=== PATIENT | female | born 1955 | race Caucasian/White ===

== ENCOUNTER 2020-05-11 12:18 | Outpatient (REF) | payer MEDICARE, OTHER, SELFPAY ==
[2020-05-11 13:15] LABS: MANUAL DIFF FLAG NO
[2020-05-11 13:18] LABS: Basophils Percent Auto 0.4 % (0-2); Eosinophils Absolute Auto 0.1 X10*3/uL (0.0-0.4); Eosinophils Percent Auto 1.1 % (0-4); Hematocrit 39.2 % (37-47); Hemoglobin 12.7 g/dl (12.0-16.0); Imm Gran Abs Auto 0.01 X10*3/uL (0.00-0.03); Imm Gran Pct Auto 0.2 % (0.0-0.4); Lymphocytes Absolute Auto 0.8 X10*3/uL (1.2-4.9); Lymphocytes Percent Auto 16.6 % (20-40); Mean Corpuscular HGB Conc 32.4 g/dl (31.0-35.0); Mean Corpuscular Volume 98.7 fL (80-98); Monocytes Absolute Auto 0.6 X10*3/uL (0.1-1.2); Monocytes Percent Auto 11.6 % (2-11); Neutrophils Absolute Auto 3.3 X10*3/uL (2.0-8.3); Neutrophils Percent Auto 70.1 % (45-73); Platelet Count 368 X10*3/uL (160-400); Red Blood Count 3.97 X10*6/uL (4.20-5.50); Red Cell Distribution Width 14.5 % (11.0-16.0); White Blood Count 4.8 X10*3/uL (4.8-10.8)
[2020-05-11 13:42] LABS: Alanine Aminotransferase 17 U/L (0-31); Albumin Level 3.8 g/dL (3.5-5.0); Alkaline Phosphatase 83 U/L (39-117); Aspartate Amino Transferase 22 U/L (5-31); Bilirubin Direct < 0.2 mg/dL (0.0-0.5); Bilirubin Total 0.3 mg/dL (0.0-1.0); Total Protein 6.2 g/dL (6.5-8.0)
== END 2020-05-11 12:19 | disposition home or self-care (01) ==
LOC: HO.LAB 12:18
PROVIDERS: PCP Internal Medicine; Visit Provider Internal Medicine
DX: K50.012 Crohn's disease of small intestine with intestinal obstruction (principal)
CPT/HCPCS: 36415; 80076; 85025

== ENCOUNTER 2020-06-08 15:39 | Outpatient (REF) | payer MEDICARE, OTHER, SELFPAY ==
[2020-06-08 16:04] LABS: MANUAL DIFF FLAG NO
[2020-06-08 16:10] LABS: Basophils Percent Auto 0.6 % (0-2); Eosinophils Absolute Auto 0.1 X10*3/uL (0.0-0.4); Eosinophils Percent Auto 2.4 % (0-4); Hematocrit 41.1 % (37-47); Hemoglobin 13.4 g/dl (12.0-16.0); Imm Gran Abs Auto 0.02 X10*3/uL (0.00-0.03); Imm Gran Pct Auto 0.4 % (0.0-0.4); Lymphocytes Percent Auto 18.9 % (20-40); Mean Corpuscular HGB Conc 32.6 g/dl (31.0-35.0); Mean Corpuscular Volume 98.1 fL (80-98); Mean Platelet Volume 8.6 fL (9.4-12.3); Monocytes Absolute Auto 0.6 X10*3/uL (0.1-1.2); Monocytes Percent Auto 11.4 % (2-11); Neutrophils Absolute Auto 3.3 X10*3/uL (2.0-8.3); Neutrophils Percent Auto 66.3 % (45-73); Platelet Count 310 X10*3/uL (160-400); Red Blood Count 4.19 X10*6/uL (4.20-5.50); Red Cell Distribution Width 13.3 % (11.0-16.0)
[2020-06-08 16:32] LABS: Alanine Aminotransferase 21 U/L (0-31); Albumin Level 3.8 g/dL (3.5-5.0); Alkaline Phosphatase 80 U/L (39-117); Aspartate Amino Transferase 25 U/L (5-31); Bilirubin Direct < 0.2 mg/dL (0.0-0.5); Bilirubin Total 0.4 mg/dL (0.0-1.0); Total Protein 6.4 g/dL (6.5-8.0)
== END 2020-06-08 15:40 | disposition home or self-care (01) ==
LOC: HO.LABR 15:39
PROVIDERS: PCP Internal Medicine; Visit Provider Internal Medicine
DX: K50.012 Crohn's disease of small intestine with intestinal obstruction (principal)
CPT/HCPCS: 36415; 80076; 85025

== ENCOUNTER 2020-07-06 15:27 | Outpatient (REF) | payer MEDICARE, OTHER, SELFPAY ==
[2020-07-06 17:08] LABS: MANUAL DIFF FLAG NO
[2020-07-06 17:16] LABS: Basophils Percent Auto 0.4 % (0-2); Eosinophils Absolute Auto 0.1 X10*3/uL (0.0-0.4); Hematocrit 41.3 % (37-47); Hemoglobin 13.9 g/dl (12.0-16.0); Imm Gran Abs Auto 0.01 X10*3/uL (0.00-0.03); Imm Gran Pct Auto 0.2 % (0.0-0.4); Lymphocytes Absolute Auto 0.9 X10*3/uL (1.2-4.9); Lymphocytes Percent Auto 19.2 % (20-40); Mean Corpuscular HGB Conc 33.7 g/dl (31.0-35.0); Mean Corpuscular Hemoglobin 32.8 pg (27.0-33.0); Mean Corpuscular Volume 97.4 fL (80-98); Mean Platelet Volume 9.4 fL (9.4-12.3); Monocytes Absolute Auto 0.6 X10*3/uL (0.1-1.2); Neutrophils Percent Auto 66.2 % (45-73); Platelet Count 310 X10*3/uL (160-400); Red Blood Count 4.24 X10*6/uL (4.20-5.50); Red Cell Distribution Width 12.8 % (11.0-16.0); White Blood Count 4.6 X10*3/uL (4.8-10.8)
[2020-07-06 17:56] LABS: Alanine Aminotransferase 22 U/L (0-31); Albumin Level 3.9 g/dL (3.5-5.0); Alkaline Phosphatase 89 U/L (39-117); Aspartate Amino Transferase 24 U/L (5-31); Bilirubin Direct < 0.2 mg/dL (0.0-0.5); Bilirubin Total 0.3 mg/dL (0.0-1.0); Total Protein 6.4 g/dL (6.5-8.0)
== END 2020-07-06 15:28 | disposition home or self-care (01) ==
LOC: HO.LABR 15:27
PROVIDERS: PCP Internal Medicine; Visit Provider Internal Medicine
DX: K50.012 Crohn's disease of small intestine with intestinal obstruction (principal)
CPT/HCPCS: 36415; 80076; 85025

== ENCOUNTER 2020-08-03 12:42 | Outpatient (REF) | payer MEDICARE, OTHER, SELFPAY ==
[2020-08-03 13:06] LABS: MANUAL DIFF FLAG NO
[2020-08-03 13:16] LABS: Basophils Percent Auto 0.6 % (0-2); Eosinophils Absolute Auto 0.1 X10*3/uL (0.0-0.4); Eosinophils Percent Auto 1.4 % (0-4); Hematocrit 43.2 % (37-47); Hemoglobin 14.1 g/dl (12.0-16.0); Imm Gran Abs Auto 0.02 X10*3/uL (0.00-0.03); Imm Gran Pct Auto 0.4 % (0.0-0.4); Lymphocytes Absolute Auto 0.8 X10*3/uL (1.2-4.9); Lymphocytes Percent Auto 16.5 % (20-40); Mean Corpuscular HGB Conc 32.6 g/dl (31.0-35.0); Mean Corpuscular Hemoglobin 31.7 pg (27.0-33.0); Mean Corpuscular Volume 97.1 fL (80-98); Mean Platelet Volume 9.1 fL (9.4-12.3); Monocytes Absolute Auto 0.6 X10*3/uL (0.1-1.2); Monocytes Percent Auto 11.2 % (2-11); Neutrophils Absolute Auto 3.4 X10*3/uL (2.0-8.3); Neutrophils Percent Auto 69.9 % (45-73); Platelet Count 312 X10*3/uL (160-400); Red Blood Count 4.45 X10*6/uL (4.20-5.50); Red Cell Distribution Width 12.8 % (11.0-16.0); White Blood Count 4.9 X10*3/uL (4.8-10.8)
[2020-08-03 13:41] LABS: Alanine Aminotransferase 21 U/L (0-31); Albumin Level 3.8 g/dL (3.5-5.0); Alkaline Phosphatase 85 U/L (39-117); Aspartate Amino Transferase 20 U/L (5-31); Bilirubin Direct < 0.2 mg/dL (0.0-0.5); Bilirubin Total 0.2 mg/dL (0.0-1.0); Total Protein 6.2 g/dL (6.5-8.0)
== END 2020-08-03 12:43 | disposition home or self-care (01) ==
LOC: HO.LABR 12:42
PROVIDERS: PCP Internal Medicine; Visit Provider Internal Medicine
DX: K50.012 Crohn's disease of small intestine with intestinal obstruction (principal)
CPT/HCPCS: 36415; 80076; 85025

== ENCOUNTER 2020-09-04 10:32 | Outpatient (REF) | payer MEDICARE, OTHER, SELFPAY ==
[2020-09-04 11:40] LABS: MANUAL DIFF FLAG NO
[2020-09-04 11:43] LABS: Basophils Percent Auto 0.4 % (0-2); Eosinophils Absolute Auto 0.1 X10*3/uL (0.0-0.4); Eosinophils Percent Auto 1.2 % (0-4); Hematocrit 42.2 % (37-47); Imm Gran Abs Auto 0.01 X10*3/uL (0.00-0.03); Imm Gran Pct Auto 0.2 % (0.0-0.4); Lymphocytes Absolute Auto 0.8 X10*3/uL (1.2-4.9); Lymphocytes Percent Auto 16.8 % (20-40); Mean Corpuscular HGB Conc 33.2 g/dl (31.0-35.0); Mean Corpuscular Hemoglobin 32.1 pg (27.0-33.0); Mean Corpuscular Volume 96.8 fL (80-98); Monocytes Absolute Auto 0.4 X10*3/uL (0.1-1.2); Monocytes Percent Auto 8.9 % (2-11); Neutrophils Absolute Auto 3.6 X10*3/uL (2.0-8.3); Neutrophils Percent Auto 72.5 % (45-73); Platelet Count 269 X10*3/uL (160-400); Red Blood Count 4.36 X10*6/uL (4.20-5.50); Red Cell Distribution Width 12.6 % (11.0-16.0); White Blood Count 4.9 X10*3/uL (4.8-10.8)
[2020-09-04 12:22] LABS: Alanine Aminotransferase 29 U/L (0-31); Albumin Level 3.8 g/dL (3.5-5.0); Alkaline Phosphatase 88 U/L (39-117); Aspartate Amino Transferase 27 U/L (5-31); Bilirubin Direct < 0.2 mg/dL (0.0-0.5); Bilirubin Total 0.5 mg/dL (0.0-1.0); Total Protein 6.4 g/dL (6.5-8.0)
== END 2020-09-04 10:33 | disposition home or self-care (01) ==
LOC: HO.LABR 10:32
PROVIDERS: PCP Internal Medicine; Visit Provider Internal Medicine
DX: K50.012 Crohn's disease of small intestine with intestinal obstruction (principal)
CPT/HCPCS: 36415; 80076; 85025

== ENCOUNTER 2020-10-01 16:14 | Outpatient (REF) | payer MEDICARE, OTHER, SELFPAY ==
[2020-10-01 16:33] LABS: MANUAL DIFF FLAG NO
[2020-10-01 16:39] LABS: Basophils Percent Auto 0.7 % (0-2); Eosinophils Absolute Auto 0.1 X10*3/uL (0.0-0.4); Eosinophils Percent Auto 1.1 % (0-4); Hematocrit 38.5 % (37-47); Hemoglobin 13.1 g/dl (12.0-16.0); Imm Gran Abs Auto 0.01 X10*3/uL (0.00-0.03); Imm Gran Pct Auto 0.2 % (0.0-0.4); Mean Corpuscular Hemoglobin 32.3 pg (27.0-33.0); Mean Corpuscular Volume 94.8 fL (80-98); Mean Platelet Volume 9.2 fL (9.4-12.3); Monocytes Absolute Auto 0.5 X10*3/uL (0.1-1.2); Monocytes Percent Auto 11.1 % (2-11); Neutrophils Absolute Auto 2.9 X10*3/uL (2.0-8.3); Neutrophils Percent Auto 64.9 % (45-73); Platelet Count 245 X10*3/uL (160-400); Red Blood Count 4.06 X10*6/uL (4.20-5.50); Red Cell Distribution Width 13.4 % (11.0-16.0); White Blood Count 4.5 X10*3/uL (4.8-10.8)
[2020-10-01 17:09] LABS: Alanine Aminotransferase 53 U/L (0-31); Albumin Level 3.9 g/dL (3.5-5.0); Alkaline Phosphatase 102 U/L (39-117); Aspartate Amino Transferase 38 U/L (5-31); Bilirubin Direct 0.2 mg/dL (0.0-0.5); Bilirubin Total 0.5 mg/dL (0.0-1.0); Total Protein 6.3 g/dL (6.5-8.0)
== END 2020-10-01 16:15 | disposition home or self-care (01) ==
LOC: HO.LAB 16:14
PROVIDERS: PCP Internal Medicine; Visit Provider Internal Medicine
DX: K50.012 Crohn's disease of small intestine with intestinal obstruction (principal)
CPT/HCPCS: 36415; 80076; 85025

== ENCOUNTER 2020-10-09 15:30 | Outpatient (RCR) | payer MEDICARE, OTHER, SELFPAY | END 2020-11-17 15:07 | disposition other institution (70) | LOC: HO.OT 15:30 | PROVIDERS: PCP Internal Medicine; Visit Provider Orthopaedic Surgery | DX: M65.341 Trigger finger, right ring finger (principal) | CPT/HCPCS: 97035; 97110; 97165; 97760 ==

== ENCOUNTER 2020-11-02 15:20 | Outpatient (REF) | payer MEDICARE, OTHER, SELFPAY ==
[2020-11-02 15:57] LABS: MANUAL DIFF FLAG NO
[2020-11-02 16:01] LABS: Basophils Percent Auto 0.5 % (0-2); Eosinophils Absolute Auto 0.1 X10*3/uL (0.0-0.4); Eosinophils Percent Auto 1.4 % (0-4); Hematocrit 40.9 % (37-47); Hemoglobin 13.2 g/dl (12.0-16.0); Imm Gran Abs Auto 0.01 X10*3/uL (0.00-0.03); Imm Gran Pct Auto 0.2 % (0.0-0.4); Lymphocytes Absolute Auto 0.9 X10*3/uL (1.2-4.9); Lymphocytes Percent Auto 22.2 % (20-40); Mean Corpuscular HGB Conc 32.3 g/dl (31.0-35.0); Mean Corpuscular Hemoglobin 32.2 pg (27.0-33.0); Mean Corpuscular Volume 99.8 fL (80-98); Mean Platelet Volume 11.6 fL (9.4-12.3); Monocytes Absolute Auto 0.4 X10*3/uL (0.1-1.2); Monocytes Percent Auto 8.5 % (2-11); Neutrophils Absolute Auto 2.9 X10*3/uL (2.0-8.3); Neutrophils Percent Auto 67.2 % (45-73); Platelet Count 143 X10*3/uL (160-400); White Blood Count 4.2 X10*3/uL (4.8-10.8)
[2020-11-02 16:42] LABS: Alanine Aminotransferase 59 U/L (0-31); Albumin Level 3.8 g/dL (3.5-5.0); Alkaline Phosphatase 114 U/L (39-117); Aspartate Amino Transferase 42 U/L (5-31); Bilirubin Direct < 0.2 mg/dL (0.0-0.5); Bilirubin Total 0.6 mg/dL (0.0-1.0); Total Protein 6.4 g/dL (6.5-8.0)
== END 2020-11-02 15:21 | disposition home or self-care (01) ==
LOC: HO.LABR 15:20
PROVIDERS: PCP Internal Medicine; Visit Provider Internal Medicine
DX: K50.012 Crohn's disease of small intestine with intestinal obstruction (principal)
CPT/HCPCS: 36415; 80076; 85025

== ENCOUNTER 2020-12-02 15:34 | Outpatient (REF) | payer MEDICARE, OTHER, SELFPAY ==
[2020-12-02 16:04] LABS: MANUAL DIFF FLAG NO
[2020-12-02 16:07] LABS: Basophils Percent Auto 0.5 % (0-2); Eosinophils Absolute Auto 0.1 X10*3/uL (0.0-0.4); Eosinophils Percent Auto 1.5 % (0-4); Hematocrit 37.1 % (37-47); Hemoglobin 12.7 g/dl (12.0-16.0); Imm Gran Abs Auto 0.02 X10*3/uL (0.00-0.03); Imm Gran Pct Auto 0.5 % (0.0-0.4); Lymphocytes Absolute Auto 0.9 X10*3/uL (1.2-4.9); Mean Corpuscular HGB Conc 34.2 g/dl (31.0-35.0); Mean Corpuscular Hemoglobin 33.9 pg (27.0-33.0); Mean Corpuscular Volume 98.9 fL (80-98); Mean Platelet Volume 9.8 fL (9.4-12.3); Monocytes Absolute Auto 0.3 X10*3/uL (0.1-1.2); Monocytes Percent Auto 6.6 % (2-11); Neutrophils Absolute Auto 2.6 X10*3/uL (2.0-8.3); Neutrophils Percent Auto 66.9 % (45-73); Platelet Count 193 X10*3/uL (160-400); Red Blood Count 3.75 X10*6/uL (4.20-5.50); Red Cell Distribution Width 14.8 % (11.0-16.0); White Blood Count 3.9 X10*3/uL (4.8-10.8)
[2020-12-02 16:31] LABS: Alanine Aminotransferase 60 U/L (0-31); Albumin Level 3.9 g/dL (3.5-5.0); Alkaline Phosphatase 117 U/L (39-117); Aspartate Amino Transferase 47 U/L (5-31); Bilirubin Direct 0.2 mg/dL (0.0-0.5); Bilirubin Total 0.6 mg/dL (0.0-1.0)
== END 2020-12-02 15:35 | disposition home or self-care (01) ==
LOC: HO.LABR 15:34
PROVIDERS: PCP Internal Medicine; Visit Provider Internal Medicine
DX: K50.012 Crohn's disease of small intestine with intestinal obstruction (principal)
CPT/HCPCS: 36415; 80076; 85025

== ENCOUNTER 2021-01-05 14:49 | Outpatient (REF) | payer MEDICARE, OTHER, SELFPAY ==
[2021-01-05 15:07] LABS: MANUAL DIFF FLAG NO
[2021-01-05 15:15] LABS: Basophils Percent Auto 0.6 % (0-2); Eosinophils Percent Auto 0.9 % (0-4); Hematocrit 35.5 % (37-47); Hemoglobin 12.4 g/dl (12.0-16.0); Imm Gran Abs Auto 0.01 X10*3/uL (0.00-0.03); Imm Gran Pct Auto 0.3 % (0.0-0.4); Lymphocytes Absolute Auto 0.8 X10*3/uL (1.2-4.9); Lymphocytes Percent Auto 22.3 % (20-40); Mean Corpuscular HGB Conc 34.9 g/dl (31.0-35.0); Mean Corpuscular Hemoglobin 35.6 pg (27.0-33.0); Mean Platelet Volume 9.3 fL (9.4-12.3); Monocytes Absolute Auto 0.3 X10*3/uL (0.1-1.2); Monocytes Percent Auto 7.5 % (2-11); Neutrophils Absolute Auto 2.4 X10*3/uL (2.0-8.3); Neutrophils Percent Auto 68.4 % (45-73); Platelet Count 201 X10*3/uL (160-400); Red Blood Count 3.48 X10*6/uL (4.20-5.50); Red Cell Distribution Width 15.5 % (11.0-16.0); White Blood Count 3.5 X10*3/uL (4.8-10.8)
[2021-01-05 15:32] LABS: Alanine Aminotransferase 51 U/L (0-31); Albumin Level 3.8 g/dL (3.5-5.0); Alkaline Phosphatase 109 U/L (39-117); Aspartate Amino Transferase 41 U/L (5-31); Bilirubin Direct 0.2 mg/dL (0.0-0.5); Bilirubin Total 0.6 mg/dL (0.0-1.0); Total Protein 5.9 g/dL (6.5-8.0)
== END 2021-01-05 14:50 | disposition home or self-care (01) ==
LOC: HO.LABR 14:49
PROVIDERS: PCP Internal Medicine; Visit Provider Internal Medicine
DX: K50.012 Crohn's disease of small intestine with intestinal obstruction (principal)
CPT/HCPCS: 36415; 80076; 85025

== ENCOUNTER 2021-02-01 14:25 | Outpatient (REF) | payer MEDICARE, OTHER, SELFPAY ==
[2021-02-01 15:28] LABS: MANUAL DIFF FLAG NO
[2021-02-01 15:36] LABS: Basophils Percent Auto 0.5 % (0-2); Hematocrit 37.3 % (37-47); Hemoglobin 12.8 g/dl (12.0-16.0); Imm Gran Abs Auto 0.01 X10*3/uL (0.00-0.03); Imm Gran Pct Auto 0.3 % (0.0-0.4); Lymphocytes Absolute Auto 0.6 X10*3/uL (1.2-4.9); Lymphocytes Percent Auto 14.6 % (20-40); Mean Corpuscular HGB Conc 34.3 g/dl (31.0-35.0); Mean Corpuscular Hemoglobin 35.9 pg (27.0-33.0); Mean Corpuscular Volume 104.5 fL (80-98); Mean Platelet Volume 9.7 fL (9.4-12.3); Monocytes Absolute Auto 0.4 X10*3/uL (0.1-1.2); Monocytes Percent Auto 10.9 % (2-11); Neutrophils Absolute Auto 2.9 X10*3/uL (2.0-8.3); Neutrophils Percent Auto 72.7 % (45-73); Platelet Count 233 X10*3/uL (160-400); Red Blood Count 3.57 X10*6/uL (4.20-5.50); Red Cell Distribution Width 15.1 % (11.0-16.0)
[2021-02-01 15:53] LABS: Alanine Aminotransferase 28 U/L (0-31); Albumin Level 3.9 g/dL (3.5-5.0); Alkaline Phosphatase 106 U/L (39-117); Aspartate Amino Transferase 34 U/L (5-31); Bilirubin Direct 0.2 mg/dL (0.0-0.5); Bilirubin Total 0.4 mg/dL (0.0-1.0); Total Protein 6.1 g/dL (6.5-8.0)
== END 2021-02-01 14:26 | disposition home or self-care (01) ==
LOC: HO.LABR 14:25
PROVIDERS: PCP Internal Medicine; Visit Provider Internal Medicine
DX: K50.012 Crohn's disease of small intestine with intestinal obstruction (principal)
CPT/HCPCS: 36415; 80076; 85025

== ENCOUNTER 2021-03-08 15:09 | Outpatient (REF) | payer MEDICARE, OTHER, SELFPAY ==
[2021-03-08 15:43] LABS: MANUAL DIFF FLAG NO
[2021-03-08 15:47] LABS: Basophils Percent Auto 0.5 % (0-2); Eosinophils Absolute Auto 0.1 X10*3/uL (0.0-0.4); Imm Gran Abs Auto 0.02 X10*3/uL (0.00-0.03); Imm Gran Pct Auto 0.5 % (0.0-0.4); Lymphocytes Absolute Auto 0.7 X10*3/uL (1.2-4.9); Lymphocytes Percent Auto 17.9 % (20-40); Mean Corpuscular HGB Conc 34.1 g/dl (31.0-35.0); Mean Corpuscular Hemoglobin 36.2 pg (27.0-33.0); Mean Corpuscular Volume 105.9 fL (80-98); Mean Platelet Volume 9.3 fL (9.4-12.3); Monocytes Absolute Auto 0.4 X10*3/uL (0.1-1.2); Monocytes Percent Auto 9.4 % (2-11); Neutrophils Absolute Auto 2.7 X10*3/uL (2.0-8.3); Neutrophils Percent Auto 69.7 % (45-73); Platelet Count 220 X10*3/uL (160-400); Red Blood Count 3.87 X10*6/uL (4.20-5.50); Red Cell Distribution Width 13.6 % (11.0-16.0); White Blood Count 3.9 X10*3/uL (4.8-10.8)
[2021-03-08 16:15] LABS: Alanine Aminotransferase 55 U/L (0-31); Albumin Level 4.2 g/dL (3.5-5.0); Alkaline Phosphatase 103 U/L (39-117); Aspartate Amino Transferase 50 U/L (5-31); Bilirubin Direct 0.2 mg/dL (0.0-0.5); Bilirubin Total 0.5 mg/dL (0.0-1.0); Total Protein 6.7 g/dL (6.5-8.0)
== END 2021-03-08 15:10 | disposition home or self-care (01) ==
LOC: HO.LABR 15:09
PROVIDERS: PCP Internal Medicine; Visit Provider Internal Medicine
DX: K50.012 Crohn's disease of small intestine with intestinal obstruction (principal)
CPT/HCPCS: 36415; 80076; 85025

== ENCOUNTER 2021-04-06 15:27 | Outpatient (REF) | payer MEDICARE, OTHER, SELFPAY ==
[2021-04-06 15:57] LABS: MANUAL DIFF FLAG NO
[2021-04-06 16:00] LABS: Basophils Percent Auto 0.7 % (0-2); Eosinophils Absolute Auto 0.1 X10*3/uL (0.0-0.4); Eosinophils Percent Auto 2.4 % (0-4); Hematocrit 35.5 % (37-47); Hemoglobin 12.3 g/dl (12.0-16.0); Imm Gran Abs Auto 0.01 X10*3/uL (0.00-0.03); Imm Gran Pct Auto 0.3 % (0.0-0.4); Lymphocytes Absolute Auto 0.7 X10*3/uL (1.2-4.9); Mean Corpuscular HGB Conc 34.6 g/dl (31.0-35.0); Mean Corpuscular Hemoglobin 36.7 pg (27.0-33.0); Mean Platelet Volume 9.3 fL (9.4-12.3); Monocytes Absolute Auto 0.3 X10*3/uL (0.1-1.2); Monocytes Percent Auto 8.4 % (2-11); Neutrophils Percent Auto 66.2 % (45-73); Platelet Count 222 X10*3/uL (160-400); Red Blood Count 3.35 X10*6/uL (4.20-5.50); Red Cell Distribution Width 13.2 % (11.0-16.0)
[2021-04-06 16:19] LABS: Alanine Aminotransferase 52 U/L (0-31); Alkaline Phosphatase 102 U/L (39-117); Aspartate Amino Transferase 38 U/L (5-31); Bilirubin Direct 0.2 mg/dL (0.0-0.5); Bilirubin Total 0.5 mg/dL (0.0-1.0); Total Protein 5.8 g/dL (6.5-8.0)
[2021-04-06 16:32] LABS: Albumin Level 3.8 g/dL (3.5-5.0)
== END 2021-04-06 15:28 | disposition home or self-care (01) ==
LOC: HO.LABR 15:27
PROVIDERS: PCP Internal Medicine; Visit Provider Internal Medicine
DX: K50.012 Crohn's disease of small intestine with intestinal obstruction (principal)
CPT/HCPCS: 36415; 80076; 85025

== ENCOUNTER 2021-04-08 16:00 | Outpatient (RCR) | payer MEDICARE, OTHER, SELFPAY | END 2021-05-07 11:06 | disposition home or self-care (01) | LOC: HO.PT 16:00 | PROVIDERS: PCP Internal Medicine; Visit Provider Internal Medicine | DX: M77.8 Other enthesopathies, not elsewhere classified (principal) | CPT/HCPCS: 97110; 97112; 97140; 97150; 97161 ==

== ENCOUNTER 2021-05-01 07:47 | Outpatient (REF) | payer MEDICARE, OTHER, SELFPAY ==
[2021-05-01 08:30] LABS: Hematocrit 38.8 % (37-47); Hemoglobin 13.6 g/dl (12.0-16.0); Mean Corpuscular HGB Conc 35.1 g/dl (31.0-35.0); Mean Corpuscular Hemoglobin 37.3 pg (27.0-33.0); Mean Corpuscular Volume 106.3 fL (80-98); Mean Platelet Volume 9.5 fL (9.4-12.3); Platelet Count 194 X10*3/uL (160-400); Red Blood Count 3.65 X10*6/uL (4.20-5.50); Red Cell Distribution Width 13.4 % (11.0-16.0); White Blood Count 3.6 X10*3/uL (4.8-10.8)
[2021-05-01 09:03] LABS: Alanine Aminotransferase 26 U/L (0-31); Albumin Level 3.9 g/dL (3.5-5.0); Alkaline Phosphatase 100 U/L (39-117); Anion Gap 13 (12-20); Aspartate Amino Transferase 24 U/L (5-31); Bilirubin Total 0.5 mg/dL (0.0-1.0); Blood Urea Nitrogen 16 mg/dL (9-16); Calcium 9.3 mg/dL (8.4-10.2); Carbon Dioxide 28 mmol/L (22-29); Chloride 106 mmol/L (96-108); Cholesterol 175 mg/dL; Estimated Glomerular Filt Rate > 60; Glucose Fasting 100 mg/dL (60-99); HDL Cholesterol 32 mg/dL; LDL Cholesterol Calculated 116 mg/dl; Potassium 4.1 mmol/L (3.3-5.1); Sodium 143 mmol/L (135-145); Total Protein 6.2 g/dL (6.5-8.0); Triglycerides 137 mg/dL
[2021-05-01 09:16] LABS: Creatinine Urine 53.49 mg/dL; Microalbum/Creatinine Ratio Ur 186.9 ug/mg cr
[2021-05-01 09:24] LABS: Vitamin D 25-OH Total 18.8 ng/mL (>30)
== END 2021-05-01 07:48 | disposition home or self-care (01) ==
LOC: HO.LAB 07:47
PROVIDERS: PCP Internal Medicine; Visit Provider Internal Medicine
DX: Z00.00 Encounter for general adult medical examination without abnormal findings (principal); I10 Essential (primary) hypertension; E55.9 Vitamin D deficiency, unspecified; R53.83 Other fatigue
CPT/HCPCS: 36415; 80053; 80061; 82043; 82306; 84443; 85027

== ENCOUNTER 2021-05-06 16:20 | Outpatient (REF) | payer MEDICARE, OTHER, SELFPAY ==
[2021-05-06 17:36] LABS: Basophils Percent Auto 0.8 % (0-2); Eosinophils Absolute Auto 0.1 X10*3/uL (0.0-0.4); Eosinophils Percent Auto 1.9 % (0-4); Hematocrit 38.5 % (37-47); Hemoglobin 13.1 g/dl (12.0-16.0); Imm Gran Abs Auto 0.01 X10*3/uL (0.00-0.03); Imm Gran Pct Auto 0.3 % (0.0-0.4); Lymphocytes Absolute Auto 0.7 X10*3/uL (1.2-4.9); Lymphocytes Percent Auto 17.3 % (20-40); MANUAL DIFF FLAG NO; Mean Corpuscular Volume 105.8 fL (80-98); Mean Platelet Volume 9.8 fL (9.4-12.3); Monocytes Absolute Auto 0.4 X10*3/uL (0.1-1.2); Monocytes Percent Auto 9.8 % (2-11); Neutrophils Absolute Auto 2.6 X10*3/uL (2.0-8.3); Neutrophils Percent Auto 69.9 % (45-73); Platelet Count 197 X10*3/uL (160-400); Red Blood Count 3.64 X10*6/uL (4.20-5.50); Red Cell Distribution Width 13.4 % (11.0-16.0); White Blood Count 3.8 X10*3/uL (4.8-10.8)
[2021-05-06 19:39] LABS: Alanine Aminotransferase 26 U/L (0-31); Albumin Level 3.9 g/dL (3.5-5.0); Alkaline Phosphatase 98 U/L (39-117); Aspartate Amino Transferase 25 U/L (5-31); Bilirubin Direct < 0.2 mg/dL (0.0-0.5); Bilirubin Total 0.4 mg/dL (0.0-1.0); Total Protein 6.2 g/dL (6.5-8.0)
== END 2021-05-06 16:21 | disposition home or self-care (01) ==
LOC: HO.LABR 16:20
PROVIDERS: PCP Internal Medicine; Visit Provider Internal Medicine
DX: K50.012 Crohn's disease of small intestine with intestinal obstruction (principal); Z79.899 Other long term (current) drug therapy
CPT/HCPCS: 36415; 80076; 80299; 85025

== ENCOUNTER 2021-06-04 14:38 | Outpatient (REF) | payer MEDICARE, OTHER, SELFPAY ==
[2021-06-04 14:56] LABS: MANUAL DIFF FLAG NO
[2021-06-04 15:16] LABS: Basophils Percent Auto 0.8 % (0-2); Eosinophils Percent Auto 0.8 % (0-4); Hematocrit 38.8 % (37-47); Hemoglobin 13.3 g/dl (12.0-16.0); Imm Gran Abs Auto 0.01 X10*3/uL (0.00-0.03); Imm Gran Pct Auto 0.3 % (0.0-0.4); Lymphocytes Absolute Auto 0.7 X10*3/uL (1.2-4.9); Lymphocytes Percent Auto 18.5 % (20-40); Mean Corpuscular HGB Conc 34.3 g/dl (31.0-35.0); Mean Corpuscular Volume 105.1 fL (80-98); Mean Platelet Volume 9.2 fL (9.4-12.3); Monocytes Absolute Auto 0.3 X10*3/uL (0.1-1.2); Neutrophils Absolute Auto 2.9 X10*3/uL (2.0-8.3); Neutrophils Percent Auto 71.6 % (45-73); Platelet Count 206 X10*3/uL (160-400); Red Blood Count 3.69 X10*6/uL (4.20-5.50); Red Cell Distribution Width 12.6 % (11.0-16.0)
[2021-06-04 15:35] LABS: Alanine Aminotransferase 14 U/L (0-31); Albumin Level 3.8 g/dL (3.5-5.0); Alkaline Phosphatase 93 U/L (39-117); Aspartate Amino Transferase 21 U/L (5-31); Bilirubin Direct < 0.2 mg/dL (0.0-0.5); Bilirubin Total 0.3 mg/dL (0.0-1.0)
== END 2021-06-04 14:39 | disposition home or self-care (01) ==
LOC: HO.LABR 14:38
PROVIDERS: PCP Internal Medicine; Visit Provider Internal Medicine
DX: K50.012 Crohn's disease of small intestine with intestinal obstruction (principal); Z79.899 Other long term (current) drug therapy
CPT/HCPCS: 36415; 80076; 85025

== ENCOUNTER 2021-07-05 14:31 | Outpatient (REF) | payer MEDICARE, OTHER, SELFPAY ==
[2021-07-05 14:40] LABS: MANUAL DIFF FLAG NO
[2021-07-05 15:06] LABS: Basophils Percent Auto 0.5 % (0-2); Eosinophils Absolute Auto 0.1 X10*3/uL (0.0-0.4); Eosinophils Percent Auto 1.9 % (0-4); Hemoglobin 13.8 g/dl (12.0-16.0); Imm Gran Abs Auto 0.01 X10*3/uL (0.00-0.03); Imm Gran Pct Auto 0.3 % (0.0-0.4); Lymphocytes Absolute Auto 0.7 X10*3/uL (1.2-4.9); Lymphocytes Percent Auto 19.1 % (20-40); Mean Corpuscular HGB Conc 33.7 g/dl (31.0-35.0); Mean Corpuscular Hemoglobin 34.7 pg (27.0-33.0); Mean Platelet Volume 8.9 fL (9.4-12.3); Monocytes Absolute Auto 0.4 X10*3/uL (0.1-1.2); Monocytes Percent Auto 9.4 % (2-11); Neutrophils Absolute Auto 2.6 x10*3/uL (2.0-8.3); Neutrophils Percent Auto 68.8 % (45-73); Platelet Count 225 X10*3/uL (160-400); Red Blood Count 3.98 X10*6/uL (4.20-5.50); Red Cell Distribution Width 12.5 % (11.0-16.0); White Blood Count 3.7 X10*3/uL (4.8-10.8)
[2021-07-05 15:27] LABS: Alanine Aminotransferase 16 U/L (0-31); Albumin Level 3.9 g/dL (3.5-5.0); Alkaline Phosphatase 85 U/L (39-117); Aspartate Amino Transferase 19 U/L (5-31); Bilirubin Direct < 0.2 mg/dL (0.0-0.5); Bilirubin Total 0.4 mg/dL (0.0-1.0); Total Protein 6.3 g/dL (6.5-8.0)
== END 2021-07-05 14:32 | disposition home or self-care (01) ==
LOC: HO.LABR 14:31
PROVIDERS: PCP Internal Medicine; Visit Provider Internal Medicine
DX: K50.012 Crohn's disease of small intestine with intestinal obstruction (principal); Z79.899 Other long term (current) drug therapy
CPT/HCPCS: 36415; 80076; 85025

== ENCOUNTER 2021-08-09 14:24 | Outpatient (REF) | payer MEDICARE, OTHER, SELFPAY ==
[2021-08-09 14:46] LABS: MANUAL DIFF FLAG NO
[2021-08-09 15:12] LABS: Basophils Percent Auto 0.4 % (0-2); Eosinophils Absolute Auto 0.1 X10*3/uL (0.0-0.4); Eosinophils Percent Auto 3.2 % (0-4); Hematocrit 37.3 % (37.0-47.0); Hemoglobin 12.6 g/dl (12.0-16.0); Imm Gran Abs Auto 0.01 X10*3/uL (0.00-0.03); Imm Gran Pct Auto 0.4 % (0.0-0.4); Lymphocytes Absolute Auto 0.6 X10*3/uL (1.2-4.9); Lymphocytes Percent Auto 23.9 % (20-40); Mean Corpuscular HGB Conc 33.8 g/dl (31.0-35.0); Mean Corpuscular Hemoglobin 35.3 pg (27.0-33.0); Mean Corpuscular Volume 104.5 fL (80.0-98.0); Mean Platelet Volume 8.9 fL (9.4-12.3); Monocytes Absolute Auto 0.1 X10*3/uL (0.1-1.2); Monocytes Percent Auto 4.4 % (2-11); Neutrophils Absolute Auto 1.7 x10*3/uL (2.0-8.3); Neutrophils Percent Auto 67.7 % (45-73); Platelet Count 209 X10*3/uL (160-400); Red Blood Count 3.57 X10*6/uL (4.20-5.50); Red Cell Distribution Width 14.2 % (11.0-16.0)
[2021-08-09 15:13] LABS: White Blood Count 2.5 X10*3/uL (4.8-10.8)
[2021-08-09 15:28] LABS: Alanine Aminotransferase 38 U/L (0-31); Albumin Level 3.7 g/dL (3.5-5.0); Alkaline Phosphatase 102 U/L (39-117); Aspartate Amino Transferase 25 U/L (5-31); Bilirubin Direct 0.2 mg/dL (0.0-0.5); Bilirubin Total 0.2 mg/dL (0.0-1.0); Total Protein 6.2 g/dL (6.5-8.0)
== END 2021-08-09 14:25 | disposition home or self-care (01) ==
LOC: HO.LABR 14:24
PROVIDERS: PCP Internal Medicine; Visit Provider Internal Medicine
DX: K50.012 Crohn's disease of small intestine with intestinal obstruction (principal); Z51.81 Encounter for therapeutic drug level monitoring
CPT/HCPCS: 36415; 80076; 85025

== ENCOUNTER 2021-09-06 14:32 | Outpatient (REF) | payer MEDICARE, OTHER, SELFPAY ==
[2021-09-06 15:14] LABS: Basophils Percent Auto 0.4 % (0-2); Eosinophils Absolute Auto 0.1 X10*3/uL (0.0-0.4); Eosinophils Percent Auto 3.6 % (0-4); Hematocrit 35.9 % (37.0-47.0); Imm Gran Abs Auto 0.01 X10*3/uL (0.00-0.03); Imm Gran Pct Auto 0.4 % (0.0-0.4); Lymphocytes Absolute Auto 0.5 X10*3/uL (1.2-4.9); Lymphocytes Percent Auto 21.1 % (20-40); MANUAL DIFF FLAG SCAN; Mean Corpuscular HGB Conc 33.4 g/dl (31.0-35.0); Mean Corpuscular Hemoglobin 36.1 pg (27.0-33.0); Mean Corpuscular Volume 108.1 fL (80.0-98.0); Mean Platelet Volume 8.9 fL (9.4-12.3); Monocytes Absolute Auto 0.3 X10*3/uL (0.1-1.2); Monocytes Percent Auto 12.6 % (2-11); Neutrophils Absolute Auto 1.4 x10*3/uL (2.0-8.3); Neutrophils Percent Auto 61.9 % (45-73); Platelet Count 227 X10*3/uL (160-400); Red Blood Count 3.32 X10*6/uL (4.20-5.50); Red Cell Distribution Width 16.7 % (11.0-16.0); SCAN SMEAR FLAG 1
[2021-09-06 15:16] LABS: White Blood Count 2.2 X10*3/uL (4.8-10.8)
[2021-09-06 15:42] LABS: Alanine Aminotransferase 29 U/L (0-31); Albumin Level 3.6 g/dL (3.5-5.0); Alkaline Phosphatase 90 U/L (39-117); Aspartate Amino Transferase 26 U/L (5-31); Bilirubin Direct 0.2 mg/dL (0.0-0.5); Bilirubin Total 0.5 mg/dL (0.0-1.0)
[2021-09-06 16:04] LABS: SLIDE REVIEW VERIFIED
== END 2021-09-06 14:33 | disposition home or self-care (01) ==
LOC: HO.LABR 14:32
PROVIDERS: PCP Internal Medicine; Visit Provider Internal Medicine
DX: K50.012 Crohn's disease of small intestine with intestinal obstruction (principal)
CPT/HCPCS: 36415; 80076; 85025

== ENCOUNTER 2021-09-16 14:44 | Outpatient (REF) | payer MEDICARE, OTHER, SELFPAY ==
[2021-09-16 15:14] LABS: Immature Retic Fraction 11.3 % (3.0-15.9); Retic HGB Equivalent 38.5 pg (30.0-35.0); Reticulocyte Percent 2.8 % (0.5-1.8); Reticulocytes Absolute 0.085 X10*6/uL (0.026-0.095)
[2021-09-16 15:40] LABS: Iron 94 mcg/dL (30-160); Percent Iron Saturation 44 % (15-50); Total Iron Binding Capacity 213 mcg/dL (228-428); Unsaturated Iron Binding 119 ug/dL
[2021-09-16 16:01] LABS: Ferritin 380 ng/mL (10-250)
[2021-09-16 16:24] LABS: Folate 8.8 ng/mL (> or = 4.0); Vitamin B12 309 pg/mL (200-900)
== END 2021-09-16 14:45 | disposition home or self-care (01) ==
LOC: HO.LAB 14:44
PROVIDERS: PCP Internal Medicine; Visit Provider Internal Medicine
DX: D64.9 Anemia, unspecified (principal)
CPT/HCPCS: 36415; 82607; 82728; 82746; 83540; 85045; 87086; 87088; 87186

== ENCOUNTER 2021-10-04 10:48 | Outpatient (REF) | payer MEDICARE, OTHER, SELFPAY ==
[2021-10-04 11:03] LABS: MANUAL DIFF FLAG NO
[2021-10-04 11:38] LABS: Basophils Percent Auto 0.7 % (0-2); Eosinophils Absolute Auto 0.1 X10*3/uL (0.0-0.4); Eosinophils Percent Auto 3.5 % (0-4); Hematocrit 37.6 % (37.0-47.0); Hemoglobin 12.6 g/dl (12.0-16.0); Imm Gran Abs Auto 0.01 X10*3/uL (0.00-0.03); Imm Gran Pct Auto 0.4 % (0.0-0.4); Lymphocytes Absolute Auto 0.5 X10*3/uL (1.2-4.9); Lymphocytes Percent Auto 18.6 % (20-40); Mean Corpuscular HGB Conc 33.5 g/dl (31.0-35.0); Mean Corpuscular Hemoglobin 37.5 pg (27.0-33.0); Mean Platelet Volume 8.8 fL (9.4-12.3); Monocytes Absolute Auto 0.2 X10*3/uL (0.1-1.2); Monocytes Percent Auto 8.4 % (2-11); Neutrophils Percent Auto 68.4 % (45-73); Platelet Count 253 X10*3/uL (160-400); Red Blood Count 3.36 X10*6/uL (4.20-5.50); Red Cell Distribution Width 15.3 % (11.0-16.0); White Blood Count 2.9 X10*3/uL (4.8-10.8)
[2021-10-04 11:39] LABS: Mean Corpuscular Volume 111.9 fL (80.0-98.0)
[2021-10-04 12:07] LABS: Alanine Aminotransferase 41 U/L (0-31); Albumin Level 3.6 g/dL (3.5-5.0); Alkaline Phosphatase 102 U/L (39-117); Aspartate Amino Transferase 35 U/L (5-31); Bilirubin Direct 0.2 mg/dL (0.0-0.5); Bilirubin Total 0.6 mg/dL (0.0-1.0); Total Protein 5.9 g/dL (6.5-8.0)
== END 2021-10-04 10:49 | disposition home or self-care (01) ==
LOC: HO.LABR 10:48
PROVIDERS: PCP Internal Medicine; Visit Provider Internal Medicine
DX: K50.012 Crohn's disease of small intestine with intestinal obstruction (principal)
CPT/HCPCS: 36415; 80076; 85025

== ENCOUNTER 2021-11-05 11:07 | Outpatient (REF) | payer MEDICARE, OTHER, SELFPAY ==
[2021-11-05 11:20] LABS: MANUAL DIFF FLAG NO
[2021-11-05 11:47] LABS: Basophils Percent Auto 0.9 % (0-2); Eosinophils Absolute Auto 0.1 X10*3/uL (0.0-0.4); Eosinophils Percent Auto 1.8 % (0-4); Hematocrit 39.3 % (37.0-47.0); Hemoglobin 13.4 g/dl (12.0-16.0); Imm Gran Abs Auto 0.02 X10*3/uL (0.00-0.03); Imm Gran Pct Auto 0.6 % (0.0-0.4); Lymphocytes Absolute Auto 0.7 X10*3/uL (1.2-4.9); Lymphocytes Percent Auto 20.2 % (20-40); Mean Corpuscular HGB Conc 34.1 g/dl (31.0-35.0); Mean Corpuscular Hemoglobin 37.1 pg (27.0-33.0); Mean Corpuscular Volume 108.9 fL (80.0-98.0); Monocytes Absolute Auto 0.4 X10*3/uL (0.1-1.2); Monocytes Percent Auto 11.3 % (2-11); Neutrophils Absolute Auto 2.1 x10*3/uL (2.0-8.3); Neutrophils Percent Auto 65.2 % (45-73); Platelet Count 202 X10*3/uL (160-400); Red Blood Count 3.61 X10*6/uL (4.20-5.50); White Blood Count 3.3 X10*3/uL (4.8-10.8)
[2021-11-05 12:31] LABS: Alanine Aminotransferase 25 U/L (0-31); Albumin Level 3.8 g/dL (3.5-5.0); Alkaline Phosphatase 84 U/L (39-117); Aspartate Amino Transferase 24 U/L (5-31); Bilirubin Direct 0.2 mg/dL (0.0-0.5); Bilirubin Total 0.4 mg/dL (0.0-1.0); Total Protein 6.1 g/dL (6.5-8.0)
== END 2021-11-05 11:08 | disposition home or self-care (01) ==
LOC: HO.LABR 11:07
PROVIDERS: PCP Internal Medicine; Visit Provider Internal Medicine
DX: K50.012 Crohn's disease of small intestine with intestinal obstruction (principal); Z51.81 Encounter for therapeutic drug level monitoring
CPT/HCPCS: 36415; 80076; 85025

== ENCOUNTER 2021-12-02 10:30 | Outpatient (REF) | payer MEDICARE, OTHER, SELFPAY ==
[2021-12-02 10:48] LABS: MANUAL DIFF FLAG NO
[2021-12-02 11:39] LABS: Basophils Percent Auto 0.6 % (0-2); Eosinophils Absolute Auto 0.1 X10*3/uL (0.0-0.4); Eosinophils Percent Auto 1.5 % (0-4); Hematocrit 41.1 % (37.0-47.0); Hemoglobin 13.9 g/dl (12.0-16.0); Imm Gran Abs Auto 0.01 X10*3/uL (0.00-0.03); Imm Gran Pct Auto 0.3 % (0.0-0.4); Lymphocytes Absolute Auto 0.6 X10*3/uL (1.2-4.9); Lymphocytes Percent Auto 16.8 % (20-40); Mean Corpuscular HGB Conc 33.8 g/dl (31.0-35.0); Mean Corpuscular Hemoglobin 36.3 pg (27.0-33.0); Mean Corpuscular Volume 107.3 fL (80.0-98.0); Mean Platelet Volume 9.4 fL (9.4-12.3); Monocytes Absolute Auto 0.4 X10*3/uL (0.1-1.2); Monocytes Percent Auto 10.5 % (2-11); Neutrophils Absolute Auto 2.3 x10*3/uL (2.0-8.3); Neutrophils Percent Auto 70.3 % (45-73); Platelet Count 189 X10*3/uL (160-400); Red Blood Count 3.83 X10*6/uL (4.20-5.50); Red Cell Distribution Width 12.4 % (11.0-16.0); White Blood Count 3.3 X10*3/uL (4.8-10.8)
[2021-12-02 12:28] LABS: Alanine Aminotransferase 22 U/L (0-31); Albumin Level 3.8 g/dL (3.5-5.0); Alkaline Phosphatase 104 U/L (39-117); Aspartate Amino Transferase 22 U/L (5-31); Bilirubin Direct 0.2 mg/dL (0.0-0.5); Bilirubin Total 0.6 mg/dL (0.0-1.0); Total Protein 6.2 g/dL (6.5-8.0)
== END 2021-12-02 10:31 | disposition home or self-care (01) ==
LOC: HO.LABR 10:30
PROVIDERS: PCP Internal Medicine; Visit Provider Internal Medicine
DX: K50.012 Crohn's disease of small intestine with intestinal obstruction (principal); Z51.81 Encounter for therapeutic drug level monitoring; Z79.899 Other long term (current) drug therapy
CPT/HCPCS: 36415; 80076; 85025

== ENCOUNTER 2022-01-04 10:22 | Outpatient (REF) | payer MEDICARE, OTHER, SELFPAY ==
[2022-01-04 10:39] LABS: MANUAL DIFF FLAG NO
[2022-01-04 11:09] LABS: Basophils Percent Auto 0.6 % (0-2); Eosinophils Absolute Auto 0.1 X10*3/uL (0.0-0.4); Eosinophils Percent Auto 1.4 % (0-4); Hematocrit 38.4 % (37.0-47.0); Hemoglobin 13.2 g/dl (12.0-16.0); Imm Gran Abs Auto 0.02 X10*3/uL (0.00-0.03); Imm Gran Pct Auto 0.6 % (0.0-0.4); Lymphocytes Absolute Auto 0.6 X10*3/uL (1.2-4.9); Lymphocytes Percent Auto 17.1 % (20-40); Mean Corpuscular HGB Conc 34.4 g/dl (31.0-35.0); Mean Corpuscular Volume 104.6 fL (80.0-98.0); Mean Platelet Volume 9.1 fL (9.4-12.3); Monocytes Absolute Auto 0.2 X10*3/uL (0.1-1.2); Monocytes Percent Auto 6.1 % (2-11); Neutrophils Absolute Auto 2.6 x10*3/uL (2.0-8.3); Neutrophils Percent Auto 74.2 % (45-73); Platelet Count 177 X10*3/uL (160-400); Red Blood Count 3.67 X10*6/uL (4.20-5.50); Red Cell Distribution Width 12.4 % (11.0-16.0); White Blood Count 3.5 X10*3/uL (4.8-10.8)
[2022-01-04 11:29] LABS: Alanine Aminotransferase 19 U/L (0-31); Albumin Level 3.6 g/dL (3.5-5.0); Alkaline Phosphatase 88 U/L (39-117); Aspartate Amino Transferase 19 U/L (5-31); Bilirubin Direct < 0.2 mg/dL (0.0-0.5); Bilirubin Total 0.4 mg/dL (0.0-1.0); Total Protein 6.1 g/dL (6.5-8.0)
== END 2022-01-04 10:23 | disposition home or self-care (01) ==
LOC: HO.LABR 10:22
PROVIDERS: PCP Internal Medicine; Visit Provider Internal Medicine
DX: K50.012 Crohn's disease of small intestine with intestinal obstruction (principal); Z51.81 Encounter for therapeutic drug level monitoring; Z79.899 Other long term (current) drug therapy
CPT/HCPCS: 36415; 80076; 85025

== ENCOUNTER 2022-01-31 13:02 | Outpatient (REF) | payer MEDICARE, OTHER, SELFPAY ==
[2022-01-31 13:11] LABS: MANUAL DIFF FLAG NO
[2022-01-31 13:41] LABS: Basophils Percent Auto 0.7 % (0-2); Eosinophils Absolute Auto 0.1 X10*3/uL (0.0-0.4); Eosinophils Percent Auto 1.7 % (0-4); Hematocrit 37.8 % (37.0-47.0); Hemoglobin 12.8 g/dl (12.0-16.0); Imm Gran Abs Auto 0.01 X10*3/uL (0.00-0.03); Imm Gran Pct Auto 0.3 % (0.0-0.4); Lymphocytes Absolute Auto 0.7 X10*3/uL (1.2-4.9); Lymphocytes Percent Auto 22.4 % (20-40); Mean Corpuscular HGB Conc 33.9 g/dl (31.0-35.0); Mean Corpuscular Hemoglobin 35.6 pg (27.0-33.0); Mean Platelet Volume 9.4 fL (9.4-12.3); Monocytes Absolute Auto 0.2 X10*3/uL (0.1-1.2); Monocytes Percent Auto 8.2 % (2-11); Neutrophils Percent Auto 66.7 % (45-73); Platelet Count 171 X10*3/uL (160-400); Red Cell Distribution Width 13.4 % (11.0-16.0); White Blood Count 2.9 X10*3/uL (4.8-10.8)
[2022-01-31 14:51] LABS: Alanine Aminotransferase 30 U/L (0-31); Albumin Level 3.7 g/dL (3.5-5.0); Alkaline Phosphatase 94 U/L (39-117); Aspartate Amino Transferase 32 U/L (5-31); Bilirubin Direct 0.2 mg/dL (0.0-0.5); Bilirubin Total 0.5 mg/dL (0.0-1.0); Total Protein 6.1 g/dL (6.5-8.0)
== END 2022-01-31 13:03 | disposition home or self-care (01) ==
LOC: HO.LABR 13:02
PROVIDERS: PCP Internal Medicine; Visit Provider Internal Medicine
DX: K50.012 Crohn's disease of small intestine with intestinal obstruction (principal); Z51.81 Encounter for therapeutic drug level monitoring
CPT/HCPCS: 36415; 80076; 85025

== ENCOUNTER 2022-03-03 12:12 | Outpatient (REF) | payer MEDICARE, OTHER, SELFPAY ==
[2022-03-03 12:26] LABS: MANUAL DIFF FLAG NO
[2022-03-03 12:53] LABS: Basophils Percent Auto 0.7 % (0-2); Eosinophils Percent Auto 0.7 % (0-4); Hematocrit 41.9 % (37.0-47.0); Hemoglobin 14.6 g/dl (12.0-16.0); Imm Gran Abs Auto 0.02 X10*3/uL (0.00-0.03); Imm Gran Pct Auto 0.5 % (0.0-0.4); Lymphocytes Absolute Auto 0.6 X10*3/uL (1.2-4.9); Lymphocytes Percent Auto 14.4 % (20-40); Mean Corpuscular HGB Conc 34.8 g/dl (31.0-35.0); Mean Corpuscular Hemoglobin 36.1 pg (27.0-33.0); Mean Corpuscular Volume 103.7 fL (80.0-98.0); Mean Platelet Volume 8.9 fL (9.4-12.3); Monocytes Absolute Auto 0.4 X10*3/uL (0.1-1.2); Monocytes Percent Auto 10.2 % (2-11); Neutrophils Absolute Auto 3.2 x10*3/uL (2.0-8.3); Neutrophils Percent Auto 73.5 % (45-73); Platelet Count 199 X10*3/uL (160-400); Red Blood Count 4.04 X10*6/uL (4.20-5.50); Red Cell Distribution Width 13.6 % (11.0-16.0); White Blood Count 4.3 X10*3/uL (4.8-10.8)
[2022-03-03 13:47] LABS: Alanine Aminotransferase 43 U/L (0-31); Albumin Level 3.8 g/dL (3.5-5.0); Alkaline Phosphatase 90 U/L (39-117); Aspartate Amino Transferase 40 U/L (5-31); Bilirubin Direct 0.2 mg/dL (0.0-0.5); Bilirubin Total 0.5 mg/dL (0.0-1.0); Total Protein 6.3 g/dL (6.5-8.0)
== END 2022-03-03 12:13 | disposition home or self-care (01) ==
LOC: HO.LAB 12:12
PROVIDERS: PCP Internal Medicine; Visit Provider Internal Medicine
DX: K50.012 Crohn's disease of small intestine with intestinal obstruction (principal); Z79.899 Other long term (current) drug therapy
CPT/HCPCS: 36415; 80076; 85025

== ENCOUNTER 2022-04-01 13:23 | Outpatient (REF) | payer MEDICARE, OTHER, SELFPAY ==
[2022-04-01 13:38] LABS: MANUAL DIFF FLAG NO
[2022-04-01 14:21] LABS: Basophils Percent Auto 0.5 % (0-2); Eosinophils Absolute Auto 0.1 X10*3/uL (0.0-0.4); Eosinophils Percent Auto 1.4 % (0-4); Hematocrit 36.8 % (37.0-47.0); Imm Gran Abs Auto 0.02 X10*3/uL (0.00-0.03); Imm Gran Pct Auto 0.5 % (0.0-0.4); Lymphocytes Absolute Auto 0.8 X10*3/uL (1.2-4.9); Lymphocytes Percent Auto 18.6 % (20-40); Mean Corpuscular HGB Conc 35.3 g/dl (31.0-35.0); Mean Corpuscular Hemoglobin 36.2 pg (27.0-33.0); Mean Corpuscular Volume 102.5 fL (80.0-98.0); Mean Platelet Volume 9.3 fL (9.4-12.3); Monocytes Absolute Auto 0.5 X10*3/uL (0.1-1.2); Monocytes Percent Auto 10.9 % (2-11); Neutrophils Absolute Auto 2.9 x10*3/uL (2.0-8.3); Neutrophils Percent Auto 68.1 % (45-73); Platelet Count 232 X10*3/uL (160-400); Red Blood Count 3.59 X10*6/uL (4.20-5.50); White Blood Count 4.3 X10*3/uL (4.8-10.8)
[2022-04-01 14:46] LABS: Alanine Aminotransferase 28 U/L (0-31); Albumin Level 3.6 g/dL (3.5-5.0); Alkaline Phosphatase 97 U/L (39-117); Aspartate Amino Transferase 26 U/L (5-31); Bilirubin Direct < 0.2 mg/dL (0.0-0.5); Bilirubin Total 0.4 mg/dL (0.0-1.0)
== END 2022-04-01 13:24 | disposition home or self-care (01) ==
LOC: HO.LABR 13:23
PROVIDERS: PCP Internal Medicine; Visit Provider Internal Medicine
DX: K50.012 Crohn's disease of small intestine with intestinal obstruction (principal); Z79.899 Other long term (current) drug therapy
CPT/HCPCS: 36415; 80076; 85025

== ENCOUNTER 2022-05-10 15:20 | Outpatient (REF) | payer MEDICARE, OTHER, SELFPAY ==
[2022-05-10 15:34] LABS: MANUAL DIFF FLAG NO
[2022-05-10 16:03] LABS: Basophils Percent Auto 0.6 % (0-2); Eosinophils Absolute Auto 0.1 X10*3/uL (0.0-0.4); Eosinophils Percent Auto 1.5 % (0-4); Hematocrit 40.6 % (37.0-47.0); Hemoglobin 13.9 g/dl (12.0-16.0); Imm Gran Abs Auto 0.01 X10*3/uL (0.00-0.03); Imm Gran Pct Auto 0.3 % (0.0-0.4); Lymphocytes Absolute Auto 0.8 X10*3/uL (1.2-4.9); Lymphocytes Percent Auto 25.2 % (20-40); Mean Corpuscular HGB Conc 34.2 g/dl (31.0-35.0); Mean Corpuscular Hemoglobin 35.5 pg (27.0-33.0); Mean Corpuscular Volume 103.8 fL (80.0-98.0); Mean Platelet Volume 9.1 fL (9.4-12.3); Monocytes Absolute Auto 0.5 X10*3/uL (0.1-1.2); Monocytes Percent Auto 14.2 % (2-11); Neutrophils Absolute Auto 1.9 x10*3/uL (2.0-8.3); Neutrophils Percent Auto 58.2 % (45-73); Platelet Count 241 X10*3/uL (160-400); Red Blood Count 3.91 X10*6/uL (4.20-5.50); Red Cell Distribution Width 13.1 % (11.0-16.0); White Blood Count 3.3 X10*3/uL (4.8-10.8)
[2022-05-10 16:24] LABS: Alanine Aminotransferase 30 U/L (0-31); Albumin Level 3.8 g/dL (3.5-5.0); Alkaline Phosphatase 85 U/L (39-117); Aspartate Amino Transferase 22 U/L (5-31); Bilirubin Direct < 0.2 mg/dL (0.0-0.5); Bilirubin Total 0.3 mg/dL (0.0-1.0); Total Protein 6.1 g/dL (6.5-8.0)
== END 2022-05-10 15:21 | disposition home or self-care (01) ==
LOC: HO.LABR 15:20
PROVIDERS: PCP Internal Medicine; Visit Provider Internal Medicine
DX: K50.018 Crohn's disease of small intestine with other complication (principal)
CPT/HCPCS: 36415; 80076; 85025

== ENCOUNTER 2022-06-10 15:36 | Outpatient (REF) | payer MEDICARE, OTHER, SELFPAY ==
[2022-06-10 15:49] LABS: MANUAL DIFF FLAG NO
[2022-06-10 16:03] LABS: Basophils Percent Auto 0.7 % (0-2); Eosinophils Absolute Auto 0.1 X10*3/uL (0.0-0.4); Eosinophils Percent Auto 1.7 % (0-4); Hemoglobin 14.1 g/dl (12.0-16.0); Imm Gran Abs Auto 0.01 X10*3/uL (0.00-0.03); Imm Gran Pct Auto 0.2 % (0.0-0.4); Lymphocytes Absolute Auto 0.8 X10*3/uL (1.2-4.9); Lymphocytes Percent Auto 19.8 % (20-40); Mean Corpuscular HGB Conc 34.4 g/dl (31.0-35.0); Mean Corpuscular Hemoglobin 35.2 pg (27.0-33.0); Mean Corpuscular Volume 102.2 fL (80.0-98.0); Mean Platelet Volume 8.9 fL (9.4-12.3); Monocytes Absolute Auto 0.4 X10*3/uL (0.1-1.2); Neutrophils Absolute Auto 2.8 x10*3/uL (2.0-8.3); Neutrophils Percent Auto 68.6 % (45-73); Platelet Count 195 X10*3/uL (160-400); Red Blood Count 4.01 X10*6/uL (4.20-5.50); Red Cell Distribution Width 12.4 % (11.0-16.0); White Blood Count 4.1 X10*3/uL (4.8-10.8)
[2022-06-10 16:14] LABS: Alanine Aminotransferase 39 U/L (0-31); Albumin Level 3.8 g/dL (3.5-5.0); Alkaline Phosphatase 102 U/L (39-117); Aspartate Amino Transferase 33 U/L (5-31); Bilirubin Direct < 0.2 mg/dL (0.0-0.5); Bilirubin Total 0.4 mg/dL (0.0-1.0); Total Protein 6.4 g/dL (6.5-8.0)
== END 2022-06-10 15:37 | disposition home or self-care (01) ==
LOC: HO.LABR 15:36
PROVIDERS: PCP Internal Medicine; Visit Provider Internal Medicine
DX: K50.018 Crohn's disease of small intestine with other complication (principal)
CPT/HCPCS: 36415; 80076; 85025

== ENCOUNTER 2022-07-22 15:33 | Outpatient (REF) | payer MEDICARE, OTHER, SELFPAY ==
[2022-07-22 15:50] LABS: MANUAL DIFF FLAG NO
[2022-07-22 16:45] LABS: Basophils Percent Auto 0.5 % (0-2); Eosinophils Absolute Auto 0.1 X10*3/uL (0.0-0.4); Eosinophils Percent Auto 1.4 % (0-4); Hematocrit 41.7 % (37.0-47.0); Hemoglobin 14.2 g/dl (12.0-16.0); Imm Gran Abs Auto 0.02 X10*3/uL (0.00-0.03); Imm Gran Pct Auto 0.3 % (0.0-0.4); Lymphocytes Absolute Auto 0.8 X10*3/uL (1.2-4.9); Lymphocytes Percent Auto 13.1 % (20-40); Mean Corpuscular HGB Conc 34.1 g/dl (31.0-35.0); Mean Corpuscular Hemoglobin 34.5 pg (27.0-33.0); Mean Corpuscular Volume 101.2 fL (80.0-98.0); Mean Platelet Volume 9.5 fL (9.4-12.3); Monocytes Absolute Auto 0.6 X10*3/uL (0.1-1.2); Monocytes Percent Auto 9.9 % (2-11); Neutrophils Absolute Auto 4.3 x10*3/uL (2.0-8.3); Neutrophils Percent Auto 74.8 % (45-73); Platelet Count 225 X10*3/uL (160-400); Red Blood Count 4.12 X10*6/uL (4.20-5.50); Red Cell Distribution Width 12.5 % (11.0-16.0); White Blood Count 5.7 X10*3/uL (4.8-10.8)
[2022-07-22 17:31] LABS: Alanine Aminotransferase 29 U/L (0-31); Albumin Level 3.7 g/dL (3.5-5.0); Alkaline Phosphatase 104 U/L (39-117); Aspartate Amino Transferase 28 U/L (5-31); Bilirubin Direct < 0.2 mg/dL (0.0-0.5); Bilirubin Total 0.4 mg/dL (0.0-1.0); Total Protein 6.2 g/dL (6.5-8.0)
== END 2022-07-22 15:34 | disposition home or self-care (01) ==
LOC: HO.LABR 15:33
PROVIDERS: PCP Internal Medicine; Visit Provider Internal Medicine
DX: K50.018 Crohn's disease of small intestine with other complication (principal)
CPT/HCPCS: 36415; 80076; 85025

== ENCOUNTER → 2022-08-30 14:24 | Outpatient (BNVA) | payer OTHER, SELFPAY | PROVIDERS: PCP Internal Medicine; Visit Provider Internal Medicine | DX: S80.01XA Contusion of right knee, initial encounter (principal); S80.02XA Contusion of left knee, initial encounter; S60.212A Contusion of left wrist, initial encounter; S93.402A Sprain of unspecified ligament of left ankle, initial encounter; W10.8XXA Fall (on) (from) other stairs and steps, initial encounter | CPT/HCPCS: 99202 ==

== ENCOUNTER → 2022-08-31 09:15 | Outpatient (BNVA) | payer OTHER, SELFPAY | PROVIDERS: PCP Internal Medicine; Visit Provider Physician Assistant | DX: S93.492A Sprain of other ligament of left ankle, initial encounter (principal); S90.32XA Contusion of left foot, initial encounter; W10.9XXA Fall (on) (from) unspecified stairs and steps, initial encounter | CPT/HCPCS: 73610; 73650; 99215 ==

== ENCOUNTER 2022-09-03 10:51 | Outpatient (REF) | payer MEDICARE, OTHER, SELFPAY ==
[2022-09-03 11:06] LABS: MANUAL DIFF FLAG NO
[2022-09-03 11:21] LABS: Basophils Percent Auto 0.6 % (0-2); Eosinophils Absolute Auto 0.1 X10*3/uL (0.0-0.4); Eosinophils Percent Auto 1.2 % (0-4); Hematocrit 44.7 % (37.0-47.0); Hemoglobin 15.2 g/dl (12.0-16.0); Imm Gran Abs Auto 0.02 X10*3/uL (0.00-0.03); Imm Gran Pct Auto 0.4 % (0.0-0.4); Lymphocytes Absolute Auto 0.7 X10*3/uL (1.2-4.9); Mean Corpuscular Hemoglobin 34.2 pg (27.0-33.0); Mean Corpuscular Volume 100.4 fL (80.0-98.0); Mean Platelet Volume 10.6 fL (9.4-12.3); Monocytes Absolute Auto 0.4 X10*3/uL (0.1-1.2); Monocytes Percent Auto 7.5 % (2-11); Neutrophils Absolute Auto 3.7 x10*3/uL (2.0-8.3); Neutrophils Percent Auto 75.3 % (45-73); Platelet Count 170 X10*3/uL (160-400); Red Blood Count 4.45 X10*6/uL (4.20-5.50); Red Cell Distribution Width 12.3 % (11.0-16.0); White Blood Count 4.9 X10*3/uL (4.8-10.8)
[2022-09-03 12:15] LABS: Alanine Aminotransferase 29 U/L (0-31); Albumin Level 3.7 g/dL (3.5-5.0); Alkaline Phosphatase 121 U/L (39-117); Anion Gap 17 (12-20); Aspartate Amino Transferase 31 U/L (5-31); Bilirubin Direct < 0.2 mg/dL (0.0-0.5); Bilirubin Total 0.6 mg/dL (0.0-1.0); Blood Urea Nitrogen 19 mg/dL (9-16); Calcium 9.3 mg/dL (8.4-10.2); Carbon Dioxide 26 mmol/L (22-29); Chloride 105 mmol/L (96-108); Cholesterol 173 mg/dL; Estimated Glomerular Filt Rate > 60; Glucose Random 115 mg/dL (60-115); HDL Cholesterol 32 mg/dL; LDL Cholesterol Calculated 123 mg/dl; Potassium 3.6 mmol/L (3.3-5.1); Sodium 144 mmol/L (135-145); Total Protein 6.2 g/dL (6.5-8.0); Triglycerides 92 mg/dL
[2022-09-03 12:31] LABS: Vitamin D 25-OH Total 49.1 ng/mL (>30)
== END 2022-09-03 10:52 | disposition home or self-care (01) ==
LOC: HO.LAB 10:51
PROVIDERS: Absent Provider Internal Medicine; PCP Internal Medicine; Visit Provider Internal Medicine
DX: Z00.00 Encounter for general adult medical examination without abnormal findings (principal); K50.018 Crohn's disease of small intestine with other complication; E55.9 Vitamin D deficiency, unspecified; R53.83 Other fatigue
CPT/HCPCS: 36415; 80053; 80061; 82248; 82306; 84443; 85025

== ENCOUNTER → 2022-09-06 10:17 | Outpatient (BNVA) | payer OTHER, SELFPAY | PROVIDERS: PCP Internal Medicine; Visit Provider Internal Medicine | DX: S93.402A Sprain of unspecified ligament of left ankle, initial encounter (principal); S90.32XA Contusion of left foot, initial encounter; W10.8XXA Fall (on) (from) other stairs and steps, initial encounter | CPT/HCPCS: 99213 ==

== ENCOUNTER 2022-10-03 15:40 | Outpatient (REF) | payer MEDICARE, OTHER, SELFPAY ==
[2022-10-03 16:12] LABS: MANUAL DIFF FLAG NO
[2022-10-03 17:05] LABS: Basophils Percent Auto 0.5 % (0-2); Eosinophils Absolute Auto 0.1 X10*3/uL (0.0-0.4); Eosinophils Percent Auto 1.7 % (0-4); Hematocrit 41.8 % (37.0-47.0); Hemoglobin 14.4 g/dl (12.0-16.0); Imm Gran Abs Auto 0.02 X10*3/uL (0.00-0.03); Imm Gran Pct Auto 0.5 % (0.0-0.4); Lymphocytes Absolute Auto 0.8 X10*3/uL (1.2-4.9); Lymphocytes Percent Auto 18.8 % (20-40); Mean Corpuscular HGB Conc 34.4 g/dl (31.0-35.0); Mean Corpuscular Hemoglobin 34.6 pg (27.0-33.0); Mean Corpuscular Volume 100.5 fL (80.0-98.0); Mean Platelet Volume 9.6 fL (9.4-12.3); Monocytes Absolute Auto 0.5 X10*3/uL (0.1-1.2); Monocytes Percent Auto 11.4 % (2-11); Neutrophils Absolute Auto 2.8 x10*3/uL (2.0-8.3); Neutrophils Percent Auto 67.1 % (45-73); Platelet Count 244 X10*3/uL (160-400); Red Blood Count 4.16 X10*6/uL (4.20-5.50); Red Cell Distribution Width 13.2 % (11.0-16.0); White Blood Count 4.2 X10*3/uL (4.8-10.8)
[2022-10-03 17:47] LABS: Alanine Aminotransferase 49 U/L (0-31); Albumin Level 3.8 g/dL (3.5-5.0); Alkaline Phosphatase 94 U/L (39-117); Aspartate Amino Transferase 34 U/L (5-31); Bilirubin Direct < 0.2 mg/dL (0.0-0.5); Bilirubin Total 0.5 mg/dL (0.0-1.0)
== END 2022-10-03 15:41 | disposition home or self-care (01) ==
LOC: HO.LAB 15:40
PROVIDERS: PCP Internal Medicine; Visit Provider Internal Medicine
DX: K50.018 Crohn's disease of small intestine with other complication (principal)
CPT/HCPCS: 36415; 80076; 85025

== ENCOUNTER 2022-11-05 09:32 | Outpatient (REF) | payer MEDICARE, OTHER, SELFPAY ==
[2022-11-05 09:41] LABS: MANUAL DIFF FLAG NO
[2022-11-05 10:30] LABS: Basophils Percent Auto 0.5 % (0-2); Eosinophils Absolute Auto 0.1 X10*3/uL (0.0-0.4); Eosinophils Percent Auto 2.1 % (0-4); Hematocrit 43.4 % (37.0-47.0); Hemoglobin 14.4 g/dl (12.0-16.0); Imm Gran Abs Auto 0.02 X10*3/uL (0.00-0.03); Imm Gran Pct Auto 0.5 % (0.0-0.4); Lymphocytes Absolute Auto 0.7 X10*3/uL (1.2-4.9); Lymphocytes Percent Auto 15.8 % (20-40); Mean Corpuscular HGB Conc 33.2 g/dl (31.0-35.0); Mean Corpuscular Hemoglobin 33.5 pg (27.0-33.0); Mean Corpuscular Volume 100.9 fL (80.0-98.0); Mean Platelet Volume 9.2 fL (9.4-12.3); Monocytes Absolute Auto 0.3 X10*3/uL (0.1-1.2); Neutrophils Absolute Auto 3.2 x10*3/uL (2.0-8.3); Neutrophils Percent Auto 74.1 % (45-73); Platelet Count 232 X10*3/uL (160-400); White Blood Count 4.3 X10*3/uL (4.8-10.8)
[2022-11-05 11:27] LABS: Alanine Aminotransferase 32 U/L (0-31); Albumin Level 3.7 g/dL (3.5-5.0); Alkaline Phosphatase 109 U/L (39-117); Aspartate Amino Transferase 27 U/L (5-31); Bilirubin Direct < 0.2 mg/dL (0.0-0.5); Bilirubin Total 0.5 mg/dL (0.0-1.0); Total Protein 6.1 g/dL (6.5-8.0)
== END 2022-11-05 09:33 | disposition home or self-care (01) ==
LOC: HO.LABR 09:32
PROVIDERS: PCP Internal Medicine; Visit Provider Internal Medicine
DX: K50.018 Crohn's disease of small intestine with other complication (principal)
CPT/HCPCS: 36415; 80076; 85025

== ENCOUNTER 2022-11-30 16:35 | Outpatient (REF) | payer MEDICARE, OTHER, SELFPAY ==
[2022-11-30 16:51] LABS: MANUAL DIFF FLAG NO
[2022-11-30 17:28] LABS: Basophils Percent Auto 0.3 % (0-2); Eosinophils Percent Auto 0.3 % (0-4); Hematocrit 43.4 % (37.0-47.0); Hemoglobin 14.7 g/dl (12.0-16.0); Imm Gran Abs Auto 0.01 X10*3/uL (0.00-0.03); Imm Gran Pct Auto 0.3 % (0.0-0.4); Lymphocytes Absolute Auto 0.5 X10*3/uL (1.2-4.9); Lymphocytes Percent Auto 13.4 % (20-40); Mean Corpuscular HGB Conc 33.9 g/dl (31.0-35.0); Mean Corpuscular Hemoglobin 33.7 pg (27.0-33.0); Mean Corpuscular Volume 99.5 fL (80.0-98.0); Mean Platelet Volume 9.2 fL (9.4-12.3); Monocytes Absolute Auto 0.6 X10*3/uL (0.1-1.2); Monocytes Percent Auto 16.3 % (2-11); Neutrophils Absolute Auto 2.7 x10*3/uL (2.0-8.3); Neutrophils Percent Auto 69.4 % (45-73); Platelet Count 218 X10*3/uL (160-400); Red Blood Count 4.36 X10*6/uL (4.20-5.50); Red Cell Distribution Width 13.5 % (11.0-16.0); White Blood Count 3.9 X10*3/uL (4.8-10.8)
[2022-11-30 18:06] LABS: Erythrocyte Sedimentation Rate 38 MM/HR (0-20)
[2022-11-30 18:51] LABS: Alanine Aminotransferase 37 U/L (0-31); Albumin Level 3.8 g/dL (3.5-5.0); Alkaline Phosphatase 87 U/L (39-117); Anion Gap 16 (12-20); Aspartate Amino Transferase 38 U/L (5-31); Bilirubin Direct 0.1 mg/dL (0.0-0.5); Bilirubin Total 0.6 mg/dL (0.0-1.0); Blood Urea Nitrogen 25 mg/dL (9-16); C Reactive Protein 1.12 mg/dL (< or = 0.50); Calcium 8.7 mg/dL (8.4-10.2); Carbon Dioxide 24 mmol/L (22-29); Chloride 104 mmol/L (96-108); Estimated Glomerular Filt Rate > 60; Glucose Random 96 mg/dL (60-115); Potassium 3.7 mmol/L (3.3-5.1); Sodium 140 mmol/L (135-145); Total Protein 6.2 g/dL (6.5-8.0)
== END 2022-11-30 16:36 | disposition home or self-care (01) ==
LOC: HO.LAB 16:35
PROVIDERS: PCP Internal Medicine; Visit Provider Internal Medicine
DX: R19.7 Diarrhea, unspecified (principal); K50.012 Crohn's disease of small intestine with intestinal obstruction
CPT/HCPCS: 36415; 80048; 80076; 85025; 85652; 86140

== ENCOUNTER 2022-12-03 10:17 | Outpatient (REF) | payer MEDICARE, OTHER, SELFPAY ==
[2022-12-03 12:09] LABS: Leukocytes Stool Qualitative NEGATIVE (NEGATIVE)
[2022-12-03 13:41] LABS: Adenovirus F 40/41 Not Detected (Not Detect.); Astrovirus Not Detected (Not Detect.); Campylobacter Not Detected (Not Detect.); Cryptosporidium Not Detected (Not Detect.); Cyclospora cayetanensis Not Detected (Not Detect.); E. coli EAEC Not Detected (Not Detect.); E. coli EPEC Not Detected (Not Detect.); E. coli ETEC Not Detected (Not Detect.); E. coli STEC Not Detected (Not Detect.); Entamoeba histolytica Not Detected (Not Detect.); Giardia lamblia Not Detected (Not Detect.); Norovirus GI/GII Not Detected (Not Detect.); Plesiomonas shigelloides Not Detected (Not Detect.); Rotavirus A Detected (Not Detect.); Salmonella Not Detected (Not Detect.); Sapovirus Not Detected (Not Detect.); Shigella sp./EIEC Not Detected (Not Detect.); Vibrio Not Detected (Not Detect.); Vibrio Cholerae Not Detected (Not Detect.); Yersinia enterocolitica Not Detected (Not Detect.)
[2022-12-03 14:23] LABS: CDiff Gene PCR NEGATIVE (Negative)
[2022-12-09 22:09] LABS: Calprotectin, Fecal 68 mcg/g
== END 2022-12-03 10:18 | disposition home or self-care (01) ==
LOC: HO.LNP 10:17
PROVIDERS: Visit Provider Internal Medicine
DX: Z13.89 Encounter for screening for other disorder (principal)
CPT/HCPCS: 83993; 87493; 87507; 89055

== ENCOUNTER 2023-01-04 15:54 | Outpatient (REF) | payer MEDICARE, OTHER, SELFPAY ==
[2023-01-04 16:03] LABS: MANUAL DIFF FLAG NO
[2023-01-04 16:53] LABS: Basophils Percent Auto 0.5 % (0-2); Eosinophils Absolute Auto 0.1 X10*3/uL (0.0-0.4); Eosinophils Percent Auto 1.7 % (0-4); Hematocrit 41.8 % (37.0-47.0); Hemoglobin 14.2 g/dl (12.0-16.0); Imm Gran Abs Auto 0.01 X10*3/uL (0.00-0.03); Imm Gran Pct Auto 0.2 % (0.0-0.4); Lymphocytes Absolute Auto 0.8 X10*3/uL (1.2-4.9); Mean Corpuscular Hemoglobin 34.1 pg (27.0-33.0); Mean Corpuscular Volume 100.2 fL (80.0-98.0); Mean Platelet Volume 9.3 fL (9.4-12.3); Monocytes Absolute Auto 0.5 X10*3/uL (0.1-1.2); Monocytes Percent Auto 13.4 % (2-11); Neutrophils Absolute Auto 2.6 x10*3/uL (2.0-8.3); Neutrophils Percent Auto 64.2 % (45-73); Platelet Count 278 X10*3/uL (160-400); Red Blood Count 4.17 X10*6/uL (4.20-5.50); Red Cell Distribution Width 13.3 % (11.0-16.0)
[2023-01-04 17:19] LABS: Alanine Aminotransferase 30 U/L (0-31); Albumin Level 3.8 g/dL (3.5-5.0); Alkaline Phosphatase 89 U/L (39-117); Aspartate Amino Transferase 26 U/L (5-31); Bilirubin Direct 0.1 mg/dL (0.0-0.5); Bilirubin Total 0.5 mg/dL (0.0-1.0); Total Protein 6.3 g/dL (6.5-8.0)
== END 2023-01-04 15:55 | disposition home or self-care (01) ==
LOC: HO.LABR 15:54
PROVIDERS: PCP Internal Medicine; Visit Provider Internal Medicine
DX: K50.018 Crohn's disease of small intestine with other complication (principal)
CPT/HCPCS: 36415; 80076; 85025

== ENCOUNTER 2023-02-01 08:03 | Outpatient (REF) | payer MEDICARE, OTHER, SELFPAY ==
[2023-02-01 08:21] LABS: MANUAL DIFF FLAG NO
[2023-02-01 08:45] LABS: Basophils Percent Auto 0.8 % (0-2); Eosinophils Absolute Auto 0.1 X10*3/uL (0.0-0.4); Hematocrit 40.7 % (37.0-47.0); Hemoglobin 14.3 g/dl (12.0-16.0); Imm Gran Abs Auto 0.01 X10*3/uL (0.00-0.03); Imm Gran Pct Auto 0.3 % (0.0-0.4); Lymphocytes Absolute Auto 0.8 X10*3/uL (1.2-4.9); Lymphocytes Percent Auto 19.3 % (20-40); Mean Corpuscular HGB Conc 35.1 g/dl (31.0-35.0); Mean Corpuscular Hemoglobin 33.7 pg (27.0-33.0); Mean Platelet Volume 9.5 fL (9.4-12.3); Monocytes Absolute Auto 0.5 X10*3/uL (0.1-1.2); Monocytes Percent Auto 12.3 % (2-11); Neutrophils Absolute Auto 2.6 x10*3/uL (2.0-8.3); Neutrophils Percent Auto 65.3 % (45-73); Platelet Count 160 X10*3/uL (160-400); Red Blood Count 4.24 X10*6/uL (4.20-5.50); Red Cell Distribution Width 12.4 % (11.0-16.0)
[2023-02-01 09:07] LABS: Alanine Aminotransferase 26 U/L (0-31); Albumin Level 3.5 g/dL (3.5-5.0); Alkaline Phosphatase 97 U/L (39-117); Aspartate Amino Transferase 24 U/L (5-31); Bilirubin Direct 0.1 mg/dL (0.0-0.5); Bilirubin Total 0.3 mg/dL (0.0-1.0); Total Protein 6.1 g/dL (6.5-8.0)
== END 2023-02-01 08:04 | disposition home or self-care (01) ==
LOC: HO.LABR 08:03
PROVIDERS: Visit Provider Internal Medicine
DX: K50.018 Crohn's disease of small intestine with other complication (principal)
CPT/HCPCS: 36415; 80076; 85025

== ENCOUNTER 2023-03-06 12:24 | Outpatient (REF) | payer MEDICARE, OTHER, SELFPAY ==
[2023-03-06 12:36] LABS: MANUAL DIFF FLAG NO
[2023-03-06 14:05] LABS: Basophils Percent Auto 0.4 % (0-2); Hematocrit 44.7 % (37.0-47.0); Hemoglobin 14.8 g/dl (12.0-16.0); Imm Gran Pct Auto 1.2 % (0.0-0.4); Lymphocytes Absolute Auto 0.6 X10*3/uL (1.2-4.9); Lymphocytes Percent Auto 6.8 % (20-40); Mean Corpuscular HGB Conc 33.1 g/dl (31.0-35.0); Mean Corpuscular Volume 99.6 fL (80.0-98.0); Mean Platelet Volume 9.1 fL (9.4-12.3); Monocytes Absolute Auto 0.3 X10*3/uL (0.1-1.2); Monocytes Percent Auto 3.4 % (2-11); NRBC Pct Auto 0.2 /100WBC (0.0-0.2); Neutrophils Absolute Auto 7.5 x10*3/uL (2.0-8.3); Neutrophils Percent Auto 88.2 % (45-73); Platelet Count 435 X10*3/uL (160-400); Red Blood Count 4.49 X10*6/uL (4.20-5.50); Red Cell Distribution Width 12.4 % (11.0-16.0); White Blood Count 8.5 X10*3/uL (4.8-10.8)
[2023-03-06 15:03] LABS: Alanine Aminotransferase 44 U/L (0-31); Albumin Level 3.8 g/dL (3.5-5.0); Alkaline Phosphatase 109 U/L (39-117); Aspartate Amino Transferase 25 U/L (5-31); Bilirubin Direct 0.1 mg/dL (0.0-0.5); Bilirubin Total 0.4 mg/dL (0.0-1.0); Total Protein 6.9 g/dL (6.5-8.0)
== END 2023-03-06 12:25 | disposition home or self-care (01) ==
LOC: HO.LABR 12:24
PROVIDERS: PCP Internal Medicine; Visit Provider Internal Medicine
DX: K50.018 Crohn's disease of small intestine with other complication (principal)
CPT/HCPCS: 36415; 80076; 85025

== ENCOUNTER 2023-04-04 15:48 | Outpatient (REF) | payer MEDICARE, OTHER, SELFPAY ==
[2023-04-04 16:13] LABS: MANUAL DIFF FLAG NO
[2023-04-04 17:02] LABS: Basophils Percent Auto 0.6 % (0-2); Eosinophils Percent Auto 0.8 % (0-4); Hematocrit 40.7 % (37.0-47.0); Hemoglobin 13.8 g/dl (12.0-16.0); Imm Gran Abs Auto 0.04 X10*3/uL (0.00-0.03); Imm Gran Pct Auto 0.8 % (0.0-0.4); Lymphocytes Absolute Auto 0.8 X10*3/uL (1.2-4.9); Lymphocytes Percent Auto 17.4 % (20-40); Mean Corpuscular HGB Conc 33.9 g/dl (31.0-35.0); Mean Corpuscular Hemoglobin 33.3 pg (27.0-33.0); Mean Corpuscular Volume 98.3 fL (80.0-98.0); Mean Platelet Volume 9.3 fL (9.4-12.3); Monocytes Absolute Auto 0.7 X10*3/uL (0.1-1.2); Monocytes Percent Auto 13.4 % (2-11); Neutrophils Absolute Auto 3.2 x10*3/uL (2.0-8.3); Platelet Count 313 X10*3/uL (160-400); Red Blood Count 4.14 X10*6/uL (4.20-5.50); Red Cell Distribution Width 13.1 % (11.0-16.0); White Blood Count 4.8 X10*3/uL (4.8-10.8)
[2023-04-04 17:27] LABS: Alanine Aminotransferase 15 U/L (0-31); Albumin Level 3.7 g/dL (3.5-5.0); Alkaline Phosphatase 78 U/L (39-117); Aspartate Amino Transferase 19 U/L (5-31); Bilirubin Direct 0.1 mg/dL (0.0-0.5); Bilirubin Total 0.3 mg/dL (0.0-1.0); Total Protein 6.5 g/dL (6.5-8.0)
== END 2023-04-04 15:49 | disposition home or self-care (01) ==
LOC: HO.LABR 15:48
PROVIDERS: PCP Internal Medicine; Visit Provider Internal Medicine
DX: K50.018 Crohn's disease of small intestine with other complication (principal)
CPT/HCPCS: 36415; 80076; 85025

== ENCOUNTER 2023-05-03 15:35 | Outpatient (REF) | payer MEDICARE, OTHER, SELFPAY ==
[2023-05-03 16:00] LABS: MANUAL DIFF FLAG NO
[2023-05-03 16:25] LABS: Basophils Percent Auto 0.5 % (0-2); Eosinophils Absolute Auto 0.1 X10*3/uL (0.0-0.4); Eosinophils Percent Auto 2.4 % (0-4); Hematocrit 41.2 % (37.0-47.0); Hemoglobin 13.9 g/dl (12.0-16.0); Imm Gran Abs Auto 0.01 X10*3/uL (0.00-0.03); Imm Gran Pct Auto 0.2 % (0.0-0.4); Lymphocytes Absolute Auto 0.7 X10*3/uL (1.2-4.9); Lymphocytes Percent Auto 17.1 % (20-40); Mean Corpuscular HGB Conc 33.7 g/dl (31.0-35.0); Mean Corpuscular Hemoglobin 33.5 pg (27.0-33.0); Mean Corpuscular Volume 99.3 fL (80.0-98.0); Mean Platelet Volume 9.1 fL (9.4-12.3); Monocytes Absolute Auto 0.4 X10*3/uL (0.1-1.2); Monocytes Percent Auto 10.4 % (2-11); Neutrophils Absolute Auto 2.9 x10*3/uL (2.0-8.3); Neutrophils Percent Auto 69.4 % (45-73); Platelet Count 228 X10*3/uL (160-400); Red Blood Count 4.15 X10*6/uL (4.20-5.50); Red Cell Distribution Width 13.2 % (11.0-16.0); White Blood Count 4.2 X10*3/uL (4.8-10.8)
[2023-05-03 17:33] LABS: Alanine Aminotransferase 32 U/L (0-31); Albumin Level 3.6 g/dL (3.5-5.0); Alkaline Phosphatase 107 U/L (39-117); Aspartate Amino Transferase 28 U/L (5-31); Bilirubin Direct 0.1 mg/dL (0.0-0.5); Bilirubin Total 0.4 mg/dL (0.0-1.0); Total Protein 6.4 g/dL (6.5-8.0)
== END 2023-05-03 15:36 | disposition home or self-care (01) ==
LOC: HO.LAB 15:35
PROVIDERS: PCP Internal Medicine; Visit Provider Internal Medicine
DX: K50.018 Crohn's disease of small intestine with other complication (principal)
CPT/HCPCS: 36415; 80076; 85025

== ENCOUNTER → 2023-05-11 12:55 | Outpatient (BNVA) | payer OTHER, SELFPAY | PROVIDERS: PCP Internal Medicine; Visit Provider Physician Assistant | DX: S50.02XA Contusion of left elbow, initial encounter (principal); S20.212A Contusion of left front wall of thorax, initial encounter; W51.XXXA Accidental striking against or bumped into by another person, initial encounter | CPT/HCPCS: 99204 ==

== ENCOUNTER → 2023-05-18 10:20 | Outpatient (BNVA) | payer OTHER, SELFPAY | PROVIDERS: PCP Internal Medicine; Visit Provider Physician Assistant | DX: S20.219A Contusion of unspecified front wall of thorax, initial encounter (principal); W51.XXXA Accidental striking against or bumped into by another person, initial encounter | CPT/HCPCS: 99214 ==

== ENCOUNTER → 2023-05-26 11:05 | Outpatient (BNVA) | payer OTHER, SELFPAY | PROVIDERS: PCP Internal Medicine; Visit Provider Physician Assistant | DX: S20.212A Contusion of left front wall of thorax, initial encounter (principal); W51.XXXA Accidental striking against or bumped into by another person, initial encounter | CPT/HCPCS: 99213 ==

== ENCOUNTER → 2023-05-30 11:14 | Outpatient (BNVA) | payer OTHER, SELFPAY | PROVIDERS: PCP Internal Medicine; Visit Provider Physician Assistant Medical | DX: S20.212A Contusion of left front wall of thorax, initial encounter (principal); W51.XXXA Accidental striking against or bumped into by another person, initial encounter | CPT/HCPCS: 99214 ==

== ENCOUNTER 2023-06-06 15:40 | Outpatient (REF) | payer OTHER, SELFPAY ==
[2023-06-06 15:49] LABS: MANUAL DIFF FLAG NO
[2023-06-06 16:22] LABS: Basophils Percent Auto 0.6 % (0-2); Eosinophils Absolute Auto 0.1 X10*3/uL (0.0-0.4); Eosinophils Percent Auto 1.1 % (0-4); Hemoglobin 14.4 g/dl (12.0-16.0); Imm Gran Abs Auto 0.05 X10*3/uL (0.00-0.03); Imm Gran Pct Auto 0.8 % (0.0-0.4); Lymphocytes Percent Auto 15.2 % (20-40); Mean Corpuscular HGB Conc 33.5 g/dl (31.0-35.0); Mean Corpuscular Volume 98.4 fL (80.0-98.0); Mean Platelet Volume 9.2 fL (9.4-12.3); Monocytes Absolute Auto 0.7 X10*3/uL (0.1-1.2); Monocytes Percent Auto 10.8 % (2-11); Neutrophils Absolute Auto 4.6 x10*3/uL (2.0-8.3); Neutrophils Percent Auto 71.5 % (45-73); Platelet Count 263 X10*3/uL (160-400); Red Blood Count 4.37 X10*6/uL (4.20-5.50); Red Cell Distribution Width 13.1 % (11.0-16.0); White Blood Count 6.4 X10*3/uL (4.8-10.8)
[2023-06-06 17:15] LABS: Alanine Aminotransferase 25 U/L (0-31); Albumin Level 3.7 g/dL (3.5-5.0); Alkaline Phosphatase 106 U/L (39-117); Aspartate Amino Transferase 23 U/L (5-31); Bilirubin Direct 0.1 mg/dL (0.0-0.5); Bilirubin Total 0.3 mg/dL (0.0-1.0); Total Protein 6.7 g/dL (6.5-8.0)
== END 2023-06-06 15:41 | disposition home or self-care (01) ==
LOC: HO.LAB 15:40
PROVIDERS: Visit Provider Internal Medicine
DX: K50.018 Crohn's disease of small intestine with other complication (principal)
CPT/HCPCS: 36415; 80076; 85025

== ENCOUNTER → 2023-06-14 10:01 | Outpatient (BNVA) | payer OTHER, SELFPAY | PROVIDERS: PCP Internal Medicine; Visit Provider Physician Assistant | DX: S20.212D Contusion of left front wall of thorax, subsequent encounter (principal); W51.XXXD Accidental striking against or bumped into by another person, subsequent encounter | CPT/HCPCS: 99213 ==

== ENCOUNTER → 2023-06-23 09:45 | Outpatient (BNVA) | payer OTHER, SELFPAY | PROVIDERS: PCP Internal Medicine; Visit Provider Physician Assistant | DX: S20.212D Contusion of left front wall of thorax, subsequent encounter (principal); W51.XXXD Accidental striking against or bumped into by another person, subsequent encounter | CPT/HCPCS: 99213 ==

== ENCOUNTER 2023-07-05 13:33 | Outpatient (REF) | payer MEDICARE, OTHER, SELFPAY ==
[2023-07-05 13:54] LABS: MANUAL DIFF FLAG NO
[2023-07-05 14:02] LABS: Basophils Percent Auto 0.8 % (0-2); Eosinophils Absolute Auto 0.1 X10*3/uL (0.0-0.4); Eosinophils Percent Auto 1.6 % (0-4); Hematocrit 41.2 % (37.0-47.0); Imm Gran Abs Auto 0.05 X10*3/uL (0.00-0.03); Lymphocytes Absolute Auto 0.9 X10*3/uL (1.2-4.9); Mean Corpuscular Hemoglobin 33.9 pg (27.0-33.0); Mean Corpuscular Volume 99.8 fL (80.0-98.0); Mean Platelet Volume 9.4 fL (9.4-12.3); Monocytes Absolute Auto 0.6 X10*3/uL (0.1-1.2); Monocytes Percent Auto 10.8 % (2-11); Neutrophils Absolute Auto 3.5 x10*3/uL (2.0-8.3); Neutrophils Percent Auto 68.8 % (45-73); Platelet Count 236 X10*3/uL (160-400); Red Blood Count 4.13 X10*6/uL (4.20-5.50); Red Cell Distribution Width 13.1 % (11.0-16.0); White Blood Count 5.1 X10*3/uL (4.8-10.8)
[2023-07-05 14:30] LABS: Alanine Aminotransferase 21 U/L (0-31); Albumin Level 3.8 g/dL (3.5-5.0); Alkaline Phosphatase 105 U/L (39-117); Aspartate Amino Transferase 24 U/L (5-31); Bilirubin Direct 0.1 mg/dL (0.0-0.5); Bilirubin Total 0.4 mg/dL (0.0-1.0); Total Protein 6.8 g/dL (6.5-8.0)
== END 2023-07-05 13:34 | disposition home or self-care (01) ==
LOC: HO.LAB 13:33
PROVIDERS: PCP Internal Medicine; Visit Provider Internal Medicine
DX: K50.012 Crohn's disease of small intestine with intestinal obstruction (principal)
CPT/HCPCS: 36415; 80076; 85025

== ENCOUNTER 2023-08-08 16:20 | Outpatient (REF) | payer MEDICARE, OTHER, SELFPAY ==
[2023-08-08 16:32] LABS: MANUAL DIFF FLAG NO
[2023-08-08 17:06] LABS: Basophils Percent Auto 0.8 % (0-2); Eosinophils Absolute Auto 0.1 X10*3/uL (0.0-0.4); Eosinophils Percent Auto 2.1 % (0-4); Hematocrit 41.6 % (37.0-47.0); Hemoglobin 14.1 g/dl (12.0-16.0); Imm Gran Abs Auto 0.03 X10*3/uL (0.00-0.03); Imm Gran Pct Auto 0.6 % (0.0-0.4); Lymphocytes Absolute Auto 0.8 X10*3/uL (1.2-4.9); Lymphocytes Percent Auto 15.6 % (20-40); Mean Corpuscular HGB Conc 33.9 g/dl (31.0-35.0); Mean Corpuscular Hemoglobin 34.1 pg (27.0-33.0); Mean Corpuscular Volume 100.7 fL (80.0-98.0); Mean Platelet Volume 9.8 fL (9.4-12.3); Monocytes Absolute Auto 0.7 X10*3/uL (0.1-1.2); Neutrophils Absolute Auto 3.5 x10*3/uL (2.0-8.3); Neutrophils Percent Auto 66.9 % (45-73); Platelet Count 293 X10*3/uL (160-400); Red Blood Count 4.13 X10*6/uL (4.20-5.50); Red Cell Distribution Width 13.8 % (11.0-16.0); White Blood Count 5.3 X10*3/uL (4.8-10.8)
[2023-08-08 17:35] LABS: Alanine Aminotransferase 45 U/L (0-31); Albumin Level 3.7 g/dL (3.5-5.0); Alkaline Phosphatase 107 U/L (39-117); Aspartate Amino Transferase 38 U/L (5-31); Bilirubin Direct 0.1 mg/dL (0.0-0.5); Bilirubin Total 0.3 mg/dL (0.0-1.0); Total Protein 6.6 g/dL (6.5-8.0)
== END 2023-08-08 16:21 | disposition home or self-care (01) ==
LOC: HO.LAB 16:20
PROVIDERS: PCP Internal Medicine; Visit Provider Internal Medicine
DX: K50.012 Crohn's disease of small intestine with intestinal obstruction (principal)
CPT/HCPCS: 36415; 80076; 85025

== ENCOUNTER 2023-08-22 14:36 | Outpatient (REF) | payer MEDICARE, OTHER, SELFPAY ==
[2023-08-22 14:54] LABS: MANUAL DIFF FLAG NO
[2023-08-22 15:03] LABS: Basophils Percent Auto 0.6 % (0-2); Eosinophils Percent Auto 1.1 % (0-4); Hemoglobin 13.7 g/dl (12.0-16.0); Imm Gran Abs Auto 0.01 X10*3/uL (0.00-0.03); Imm Gran Pct Auto 0.3 % (0.0-0.4); Lymphocytes Absolute Auto 0.7 X10*3/uL (1.2-4.9); Lymphocytes Percent Auto 19.6 % (20-40); Mean Corpuscular HGB Conc 34.3 g/dl (31.0-35.0); Mean Corpuscular Hemoglobin 33.2 pg (27.0-33.0); Mean Corpuscular Volume 96.9 fL (80.0-98.0); Mean Platelet Volume 9.1 fL (9.4-12.3); Monocytes Absolute Auto 0.4 X10*3/uL (0.1-1.2); Monocytes Percent Auto 11.6 % (2-11); Neutrophils Absolute Auto 2.4 x10*3/uL (2.0-8.3); Neutrophils Percent Auto 66.8 % (45-73); Platelet Count 145 X10*3/uL (160-400); Red Blood Count 4.13 X10*6/uL (4.20-5.50); Red Cell Distribution Width 13.2 % (11.0-16.0); White Blood Count 3.6 X10*3/uL (4.8-10.8)
[2023-08-22 15:42] LABS: Alanine Aminotransferase 42 U/L (0-31); Albumin Level 3.6 g/dL (3.5-5.0); Alkaline Phosphatase 92 U/L (39-117); Anion Gap 12 (12-20); Aspartate Amino Transferase 36 U/L (5-31); Bilirubin Direct 0.1 mg/dL (0.0-0.5); Bilirubin Total 0.4 mg/dL (0.0-1.0); Blood Urea Nitrogen 17 mg/dL (9-16); C Reactive Protein 0.41 mg/dL (< or = 0.50); Calcium 9.1 mg/dL (8.4-10.2); Carbon Dioxide 28 mmol/L (22-29); Chloride 107 mmol/L (96-108); Estimated Glomerular Filt Rate > 60; Glucose Random 85 mg/dL (60-115); Potassium 3.5 mmol/L (3.3-5.1); Sodium 143 mmol/L (135-145); Total Protein 6.5 g/dL (6.5-8.0)
[2023-08-22 15:54] LABS: Erythrocyte Sedimentation Rate 27 MM/HR (0-20)
== END 2023-08-22 14:37 | disposition home or self-care (01) ==
LOC: HO.LAB 14:36
PROVIDERS: Visit Provider Internal Medicine
DX: K50.012 Crohn's disease of small intestine with intestinal obstruction (principal); R19.7 Diarrhea, unspecified
CPT/HCPCS: 36415; 80048; 80076; 85025; 85652; 86140

== ENCOUNTER 2023-10-03 13:58 | Outpatient (REF) | payer MEDICARE, OTHER, SELFPAY ==
[2023-10-03 14:24] LABS: MANUAL DIFF FLAG NO
[2023-10-03 15:26] LABS: Basophils Percent Auto 0.5 % (0-2); Eosinophils Absolute Auto 0.1 X10*3/uL (0.0-0.4); Eosinophils Percent Auto 1.6 % (0-4); Hematocrit 39.1 % (37.0-47.0); Hemoglobin 12.9 g/dl (12.0-16.0); Imm Gran Abs Auto 0.01 X10*3/uL (0.00-0.03); Imm Gran Pct Auto 0.3 % (0.0-0.4); Lymphocytes Absolute Auto 0.6 X10*3/uL (1.2-4.9); Lymphocytes Percent Auto 16.2 % (20-40); Mean Corpuscular Volume 103.2 fL (80.0-98.0); Mean Platelet Volume 9.2 fL (9.4-12.3); Monocytes Absolute Auto 0.5 X10*3/uL (0.1-1.2); Monocytes Percent Auto 13.2 % (2-11); Neutrophils Absolute Auto 2.5 x10*3/uL (2.0-8.3); Neutrophils Percent Auto 68.2 % (45-73); Platelet Count 262 X10*3/uL (160-400); Red Blood Count 3.79 X10*6/uL (4.20-5.50); Red Cell Distribution Width 15.3 % (11.0-16.0); White Blood Count 3.7 X10*3/uL (4.8-10.8)
[2023-10-03 15:52] LABS: Alanine Aminotransferase 23 U/L (0-31); Albumin Level 3.8 g/dL (3.5-5.0); Alkaline Phosphatase 104 U/L (39-117); Anion Gap 11 (12-20); Aspartate Amino Transferase 26 U/L (5-31); Bilirubin Direct 0.2 mg/dL (0.0-0.5); Bilirubin Total 0.5 mg/dL (0.0-1.0); Blood Urea Nitrogen 14 mg/dL (9-16); C Reactive Protein 0.14 mg/dL (< or = 0.50); Calcium 9.3 mg/dL (8.4-10.2); Carbon Dioxide 28 mmol/L (22-29); Chloride 105 mmol/L (96-108); Estimated Glomerular Filt Rate > 60; Glucose Random 114 mg/dL (60-115); Potassium 3.7 mmol/L (3.3-5.1); Sodium 140 mmol/L (135-145); Total Protein 6.6 g/dL (6.5-8.0)
[2023-10-03 16:15] LABS: Erythrocyte Sedimentation Rate 37 MM/HR (0-20)
== END 2023-10-03 13:59 | disposition home or self-care (01) ==
LOC: HO.LAB 13:58
PROVIDERS: PCP Internal Medicine; Visit Provider Internal Medicine
DX: K50.012 Crohn's disease of small intestine with intestinal obstruction (principal); R19.7 Diarrhea, unspecified
CPT/HCPCS: 36415; 80048; 80076; 85025; 85652; 86140

== ENCOUNTER 2023-10-28 08:32 | Outpatient (REF) | payer MEDICARE, OTHER, SELFPAY ==
[2023-10-28 08:58] LABS: MANUAL DIFF FLAG NO
[2023-10-28 09:10] LABS: Basophils Percent Auto 0.8 % (0-2); Eosinophils Absolute Auto 0.1 X10*3/uL (0.0-0.4); Eosinophils Percent Auto 1.7 % (0-4); Hematocrit 41.8 % (37.0-47.0); Hemoglobin 14.3 g/dl (12.0-16.0); Imm Gran Abs Auto 0.01 X10*3/uL (0.00-0.03); Imm Gran Pct Auto 0.3 % (0.0-0.4); Lymphocytes Absolute Auto 0.6 X10*3/uL (1.2-4.9); Lymphocytes Percent Auto 16.4 % (20-40); Mean Corpuscular HGB Conc 34.2 g/dl (31.0-35.0); Mean Corpuscular Hemoglobin 34.4 pg (27.0-33.0); Mean Corpuscular Volume 100.5 fL (80.0-98.0); Mean Platelet Volume 8.7 fL (9.4-12.3); Monocytes Absolute Auto 0.4 X10*3/uL (0.1-1.2); Monocytes Percent Auto 11.9 % (2-11); Neutrophils Absolute Auto 2.4 x10*3/uL (2.0-8.3); Neutrophils Percent Auto 68.9 % (45-73); Platelet Count 203 X10*3/uL (160-400); Red Blood Count 4.16 X10*6/uL (4.20-5.50); Red Cell Distribution Width 14.4 % (11.0-16.0); White Blood Count 3.5 X10*3/uL (4.8-10.8)
[2023-10-28 09:43] LABS: Alanine Aminotransferase 23 U/L (0-31); Albumin Level 3.7 g/dL (3.5-5.0); Alkaline Phosphatase 110 U/L (39-117); Anion Gap 15 (12-20); Aspartate Amino Transferase 27 U/L (5-31); Bilirubin Direct 0.1 mg/dL (0.0-0.5); Bilirubin Total 0.4 mg/dL (0.0-1.0); Blood Urea Nitrogen 17 mg/dL (9-16); Calcium 9.5 mg/dL (8.4-10.2); Carbon Dioxide 30 mmol/L (22-29); Chloride 106 mmol/L (96-108); Cholesterol 188 mg/dL (<200); Estimated Glomerular Filt Rate > 60; Glucose Random 117 mg/dL (60-115); HDL Cholesterol 36 mg/dL (>40); LDL Cholesterol Calculated 123 mg/dL (<100); Potassium 4.1 mmol/L (3.3-5.1); Sodium 147 mmol/L (135-145); Total Protein 6.6 g/dL (6.5-8.0); Triglycerides 149 mg/dL (<150)
== END 2023-10-28 08:33 | disposition home or self-care (01) ==
LOC: HO.LABR 08:32
PROVIDERS: PCP Internal Medicine; Visit Provider Internal Medicine
DX: Z00.01 Encounter for general adult medical examination with abnormal findings (principal); K50.012 Crohn's disease of small intestine with intestinal obstruction
CPT/HCPCS: 36415; 80053; 80061; 82248; 85025

== ENCOUNTER 2023-11-30 15:06 | Outpatient (REF) | payer MEDICARE, OTHER, SELFPAY ==
[2023-11-30 15:21] LABS: MANUAL DIFF FLAG NO
[2023-11-30 15:40] LABS: Basophils Percent Auto 0.7 % (0-2); Eosinophils Absolute Auto 0.1 X10*3/uL (0.0-0.4); Eosinophils Percent Auto 1.7 % (0-4); Hematocrit 40.6 % (37.0-47.0); Hemoglobin 14.3 g/dl (12.0-16.0); Imm Gran Abs Auto 0.02 X10*3/uL (0.00-0.03); Imm Gran Pct Auto 0.5 % (0.0-0.4); Lymphocytes Absolute Auto 0.8 X10*3/uL (1.2-4.9); Lymphocytes Percent Auto 19.2 % (20-40); Mean Corpuscular HGB Conc 35.2 g/dl (31.0-35.0); Mean Corpuscular Hemoglobin 35.2 pg (27.0-33.0); Mean Platelet Volume 9.3 fL (9.4-12.3); Monocytes Absolute Auto 0.3 X10*3/uL (0.1-1.2); Monocytes Percent Auto 6.7 % (2-11); Neutrophils Percent Auto 71.2 % (45-73); Platelet Count 203 X10*3/uL (160-400); Red Blood Count 4.06 X10*6/uL (4.20-5.50); Red Cell Distribution Width 13.2 % (11.0-16.0); White Blood Count 4.2 X10*3/uL (4.8-10.8)
[2023-11-30 16:13] LABS: Alanine Aminotransferase 58 U/L (0-31); Albumin Level 3.6 g/dL (3.5-5.0); Alkaline Phosphatase 100 U/L (39-117); Aspartate Amino Transferase 41 U/L (5-31); Bilirubin Direct 0.1 mg/dL (0.0-0.5); Bilirubin Total 0.4 mg/dL (0.0-1.0); Total Protein 6.3 g/dL (6.5-8.0)
== END 2023-11-30 15:07 | disposition home or self-care (01) ==
LOC: HO.LABR 15:06
PROVIDERS: Visit Provider Internal Medicine
DX: K50.012 Crohn's disease of small intestine with intestinal obstruction (principal)
CPT/HCPCS: 36415; 80076; 85025

== ENCOUNTER 2024-01-03 15:08 | Outpatient (REF) | payer MEDICARE, OTHER, SELFPAY ==
[2024-01-03 15:19] LABS: MANUAL DIFF FLAG NO
[2024-01-03 16:13] LABS: Basophils Percent Auto 0.6 % (0-2); Eosinophils Absolute Auto 0.1 X10*3/uL (0.0-0.4); Hematocrit 39.8 % (37.0-47.0); Imm Gran Abs Auto 0.02 X10*3/uL (0.00-0.03); Imm Gran Pct Auto 0.4 % (0.0-0.4); Lymphocytes Absolute Auto 0.7 X10*3/uL (1.2-4.9); Mean Corpuscular HGB Conc 35.2 g/dl (31.0-35.0); Mean Corpuscular Hemoglobin 34.7 pg (27.0-33.0); Mean Corpuscular Volume 98.8 fL (80.0-98.0); Mean Platelet Volume 9.9 fL (9.4-12.3); Monocytes Absolute Auto 0.6 X10*3/uL (0.1-1.2); Monocytes Percent Auto 12.8 % (2-11); Neutrophils Absolute Auto 3.5 x10*3/uL (2.0-8.3); Neutrophils Percent Auto 71.2 % (45-73); Platelet Count 197 X10*3/uL (160-400); Red Blood Count 4.03 X10*6/uL (4.20-5.50); Red Cell Distribution Width 12.7 % (11.0-16.0); White Blood Count 4.9 X10*3/uL (4.8-10.8)
[2024-01-03 16:22] LABS: Alanine Aminotransferase 22 U/L (0-31); Albumin Level 3.5 g/dL (3.5-5.0); Alkaline Phosphatase 94 U/L (39-117); Aspartate Amino Transferase 26 U/L (5-31); Bilirubin Direct 0.1 mg/dL (0.0-0.5); Bilirubin Total 0.3 mg/dL (0.0-1.0); Total Protein 6.4 g/dL (6.5-8.0)
== END 2024-01-03 15:09 | disposition home or self-care (01) ==
LOC: HO.LAB 15:08
PROVIDERS: PCP Internal Medicine; Visit Provider Internal Medicine
DX: K50.012 Crohn's disease of small intestine with intestinal obstruction (principal)
CPT/HCPCS: 36415; 80076; 85025

== ENCOUNTER → 2024-01-05 08:45 | Outpatient (BNVA) | payer OTHER, SELFPAY | PROVIDERS: PCP Internal Medicine; Visit Provider Physician Assistant | DX: S29.011A Strain of muscle and tendon of front wall of thorax, initial encounter (principal); S46.911A Strain of unspecified muscle, fascia and tendon at shoulder and upper arm level, right arm, initial encounter; X50.1XXA Overexertion from prolonged static or awkward postures, initial encounter | CPT/HCPCS: 99204 ==

== ENCOUNTER → 2024-01-11 09:56 | Outpatient (BNVA) | payer OTHER, SELFPAY | PROVIDERS: PCP Internal Medicine; Visit Provider Physician Assistant | DX: S29.011A Strain of muscle and tendon of front wall of thorax, initial encounter (principal); S46.911A Strain of unspecified muscle, fascia and tendon at shoulder and upper arm level, right arm, initial encounter; X50.1XXA Overexertion from prolonged static or awkward postures, initial encounter | CPT/HCPCS: 99213 ==

== ENCOUNTER → 2024-01-18 09:45 | Outpatient (BNVA) | payer OTHER, SELFPAY | PROVIDERS: PCP Internal Medicine; Visit Provider Physician Assistant Medical | DX: S29.011D Strain of muscle and tendon of front wall of thorax, subsequent encounter (principal); S46.911D Strain of unspecified muscle, fascia and tendon at shoulder and upper arm level, right arm, subsequent encounter; X50.1XXD Overexertion from prolonged static or awkward postures, subsequent encounter | CPT/HCPCS: 99213 ==

== ENCOUNTER 2024-01-27 07:50 | Outpatient (REF) | payer MEDICARE, OTHER, SELFPAY ==
[2024-01-27 08:09] LABS: MANUAL DIFF FLAG NO
[2024-01-27 08:41] LABS: Basophils Percent Auto 0.9 % (0-2); Eosinophils Absolute Auto 0.1 X10*3/uL (0.0-0.4); Eosinophils Percent Auto 2.1 % (0-4); Hematocrit 42.5 % (37.0-47.0); Hemoglobin 14.9 g/dl (12.0-16.0); Imm Gran Abs Auto 0.01 X10*3/uL (0.00-0.03); Imm Gran Pct Auto 0.2 % (0.0-0.4); Lymphocytes Absolute Auto 0.6 X10*3/uL (1.2-4.9); Lymphocytes Percent Auto 13.4 % (20-40); Mean Corpuscular HGB Conc 35.1 g/dl (31.0-35.0); Mean Corpuscular Hemoglobin 34.6 pg (27.0-33.0); Mean Corpuscular Volume 98.6 fL (80.0-98.0); Mean Platelet Volume 8.8 fL (9.4-12.3); Monocytes Absolute Auto 0.4 X10*3/uL (0.1-1.2); Monocytes Percent Auto 9.2 % (2-11); Neutrophils Absolute Auto 3.2 x10*3/uL (2.0-8.3); Neutrophils Percent Auto 74.2 % (45-73); Platelet Count 238 X10*3/uL (160-400); Red Blood Count 4.31 X10*6/uL (4.20-5.50); Red Cell Distribution Width 12.4 % (11.0-16.0); White Blood Count 4.3 X10*3/uL (4.8-10.8)
[2024-01-27 09:09] LABS: Alanine Aminotransferase 31 U/L (0-31); Albumin Level 3.6 g/dL (3.5-5.0); Alkaline Phosphatase 102 U/L (39-117); Aspartate Amino Transferase 26 U/L (5-31); Bilirubin Direct 0.1 mg/dL (0.0-0.5); Bilirubin Total 0.4 mg/dL (0.0-1.0); Total Protein 6.6 g/dL (6.5-8.0)
== END 2024-01-27 07:51 | disposition home or self-care (01) ==
LOC: HO.LABR 07:50
PROVIDERS: Visit Provider Internal Medicine
DX: K50.012 Crohn's disease of small intestine with intestinal obstruction (principal)
CPT/HCPCS: 36415; 80076; 85025

== ENCOUNTER 2024-02-28 15:07 | Outpatient (REF) | payer MEDICARE, OTHER, SELFPAY ==
[2024-02-28 15:25] LABS: MANUAL DIFF FLAG NO
[2024-02-28 15:50] LABS: Basophils Percent Auto 0.7 % (0-2); Eosinophils Absolute Auto 0.1 X10*3/uL (0.0-0.4); Eosinophils Percent Auto 3.3 % (0-4); Hemoglobin 11.6 g/dl (12.0-16.0); Imm Gran Abs Auto 0.01 X10*3/uL (0.00-0.03); Imm Gran Pct Auto 0.3 % (0.0-0.4); Lymphocytes Absolute Auto 0.6 X10*3/uL (1.2-4.9); Lymphocytes Percent Auto 18.5 % (20-40); Mean Corpuscular HGB Conc 33.1 g/dl (31.0-35.0); Mean Corpuscular Hemoglobin 33.6 pg (27.0-33.0); Mean Corpuscular Volume 101.4 fL (80.0-98.0); Mean Platelet Volume 8.5 fL (9.4-12.3); Monocytes Absolute Auto 0.1 X10*3/uL (0.1-1.2); Monocytes Percent Auto 3.6 % (2-11); Neutrophils Absolute Auto 2.2 x10*3/uL (2.0-8.3); Neutrophils Percent Auto 73.6 % (45-73); Platelet Count 312 X10*3/uL (160-400); Red Blood Count 3.45 X10*6/uL (4.20-5.50); Red Cell Distribution Width 13.8 % (11.0-16.0)
[2024-02-28 16:22] LABS: Alanine Aminotransferase 16 U/L (0-31); Albumin Level 3.6 g/dL (3.5-5.0); Alkaline Phosphatase 103 U/L (39-117); Aspartate Amino Transferase 17 U/L (5-31); Bilirubin Direct 0.1 mg/dL (0.0-0.5); Bilirubin Total 0.3 mg/dL (0.0-1.0); Total Protein 6.4 g/dL (6.5-8.0)
== END 2024-02-28 15:08 | disposition home or self-care (01) ==
LOC: HO.LABR 15:07
PROVIDERS: PCP Internal Medicine; Visit Provider Internal Medicine
DX: K50.012 Crohn's disease of small intestine with intestinal obstruction (principal)
CPT/HCPCS: 36415; 80076; 85025

== ENCOUNTER 2024-04-04 14:15 | Outpatient (REF) | payer MEDICARE, OTHER, SELFPAY ==
[2024-04-04 14:31] LABS: MANUAL DIFF FLAG NO
[2024-04-04 14:56] LABS: Basophils Percent Auto 1.1 % (0-2); Eosinophils Absolute Auto 0.1 X10*3/uL (0.0-0.4); Eosinophils Percent Auto 1.7 % (0-4); Hematocrit 34.9 % (37.0-47.0); Hemoglobin 11.8 g/dl (12.0-16.0); Imm Gran Abs Auto 0.01 X10*3/uL (0.00-0.03); Imm Gran Pct Auto 0.3 % (0.0-0.4); Lymphocytes Absolute Auto 0.5 X10*3/uL (1.2-4.9); Lymphocytes Percent Auto 14.6 % (20-40); Mean Corpuscular HGB Conc 33.8 g/dl (31.0-35.0); Mean Corpuscular Hemoglobin 35.1 pg (27.0-33.0); Mean Corpuscular Volume 103.9 fL (80.0-98.0); Mean Platelet Volume 8.9 fL (9.4-12.3); Monocytes Absolute Auto 0.5 X10*3/uL (0.1-1.2); Monocytes Percent Auto 13.1 % (2-11); Neutrophils Absolute Auto 2.4 x10*3/uL (2.0-8.3); Neutrophils Percent Auto 69.2 % (45-73); Platelet Count 213 X10*3/uL (160-400); Red Blood Count 3.36 X10*6/uL (4.20-5.50); Red Cell Distribution Width 15.5 % (11.0-16.0); White Blood Count 3.5 X10*3/uL (4.8-10.8)
[2024-04-04 15:37] LABS: Alanine Aminotransferase 12 U/L (0-31); Albumin Level 3.6 g/dL (3.5-5.0); Alkaline Phosphatase 104 U/L (39-117); Aspartate Amino Transferase 17 U/L (5-31); Bilirubin Direct 0.1 mg/dL (0.0-0.5); Bilirubin Total 0.4 mg/dL (0.0-1.0); Total Protein 6.4 g/dL (6.5-8.0)
== END 2024-04-04 14:16 | disposition home or self-care (01) ==
LOC: HO.LABR 14:15
PROVIDERS: PCP Internal Medicine; Visit Provider Internal Medicine
DX: K50.012 Crohn's disease of small intestine with intestinal obstruction (principal)
CPT/HCPCS: 36415; 80076; 85025

== ENCOUNTER 2024-05-01 14:16 | Outpatient (REF) | payer MEDICARE, OTHER, SELFPAY ==
[2024-05-01 14:45] LABS: MANUAL DIFF FLAG NO
[2024-05-01 15:45] LABS: Basophils Percent Auto 0.6 % (0-2); Eosinophils Absolute Auto 0.1 X10*3/uL (0.0-0.4); Eosinophils Percent Auto 4.1 % (0-4); Hematocrit 35.4 % (37.0-47.0); Imm Gran Abs Auto 0.02 X10*3/uL (0.00-0.03); Imm Gran Pct Auto 0.6 % (0.0-0.4); Lymphocytes Absolute Auto 0.5 X10*3/uL (1.2-4.9); Lymphocytes Percent Auto 13.9 % (20-40); Mean Corpuscular HGB Conc 33.9 g/dl (31.0-35.0); Mean Corpuscular Volume 103.2 fL (80.0-98.0); Mean Platelet Volume 8.6 fL (9.4-12.3); Monocytes Absolute Auto 0.4 X10*3/uL (0.1-1.2); Monocytes Percent Auto 10.6 % (2-11); Neutrophils Absolute Auto 2.4 x10*3/uL (2.0-8.3); Neutrophils Percent Auto 70.2 % (45-73); Platelet Count 243 X10*3/uL (160-400); Red Blood Count 3.43 X10*6/uL (4.20-5.50); Red Cell Distribution Width 14.6 % (11.0-16.0); White Blood Count 3.4 X10*3/uL (4.8-10.8)
[2024-05-01 16:31] LABS: Alanine Aminotransferase 14 U/L (0-31); Albumin Level 3.5 g/dL (3.5-5.0); Alkaline Phosphatase 99 U/L (39-117); Aspartate Amino Transferase 18 U/L (5-31); Bilirubin Direct 0.2 mg/dL (0.0-0.5); Bilirubin Total 0.6 mg/dL (0.0-1.0); Total Protein 6.5 g/dL (6.5-8.0)
== END 2024-05-01 14:17 | disposition home or self-care (01) ==
LOC: HO.LAB 14:16
PROVIDERS: PCP Internal Medicine; Visit Provider Internal Medicine
DX: K50.012 Crohn's disease of small intestine with intestinal obstruction (principal)
CPT/HCPCS: 36415; 80076; 85025

== ENCOUNTER 2024-06-06 13:01 | Outpatient (REF) | payer MEDICARE, OTHER, SELFPAY ==
[2024-06-06 13:12] LABS: MANUAL DIFF FLAG NO
[2024-06-06 14:08] LABS: Basophils Percent Auto 0.6 % (0-2); Eosinophils Absolute Auto 0.1 X10*3/uL (0.0-0.4); Eosinophils Percent Auto 1.8 % (0-4); Hematocrit 38.7 % (37.0-47.0); Hemoglobin 13.2 g/dl (12.0-16.0); Imm Gran Abs Auto 0.03 X10*3/uL (0.00-0.03); Imm Gran Pct Auto 0.6 % (0.0-0.4); Lymphocytes Absolute Auto 0.6 X10*3/uL (1.2-4.9); Lymphocytes Percent Auto 11.9 % (20-40); Mean Corpuscular HGB Conc 34.1 g/dl (31.0-35.0); Mean Corpuscular Hemoglobin 35.6 pg (27.0-33.0); Mean Corpuscular Volume 104.3 fL (80.0-98.0); Mean Platelet Volume 9.2 fL (9.4-12.3); Monocytes Absolute Auto 0.6 X10*3/uL (0.1-1.2); Monocytes Percent Auto 12.1 % (2-11); Neutrophils Absolute Auto 3.6 x10*3/uL (2.0-8.3); Platelet Count 218 X10*3/uL (160-400); Red Blood Count 3.71 X10*6/uL (4.20-5.50); Red Cell Distribution Width 13.8 % (11.0-16.0); White Blood Count 4.9 X10*3/uL (4.8-10.8)
[2024-06-06 14:58] LABS: Alanine Aminotransferase 24 U/L (0-31); Albumin Level 3.4 g/dL (3.5-5.0); Alkaline Phosphatase 111 U/L (39-117); Aspartate Amino Transferase 48 U/L (5-31); Bilirubin Direct 0.1 mg/dL (0.0-0.5); Bilirubin Total 0.5 mg/dL (0.0-1.0); Total Protein 6.2 g/dL (6.5-8.0)
== END 2024-06-06 13:02 | disposition home or self-care (01) ==
LOC: HO.LAB 13:01
PROVIDERS: PCP Internal Medicine; Visit Provider Internal Medicine
DX: K50.012 Crohn's disease of small intestine with intestinal obstruction (principal)
CPT/HCPCS: 36415; 80076; 85025

== ENCOUNTER 2024-07-02 13:14 | Outpatient (REF) | payer MEDICARE, OTHER, SELFPAY ==
[2024-07-02 13:54] LABS: MANUAL DIFF FLAG NO
[2024-07-02 15:16] LABS: Basophils Absolute Auto 0.1 X10*3/uL (0.0-0.2); Basophils Percent Auto 1.4 % (0-2); Eosinophils Absolute Auto 0.1 X10*3/uL (0.0-0.4); Hematocrit 37.3 % (37.0-47.0); Hemoglobin 12.7 g/dl (12.0-16.0); Imm Gran Abs Auto 0.02 X10*3/uL (0.00-0.03); Imm Gran Pct Auto 0.6 % (0.0-0.4); Lymphocytes Absolute Auto 0.6 X10*3/uL (1.2-4.9); Lymphocytes Percent Auto 17.8 % (20-40); Mean Corpuscular Hemoglobin 35.1 pg (27.0-33.0); Mean Platelet Volume 9.1 fL (9.4-12.3); Monocytes Absolute Auto 0.3 X10*3/uL (0.1-1.2); Monocytes Percent Auto 8.3 % (2-11); Neutrophils Absolute Auto 2.4 x10*3/uL (2.0-8.3); Neutrophils Percent Auto 69.9 % (45-73); Platelet Count 248 X10*3/uL (160-400); Red Blood Count 3.62 X10*6/uL (4.20-5.50); Red Cell Distribution Width 13.7 % (11.0-16.0); White Blood Count 3.5 X10*3/uL (4.8-10.8)
[2024-07-02 15:46] LABS: Alanine Aminotransferase 43 U/L (0-31); Albumin Level 3.5 g/dL (3.5-5.0); Alkaline Phosphatase 130 U/L (39-117); Aspartate Amino Transferase 40 U/L (5-31); Bilirubin Direct 0.2 mg/dL (0.0-0.5); Bilirubin Total 0.4 mg/dL (0.0-1.0); Total Protein 6.1 g/dL (6.5-8.0)
== END 2024-07-02 13:15 | disposition home or self-care (01) ==
LOC: HO.LABR 13:14
PROVIDERS: PCP Internal Medicine; Visit Provider Internal Medicine
DX: K50.012 Crohn's disease of small intestine with intestinal obstruction (principal)
CPT/HCPCS: 36415; 80076; 85025

== ENCOUNTER 2024-08-08 14:15 | Outpatient (REF) | payer OTHER, MEDICARE, SELFPAY ==
[2024-08-08 14:24] LABS: MANUAL DIFF FLAG NO
[2024-08-08 14:42] LABS: Basophils Percent Auto 0.6 % (0-2); Eosinophils Absolute Auto 0.1 X10*3/uL (0.0-0.4); Eosinophils Percent Auto 1.2 % (0-4); Hematocrit 43.2 % (37.0-47.0); Hemoglobin 14.2 g/dl (12.0-16.0); Imm Gran Abs Auto 0.02 X10*3/uL (0.00-0.03); Imm Gran Pct Auto 0.4 % (0.0-0.4); Lymphocytes Absolute Auto 0.6 X10*3/uL (1.2-4.9); Lymphocytes Percent Auto 13.1 % (20-40); Mean Corpuscular HGB Conc 32.9 g/dl (31.0-35.0); Mean Corpuscular Hemoglobin 34.5 pg (27.0-33.0); Mean Corpuscular Volume 105.1 fL (80.0-98.0); Mean Platelet Volume 9.2 fL (9.4-12.3); Monocytes Absolute Auto 0.5 X10*3/uL (0.1-1.2); Monocytes Percent Auto 10.5 % (2-11); Neutrophils Absolute Auto 3.6 x10*3/uL (2.0-8.3); Neutrophils Percent Auto 74.2 % (45-73); Platelet Count 207 X10*3/uL (160-400); Red Blood Count 4.11 X10*6/uL (4.20-5.50); Red Cell Distribution Width 14.2 % (11.0-16.0); White Blood Count 4.9 X10*3/uL (4.8-10.8)
[2024-08-08 15:06] LABS: Alanine Aminotransferase 43 U/L (0-31); Albumin Level 3.7 g/dL (3.5-5.0); Alkaline Phosphatase 110 U/L (39-117); Aspartate Amino Transferase 37 U/L (5-31); Bilirubin Direct 0.1 mg/dL (0.0-0.5); Bilirubin Total 0.4 mg/dL (0.0-1.0); Total Protein 6.5 g/dL (6.5-8.0)
--- OUTSIDE RECORDS SUMMARY | 2024-08-08 15:40 | XMS_ITS ---
Author Organization [facility] Address [address] [place] [address] Care Team Providers Care Step Down Specialist Name Role Phone Naldo Mojica MD Primary Care Provider Unavailab Ebenezer Coley [phone] REASON FOR VISIT Needs labs and stool specimens ALEKS PROBLEMS Problem Type ICD Code Onset Dates Problem Status W/U Status Risk SNOMED Code Notes Problem Diarrhea of presumed infectious origin (R19.7) Active confirmed [id number] Encounters Encounter Location Date Provider Diagnosis [facility] [address] [facility] [address] [place] [id number] 08/21/2023 Ebenezer Hunter Crohn's disease of small intestine with intestinal obstruction K50.012 and Diarrhea of presumed infectious origin R19.7 ASSESSMENTS Encounter Date Diagnosis Assessment Notes Treatment Notes Treatment Clinical Notes 08/21/2023 Crohn's disease of small intestine with intestinal obstruction (ICD-10 - K50.012) 08/21/2023 Diarrhea of presumed infectious origin (ICD-10 - R19.7) PLAN OF TREATMENT Pending Test Test Name Order Date CHEM 7 PROFILE 08/21/2023 LIVER PROFILE 08/21/2023 CRP 08/21/2023 CBC w DIFF 08/21/2023 SED RATE (ESR) 08/21/2023 STOOL WBC 08/21/2023 C DIFFICILE RFLX PCR 08/21/2023 Calprotectin, Fecal 08/21/2023 GI PANEL 08/21/2023 Next Appt Details Provider Name:Ebenezer Hunter , 12/18/2024 03:40:00 PM, [address] [place] [address], [address], [place], [address],
--- OUTSIDE RECORDS SUMMARY | 2024-08-08 15:40 | XMS_ITS ---
Author Organization [facility] Address [address] [place] [address] Care Team Providers Care Meter Repairer Helper Name Role Phone Naldo Mojica MD Primary Care Provider Unavailab Ebenezer Coley [phone] REASON FOR VISIT new blood work orders PROBLEMS Problem Type ICD Code Onset Dates Problem Status W/U Status Risk SNOMED Code Notes Problem Crohn''s disease of small intestine with intestinal obstruction (K50.012) Active confirmed Intestinal obstruction due to Crohn's disease of small intestine (disorder) ([id number]) Encounters Encounter Location Date Provider Diagnosis [facility] [address] [facility] [address] [place] [id number] 10/03/2023 Ebenezer Hunter Crohn''s disease of small intestine with intestinal obstruction K50.012 ASSESSMENTS Encounter Date Diagnosis Assessment Notes Treatment Notes Treatment Clinical Notes 10/03/2023 Crohn''s disease of small intestine with intestinal obstruction (ICD-10 - K50.012) PLAN OF TREATMENT Pending Test Test Name Order Date LIVER PROFILE 10/03/2023 CBC w DIFF 10/03/2023 Next Appt Details Provider Name:Ebenezer Hunter , 12/18/2024 03:40:00 PM, [address] [facility], [address], [place], [address],
--- OUTSIDE RECORDS SUMMARY | 2024-08-08 15:41 | XMS_ITS | Patient Health Record ---
Author Organization [facility] Address [address] [place] [address] Care Team Providers Care Entry Operator Name Role Phone Naldo Mojica MD Primary Care Provider UnavailEbenezer Jarquin [phone] ALLERGIES No Known Allergies RESULTS Component Value Reference Range Notes Complete Blood Count Auto Di ff Reviewed date:08/08/2023 05:38:46 PM Interpretation: Performing Lab:[facility], [address] [place] [phone] Notes/Report: White Blood Count 5.3 4.8-10.8 X10*3/uL Red Blood Count 4.13 4.20-5.50 X10*6/uL Hemoglobin 14.1 12.0-16.0 g/dl Hematocrit 41.6 37.0-47.0 % Mean Corpuscular Volume 100.7 80.0-98.0 fL Mean Corpuscular Hemoglobin 34.1 27.0-33.0 pg Mean Corpuscular HGB Conc 33.9 31.0-35.0 g/dl Red Cell Distribution Width 13.8 11.0-16.0 % Platelet Count 293 160-400 X10*3/uL Mean Platelet Volume 9.8 9.4-12.3 fL Neutrophils Percent Auto 66.9 45-73 % Imm Gran Pct Auto 0.6 0.0-0.4 % Lymphocytes Percent Auto 15.6 20-40 % Monocytes Percent Auto 14.0 2-11 % Eosinophils Percent Auto 2.1 0-4 % Basophils Percent Auto 0.8 0-2 % NRBC Pct Auto 0.0 0.0-0.2 /100WBC Neutrophils Absolute Auto 3.5 2.0-8.3 x10*3/u L Imm Gran Abs Auto 0.03 0.00-0.03 X10*3/uL Lymphocytes Absolute Auto 0.8 1.2-4.9 X10*3/u L Monocytes Absolute Auto 0.7 0.1-1.2 X10*3/uL Eosinophils Absolute Auto 0.1 0.0-0.4 X10*3/u L Basophils Absolute Auto 0.0 0.0-0.2 X10*3/uL NRBC Abs Auto 0.000 0.0-0.012 X10*3/uL Liver Panel Reviewed date:08/08/2023 05:39:08 PM Interpretation: Performing Lab:[facility], [address] [place] [phone] Notes/Report: Bilirubin Total 0.3 0.0-1.0 mg/dL Bilirubin Direct 0.1 0.0-0.5 mg/dL Aspartate Amino Transferase 38 5-31 U/L Alanine Aminotransferase 45 0-31 U/L Total Protein 6.6 6.5-8.0 g/dL Albumin Level 3.7 3.5-5.0 g/dL Alkaline Phosphatase 107 39-117 U/L Complete Blood Count Auto Di ff Reviewed date:08/27/2023 10:27:56 PM Interpretation: Performing Lab:[facility], [address] [place] [phone] Notes/Report: White Blood Count 3.6 4.8-10.8 X10*3/uL Red Blood Count 4.13 4.20-5.50 X10*6/uL Hemoglobin 13.7 12.0-16.0 g/dl Hematocrit 40.0 37.0-47.0 % Mean Corpuscular Volume 96.9 80.0-98.0 fL Mean Corpuscular Hemoglobin 33.2 27.0-33.0 pg Mean Corpuscular HGB Conc 34.3 31.0-35.0 g/dl Red Cell Distribution Width 13.2 11.0-16.0 % Platelet Count 145 160-400 X10*3/uL Mean Platelet Volume 9.1 9.4-12.3 fL Neutrophils Percent Auto 66.8 45-73 % Imm Gran Pct Auto 0.3 0.0-0.4 % Lymphocytes Percent Auto 19.6 20-40 % Monocytes Percent Auto 11.6 2-11 % Eosinophils Percent Auto 1.1 0-4 % Basophils Percent Auto 0.6 0-2 % NRBC Pct Auto 0.0 0.0-0.2 /100WBC Neutrophils Absolute Auto 2.4 2.0-8.3 x10*3/u L Imm Gran Abs Auto 0.01 0.00-0.03 X10*3/uL Lymphocytes Absolute Auto 0.7 1.2-4.9 X10*3/u L Monocytes Absolute Auto 0.4 0.1-1.2 X10*3/uL Eosinophils Absolute Auto 0.0 0.0-0.4 X10*3/u L Basophils Absolute Auto 0.0 0.0-0.2 X10*3/uL NRBC Abs Auto 0.000 0.0-0.012 X10*3/uL Erythrocyte Sedimentation Ra te Reviewed date:08/22/2023 04:58:10 PM Interpretation: Performing Lab:[facility], [address] [place] [phone] Notes/Report: Erythrocyte Sedimentation Rate 27 0-20 MM/HR Patients with polycythemia and many hemoglobin abnormalities may have depressed sed rates whereas patients with anemia may have elevated sed rates. Liver Panel Reviewed date:08/22/2023 04:56:44 PM Interpretation: Performing Lab:[address] [phone] Notes/Report: Bilirubin Total 0.4 0.0-1.0 mg/dL Bilirubin Direct 0.1 0.0-0.5 mg/dL Slight Hem olysis Aspartate Amino Transferase 36 5-31 U/L Slight Hemolysis Alanine Aminotransferase 42 0-31 U/L Total Protein 6.5 6.5-8.0 g/dL Albumin Level 3.6 3.5-5.0 g/dL Alkaline Phosphatase 92 39-117 U/L Basic Metabolic Panel Reviewed date:08/22/2023 04:57:51 PM Interpretation: Performing Lab:[address] [phone] Notes/Report: Sodium 143 135-145 mmol/L Potassium 3.5 3.3-5.1 mmol/L Slight Hemoly sis Chloride 107 96-108 mmol/L Carbon Dioxide 28 22-29 mmol/L Anion Gap 12 12-20 Blood Urea Nitrogen 17 9-16 mg/dL Creatinine 0.74 0.5-1.4 mg/dL Estimated Glomerular Filt Rate > 60 NOTE: For -Macanese individuals, multiply the result by 1.210. Chronic Kidney Disease: Estimated GFR < 60 mL/min/1.73m2 Severe Kidney Disease: Estimated GFR < 15 mL/min/1.73m2 Glucose Random 85 60-115 mg/dL Calcium 9.1 8.4-10.2 mg/dL C Reactive Protein Reviewed date:08/22/2023 04:58:01 PM Interpretation: Performing Lab:[facility], [address] [place] [phone] Notes/Report: C Reactive Protein 0.41 < or = 0.50 mg/dL Complete Blood Count Auto Di ff Reviewed date:10/04/2023 10:42:05 PM Interpretation: Performing Lab:[facility], [address] [place] [phone] Notes/Report: White Blood Count 3.7 4.8-10.8 X10*3/uL Red Blood Count 3.79 4.20-5.50 X10*6/uL Hemoglobin 12.9 12.0-16.0 g/dl Hematocrit 39.1 37.0-47.0 % Mean Corpuscular Volume 103.2 80.0-98.0 fL Mean Corpuscular Hemoglobin 34.0 27.0-33.0 pg Mean Corpuscular HGB Conc 33.0 31.0-35.0 g/dl Red Cell Distribution Width 15.3 11.0-16.0 % Platelet Count 262 160-400 X10*3/uL Mean Platelet Volume 9.2 9.4-12.3 fL Neutrophils Percent Auto 68.2 45-73 % Imm Gran Pct Auto 0.3 0.0-0.4 % Lymphocytes Percent Auto 16.2 20-40 % Monocytes Percent Auto 13.2 2-11 % Eosinophils Percent Auto 1.6 0-4 % Basophils Percent Auto 0.5 0-2 % NRBC Pct Auto 0.0 0.0-0.2 /100WBC Neutrophils Absolute Auto 2.5 2.0-8.3 x10*3/u L Imm Gran Abs Auto 0.01 0.00-0.03 X10*3/uL Lymphocytes Absolute Auto 0.6 1.2-4.9 X10*3/u L Monocytes Absolute Auto 0.5 0.1-1.2 X10*3/uL Eosinophils Absolute Auto 0.1 0.0-0.4 X10*3/u L Basophils Absolute Auto 0.0 0.0-0.2 X10*3/uL NRBC Abs Auto 0.000 0.0-0.012 X10*3/uL Erythrocyte Sedimentation Ra te Reviewed date:10/04/2023 10:56:06 PM Interpretation: Performing Lab:[address] [phone] Notes/Report: Erythrocyte Sedimentation Rate 37 0-20 MM/HR Patients with polycythemia and many hemoglobin abnormalities may have depressed sed rates whereas patients with anemia may have elevated sed rates. Liver Panel Reviewed date:10/04/2023 10:48:45 PM Interpretation: Performing Lab:[facility], [address] [place] [phone] Notes/Report: Bilirubin Total 0.5 0.0-1.0 mg/dL Bilirubin Direct 0.2 0.0-0.5 mg/dL Aspartate Amino Transferase 26 5-31 U/L Alanine Aminotransferase 23 0-31 U/L Total Protein 6.6 6.5-8.0 g/dL Albumin Level 3.8 3.5-5.0 g/dL Alkaline Phosphatase 104 39-117 U/L Basic Metabolic Panel Reviewed date:10/04/2023 10:55:52 PM Interpretation: Performing Lab:[address] [phone] Notes/Report: Sodium 140 135-145 mmol/L Potassium 3.7 3.3-5.1 mmol/L Chloride 105 96-108 mmol/L Carbon Dioxide 28 22-29 mmol/L Anion Gap 11 12-20 Blood Urea Nitrogen 14 9-16 mg/dL Creatinine 0.73 0.5-1.4 mg/dL Estimated Glomerular Filt Rate > 60 NOTE: For -Macanese individuals, multiply the result by 1.210. Chronic Kidney Disease: Estimated GFR < 60 mL/min/1.73m2 Severe Kidney Disease: Estimated GFR < 15 mL/min/1.73m2 Glucose Random 114 60-115 mg/dL Calcium 9.3 8.4-10.2 mg/dL C Reactive Protein Reviewed date:10/04/2023 10:55:58 PM Interpretation: Performing Lab:[facility], [address] [place] [phone] Notes/Report: C Reactive Protein 0.14 < or = 0.50 mg/dL Complete Blood Count Auto Di ff Reviewed date:11/30/2023 06:55:08 PM Interpretation: Performing Lab:[facility], [address] [place] [phone] Notes/Report: White Blood Count 4.2 4.8-10.8 X10*3/uL Red Blood Count 4.06 4.20-5.50 X10*6/uL Hemoglobin 14.3 12.0-16.0 g/dl Hematocrit 40.6 37.0-47.0 % Mean Corpuscular Volume 100.0 80.0-98.0 fL Mean Corpuscular Hemoglobin 35.2 27.0-33.0 pg Mean Corpuscular HGB Conc 35.2 31.0-35.0 g/dl Red Cell Distribution Width 13.2 11.0-16.0 % Platelet Count 203 160-400 X10*3/uL Mean Platelet Volume 9.3 9.4-12.3 fL Neutrophils Percent Auto 71.2 45-73 % Imm Gran Pct Auto 0.5 0.0-0.4 % Lymphocytes Percent Auto 19.2 20-40 % Monocytes Percent Auto 6.7 2-11 % Eosinophils Percent Auto 1.7 0-4 % Basophils Percent Auto 0.7 0-2 % NRBC Pct Auto 0.0 0.0-0.2 /100WBC Neutrophils Absolute Auto 3.0 2.0-8.3 x10*3/u L Imm Gran Abs Auto 0.02 0.00-0.03 X10*3/uL Lymphocytes Absolute Auto 0.8 1.2-4.9 X10*3/u L Monocytes Absolute Auto 0.3 0.1-1.2 X10*3/uL Eosinophils Absolute Auto 0.1 0.0-0.4 X10*3/u L Basophils Absolute Auto 0.0 0.0-0.2 X10*3/uL NRBC Abs Auto 0.000 0.0-0.012 X10*3/uL Liver Panel Reviewed date:11/30/2023 06:55:40 PM Interpretation: Performing Lab:[facility], [address] [place] [phone] Notes/Report: Bilirubin Total 0.4 0.0-1.0 mg/dL Bilirubin Direct 0.1 0.0-0.5 mg/dL Aspartate Amino Transferase 41 5-31 U/L Alanine Aminotransferase 58 0-31 U/L Total Protein 6.3 6.5-8.0 g/dL Albumin Level 3.6 3.5-5.0 g/dL Alkaline Phosphatase 100 39-117 U/L Complete Blood Count Auto Di ff Reviewed date:01/03/2024 05:50:33 PM Interpretation: Performing Lab:[facility], [address] [place] [phone] Notes/Report: White Blood Count 4.9 4.8-10.8 X10*3/uL Red Blood Count 4.03 4.20-5.50 X10*6/uL Hemoglobin 14.0 12.0-16.0 g/dl Hematocrit 39.8 37.0-47.0 % Mean Corpuscular Volume 98.8 80.0-98.0 fL Mean Corpuscular Hemoglobin 34.7 27.0-33.0 pg Mean Corpuscular HGB Conc 35.2 31.0-35.0 g/dl Red Cell Distribution Width 12.7 11.0-16.0 % Platelet Count 197 160-400 X10*3/uL Mean Platelet Volume 9.9 9.4-12.3 fL Neutrophils Percent Auto 71.2 45-73 % Imm Gran Pct Auto 0.4 0.0-0.4 % Lymphocytes Percent Auto 14.0 20-40 % Monocytes Percent Auto 12.8 2-11 % Eosinophils Percent Auto 1.0 0-4 % Basophils Percent Auto 0.6 0-2 % NRBC Pct Auto 0.0 0.0-0.2 /100WBC Neutrophils Absolute Auto 3.5 2.0-8.3 x10*3/u L Imm Gran Abs Auto 0.02 0.00-0.03 X10*3/uL Lymphocytes Absolute Auto 0.7 1.2-4.9 X10*3/u L Monocytes Absolute Auto 0.6 0.1-1.2 X10*3/uL Eosinophils Absolute Auto 0.1 0.0-0.4 X10*3/u L Basophils Absolute Auto 0.0 0.0-0.2 X10*3/uL NRBC Abs Auto 0.000 0.0-0.012 X10*3/uL Liver Panel Reviewed date:01/03/2024 05:50:54 PM Interpretation: Performing Lab:[address] [phone] Notes/Report: Bilirubin Total 0.3 0.0-1.0 mg/dL Bilirubin Direct 0.1 0.0-0.5 mg/dL Aspartate Amino Transferase 26 5-31 U/L Alanine Aminotransferase 22 0-31 U/L Total Protein 6.4 6.5-8.0 g/dL Albumin Level 3.5 3.5-5.0 g/dL Alkaline Phosphatase 94 39-117 U/L Complete Blood Count Auto Di ff Reviewed date:01/28/2024 04:00:43 PM Interpretation: Performing Lab:[facility], [address] [place] [phone] Notes/Report: White Blood Count 4.3 4.8-10.8 X10*3/uL Red Blood Count 4.31 4.20-5.50 X10*6/uL Hemoglobin 14.9 12.0-16.0 g/dl Hematocrit 42.5 37.0-47.0 % Mean Corpuscular Volume 98.6 80.0-98.0 fL Mean Corpuscular Hemoglobin 34.6 27.0-33.0 pg Mean Corpuscular HGB Conc 35.1 31.0-35.0 g/dl Red Cell Distribution Width 12.4 11.0-16.0 % Platelet Count 238 160-400 X10*3/uL Mean Platelet Volume 8.8 9.4-12.3 fL Neutrophils Percent Auto 74.2 45-73 % Imm Gran Pct Auto 0.2 0.0-0.4 % Lymphocytes Percent Auto 13.4 20-40 % Monocytes Percent Auto 9.2 2-11 % Eosinophils Percent Auto 2.1 0-4 % Basophils Percent Auto 0.9 0-2 % NRBC Pct Auto 0.0 0.0-0.2 /100WBC Neutrophils Absolute Auto 3.2 2.0-8.3 x10*3/u L Imm Gran Abs Auto 0.01 0.00-0.03 X10*3/uL Lymphocytes Absolute Auto 0.6 1.2-4.9 X10*3/u L Monocytes Absolute Auto 0.4 0.1-1.2 X10*3/uL Eosinophils Absolute Auto 0.1 0.0-0.4 X10*3/u L Basophils Absolute Auto 0.0 0.0-0.2 X10*3/uL NRBC Abs Auto 0.000 0.0-0.012 X10*3/uL Liver Panel Reviewed date:01/28/2024 04:01:02 PM Interpretation: Performing Lab:[facility], [address] [place] [phone] Notes/Report: Bilirubin Total 0.4 0.0-1.0 mg/dL Bilirubin Direct 0.1 0.0-0.5 mg/dL Aspartate Amino Transferase 26 5-31 U/L Alanine Aminotransferase 31 0-31 U/L Total Protein 6.6 6.5-8.0 g/dL Albumin Level 3.6 3.5-5.0 g/dL Alkaline Phosphatase 102 39-117 U/L Complete Blood Count Auto Di ff Reviewed date:02/28/2024 10:02:16 PM Interpretation: Performing Lab:[address] [phone] Notes/Report: White Blood Count 3.0 4.8-10.8 X10*3/uL Red Blood Count 3.45 4.20-5.50 X10*6/uL Hemoglobin 11.6 12.0-16.0 g/dl Hematocrit 35.0 37.0-47.0 % Mean Corpuscular Volume 101.4 80.0-98.0 fL Mean Corpuscular Hemoglobin 33.6 27.0-33.0 pg Mean Corpuscular HGB Conc 33.1 31.0-35.0 g/dl Red Cell Distribution Width 13.8 11.0-16.0 % Platelet Count 312 160-400 X10*3/uL Mean Platelet Volume 8.5 9.4-12.3 fL Neutrophils Percent Auto 73.6 45-73 % Imm Gran Pct Auto 0.3 0.0-0.4 % Lymphocytes Percent Auto 18.5 20-40 % Monocytes Percent Auto 3.6 2-11 % Eosinophils Percent Auto 3.3 0-4 % Basophils Percent Auto 0.7 0-2 % NRBC Pct Auto 0.0 0.0-0.2 /100WBC Neutrophils Absolute Auto 2.2 2.0-8.3 x10*3/u L Imm Gran Abs Auto 0.01 0.00-0.03 X10*3/uL Lymphocytes Absolute Auto 0.6 1.2-4.9 X10*3/u L Monocytes Absolute Auto 0.1 0.1-1.2 X10*3/uL Eosinophils Absolute Auto 0.1 0.0-0.4 X10*3/u L Basophils Absolute Auto 0.0 0.0-0.2 X10*3/uL NRBC Abs Auto 0.000 0.0-0.012 X10*3/uL Liver Panel Reviewed date:02/28/2024 05:07:38 PM Interpretation: Performing Lab:[address] [phone] Notes/Report: Bilirubin Total 0.3 0.0-1.0 mg/dL Bilirubin Direct 0.1 0.0-0.5 mg/dL Aspartate Amino Transferase 17 5-31 U/L Alanine Aminotransferase 16 0-31 U/L Total Protein 6.4 6.5-8.0 g/dL Albumin Level 3.6 3.5-5.0 g/dL Alkaline Phosphatase 103 39-117 U/L Complete Blood Count Auto Di ff Reviewed date:04/04/2024 05:48:24 PM Interpretation: Performing Lab:[address] [phone] Notes/Report: White Blood Count 3.5 4.8-10.8 X10*3/uL Red Blood Count 3.36 4.20-5.50 X10*6/uL Hemoglobin 11.8 12.0-16.0 g/dl Hematocrit 34.9 37.0-47.0 % Mean Corpuscular Volume 103.9 80.0-98.0 fL Mean Corpuscular Hemoglobin 35.1 27.0-33.0 pg Mean Corpuscular HGB Conc 33.8 31.0-35.0 g/dl Red Cell Distribution Width 15.5 11.0-16.0 % Platelet Count 213 160-400 X10*3/uL Mean Platelet Volume 8.9 9.4-12.3 fL Neutrophils Percent Auto 69.2 45-73 % Imm Gran Pct Auto 0.3 0.0-0.4 % Lymphocytes Percent Auto 14.6 20-40 % Monocytes Percent Auto 13.1 2-11 % Eosinophils Percent Auto 1.7 0-4 % Basophils Percent Auto 1.1 0-2 % NRBC Pct Auto 0.0 0.0-0.2 /100WBC Neutrophils Absolute Auto 2.4 2.0-8.3 x10*3/u L Imm Gran Abs Auto 0.01 0.00-0.03 X10*3/uL Lymphocytes Absolute Auto 0.5 1.2-4.9 X10*3/u L Monocytes Absolute Auto 0.5 0.1-1.2 X10*3/uL Eosinophils Absolute Auto 0.1 0.0-0.4 X10*3/u L Basophils Absolute Auto 0.0 0.0-0.2 X10*3/uL NRBC Abs Auto 0.000 0.0-0.012 X10*3/uL Liver Panel Reviewed date:04/04/2024 05:48:45 PM Interpretation: Performing Lab:[facility], [address] [place] [phone] Notes/Report: Bilirubin Total 0.4 0.0-1.0 mg/dL Bilirubin Direct 0.1 0.0-0.5 mg/dL Aspartate Amino Transferase 17 5-31 U/L Alanine Aminotransferase 12 0-31 U/L Total Protein 6.4 6.5-8.0 g/dL Albumin Level 3.6 3.5-5.0 g/dL Alkaline Phosphatase 104 39-117 U/L Complete Blood Count Auto Di ff Reviewed date:05/01/2024 07:04:00 PM Interpretation: Performing Lab:[address] [place] [address] Notes/Report: White Blood Count 3.4 4.8-10.8 X10*3/uL Red Blood Count 3.43 4.20-5.50 X10*6/uL Hemoglobin 12.0 12.0-16.0 g/dl Hematocrit 35.4 37.0-47.0 % Mean Corpuscular Volume 103.2 80.0-98.0 fL Mean Corpuscular Hemoglobin 35.0 27.0-33.0 pg Mean Corpuscular HGB Conc 33.9 31.0-35.0 g/dl Red Cell Distribution Width 14.6 11.0-16.0 % Platelet Count 243 160-400 X10*3/uL Mean Platelet Volume 8.6 9.4-12.3 fL Neutrophils Percent Auto 70.2 45-73 % Imm Gran Pct Auto 0.6 0.0-0.4 % Lymphocytes Percent Auto 13.9 20-40 % Monocytes Percent Auto 10.6 2-11 % Eosinophils Percent Auto 4.1 0-4 % Basophils Percent Auto 0.6 0-2 % NRBC Pct Auto 0.0 0.0-0.2 /100WBC Neutrophils Absolute Auto 2.4 2.0-8.3 x10*3/u L Imm Gran Abs Auto 0.02 0.00-0.03 X10*3/uL Lymphocytes Absolute Auto 0.5 1.2-4.9 X10*3/u L Monocytes Absolute Auto 0.4 0.1-1.2 X10*3/uL Eosinophils Absolute Auto 0.1 0.0-0.4 X10*3/u L Basophils Absolute Auto 0.0 0.0-0.2 X10*3/uL NRBC Abs Auto 0.000 0.0-0.012 X10*3/uL Liver Panel Reviewed date:05/01/2024 07:03:08 PM Interpretation: Performing Lab:[facility], [address] [place] [phone] Notes/Report: Bilirubin Total 0.6 0.0-1.0 mg/dL Bilirubin Direct 0.2 0.0-0.5 mg/dL Aspartate Amino Transferase 18 5-31 U/L Alanine Aminotransferase 14 0-31 U/L Total Protein 6.5 6.5-8.0 g/dL Albumin Level 3.5 3.5-5.0 g/dL Alkaline Phosphatase 99 39-117 U/L Complete Blood Count Auto Di ff Reviewed date:06/06/2024 06:55:10 PM Interpretation: Performing Lab:[address] [phone] Notes/Report: White Blood Count 4.9 4.8-10.8 X10*3/uL Red Blood Count 3.71 4.20-5.50 X10*6/uL Hemoglobin 13.2 12.0-16.0 g/dl Hematocrit 38.7 37.0-47.0 % Mean Corpuscular Volume 104.3 80.0-98.0 fL Mean Corpuscular Hemoglobin 35.6 27.0-33.0 pg Mean Corpuscular HGB Conc 34.1 31.0-35.0 g/dl Red Cell Distribution Width 13.8 11.0-16.0 % Platelet Count 218 160-400 X10*3/uL Mean Platelet Volume 9.2 9.4-12.3 fL Neutrophils Percent Auto 73.0 45-73 % Imm Gran Pct Auto 0.6 0.0-0.4 % Lymphocytes Percent Auto 11.9 20-40 % Monocytes Percent Auto 12.1 2-11 % Eosinophils Percent Auto 1.8 0-4 % Basophils Percent Auto 0.6 0-2 % NRBC Pct Auto 0.0 0.0-0.2 /100WBC Neutrophils Absolute Auto 3.6 2.0-8.3 x10*3/u L Imm Gran Abs Auto 0.03 0.00-0.03 X10*3/uL Lymphocytes Absolute Auto 0.6 1.2-4.9 X10*3/u L Monocytes Absolute Auto 0.6 0.1-1.2 X10*3/uL Eosinophils Absolute Auto 0.1 0.0-0.4 X10*3/u L Basophils Absolute Auto 0.0 0.0-0.2 X10*3/uL NRBC Abs Auto 0.000 0.0-0.012 X10*3/uL Liver Panel Reviewed date:06/06/2024 06:54:32 PM Interpretation: Performing Lab:[facility], [address] [place] [phone] Notes/Report: Bilirubin Total 0.5 0.0-1.0 mg/dL Bilirubin Direct 0.1 0.0-0.5 mg/dL Aspartate Amino Transferase 48 5-31 U/L Alanine Aminotransferase 24 0-31 U/L Total Protein 6.2 6.5-8.0 g/dL Albumin Level 3.4 3.5-5.0 g/dL Alkaline Phosphatase 111 39-117 U/L Complete Blood Count Auto Di ff Reviewed date:07/02/2024 04:25:58 PM Interpretation: Performing Lab:[facility], [address] [place] [phone] Notes/Report: White Blood Count 3.5 4.8-10.8 X10*3/uL Red Blood Count 3.62 4.20-5.50 X10*6/uL Hemoglobin 12.7 12.0-16.0 g/dl Hematocrit 37.3 37.0-47.0 % Mean Corpuscular Volume 103.0 80.0-98.0 fL Mean Corpuscular Hemoglobin 35.1 27.0-33.0 pg Mean Corpuscular HGB Conc 34.0 31.0-35.0 g/dl Red Cell Distribution Width 13.7 11.0-16.0 % Platelet Count 248 160-400 X10*3/uL Mean Platelet Volume 9.1 9.4-12.3 fL Neutrophils Percent Auto 69.9 45-73 % Imm Gran Pct Auto 0.6 0.0-0.4 % Lymphocytes Percent Auto 17.8 20-40 % Monocytes Percent Auto 8.3 2-11 % Eosinophils Percent Auto 2.0 0-4 % Basophils Percent Auto 1.4 0-2 % NRBC Pct Auto 0.0 0.0-0.2 /100WBC Neutrophils Absolute Auto 2.4 2.0-8.3 x10*3/u L Imm Gran Abs Auto 0.02 0.00-0.03 X10*3/uL Lymphocytes Absolute Auto 0.6 1.2-4.9 X10*3/u L Monocytes Absolute Auto 0.3 0.1-1.2 X10*3/uL Eosinophils Absolute Auto 0.1 0.0-0.4 X10*3/u L Basophils Absolute Auto 0.1 0.0-0.2 X10*3/uL NRBC Abs Auto 0.000 0.0-0.012 X10*3/uL Liver Panel Reviewed date:07/02/2024 04:24:45 PM Interpretation: Performing Lab:[facility], [address] [place] [phone] Notes/Report: Bilirubin Total 0.4 0.0-1.0 mg/dL Bilirubin Direct 0.2 0.0-0.5 mg/dL Aspartate Amino Transferase 40 5-31 U/L Alanine Aminotransferase 43 0-31 U/L Total Protein 6.1 6.5-8.0 g/dL Albumin Level 3.5 3.5-5.0 g/dL Alkaline Phosphatase 130 39-117 U/L Complete Blood Count Auto Di ff (Not yet reviewed by provider) Interpretation: Performing Lab:[facility], [address] [place] [phone] Notes/Report: White Blood Count 4.9 4.8-10.8 X10*3/uL Red Blood Count 4.11 4.20-5.50 X10*6/uL Hemoglobin 14.2 12.0-16.0 g/dl Hematocrit 43.2 37.0-47.0 % Mean Corpuscular Volume 105.1 80.0-98.0 fL Mean Corpuscular Hemoglobin 34.5 27.0-33.0 pg Mean Corpuscular HGB Conc 32.9 31.0-35.0 g/dl Red Cell Distribution Width 14.2 11.0-16.0 % Platelet Count 207 160-400 X10*3/uL Mean Platelet Volume 9.2 9.4-12.3 fL Neutrophils Percent Auto 74.2 45-73 % Imm Gran Pct Auto 0.4 0.0-0.4 % Lymphocytes Percent Auto 13.1 20-40 % Monocytes Percent Auto 10.5 2-11 % Eosinophils Percent Auto 1.2 0-4 % Basophils Percent Auto 0.6 0-2 % NRBC Pct Auto 0.0 0.0-0.2 /100WBC Neutrophils Absolute Auto 3.6 2.0-8.3 x10*3/u L Imm Gran Abs Auto 0.02 0.00-0.03 X10*3/uL Lymphocytes Absolute Auto 0.6 1.2-4.9 X10*3/u L Monocytes Absolute Auto 0.5 0.1-1.2 X10*3/uL Eosinophils Absolute Auto 0.1 0.0-0.4 X10*3/u L Basophils Absolute Auto 0.0 0.0-0.2 X10*3/uL NRBC Abs Auto 0.000 0.0-0.012 X10*3/uL Liver Panel (Not yet reviewe d by provider) Interpretation: Performing Lab:[facility], [address] [place] [id number] Notes/Report: Bilirubin Total 0.4 0.0-1.0 mg/dL Bilirubin Direct 0.1 0.0-0.5 mg/dL Aspartate Amino Transferase 37 5-31 U/L Alanine Aminotransferase 43 0-31 U/L Total Protein 6.5 6.5-8.0 g/dL Albumin Level 3.7 3.5-5.0 g/dL Alkaline Phosphatase 110 39-117 U/L REASON FOR REFERRAL No Information MEDICATIONS Medication SIG (Take, Route, Frequency, Duration) Notes Start Date End Date Status azaTHIOprine 50 mg TAKE 2 TABLETS TWICE A DAY Orally Twice a day for 90 days Active Pentasa 500 MG Oral Activ e hydrALAZINE HCl 10 MG 1 tablet with food Orally twice a day Active Solifenacin Succinate 10 MG Oral for 90 Active Methocarbamol 750 MG TAKE 1 TABLET BY [facility] TWICE A DAY 15 DAYS Oral for 15 Active Iron 325 (65 Fe) MG 1 tablet Orally Once a day Active Omeprazole 20 MG 1 capsule Orally QOD Active Benazepril-hydroCHLOROthiazi de 20-25 MG 2 tablet Orally Once a day Active oxyBUTYnin Chloride ER 10 MG 1 tablet Or ally Once a day Active Mesalamine ER 500 mg TAKE 2 CAPSULES FOU R TIMES A DAY (REPLACES 30 DAY PRESCRIPTION) Active Vitamin C Active IMMUNIZATIONS Vaccine Route Administration Date Status Comme nts Influenza Unknown 06/05/2018 Refused Influenza Unknown 11/28/2018 Refused Influenza Unknown 05/01/2019 Refused Influenza Unknown 11/10/2021 Refused Influenza Unknown 08/11/2023 Refused SOCIAL HISTORY Tobacco Use: Social History Observation Description Date Details (start date - stop date) Never Smoker NA - NA Sex Assigned At : Social History Observation Description Sex Assigned At Unknown Tobacco Use/Smoking Question Answer Notes Patient is a nonsmoker Alcohol Screen Question Answer Notes Did you have a drink containing alcohol in the p ast year? No Points 0 Interpretation Negative PROBLEMS Problem Type ICD Code Onset Dates Problem Status W/U Status Risk SNOMED Code Notes Problem Encounter for screening for malignant neoplasm of colon (Z12.11) Active confirmed 206933284 Problem Crohn's disease of small intestine with intestinal obstruction (K50.012) Active confirmed 35729977 Problem Preprocedural examination (Z01.818) Active confirmed [id number] Problem Elevated liver enzymes (R74.8) Active confirmed 705886525 Problem Crohns disease of small intestine with intestinal obstruction (K50.012) Active confirmed 87610180 Problem Iron deficiency anemia, unspecified iron deficiency anemia type (D50.9) Active confirmed 53674907 Problem Anemia, unspecified type (D64.9) Active confirmed 957290992 Problem Diarrhea, unspecified type (R19.7) Active confirmed 10779953 Problem Diarrhea of presumed infectious origin (R19.7) Active confirmed 05452556 Problem Crohn''s disease of small intestine with intestinal obstruction (K50.012) Active confirmed Intestinal obstruction due to Crohn's disease of small intestine (disorder) ([id number]) Problem Crohn''s disease of small intestine with other complication (K50.018) Active confirmed Crohn (92139880) Problem Encounter for medication monitoring (Z51.81) Active confirmed [id number] VITAL SIGNS Temperature 97.5 degrees Fahrenheit 05/08/2024 Blood pressure diastolic 00 mm Hg 05/08/2024 Height 61 in 05/08/2024 Blood pressure systolic 000 mm Hg 05/08/2024 Weight 144 lb 8 oz lbs 05/08/2024 BMI 27.30 kg/m2 05/08/2024 Encounters Encounter Location Date Provider Diagnosis [facility] [address] [place] [address] 08/11/2023 Ebenezer Hunter Crohn's disease of small intestine with intestinal obstruction K50.012 and Encounter for screening for malignant neoplasm of colon Z12.11 [facility] [address] [place] [address] 05/08/2024 Ebenezer Hunter Crohn''s disease of small intestine with intestinal obstruction K50.012 [facility] [address] [place] [address] 08/21/2023 Ebenezer Hunter [facility] [address] [place] [address] 08/21/2023 Ebenezer Hunter Crohn's disease of small intestine with intestinal obstruction K50.012 and Diarrhea of presumed infectious origin R19.7 [facility] [address] [place] [address] 10/03/2023 Ebenezer Hunter Crohn''s disease of small intestine with intestinal obstruction K50.012 ASSESSMENTS Encounter Date Diagnosis Assessment Notes Treatment Notes Treatment Clinical Notes 08/11/2023 Encounter for screening for malignant neoplasm of colon (ICD-10 - Z12.11) 08/11/2023 Crohn's disease of small intestine with intestinal obstruction (ICD-10 - K50.012) 05/08/2024 Crohn''s disease of small intestine with intestinal obstruction (ICD-10 - K50.012) Continue the same Azathioprine and Pentasa regimen Continue the same monthly labs We will plan for a colonoscopy toward the end of 202408/21/2023 Crohn's disease of small intestine with intestinal obstruction (ICD-10 - K50.012) 10/03/2023 Crohn''s disease of small intestine with intestinal obstruction (ICD-10 - K50.012) 08/21/2023 Diarrhea of presumed infectious origin (ICD-10 - R19.7) PLAN OF TREATMENT Pending Test Test Name Order Date CHEM 7 PROFILE 08/21/2023 CHEM 7 PROFILE 11/30/2022 LIVER PROFILE 07/08/2018 LIVER PROFILE 05/01/2019 LIVER PROFILE 11/30/2022 LIVER PROFILE 11/08/2016 LIVER PROFILE 05/28/2021 LIVER PROFILE 04/07/2020 LIVER PROFILE 05/03/2023 LIVER PROFILE 07/18/2014 LIVER PROFILE 10/03/2023 LIVER PROFILE 01/14/2019 LIVER PROFILE 05/09/2022 LIVER PROFILE 08/25/2016 LIVER PROFILE 09/09/2015 LIVER PROFILE 10/07/2018 LIVER PROFILE 04/12/2017 LIVER PROFILE 04/08/2021 LIVER PROFILE 08/21/2023 LIVER PROFILE 03/10/2019 IRON + IBC (FE) 03/12/2020 FERRITIN 03/12/2020 CRP 08/21/2023 CRP 11/30/2022 VITAMIN B12 AND FOLATE 03/12/2020 CBC w DIFF 04/08/2021 CBC w DIFF 08/21/2023 CBC w DIFF 07/08/2018 CBC w DIFF 05/01/2019 CBC w DIFF 11/08/2016 CBC w DIFF 05/28/2021 CBC w DIFF 04/07/2020 CBC w DIFF 05/03/2023 CBC w DIFF 07/18/2014 CBC w DIFF 11/30/2022 CBC w DIFF 10/03/2023 CBC w DIFF 01/14/2019 CBC w DIFF 05/09/2022 CBC w DIFF 08/25/2016 CBC w DIFF 09/09/2015 CBC w DIFF 10/07/2018 CBC w DIFF 04/12/2017 SED RATE (ESR) 08/21/2023 SED RATE (ESR) 11/30/2022 PROMETHEUS THIOPURINE METABOLITES (TPMT) 05/18/2016 PROMETHEUS THIOPURINE METABOLITES (TPMT) 10/07/2018 PROMETHEUS THIOPURINE METABOLITES (TPMT) 11/28/2018 PROMETHEUS THIOPURINE METABOLITES (TPMT) 07/08/2018 PROMETHEUS THIOPURINE METABOLITES (TPMT) 11/08/2016 PROMETHEUS THIOPURINE METABOLITES (TPMT) 01/14/2019 PROMETHEUS THIOPURINE METABOLITES (TPMT) 08/25/2016 PROMETHEUS TPMT ENZYME 05/18/2016 PROMETHEUS TPMT GENETICS 05/18/2016 STOOL WBC 08/21/2023 STOOL WBC 11/30/2022 C DIFFICILE RFLX PCR 11/30/2022 C DIFFICILE RFLX PCR 08/21/2023 Complete Blood Count Auto Diff Liver Panel 08/08/2024 Calprotectin, Fecal 08/21/2023 GI PANEL 08/21/2023 Future Test Test Name Order Date COLONOSCOPY 12/18/2019 UPPER GI ENDOSCOPY 04/09/2020 Next Appt Details Provider Name:Ebenezer [place] , 12/18/2024 03:40:00 PM, [address] [place] [address], [place] [address], [place], [address], Insurance Providers Payer Name Payer Address Payer Phone Subscriber Number Group Number Insured Name Patient Relationship to Insured Coverage Start Date Coverage End Date MEDICARE OF [employer] [address] [place] [address] [phone] [id number] MONIK SORIA Self - patient is the insured [address] [place] [address] [id number] MONIK SORIA Self - patient is the insured MEDICAL (GENERAL) HISTORY Medical History History ICD Code Denies CO,DM,CVA,Lung disease,renal dise ase Crohn's disease of the small intestine with surgery as described below--she had a flare up of her Crohn's disease of the small bowel in the spring requiring a course of prednisone and institution of Pentasa--she was started on azathioprine in July of 2014; another flareup in 03/2016 and 12/2017 Hypertension Overactive bladder/urinary incontinence Negative screening colonosco py in 2009--the terminal ileum appeared normal at that time GERD-EGD in 04/2020 with a sm all HH, no esophagitis or Jara's; normal duodenal biopsie; benign gastric polyp and neg Hpylori Colonoscopy 04/2020 with a sm all tubular adenoma removed; no sign of any active Crohn's disease in the colon nor TI Iron deficiency anemia with the above work up. The anemia resolved with iron supplements Rotavirus infection in November of 2022 in relation to having been on a cruise-her symptoms included diarrhea which resolved spontaneously Surgical History Surgery Date(Month/Year) She had a laparoscopic parti al small bowel resection in [address] Russell for recurrent small bowel obstructions, and was found to have Crohn's disease based on the pathology of the resected segment of small bowel-this involved a 50 cm portion. Right rotator cuff 09/2021
== END 2024-08-08 14:16 | disposition home or self-care (01) ==
LOC: HO.LABR 14:15
PROVIDERS: PCP Internal Medicine; Visit Provider Internal Medicine
DX: K50.012 Crohn's disease of small intestine with intestinal obstruction (principal)
CPT/HCPCS: 36415; 80076; 85025

== ENCOUNTER 2024-09-06 14:12 | Outpatient (REF) | payer MEDICARE, OTHER, SELFPAY ==
--- OUTSIDE RECORDS SUMMARY | 2024-09-06 14:16 | XMS_ITS | Clinical Summary ---
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) Family History Medical History Relation Name Comments Hypertension Brother Diabetes Mother Hypertension Mother Breast cancer Mother's Sister Breast cancer Sister Hypertension Sister Relation Name Status Comments Brother Mother Mother's Sister Alive Sister Social History Tobacco Use Types Packs/Day Years Used Date Smoking Tobacco: Former Cigarettes Q uit: 08/07/1992 Smokeless Tobacco: Never Alcohol Use Standard Drinks/Week Comments Not Currently 0 (1 standard drink = 0.6 oz pur e alcohol) Sex and Gender Information Value Date Recorded Sex Assigned at Female 06/19/2024 2:37 PM EST Gender Identity Female 06/19/2024 2:37 PM EST Sexual Orientation Straight 06/19/2024 2: 37 PM EST Job Start Date Occupation Industry Not on file Not on file Not on file Obstetrics History Para Term AB IAB SAB Ectopic Multiple Livin g Live Births 3 Last Filed Vital Signs Vital Sign Reading Time Taken Comments Blood Pressure 152/68 03/06/2024 4:20 PM EDT Sit ting L Arm Pulse - - Temperature - - Respiratory Rate - - Oxygen Saturation - - Inhaled Oxygen Concentration - - Weight 65.8 kg (145 lb) 06/26/2024 2:53 PM EST Height 157.5 cm (5' 2 ) 06/26/2024 2:53 PM EST Body Mass Index 26.52 06/26/2024 2:53 PM EST Plan of Treatment Health Maintenance Due Date Last Done Comments Zoster Vaccines (1 of 2) 1973 RSV Immunization Patients 60+ Years Old (1 - Risk 60-74 years 1-dose series) 2014 Pneumococcal Vaccine: 65+ Years (2 of 2 - PPSV23 or PCV20) 07/23/2021 05/28/2021 Colorectal Cancer Screening: Colonoscopy 07/05/2022 Depression Screening 07/05/2022 Falls Risk Assessment 07/05/2022 Hepatitis C Screening 07/05/2022 Medicare Annual Wellness Visit 07/05/2022 Osteoporosis Screening (Bone Density Screening) 07/05/2022 Social Influencers of Health Screening 07/05/2022 COVID-19 Vaccine ( season) 2024 06/30/2023, 11/11/2021, 06/04/2021, Additional history exists Influenza Vaccine (#1) 2024 Breast Cancer Screening 06/26/2026 06/26/20, 04/27/2023, 03/15/2022, Additional history exists DTaP,Tdap,and Td Vaccines (2 - Td or Tdap) 12/28/2033 12/29/2023 HIB Vaccines Aged Out No longer eligi ble based on patient's age to complete this topic HPV Vaccines Aged Out No longer eligi ble based on patient's age to complete this topic Hepatitis A Vaccines Aged Out No long er eligible based on patient's age to complete this topic Hepatitis B Vaccines Aged Out No long er eligible based on patient's age to complete this topic IPV Vaccines Aged Out No longer eligi ble based on patient's age to complete this topic MMR Vaccines Aged Out No longer eligi ble based on patient's age to complete this topic Meningococcal ACWY Vaccine Aged Out N o longer eligible based on patient's age to complete this topic RSV Immunization Patients Under 20 months Aged Out No longer eligible based on patient's age to complete this topic Varicella Vaccines Aged Out No longer eligible based on patient's age to complete this topic Procedures Procedure Name Priority Date/Time Associated Diagnosis Comments MG MAMMO DIGITAL SCREENING W DANIE BILAT Routine 06/26/2024 3:01 PM EST Encounter for screening mammogram for breast cancer from Last 3 Months Results * MG Mammo Digital Screening w Danie bilat (06/26/2024 3:01 PM EST) Anatomical Region Laterality Modality Breast Bilateral Mammography 06/26/2024 5:52 PM EST Impressions 06/26/2024 5:57 PM EST No mammographic evidence of malignancy. ?? No suspicious interval change. A negative mammogram in the presence of a clinically suspicious palpable abnormality does not preclude the possibility of malignancy or alter the indications for biopsy. ASSESSMENT: ?? BI-RADS 1: NEGATIVE RECOMMENDATION(S): 1: Routine screening mammogram BILATERAL in 1 year. -------- FINAL REPORT -------- Dictated By: Brandt Arreaga Dictated Date: 06/26/2024 17:52 ET Assigned Physician: Brandt Arreaga Reviewed and Electronically Signed By: Brandt Arreaga Signed Date: 06/26/2024 17:57 ET Workstation ID: [id number] Transcribed By: Self Edit Transcribed Date: 06/26/2024 17:52 ET Narrative 06/26/2024 5:57 PM EST EXAM: ??SCREENING MAMMOGRAPHY, BILATERAL HISTORY: ??SCREENING. ??Family history of breast cancer; sister and maternal aunt COMPARISON: ??04/26/2023, 03/15/2022, 03/12/2021, 03/04/2020 TECHNIQUE: Synthesized CC and MLO projections of each breast. ??Tomosynthesis of each breast in the CC and MLO projections. ADDITIONAL IMAGING: None Computer-aided detection was employed with the iCAD ??profound AI 3-D. TISSUE DENSITY: There are scattered areas of fibroglandular density. (BI-RADS category B) FINDINGS: RIGHT BREAST: No suspicious mass. No suspicious calcification. No distortion. ?? No additional suspicious right breast findings LEFT BREAST: No suspicious mass. No suspicious calcification. No distortion. ?? No additional suspicious left breast findings Procedure Note Brandt Arreaga MD - 06/26/2024 EXAM: SCREENING MAMMOGRAPHY, BILATERAL HISTORY: SCREENING. Family history of breast cancer; sister and maternalaunt COMPARISON: 04/26/2023, 03/15/2022, 03/12/2021, 03/04/2020 TECHNIQUE: Synthesized CC and MLO projections of each breast.Tomosynthesis of each breast in the CC and MLO projections. ADDITIONAL IMAGING: None Computer-aided detection was employed with the [employer] AI 3-D. TISSUE DENSITY: There are scattered areas of fibroglandular density.(BI-RADS category B) FINDINGS: RIGHT BREAST: No suspicious mass. No suspicious calcification. No distortion. Noadditional suspicious right breast findings LEFT BREAST: No suspicious mass. No suspicious calcification. No distortion. Noadditional suspicious left breast findings IMPRESSION: No mammographic evidence of malignancy. No suspicious interval change. A negative mammogram in the presence of a clinically suspicious palpableabnormality does not preclude the possibility of malignancy or alter theindications for biopsy. ASSESSMENT: BI-RADS 1: NEGATIVE RECOMMENDATION(S): 1: Routine screening mammogram BILATERAL in 1 year. -------- FINAL REPORT -------- Dictated By: Brandt Arreaga Dictated Date: 06/26/2024 17:52 ET Assigned Physician: Brandt Arreaga Reviewed and Electronically Signed By: Brandt Arreaga Signed Date: 06/26/2024 17:57 ET Workstation ID: [id number] Transcribed By: Self Edit Transcribed Date: 06/26/2024 17:52 ET Naldo Mojica MD IMG BI PROCEDURES from Last 3 Months Care Teams Patented Hogshead Assembler Relationship Specialty Start Date End Date Naldo Mojica MD [address] [place] [id number] PCP - General Internal Medicine 06/19/24
--- OUTSIDE RECORDS SUMMARY | 2024-09-06 14:16 | XMS_ITS | Clinical Summary ---
Author Organization [facility] Address [address] [place] [address] Care Team Providers Care Printing Sales Representative Name Role Phone Naldo Mojica MD Primary Care Provider Unavail able Allergies No known active allergies Medications Medication Sig Dispensed Refills Start Date End Date Status azaTHIOprine (IMURAN) 50 MG tablet 0 05/09/2021 Active benazepril-hydroCHLO ROthiazide (LOTENSIN HCT) 20-12.5 MG per tablet 0 05/09/2021 Active ergocalciferol (VITAMIN D2) capsule 20614 units Take 1 capsule by mouth once a week. 0 05/05/2021 Active hydrALAZINE (APRESOLINE) 25 MG tablet 0 05/09/2021 Active Pentasa 500 MG CR capsule 0 04/13/2021 Active omeprazole (PriLOSEC) 20 MG capsule 0 04/13/2021 Active oxybutynin (DITROPAN XL) 15 MG 24 hr tablet 0 05/13/2021 Active meloxicam (MOBIC) 15 MG tablet Take 1 tablet daily for 7 days following surgery, beginning the night of surgery 7 tablet 0 09/06/2021 Active gabapentin (Neurontin) 300 MG capsule Take 300mg for 3 days at bedtime. Please start 1 night prior to surgery 3 capsule 0 09/06/2021 Active oxyCODONE (ROXICODONE) 5 MG immediate release tablet Take 1 tablet (5 mg total) by mouth every 6 (six) hours as needed for pain. Do not take until after surgery 25 tablet 0 09/06/2021 Active promethazine (PHENERGAN) 12.5 MG tablet Take 1 tablet (12.5 mg total) by mouth every 8 (eight) hours as needed for nausea. Use after surgery as needed 4 tablet 0 09/06/2021 Active Scopolamine (TRANSDERM-SCOP) 1 MG/3DAYS APPLY 1PATCH TO HAIRLESS AREA BEHIND 1 EAR AT LEAST 4HRS BEFORE NEEDED REAPPLY EVERY 3DAYS NEEDED 0 12/02/2021 Active Active Problems No known active problems Family History Medical History Relation Name Comments Hypertension Brother Diabetes Mother Hypertension Mother Cancer Sister Hypertension Sister Relation Name Status Comments Brother Mother Sister Social History Tobacco Use Types Packs/Day Years Used Date Smoking Tobacco: Former Cigarettes 3 Q uit: 1992 Smokeless Tobacco: Never Alcohol Use Standard Drinks/Week Comments Not Currently 0 (1 standard drink = 0.6 oz pur e alcohol) Sex and Gender Information Value Date Recorded Sex Assigned at Not on file Gender Identity Not on file Sexual Orientation Not on file Job Start Date Occupation Industry Not on file Not on file Not on file Last Filed Vital Signs Vital Sign Reading Time Taken Comments Blood Pressure - - Pulse - - Temperature - - Respiratory Rate - - Oxygen Saturation - - Inhaled Oxygen Concentration - - Weight 56.7 kg (125 lb) 10/18/2021 3:45 PM EDT Height 157.5 cm (5' 2 ) 10/18/2021 3:45 PM EDT Body Mass Index 22.86 10/18/2021 3:45 PM EDT Plan of Treatment Health Maintenance Due Date Last Done Comments Hepatitis C Screening 1954 COVID-19 Vaccine (#1) 12/04/1959 Pneumococcal Vaccine (1 of 2 - PCV) 1960 Depression Screening 1966 Preventative Health Evaluation 1972 DTap / Tdap / Td (1 - Tdap) 1973 Shingrix-Zoster Vaccine (1 of 2) 1973 Colon Cancer Screening (Colonoscopy) 12/04/1999 Breast Cancer Screening (Mammogram) 2004 RSV Adult > 60+ Yrs or Pregn ant (1 - Risk 60-74 years 1-dose series) 2014 Fall Risk Assessment 12/04/2019 Osteoporosis Screening (DEXA Scan) 12/04/2019 Influenza Vaccine (#1) 2024 Hepatitis B Vaccines Aged Out No long er eligible based on patient's age to complete this topic RSV Ped < 20 months Aged Out No longe r eligible based on patient's age to complete this topic Care Teams Printing Sales Representative Relationship Specialty Start Date End Date Naldo Mojica MD PCP - General Internal Medicine 04/27/21
[2024-09-06 14:23] LABS: MANUAL DIFF FLAG NO
[2024-09-06 14:40] LABS: Basophils Percent Auto 1.1 % (0-2); Eosinophils Absolute Auto 0.1 X10*3/uL (0.0-0.4); Eosinophils Percent Auto 1.4 % (0-4); Hematocrit 43.4 % (37.0-47.0); Imm Gran Abs Auto 0.01 X10*3/uL (0.00-0.03); Imm Gran Pct Auto 0.3 % (0.0-0.4); Lymphocytes Absolute Auto 0.6 X10*3/uL (1.2-4.9); Lymphocytes Percent Auto 18.2 % (20-40); Mean Corpuscular HGB Conc 34.6 g/dl (31.0-35.0); Mean Corpuscular Volume 101.2 fL (80.0-98.0); Mean Platelet Volume 9.2 fL (9.4-12.3); Monocytes Absolute Auto 0.5 X10*3/uL (0.1-1.2); Monocytes Percent Auto 13.4 % (2-11); Neutrophils Absolute Auto 2.3 x10*3/uL (2.0-8.3); Neutrophils Percent Auto 65.6 % (45-73); Platelet Count 212 X10*3/uL (160-400); Red Blood Count 4.29 X10*6/uL (4.20-5.50); Red Cell Distribution Width 13.2 % (11.0-16.0); White Blood Count 3.5 X10*3/uL (4.8-10.8)
== END 2024-09-06 14:13 | disposition home or self-care (01) ==
LOC: HO.LAB 14:12
PROVIDERS: PCP Internal Medicine; Visit Provider Internal Medicine
DX: K50.012 Crohn's disease of small intestine with intestinal obstruction (principal)
CPT/HCPCS: 36415; 85025

== ENCOUNTER 2024-10-04 14:09 | Outpatient (REF) | payer MEDICARE, OTHER, SELFPAY ==
[2024-10-04 16:23] LABS: Alanine Aminotransferase 48 U/L (0-31); Albumin Level 3.6 g/dL (3.5-5.0); Alkaline Phosphatase 108 U/L (39-117); Aspartate Amino Transferase 33 U/L (5-31); Bilirubin Direct 0.1 mg/dL (0.0-0.5); Bilirubin Total 0.4 mg/dL (0.0-1.0); Total Protein 6.7 g/dL (6.5-8.0)
--- OUTSIDE RECORDS SUMMARY | 2024-10-04 16:23 | XMS_ITS | Clinical Summary ---
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) Family History Medical History [...] drink = 0.6 oz pur e alcohol) Comments No Sex and Gender Information Value Date Recorded Sex Assigned at Female 06/19/2024 2:37 PM EST Legal Sex Female 11:11 AM EST Gender Identity Female 06/19/2024 2:37 PM EST Sexual Orientation Straight 06/19/2024 2: 37 PM EST Obstetrics History Para Term AB IAB SAB [...] 60-74 years 1-dose series) 2014 Pneumococcal Vaccine: 50+ Years (2 of 2 - PPSV23) 07/23/2021 05/28/2021 Colorectal Cancer Screening: Colonoscopy 07/05/2022 [...] patient's age to complete this topic Meningococcal B Vacine Aged Out No lo nger eligible based on patient's age to complete [...] for breast cancer from Last 3 Months or Most Recently Relevant to Health Maintenance Results * MG Mammo Digital Screening w [...] Signed Date: 06/26/2024 17:57 ET Workstation ID: [id number] Transcribed By: Self Edit Transcribed Date: 06/26/2024 [...] Computer-aided detection was employed with the iCAD profound AI 3-D. TISSUE DENSITY: There are scattered [...] Signed Date: 06/26/2024 17:57 ET Workstation ID: [id number] Transcribed By: Self Edit Transcribed Date: 06/26/2024 17:52 ET Naldo Mojica MD IMG BI PROCEDURES Final Result from Last 3 Months or Most Recently Relevant to Health Maintenance Insurance MEDICARE Care Teams Hardware Design Engineer Relationship Specialty Start Date End Date Naldo Mojica MD [address] [place] [id number] PCP - General Internal Medicine 06/19/24
--- OUTSIDE RECORDS SUMMARY | 2024-10-04 16:23 | XMS_ITS ---
Author Organization [facility] Address [address] [place] [address] Care Team Providers Care Commissioner Public Works Name Role Phone Naldo Mojica MD Primary Care Provider Unavailab Ebenezer Coley [phone] REASON FOR VISIT new blood work orders PROBLEMS Problem Type ICD Code Onset Dates Problem Status W/U Status Risk SNOMED Code Notes Problem Crohn''s disease of small intestine with intestinal obstruction (K50.012) Active confirmed Intestinal obstruction due to Crohn's disease of small intestine (disorder) ([id number] 03) Encounters Encounter Location Date Provider Diagnosis [facility] [address] [facility] [address] [place] [phone] 10/03/2023 Ebenezer Hunter Crohn''s disease of small intestine with intestinal obstruction K50.012 ASSESSMENTS Encounter Date Diagnosis Assessment Notes Treatment Notes Treatment Clinical Notes 10/03/2023 Crohn''s disease of small intestine with intestinal obstruction (ICD-10 - K50.012) PLAN OF TREATMENT Pending Test Test Name Order Date LIVER PROFILE 10/03/2023 CBC w DIFF 10/03/2023 Next Appt Details Provider Name:Ebenezer Hunter , 12/18/2024 03:40:00 PM, [address] [facility], [address], [place], [address],
--- OUTSIDE RECORDS SUMMARY | 2024-10-04 16:23 | XMS_ITS | Clinical Summary ---
Author Organization [facility] Address [address] [place] [address] Care Team Providers Care Inspection Supervisor Name Role Phone Naldo Mojica MD Primary Care Provider Unavail able Allergies No known active allergies Medications Medication Sig Dispensed Refills Start Date End Date Status azaTHIOprine (IMURAN) 50 MG tablet 0 05/09/2021 Active benazepril-hydroCHLO ROthiazide (LOTENSIN HCT) 20-12.5 MG per tablet 0 05/09/2021 Active ergocalciferol (VITAMIN D2) capsule 09577 units Take 1 capsule by mouth once [...] age to complete this topic Care Teams Inspection Supervisor Relationship Specialty Start Date End Date Naldo Mojica MD PCP - General Internal Medicine 04/27/21
--- OUTSIDE RECORDS SUMMARY | 2024-10-04 16:24 | XMS_ITS ---
Author Organization [facility] Address [address] [place] [address] Care Team Providers Care Manager Rehab Name Role Phone Naldo Mojica MD Primary Care Provider Ebenezer Muniz [phone] ALLERGIES No Known Allergies REASON FOR VISIT Patient presents today for crohn's MEDICATIONS Medication SIG (Take, Route, Frequency, Duration) Notes Start Date End Date Status azaTHIOprine 50 mg TAKE 2 TABLETS TWICE A DAY Orally Twice a day for 90 days Active hydrALAZINE HCl 10 MG 1 tablet with food Orally twice a day Active Solifenacin Succinate 10 MG Oral for 90 Active Methocarbamol 750 MG TAKE 1 TABLET BY MO UT TWICE A DAY 15 DAYS Oral for 15 Active Mesalamine ER 500 mg TAKE 2 CAPSULES FOU R TIMES A DAY (REPLACES 30 DAY PRESCRIPTION) Active Iron 325 (65 Fe) MG 1 tablet Orally Once a day Active Omeprazole 20 MG 1 capsule Orally QOD Active Benazepril-hydroCHLOROthiazi de 20-25 MG 2 tablet Orally Once a day Active oxyBUTYnin Chloride ER 10 MG 1 tablet Or ally Once a day Active Vitamin C Active Pentasa 500 MG Oral Activ e SOCIAL HISTORY Tobacco Use: Social History Observation Description Date Details (start date - stop date) Never Smoker NA - NA Sex Assigned At : Social History Observation Description Sex Assigned At Unknown Tobacco Use/Smoking Question Answer Notes Patient is a nonsmoker Alcohol Screen Question Answer Notes Did you have a drink containing alcohol in the p ast year? No Points 0 Interpretation Negative VITAL SIGNS Temperature 97.5 degrees Fahrenheit 10/02/20 24 Blood pressure systolic 000 mm Hg 05/08/20 24 Blood pressure diastolic 00 mm Hg 024 Height 61 in 05/08/2024 Weight 144 lb 8 oz lbs 05/08/2024 BMI 27.30 kg/m2 05/08/2024 Encounters Encounter Location Date Provider Diagnosis [facility] [address] [place] [address] 05/08/2024 Ebenezer Hunter Crohn''s disease of small intestine with intestinal obstruction K50.012 ASSESSMENTS Encounter Date Diagnosis Assessment Notes Treatment Notes Treatment Clinical Notes 05/08/2024 Crohn''s disease of small intestine with intestinal obstruction (ICD-10 - K50.012) Continue the same Azathioprine and Pentasa regimen Continue the same monthly labs We will plan for a colonoscopy toward the end 2024 PLAN OF TREATMENT Treatment Notes Assessment Notes Crohn''s disease of small in testine with intestinal obstruction Continue the same Azathioprine and Pentasa regimen Continue the same monthly labs We will plan for a colonoscopy toward the end 2024 Next Appt Details Follow Up: Dec, 2024, Reason : Provider Name:Ebenezer Hunter , 12/18/2024 03:40:00 PM, [address], [address], [place], [address], Progress Notes * Examination Category Sub-Category Detail Notes General Examination GENERAL APPEARANCE: pleasant , well nourished, well developed, in no acute distress HEAD: EYES: sclera non-icteric EARS: NOSE: THROAT: NECK/THYROID: no cervical lymphade nopathy, neck supple HEART: S1, S2 normal CHEST: LUNGS: clear to auscultatio n bilaterally ABDOMEN: normal bowel sounds, no guarding or rigidity, no guarding or rigidity, no masses palpable, soft, nontender, nondistended NEUROLOGIC: alert and oriented SKIN: nonjaundiced, no spi kaley angiomata EXTREMITIES: no edema PERIPHERAL PULSES: BACK: BREASTS: MUSCULOSKELETAL: MALE GENITOURINARY: LYMPH NODES: RECTAL EXAM: FEMALE GENITOURINARY: ORAL CAVITY: mucosa moist
--- OUTSIDE RECORDS SUMMARY | 2024-10-04 16:24 | XMS_ITS ---
Author Organization [facility] Address [address] [place] [address] Care Team Providers Care 4Th Grade Math Teacher Name Role Phone Naldo Mojica MD Primary Care Provider Unavailab Ebenezer Coley Unavailable [phone] REASON FOR VISIT needs new lab order Encounters Encounter Location Date Provider Diagnosis [facility] [address] [place] [address] 10/04/2024 Ebenezer Hunter PLAN OF TREATMENT Next Appt Details Provider Name:Ebenezer Hunter , 12/18/2024 03:40:00 PM, [address], [address], [place], [address],
== END 2024-10-04 14:10 | disposition home or self-care (01) ==
LOC: HO.LABR 14:09
PROVIDERS: PCP Internal Medicine; Visit Provider Internal Medicine
DX: K50.012 Crohn's disease of small intestine with intestinal obstruction (principal)
CPT/HCPCS: 36415; 80076

== ENCOUNTER 2024-11-04 14:30 | Outpatient (REF) | payer MEDICARE, OTHER, SELFPAY ==
[2024-11-04 15:17] LABS: MANUAL DIFF FLAG NO
[2024-11-04 15:24] LABS: Basophils Percent Auto 0.4 % (0-2); Eosinophils Absolute Auto 0.1 X10*3/uL (0.0-0.4); Eosinophils Percent Auto 1.5 % (0-4); Hematocrit 42.2 % (37.0-47.0); Hemoglobin 14.7 g/dl (12.0-16.0); Imm Gran Abs Auto 0.01 X10*3/uL (0.00-0.03); Imm Gran Pct Auto 0.2 % (0.0-0.4); Lymphocytes Absolute Auto 0.8 X10*3/uL (1.2-4.9); Lymphocytes Percent Auto 16.1 % (20-40); Mean Corpuscular HGB Conc 34.8 g/dl (31.0-35.0); Mean Corpuscular Volume 100.5 fL (80.0-98.0); Monocytes Absolute Auto 0.6 X10*3/uL (0.1-1.2); Monocytes Percent Auto 12.8 % (2-11); Neutrophils Absolute Auto 3.3 x10*3/uL (2.0-8.3); Platelet Count 203 X10*3/uL (160-400); Red Cell Distribution Width 13.2 % (11.0-16.0); White Blood Count 4.8 X10*3/uL (4.8-10.8)
--- OUTSIDE RECORDS SUMMARY | 2024-11-04 16:24 | XMS_ITS ---
Author Organization [facility] Address [address] [place] [address] Care Team Providers Care Renewals Manager Name Role Phone Naldo Mojica MD Primary Care Provider UnavailEbenezer Jarquin [facility] [phone] REASON FOR VISIT needs new lab order---all set Problems Problem Type SNOMED Code ICD Code Onset Dates Problem Status W/U Status Risk Notes Problem Drug monitoring done (821216062) Therapeutic drug monitoring (Z51.81) Active confirmed Encounters Encounter Location Date Provider Diagnosis [facility] [address] [place] [address] 10/04/2024 Ebenezer Dale Crohn''s disease of small intestine with intestinal obstruction K50.012 and Therapeutic drug monitoring Z51.81 Assessments Encounter Date Diagnosis (ICD Code) Assessment Notes Treatment Notes Treatment Clinical Notes Section Notes 10/04/2024 Crohn''s disease of small intestine with intestinal obstruction (ICD-10 - K50.012) 10/04/2024 Therapeutic drug monitoring (ICD-10 - Z51.81) Plan Of Treatment Pending Test Test Name Order Date LIVER PROFILE 10/04/2024 CBC w DIFF 10/04/2024 Next Appt Details Provider Name:Ebenezer Hunter , 12/18/2024 03:40:00 PM, [address], [address], [place], [address], Progress Notes * MONIK SORIA MDOB: [birth year] (68 yo F)Acc No.[id number]:10/04/2024 Patient:?MONIK SORIA :1955???Age:68 Y???Sex:Female Address:[address] [place] [address] [place] [address] Subjective: * Chief Complaints: * ???Needs new lab order---all set * Medical History:? * Surgical History:? * Hospitalization/Major Diagno stic Procedure:? * Medications:? Objective: * Vitals:? * Physical Examination:? Assessment: * Assessment: 1.?Crohn''s disease of small intestine with intestinal obstruction - K50.012 (Primary)???2.?Therapeutic drug monitoring - Z51.81??? Plan: * Treatment: 2.?Therapeutic drug monitori ng?LAB: LIVER PROFILE ?LAB: CBC w DIFF * Procedure Codes:? * true * Date:? Generated for Nick bailey/Christiano/eTransmitting on:?11/04/2024 04:24 PM EDT
--- OUTSIDE RECORDS SUMMARY | 2024-11-04 16:24 | XMS_ITS ---
Author Organization [facility] Address [address] [place] [address] Care Team Providers Care Director Of Healthcare Systems Name Role Phone Naldo Mojica MD Primary Care Provider Unavailab Ebenezer Coley [facility] [phone] REASON FOR VISIT new blood work orders Problems Problem Type SNOMED Code ICD Code Onset Dates Problem Status W/U Status Risk Notes Problem Intestinal obstruction due to Crohn's disease of small intestine (disorder) (913879322320772 3) Crohn''s disease of small intestine with intestinal obstruction (K50.012) Active confirmed Encounters Encounter Location Date Provider Diagnosis [facility] [address] [place] [address] 10/03/2023 Ebenezer Hunter Crohn''s disease of small intestine with intestinal obstruction K50.012 Assessments Encounter Date Diagnosis (ICD Code) Assessment Notes Treatment Notes Treatment Clinical Notes Section Notes 10/03/2023 Crohn''s disease of small intestine with intestinal obstruction (ICD-10 - K50.012) Plan Of Treatment Pending Test Test Name Order Date LIVER PROFILE 10/03/2023 CBC w DIFF 10/03/2023 Next Appt Details Provider Name:Ebenezer Hunter , 12/18/2024 03:40:00 PM, [address], [address], [place], [address], Progress Notes * MONIK SORIA MDOB: [birth year] (67 yo F)Acc No.[id number]:10/03/2023 Patient:?MONIK SORIA :1955???Age:67 Y???Sex:Female Address:[address] [place] [address] [place] [address] Subjective: * Chief Complaints: * ???New blood work orders * Medical History:? * Surgical History:? * Hospitalization/Major Diagno stic Procedure:? * Medications:? Objective: Assessment: * Assessment: 1.?Crohn''s disease of small intestine with intestinal obstruction - K50.012 (Primary)? Plan: * Treatment: ?LAB: CBC w DIFF* Monthly starting end of 10/24 24 * Procedure Codes:? * true * Date:? Generated for Nick bailey/Christiano/eTransmitting on:?11/04/2024 04:23 PM EDT
--- OUTSIDE RECORDS SUMMARY | 2024-11-04 16:24 | XMS_ITS | Clinical Summary ---
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
--- OUTSIDE RECORDS SUMMARY | 2024-11-04 16:24 | XMS_ITS | Clinical Summary ---
Author Organization [facility] Address [address] [place] [address] Care Team Providers Care Social Worker School Name Role Phone Naldo Mojica MD Primary Care Provider Unavail able Allergies No known active allergies Medications Medication Sig Dispensed Refills Start Date End Date Status azaTHIOprine (IMURAN) 50 MG tablet 0 05/09/2021 Active benazepril-hydroCHLO ROthiazide (LOTENSIN HCT) 20-12.5 MG per tablet 0 05/09/2021 Active ergocalciferol (VITAMIN D2) capsule 06911 units Take 1 capsule by mouth once [...] age to complete this topic Care Teams Social Worker School Relationship Specialty Start Date End Date Naldo Mojica MD PCP - General Internal Medicine 04/27/21
--- OUTSIDE RECORDS SUMMARY | 2024-11-04 16:24 | XMS_ITS ---
Author Organization [facility] Address [address] [place] [address] Care Team Providers Care Body Stylist Name Role Phone Naldo Mojica MD Primary Care Provider Ebenezer Muniz [phone] Allergies No Known Allergies REASON FOR VISIT Patient presents today for crohn's Medications Medication SIG (Take, Route, Frequency, Duration) Notes Start Date End Date Status azaTHIOprine 50 mg TAKE 2 TABLETS TWICE A DAY Orally Twice a day for 90 days Active hydrALAZINE HCl 10 MG 1 tablet with food Orally twice a day Active Solifenacin Succinate 10 MG Oral for 90 Active Methocarbamol 750 MG TAKE 1 TABLET BY MO [facility] TWICE A DAY 15 DAYS Oral for [...] Active Pentasa 500 MG Oral Activ e Social History Tobacco Use: Social History Observation Description Date Details (start date - stop date) Never Smoker NA - NA Tobacco Use/Smoking Question Answer Notes Patient is a nonsmoker Alcohol Screen Question Answer Notes Did you have a drink containing alcohol in the p ast year? No Points 0 Interpretation Negative Section Notes: Nonsmoker > 10 yrs; no alcoh ol Vital Signs Temperature 97.5 degrees Fahrenheit 05/08/20 24 Blood pressure systolic 000 mm Hg 05/08/20 24 Blood pressure diastolic 00 mm Hg 024 Height 61 in 05/08/2024 Weight 144 lb 8 oz lbs 05/08/2024 BMI 27.30 kg/m2 05/08/2024 Encounters Encounter Location Date Provider Diagnosis [facility] [address] [place] [address] 05/08/2024 Ebenezer Hunter Crohn''s disease of small intestine with intestinal obstruction K50.012 Assessments Encounter Date Diagnosis (ICD Code) Assessment Notes Treatment Notes Treatment Clinical Notes Section Notes 05/08/2024 Crohn''s disease of small intestine with intestinal obstruction (ICD-10 - K50.012) Continue the same Azathioprine and Pentasa regimen Continue the same monthly labs We will plan for a colonoscopy toward the end 2024 Overall, Monik appears quite well from a clinical standpoint. Her Crohn's disease seems to be remaining in clinical remission on her current medical regimen of the azathioprine and Pentasa. I did advise her to certainly continue that. She seems to be tolerating the azathioprine without any problems based on her clinical history and laboratories. I did advise her to continue her usual monthly Laboratories of the CBC and liver profile while on the azathioprine. We did review that she'll be due for a followup colonoscopy for screening in about one year given the history of a tubular adenoma removed in 2019. I will plan to see her in the Spring for a followup office visit and at that time we can schedule a followup colonoscopy for her for some time after the summer. I did advise Monik to contact me prior to the next office visit in the Spring if she has any problems or questions I can be of assistance with. Monik was comfortable with this plan. Thank you again for allowing me to participate in Monik's care. I shall continue to keep you advised of her progress. Plan Of Treatment Treatment Notes Assessment Notes Crohn''s disease of small in testine with intestinal obstruction Continue the same Azathioprine and Pentasa regimen Continue the same monthly labs We will plan for a colonoscopy toward the end 2024 Next Appt Details Follow Up: Dec, 2024, Reason : Provider Name:Ebenezer Hunter , 12/18/2024 03:40:00 PM, [address], [address], [place], [address], Progress Notes * YANG MONIK CUTLEROB: [birth year] (68 yo F)Acc No.[id number]:05/08/2024 Progress Notes Patient:?MONIK SORIA Provider:?Ebenezer Hunter MD :1955???Age:68 Y???Sex:Female D ate:05/08/2024 Address:[address] [place] [address] [facility] Pcp:Naldo Mojica MD Subjective: * Chief Complaints: * ???Patient presents today fo r crohn's * HPI: ???incontinence:? I saw Monik in followup today in regard to her underlying history of Crohn's disease, as well as her history of a tubular adenoma of the colon and discussion of colorectal cancer screening. ?I last saw Monik in August. Since that time she has remained on her usual regimen of the Pentasa 1 g q.i.d. and azathioprine 100 mg b.i.d.. She reports that things have been stable and denies any episodes of significant diarrhea, abdominal pain, abdominal bloating or distention, nausea, or vomiting. She denies any signs of hematochezia or melena. She enjoys a good appetite and denies any significant heartburn nor dysphagia. She denies any signs of jaundice nor unintentional weight loss. She denies any fevers or any other signs of infection. ?Her most recent labs from May 01 revealed a stable white blood cell count of 3.4 with a normal differential, hemoglobin 12.0, platelet count of 243,000, and a completely normal liver profile. * ROS:?General/Constitutional:?Change in appetite?denies.?Chills?denies.?Fatigue?denies.?Ophthalmologic:?Comments?all negative.?ENT:?Comments?all negative.?Respiratory:?hemoptysis?denies.?Cough?denies.?Cardiovascular:?Chest pain?denies.?Orthopnea?denies.?Gastrointestinal:?Comments?See HPI for details.?Genitourinary:?Hematuria?denies.?Dysuria?denies.?Incontinence?denies, on a pill for this though.?Musculoskeletal:?Painful joints?denies.?Weakness?denies.?Skin:?Itching?denies.?Rash?denies.?Neurologic:?Headache?denies.?Seizures?denies.?Psychiatric:?Comments?all negative.? * Medical History:? * Surgical History:?She had a laparoscopic partial small bowel resection in [address] Russell for recurrent small bowel obstructions, and was found to have Crohn's disease based on the pathology of the resected segment of small bowel-this involved a 50 cm portion. Right rotator cuff 09/2021 * Hospitalization/Major Diagno stic Procedure:?No Hospitalization History. * Family History:?Father: dece ased.?Mother: , diagnosed with HTN (hypertension).? Denies family hx of colon cancer>not sure if there is liver cancer in the family. * Social History:?Tobacco Use:?Tobacco Use/Smoking?Patient is a?nonsmoker.?Drugs/Alcohol:?Alcohol Screen?Did you have a drink containing alcohol in the past year??No,?Points?0,?Interpretation?Negative.?Miscellaneous:?Marital status: . 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 ???Nonsmoker >10 yrs; no alcohol. * Medications:?TakingPentasa 5 00 MG Capsule Extended Release Oral Vitamin C Iron 325 (65 Fe) MG Tablet 1 tablet Orally Once a dayOmeprazole 20 MG Capsule Delayed Release 1 capsule Orally QODBenazepril-hydroCHLOROthiazide 20-25 MG Tablet 2 tablet Orally Once a dayoxyBUTYnin Chloride ER 10 MG Tablet Extended Release 24 Hour 1 tablet Orally Once a dayhydrALAZINE HCl 10 MG Tablet 1 tablet with food Orally twice a daySolifenacin Succinate 10 MG Tablet Oral Methocarbamol 750 MG Tablet TAKE 1 TABLET BY MOUTH TWICE A DAY 15 DAYS Oral Mesalamine ER 500 mg Capsule Extended Release TAKE 2 CAPSULES FOUR TIMES A DAY (REPLACES 30 DAY PRESCRIPTION) azaTHIOprine 50 mg Tablet TAKE 2 TABLETS TWICE A DAY Orally Twice a dayMedication List reviewed and reconciled with the patientTaking Pentasa 500 MG Capsule Extended Release Oral Taking Vitamin C Taking Iron 325 (65 Fe) MG Tablet 1 tablet Orally Once a dayTaking Omeprazole 20 MG Capsule Delayed Release 1 capsule Orally QODTaking Benazepril- hydroCHLOROthiazide 20-25 MG Tablet 2 tablet Orally Once a dayTaking oxyBUTYnin Chloride ER 10 MG Tablet Extended Release 24 Hour 1 tablet Orally Once a dayTaking hydrALAZINE HCl 10 MG Tablet 1 tablet with food Orally twice a dayTaking Solifenacin Succinate 10 MG Tablet Oral Taking Methocarbamol 750 MG Tablet TAKE 1 TABLET BY MOUTH TWICE A DAY 15 DAYS Oral Taking Mesalamine ER 500 mg Capsule Extended Release TAKE 2 CAPSULES FOUR TIMES A DAY (REPLACES 30 DAY PRESCRIPTION) Taking azaTHIOprine 50 mg Tablet TAKE 2 TABLETS TWICE A DAY Orally Twice a dayMedication List reviewed and reconciled with the patient * Allergies:?N.K.D.A.yes[Aller gies Verified] Objective: * Vitals:?Wt: 144 lb 8 oz, Ht: 61 in, BMI:27.30 Index, BP: 000/00 mm Hg, Temp: 97.5. * Examination: ???General Examination: ?GENERAL APPEARANCE:?pleasant, well nourished, well developed, in no acute distress.?EYES:?sclera non-icteric.?ORAL CAVITY:?mucosa moist.?NECK/THYROID:?no cervical lymphadenopathy, neck supple.?SKIN:?nonjaundiced, no spider angiomata.?HEART:?S1, S2 normal.?LUNGS:?clear to auscultation bilaterally.?ABDOMEN:?normal bowel sounds, no guarding or rigidity, no guarding or rigidity, no masses palpable, soft, nontender, nondistended.?EXTREMITIES:?no edema.?NEUROLOGIC:?alert and oriented.? Assessment: * Assessment: 1.?Crohn''s disease of small intestine with intestinal obstruction - K50.012 (Primary)? Overall, Monik appears quite well from a clinical standpoint. Her Crohn's disease seems to be remaining in clinical remission on her current medical regimen of the azathioprine and Pentasa. I did advise her to certainly continue that. She seems to be tolerating the azathioprine without any problems based on her clinical history and laboratories. I did advise her to continue her usual monthly Laboratories of the CBC and liver profile while on the azathioprine. We did review that she'll be due for a followup colonoscopy for screening in about one year given the history of a tubular adenoma removed in 2019. I will plan to see her in the Spring for a followup office visit and at that time we can schedule a followup colonoscopy for her for some time after the summer. I did advise Monik to contact me prior to the next office visit in the Spring if she has any problems or questions I can be of assistance with. Monik was comfortable with this plan. Thank you again for allowing me to participate in Monik's care. I shall continue to keep you advised of her progress. Plan: * Treatment: * Procedure Codes:?3017F COLOR ECTAL CA SCREEN DOC [id number] TOBACCO [id number] BP SCR NOT PRFRM REC REASON NOS * Preventive Medicine:? ??Counseling:?Care goal follow-up plan:?Above Normal BMI Follow-up?Giving encouragement to exercise,?BMI management provided?Yes.? ??Urinary Incontinence:?Urinary Incontinence?Assessment:?Absent,?Plan of care documented:?No, reason not specified.? ??Screenings:?Fall Risk Screening?Fall Risk Assessment:?No falls in the past year,?Screening:?No falls in the past year,?Assessment:?Not performed, no reason specified,?Plan of Care:?Not documented, no reason specified.? * Follow Up:?Dec, 2024 * * Sign off status: Completed true * Provider:?Ebenezer Hunter MD Date:? 024 Generated for Nick bailey/Christiano/Demetrisitting on:?11/04/2024 04:23 PM EDT History and Physical Notes * HPI (History of Present Illness) Category Sub-Category Detail Notes Category Not es incontinence I saw Monik in followup today in regard to her underlying history of Crohn's disease, as well as her history of a tubular adenoma of the colon and discussion of colorectal cancer screening. I last saw Monik in August. Since that time she has remained on her usual regimen of the Pentasa 1 g q.i.d. and azathioprine 100 mg b.i.d.. She reports that things have been stable and denies any episodes of significant diarrhea, abdominal pain, abdominal bloating or distention, nausea, or vomiting. She denies any signs of hematochezia or melena. She enjoys a good appetite and denies any significant heartburn nor dysphagia. She denies any signs of jaundice nor unintentional weight loss. She denies any fevers or any other signs of infection. Her most recent labs from May 01 revealed a stable white blood cell count of 3.4 with a normal differential, hemoglobin 12.0, platelet count of 243,000, and a completely normal liver profile. Examination Category Sub-Category Detail Notes Category Not es General Examination GENERAL APPEARANCE: pleasant , well [...]
[2024-11-04 17:08] LABS: Alanine Aminotransferase 18 U/L (0-31); Albumin Level 3.8 g/dL (3.5-5.0); Alkaline Phosphatase 113 U/L (39-117); Aspartate Amino Transferase 21 U/L (5-31); Bilirubin Direct 0.1 mg/dL (0.0-0.5); Bilirubin Total 0.4 mg/dL (0.0-1.0); Total Protein 6.6 g/dL (6.5-8.0)
== END 2024-11-04 14:31 | disposition home or self-care (01) ==
LOC: HO.LABR 14:30
PROVIDERS: PCP Internal Medicine; Visit Provider Internal Medicine
DX: K50.012 Crohn's disease of small intestine with intestinal obstruction (principal); Z51.81 Encounter for therapeutic drug level monitoring
CPT/HCPCS: 36415; 80076; 85025

== ENCOUNTER 2024-12-03 16:32 | Outpatient (REF) | payer MEDICARE, OTHER, SELFPAY ==
[2024-12-03 16:42] LABS: MANUAL DIFF FLAG NO
[2024-12-03 17:08] LABS: Basophils Percent Auto 0.6 % (0-2); Eosinophils Absolute Auto 0.1 X10*3/uL (0.0-0.4); Eosinophils Percent Auto 2.1 % (0-4); Hematocrit 42.3 % (37.0-47.0); Hemoglobin 14.8 g/dl (12.0-16.0); Imm Gran Abs Auto 0.02 X10*3/uL (0.00-0.03); Imm Gran Pct Auto 0.4 % (0.0-0.4); Lymphocytes Absolute Auto 0.8 X10*3/uL (1.2-4.9); Lymphocytes Percent Auto 17.1 % (20-40); Mean Corpuscular Hemoglobin 34.9 pg (27.0-33.0); Mean Corpuscular Volume 99.8 fL (80.0-98.0); Mean Platelet Volume 9.2 fL (9.4-12.3); Monocytes Absolute Auto 0.7 X10*3/uL (0.1-1.2); Monocytes Percent Auto 13.7 % (2-11); Neutrophils Absolute Auto 3.1 x10*3/uL (2.0-8.3); Neutrophils Percent Auto 66.1 % (45-73); Platelet Count 209 X10*3/uL (160-400); Red Blood Count 4.24 X10*6/uL (4.20-5.50); Red Cell Distribution Width 12.9 % (11.0-16.0); White Blood Count 4.7 X10*3/uL (4.8-10.8)
[2024-12-03 18:01] LABS: Alanine Aminotransferase 19 U/L (0-31); Albumin Level 3.7 g/dL (3.5-5.0); Alkaline Phosphatase 104 U/L (39-117); Aspartate Amino Transferase 23 U/L (5-31); Bilirubin Direct 0.1 mg/dL (0.0-0.5); Bilirubin Total 0.3 mg/dL (0.0-1.0); Total Protein 6.5 g/dL (6.5-8.0)
--- OUTSIDE RECORDS SUMMARY | 2024-12-03 18:37 | XMS_ITS | Clinical Summary ---
Author Organization [facility] Address [address] [place] [address] Phone Care Team Providers Care Stretcher Drier Operator Name Role Phone Naldo Mojica MD Primary Care Provider [phone] Medical History Medical History Date Comments High blood pressure DX:High bloo d pressure Crohn's disease (CMS/HCC V24, CMS/HCC V28) DX:Crohn's disease ([facility]) Family History Medical History Relation Name Comments [...] Vaccines (1 of 2) 1973 RSV Immunization Adult Patients (1 - Risk 60-74 years 1-dose series) [...] 11/11/2021, 06/04/2021, Additional history exists Influenza Vaccine (Season Ended) 2025 Breast Cancer Screening 06/26/2026 06/26/20, 04/27/2023, 03/15/2022, [...] age to complete this topic Meningococcal B Vaccine Aged Out No l onger eligible based on patient's age to complete [...] Signed Date: 06/26/2024 17:57 ET Workstation ID: [id number] Transcribed By: Self Edit Transcribed Date: 06/26/2024 [...] Signed Date: 06/26/2024 17:57 ET Workstation ID: [id number] Transcribed By: Self Edit Transcribed Date: 06/26/2024 17:52 ET Naldo Mojica MD IMG BI PROCEDURES Final Result from Last 3 Months or Most Recently Relevant to Health Maintenance Insurance MEDICARE Care Teams Stretcher Drier Operator Relationship Specialty Start Date End Date Naldo Mojica MD [address] [place] [id number] PCP - General Internal Medicine 06/19/24
--- OUTSIDE RECORDS SUMMARY | 2024-12-03 18:37 | XMS_ITS | Clinical Summary ---
Author Organization [facility] Address [address] [place] [address] Care Team Providers Care Settlement Agent Name Role Phone Naldo Mojica MD Primary Care Provider Unavail able Allergies No known active allergies Medications Medication Sig Dispensed Refills Start Date End Date Status azaTHIOprine (IMURAN) 50 MG tablet 0 05/09/2021 Active benazepril-hydroCHLO ROthiazide (LOTENSIN HCT) 20-12.5 MG per tablet 0 05/09/2021 Active ergocalciferol (VITAMIN D2) capsule 22652 units Take 1 capsule by mouth once [...] age to complete this topic Care Teams Settlement Agent Relationship Specialty Start Date End Date Naldo Mojica MD PCP - General Internal Medicine 04/27/21
== END 2024-12-03 16:33 | disposition home or self-care (01) ==
LOC: HO.LABR 16:32
PROVIDERS: PCP Internal Medicine; Visit Provider Internal Medicine
DX: K50.012 Crohn's disease of small intestine with intestinal obstruction (principal); Z79.899 Other long term (current) drug therapy
CPT/HCPCS: 36415; 80076; 85025

== ENCOUNTER 2025-01-03 15:36 | Outpatient (REF) | payer OTHER, MEDICARE, SELFPAY ==
--- OUTSIDE RECORDS SUMMARY | 2025-01-03 15:39 | XMS_ITS | Patient Health Record ---
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 Name Role Phone Naldo Mojica MD Primary Care Provider UnavailEbenezer Jarquin [phone] Allergies No Known Allergies Results Component Value Reference Range Notes Complete Blood Count Auto Di ff Reviewed date:01/28/2024 04:00:43 PM Interpretation: Performing Lab:[facility], [address] [place] [phone] Notes/Report: White Blood Count 4.3 4.8-10.8 X10*3/uL [...] Panel Reviewed date:01/28/2024 04:01:02 PM Interpretation: Performing Lab:[facility], [address] [place] [phone] Notes/Report: Bilirubin Total 0.4 0.0-1.0 mg/dL Bilirubin Direct 0.1 0.0-0.5 mg/dL Aspartate Amino Transferase 26 5-31 U/L Alanine Aminotransferase 31 0-31 U/L Total Protein 6.6 6.5-8.0 g/dL Albumin Level 3.6 3.5-5.0 g/dL Alkaline Phosphatase 102 39-117 U/L Complete Blood Count Auto Di ff Reviewed date:02/28/2024 10:02:16 PM Interpretation: Performing Lab:[facility], [address] [place] [phone] Notes/Report: White Blood Count 3.0 4.8-10.8 X10*3/uL [...] Panel Reviewed date:02/28/2024 05:07:38 PM Interpretation: Performing Lab:[facility], [address] [place] [phone] Notes/Report: Bilirubin Total 0.3 0.0-1.0 mg/dL Bilirubin Direct 0.1 0.0-0.5 mg/dL Aspartate Amino Transferase 17 5-31 U/L Alanine Aminotransferase 16 0-31 U/L Total Protein 6.4 6.5-8.0 g/dL Albumin Level 3.6 3.5-5.0 g/dL Alkaline Phosphatase 103 39-117 U/L Complete Blood Count Auto Di ff Reviewed date:04/04/2024 05:48:24 PM Interpretation: Performing Lab:[facility], [address] [place] [phone] Notes/Report: White Blood Count 3.5 4.8-10.8 X10*3/uL [...] Panel Reviewed date:04/04/2024 05:48:45 PM Interpretation: Performing Lab:[address] [phone] Notes/Report: Bilirubin Total 0.4 0.0-1.0 mg/dL Bilirubin Direct 0.1 0.0-0.5 mg/dL Aspartate Amino Transferase 17 5-31 U/L Alanine Aminotransferase 12 0-31 U/L Total Protein 6.4 6.5-8.0 g/dL Albumin Level 3.6 3.5-5.0 g/dL Alkaline Phosphatase 104 39-117 U/L Complete Blood Count Auto Di ff Reviewed date:05/01/2024 07:04:00 PM Interpretation: Performing Lab:[address] [phone] Notes/Report: White Blood Count 3.4 4.8-10.8 X10*3/uL [...] Panel Reviewed date:05/01/2024 07:03:08 PM Interpretation: Performing Lab:[facility], [address] [place] [phone] Notes/Report: Bilirubin Total 0.6 0.0-1.0 mg/dL Bilirubin Direct 0.2 0.0-0.5 mg/dL Aspartate Amino Transferase 18 5-31 U/L Alanine Aminotransferase 14 0-31 U/L Total Protein 6.5 6.5-8.0 g/dL Albumin Level 3.5 3.5-5.0 g/dL Alkaline Phosphatase 99 39-117 U/L Complete Blood Count Auto Di ff Reviewed date:06/06/2024 06:55:10 PM Interpretation: Performing Lab:[facility], [address] [place] [phone] Notes/Report: White Blood Count 4.9 4.8-10.8 X10*3/uL [...] Panel Reviewed date:06/06/2024 06:54:32 PM Interpretation: Performing Lab:[facility], [address] [place] [phone] Notes/Report: Bilirubin Total 0.5 0.0-1.0 mg/dL Bilirubin Direct 0.1 0.0-0.5 mg/dL Aspartate Amino Transferase 48 5-31 U/L Alanine Aminotransferase 24 0-31 U/L Total Protein 6.2 6.5-8.0 g/dL Albumin Level 3.4 3.5-5.0 g/dL Alkaline Phosphatase 111 39-117 U/L Complete Blood Count Auto Di ff Reviewed date:07/02/2024 04:25:58 PM Interpretation: Performing Lab:[facility], [address] [place] [phone] Notes/Report: White Blood Count 3.5 4.8-10.8 X10*3/uL [...] Panel Reviewed date:07/02/2024 04:24:45 PM Interpretation: Performing Lab:[facility], [address] [place] [phone] Notes/Report: Bilirubin Total 0.4 0.0-1.0 mg/dL Bilirubin Direct 0.2 0.0-0.5 mg/dL Aspartate Amino Transferase 40 5-31 U/L Alanine Aminotransferase 43 0-31 U/L Total Protein 6.1 6.5-8.0 g/dL Albumin Level 3.5 3.5-5.0 g/dL Alkaline Phosphatase 130 39-117 U/L Complete Blood Count Auto Di ff Reviewed date:08/11/2024 12:08:42 PM Interpretation: Performing Lab:[facility], [address] [place] [phone] Notes/Report: White Blood Count 4.9 4.8-10.8 X10*3/uL [...] Auto 0.000 0.0-0.012 X10*3/uL Liver Panel Reviewed date:08/11/2024 12:09:03 PM Interpretation: Performing Lab:[facility], [address] [place] [phone] Notes/Report: Bilirubin Total 0.4 0.0-1.0 mg/dL Bilirubin Direct 0.1 0.0-0.5 mg/dL Aspartate Amino Transferase 37 5-31 U/L Alanine Aminotransferase 43 0-31 U/L Total Protein 6.5 6.5-8.0 g/dL Albumin Level 3.7 3.5-5.0 g/dL Alkaline Phosphatase 110 39-117 U/L Complete Blood Count Auto Di ff Reviewed date:09/06/2024 06:23:14 PM Interpretation: Performing Lab:[facility], [address] [place] [phone] Notes/Report: White Blood Count 3.5 4.8-10.8 X10*3/uL Red Blood Count 4.29 4.20-5.50 X10*6/uL Hemoglobin 15.0 12.0-16.0 g/dl Hematocrit 43.4 37.0-47.0 % Mean Corpuscular Volume 101.2 80.0-98.0 fL Mean Corpuscular Hemoglobin 35.0 27.0-33.0 pg Mean Corpuscular HGB Conc 34.6 31.0-35.0 g/dl Red Cell Distribution Width 13.2 11.0-16.0 % Platelet Count 212 160-400 X10*3/uL Mean Platelet Volume 9.2 9.4-12.3 fL Neutrophils Percent Auto 65.6 45-73 % Imm Gran Pct Auto 0.3 0.0-0.4 % Lymphocytes Percent Auto 18.2 20-40 % Monocytes Percent Auto 13.4 2-11 % Eosinophils Percent Auto 1.4 0-4 % Basophils Percent Auto 1.1 0-2 % NRBC Pct Auto 0.0 0.0-0.2 /100WBC Neutrophils Absolute Auto 2.3 2.0-8.3 x10*3/u L Imm Gran Abs Auto 0.01 0.00-0.03 X10*3/uL Lymphocytes Absolute Auto 0.6 1.2-4.9 X10*3/u L Monocytes Absolute Auto 0.5 0.1-1.2 X10*3/uL Eosinophils Absolute Auto 0.1 0.0-0.4 X10*3/u L Basophils Absolute Auto 0.0 0.0-0.2 X10*3/uL NRBC Abs Auto 0.000 0.0-0.012 X10*3/uL Liver Panel (Not yet reviewe d by provider) Interpretation: Performing Lab:[facility], [address] [place] [phone] Notes/Report: Bilirubin Total 0.4 0.0-1.0 mg/dL Bilirubin Direct 0.1 0.0-0.5 mg/dL Aspartate Amino Transferase 33 5-31 U/L Alanine Aminotransferase 48 0-31 U/L Total Protein 6.7 6.5-8.0 g/dL Albumin Level 3.6 3.5-5.0 g/dL Alkaline Phosphatase 108 39-117 U/L Complete Blood Count Auto Di ff Reviewed date:11/05/2024 12:16:44 AM Interpretation: Performing Lab:[facility], [address] [place] [phone] Notes/Report: White Blood Count 4.8 4.8-10.8 X10*3/uL Red Blood Count 4.20 4.20-5.50 X10*6/uL Hemoglobin 14.7 12.0-16.0 g/dl Hematocrit 42.2 37.0-47.0 % Mean Corpuscular Volume 100.5 80.0-98.0 fL Mean Corpuscular Hemoglobin 35.0 27.0-33.0 pg Mean Corpuscular HGB Conc 34.8 31.0-35.0 g/dl Red Cell Distribution Width 13.2 11.0-16.0 % Platelet Count 203 160-400 X10*3/uL Mean Platelet Volume 9.0 9.4-12.3 fL Neutrophils Percent Auto 69.0 45-73 % Imm Gran Pct Auto 0.2 0.0-0.4 % Lymphocytes Percent Auto 16.1 20-40 % Monocytes Percent Auto 12.8 2-11 % Eosinophils Percent Auto 1.5 0-4 % Basophils Percent Auto 0.4 0-2 % NRBC Pct Auto 0.0 0.0-0.2 /100WBC Neutrophils Absolute Auto 3.3 2.0-8.3 x10*3/u L Imm Gran Abs Auto 0.01 0.00-0.03 X10*3/uL Lymphocytes Absolute Auto 0.8 1.2-4.9 X10*3/u L Monocytes Absolute Auto 0.6 0.1-1.2 X10*3/uL Eosinophils Absolute Auto 0.1 0.0-0.4 X10*3/u L Basophils Absolute Auto 0.0 0.0-0.2 X10*3/uL NRBC Abs Auto 0.000 0.0-0.012 X10*3/uL Liver Panel Reviewed date:11/05/2024 12:15:21 AM Interpretation: Performing Lab:[address] [phone] Notes/Report: Bilirubin Total 0.4 0.0-1.0 mg/dL Bilirubin Direct 0.1 0.0-0.5 mg/dL Aspartate Amino Transferase 21 5-31 U/L Alanine Aminotransferase 18 0-31 U/L Total Protein 6.6 6.5-8.0 g/dL Albumin Level 3.8 3.5-5.0 g/dL Alkaline Phosphatase 113 39-117 U/L Complete Blood Count Auto Di ff Reviewed date:2024 05:45:33 PM Interpretation: Performing Lab:[address] [phone] Notes/Report: White Blood Count 4.7 4.8-10.8 X10*3/uL Red Blood Count 4.24 4.20-5.50 X10*6/uL Hemoglobin 14.8 12.0-16.0 g/dl Hematocrit 42.3 37.0-47.0 % Mean Corpuscular Volume 99.8 80.0-98.0 fL Mean Corpuscular Hemoglobin 34.9 27.0-33.0 pg Mean Corpuscular HGB Conc 35.0 31.0-35.0 g/dl Red Cell Distribution Width 12.9 11.0-16.0 % Platelet Count 209 160-400 X10*3/uL Mean Platelet Volume 9.2 9.4-12.3 fL Neutrophils Percent Auto 66.1 45-73 % Imm Gran Pct Auto 0.4 0.0-0.4 % Lymphocytes Percent Auto 17.1 20-40 % Monocytes Percent Auto 13.7 2-11 % Eosinophils Percent Auto 2.1 0-4 % Basophils Percent Auto 0.6 0-2 % NRBC Pct Auto 0.0 0.0-0.2 /100WBC Neutrophils Absolute Auto 3.1 2.0-8.3 x10*3/u L Imm Gran Abs Auto 0.02 0.00-0.03 X10*3/uL Lymphocytes Absolute Auto 0.8 1.2-4.9 X10*3/ uL Monocytes Absolute Auto 0.7 0.1-1.2 X10*3/uL Eosinophils Absolute Auto 0.1 0.0-0.4 X10*3/u L Basophils Absolute Auto 0.0 0.0-0.2 X10*3/uL NRBC Abs Auto 0.000 0.0-0.012 X10*3/uL Liver Panel Reviewed date:12/08/2024 12:55:31 AM Interpretation: Performing Lab:[facility], [address] [place] [phone] Notes/Report: Bilirubin Total 0.3 0.0-1.0 mg/dL Bilirubin Direct 0.1 0.0-0.5 mg/dL Aspartate Amino Transferase 23 5-31 U/L Alanine Aminotransferase 19 0-31 U/L Total Protein 6.5 6.5-8.0 g/dL Albumin Level 3.7 3.5-5.0 g/dL Alkaline Phosphatase 104 39-117 U/L Reason For Referral No Information Medications Medication SIG (Take, Route, Frequency, Duration) Notes Start Date End Date Status Benazepril-hydroCHLOROthia zide 20-25 MG 2 tablet Orally Once a day Active Omeprazole 20 MG 1 capsule Orally Onc e a day Active Iron 325 (65 Fe) MG 1 tablet Orally Once a day Active Vitamin C Active Pentasa 500 MG Oral Activ e azaTHIOprine 50 mg TAKE 2 TABLETS TWICE A DAY Orally Twice a day for 90 days Active Methocarbamol 750 MG TAKE 1 TABLET BY [facility] TWICE A DAY 15 DAYS Oral for 15 Not-Taking Solifenacin Succinate 10 MG Oral for 90 Active hydrALAZINE HCl 10 MG 1 tablet with food Orally twice a day Active oxyBUTYnin Chloride ER 10 MG 1 tablet Orally Once a day Active Immunizations Vaccine Route Administration Date Status Comme nts Influenza Unknown 06/05/2018 Refused Influenza Unknown 11/28/2018 Refused Influenza Unknown 05/01/2019 Refused Influenza Unknown 11/10/2021 Refused Influenza Unknown 08/11/2023 Refused Influenza Unknown 12/18/2024 Refused Social History Tobacco Use: Social History Observation Description Date Details (start date - stop date) Never Smoker NA - NA Tobacco Use/Smoking Question Answer Notes Patient is a nonsmoker Alcohol Screen Question Answer Notes Did you have a drink containing alcohol in the p ast year? No Points 0 Interpretation Negative Section Notes: Nonsmoker > 10 yrs; no alcoh ol Nonsmoker > 10 yrs; no alcoh ol Nonsmoker > 10 yrs; no alcoh ol Nonsmoker > 10 yrs; no alcoh ol Nonsmoker > 10 yrs; no alcoh ol Nonsmoker > 10 yrs; no alcoh ol Nonsmoker > 10 yrs; no alcoh ol Nonsmoker > 10 yrs; no alcoh ol Nonsmoker > 10 yrs; no alcoh ol Nonsmoker > 10 yrs; no alcoh ol Nonsmoker > 10 yrs; no alcoh ol Nonsmoker > 10 yrs; no alcoh ol Nonsmoker > 10 yrs; no alcoh ol Nonsmoker > 10 yrs; no alcoh ol Nonsmoker > 10 yrs; no alcoh ol Nonsmoker > 10 yrs; no alcoh ol Nonsmoker > 10 yrs; no alcoh ol Nonsmoker > 10 yrs; no alcoh ol Nonsmoker > 10 yrs; no alcoh ol Nonsmoker > 10 yrs; no alcoh ol Problems Problem Type SNOMED Code ICD Code Onset Dates Problem Status W/U Status Risk Notes Problem 437811747 Encounter for screening for malignant neoplasm of colon (Z12.11) Active confirmed Problem 55626524 Crohn's disease of small intestine with intestinal obstruction (K50.012) Active confirmed Problem 755558300667457 Preprocedural examination (Z01.818) Active confirmed Problem 138115454 Elevated liver enzymes (R74.8) Active confirmed Problem 72613331 Crohns disease of small intestine with intestinal obstruction (K50.012) Active confirmed Problem 18189450 Iron deficiency anemia, unspecified iron deficiency anemia type (D50.9) Active confirmed Problem 474122132 Anemia, unspecified type (D64.9) Active confirmed Problem 12856437 Diarrhea, unspecified type (R19.7) Active confirmed Problem Drug monitoring done (793795590) Therapeutic drug monitoring (Z51.81) Active confirmed Problem 09986210 Diarrhea of presumed infectious origin (R19.7) Active confirmed Problem Intestinal obstruction due to Crohn's disease of small intestine (disorder) (5182791261787790) Crohn''s disease of small intestine with intestinal obstruction (K50.012) Active confirmed Problem Crohn (52031476) Crohn''s diseas e of small intestine with other complication (K50.018) Active confirmed Problem 628716827 Encounter for medication monitoring (Z51.81) Active confirmed Problem History of adenomatous polyp of colon (059255075) History of adenomatous polyp of colon (Z86.0101) Active confirmed Vital Signs Temperature 96.8 degrees Fahrenheit 12/18/2024 Blood pressure diastolic 01 mm Hg 12/18/2024 Height 61 in 12/18/2024 Blood pressure systolic 001 mm Hg 12/18/2024 Weight 151.2 lbs 12/18/2024 BMI 28.57 kg/m2 12/18/2024 Procedures Procedure Date Ordered Date Performed Result Body Sit e COLONOSCOPY 12/18/2024 N/A Encounters Encounter Location Date Provider Diagnosis [facility] [address] [place] [phone] 05/08/2024 Ebenezer Hunter Crohn''s disease of small intestine with intestinal obstruction K50.012 [facility] [address] [place] [phone] 12/18/2024 Ebenezer Hunter Crohns disease of small intestine with intestinal obstruction K50.012 ; Encounter for screening for malignant neoplasm of colon Z12.11 and History of adenomatous polyp of colon Z86.0101 [facility] [address] [place] [phone] 10/04/2024 Ebenezer Hunter Crohn''s disease of small intestine [...] for a colonoscopy toward the end of 2024 Overall, Monik appears quite well from [...] to keep you advised of her progress. 12/18/2024 Encounter for screening for malignant neoplasm of colon (ICD-10 - Z12.11) Overall, Alisha appears well. Her Crohn's disease appears to be in clinical remission on her current regimen based on her good clinical appearance and the lack of any new or worrisome GI complaints. As such, I did advise to continue the current medications. She does not appear to be having any adverse effects from the azathioprine based on the clinical history and her laboratories. I did recommend a follow-up colonoscopy for further screening given the history of a tubular adenoma removed in April 2020. We did review the rationale for that in regard to colon cancer prevention. Full consent has been obtained for this, including risks of bleeding and perforation. The procedure will be done with monitored anesthesia care. She was advised to stop the iron 1 week before the procedure. Of note, I shall check a vitamin B12 level when she has her next set of laboratories given the Crohn;s disease of the small bowel and slightly elevated MCV. Alisha was comfortable with this plan. Thank you again for allowing me to participate in Alisha's care. I shall continue to keep you advised of her progress. 12/18/2024 Crohns disease of small intestine with intestinal obstruction (ICD-10 - K50.012) Continue the same Pentasa and Azathioprine. Continue the same lab work. Overall, Alisha appears well. Her Crohn's disease appears to be in clinical remission on her current regimen based on her good clinical appearance and the lack of any new or worrisome GI complaints. As such, I did advise to continue the current medications. She does not appear to be having any adverse effects from the azathioprine based on the clinical history and her laboratories. I did recommend a follow-up colonoscopy for further screening given the history of a tubular adenoma removed in April 2020. We did review the rationale for that in regard to colon cancer prevention. Full consent has been obtained for this, including risks of bleeding and perforation. The procedure will be done with monitored anesthesia care. She was advised to stop the iron 1 week before the procedure. Of note, I shall check a vitamin B12 level when she has her next set of laboratories given the Crohn;s disease of the small bowel and slightly elevated MCV. Alisha was comfortable with this plan. Thank you again for allowing me to participate in Alisha's care. I shall continue to keep you advised of her progress. 10/04/2024 Therapeutic drug monitoring (ICD-10 - Z51.81) 10/04/2024 Crohn''s disease of small intestine with intestinal obstruction (ICD-10 - K50.012) 12/18/2024 History of adenomatous polyp of colon (ICD-10 - Z86.0101) Overall, Alisha appears well. Her Crohn's disease appears to be in clinical remission on her current regimen based on her good clinical appearance and the lack of any new or worrisome GI complaints. As such, I did advise to continue the current medications. She does not appear to be having any adverse effects from the azathioprine based on the clinical history and her laboratories. I did recommend a follow-up colonoscopy for further screening given the history of a tubular adenoma removed in April 2020. We did review the rationale for that in regard to colon cancer prevention. Full consent has been obtained for this, including risks of bleeding and perforation. The procedure will be done with monitored anesthesia care. She was advised to stop the iron 1 week before the procedure. Of note, I shall check a vitamin B12 level when she has her next set of laboratories given the Crohn;s disease of the small bowel and slightly elevated MCV. Alisha was comfortable with this plan. Thank you again for allowing me to participate in Alisha's care. I shall continue to keep you advised of her progress. Plan Of Treatment Pending Test Test Name Order Date COLONOSCOPY 12/18/2024 CHEM 7 PROFILE 11/30/2022 CHEM 7 PROFILE 08/21/2023 LIVER PROFILE 05/01/2019 LIVER PROFILE 10/04/2024 LIVER PROFILE 05/03/2023 LIVER PROFILE 10/07/2018 LIVER PROFILE 09/09/2015 LIVER PROFILE 08/25/2016 LIVER PROFILE 05/28/2021 LIVER PROFILE 04/12/2017 LIVER PROFILE 04/07/2020 LIVER PROFILE 03/10/2019 LIVER PROFILE 10/03/2023 LIVER PROFILE 07/08/2018 LIVER PROFILE 11/30/2022 LIVER PROFILE 05/09/2022 LIVER PROFILE 07/18/2014 LIVER PROFILE 08/21/2023 LIVER PROFILE 04/08/2021 LIVER PROFILE 01/14/2019 LIVER PROFILE 11/08/2016 IRON + IBC (FE) 12/18/2024 IRON + IBC (FE) 03/12/2020 FERRITIN 03/12/2020 CRP 08/21/2023 CRP 11/30/2022 VITAMIN B12 AND FOLATE 03/12/2020 VITAMIN B12 AND FOLATE 12/18/2024 CBC w DIFF 07/18/2014 CBC w DIFF 11/30/2022 CBC w DIFF 04/08/2021 CBC w DIFF 01/14/2019 CBC w DIFF 11/08/2016 CBC w DIFF 05/01/2019 CBC w DIFF 10/04/2024 CBC w DIFF 08/21/2023 CBC w DIFF 05/03/2023 CBC w DIFF 10/07/2018 CBC w DIFF 09/09/2015 CBC w DIFF 08/25/2016 CBC w DIFF 05/28/2021 CBC w DIFF 04/12/2017 CBC w DIFF 04/07/2020 CBC w DIFF 10/03/2023 CBC w DIFF 07/08/2018 CBC w DIFF 05/09/2022 SED RATE (ESR) 11/30/2022 SED RATE (ESR) 08/21/2023 PROMETHEUS THIOPURINE METABOLITES (TPMT) 07/08/2018 PROMETHEUS THIOPURINE METABOLITES (TPMT) 01/14/2019 PROMETHEUS THIOPURINE METABOLITES (TPMT) 11/08/2016 PROMETHEUS THIOPURINE METABOLITES (TPMT) 10/07/2018 PROMETHEUS THIOPURINE METABOLITES (TPMT) 05/18/2016 PROMETHEUS THIOPURINE METABOLITES (TPMT) 08/25/2016 PROMETHEUS THIOPURINE METABOLITES (TPMT) 11/28/2018 PROMETHEUS TPMT ENZYME 05/18/2016 PROMETHEUS TPMT GENETICS 05/18/2016 STOOL WBC 11/30/2022 STOOL WBC 08/21/2023 C DIFFICILE RFLX PCR 11/30/2022 C DIFFICILE RFLX PCR 08/21/2023 Liver Panel 10/04/2024 Ferritin 12/18/2024 Calprotectin, Fecal 08/21/2023 GI PANEL 08/21/2023 Future Test Test Name Order Date COLONOSCOPY 12/18/2019 UPPER GI ENDOSCOPY 04/09/2020 Next Appt Details Provider Name:Ebenezer Hunter , 03/17/2025 10:30:00 AM, [address] [place] [address] , [place], [place], [phone], Insurance Providers Payer Name Payer Address Payer Phone Subscriber Number Group Number Insured Name Patient Relationship to Insured Coverage Start Date Coverage End Date MEDICARE OF [place] [address] [place] [address] [id number] [phone] [id number] MONIK SORIA Self - patient is the insured [address] [phone] [id number] MONIK SORIA Self - patient is the insured Medical (General) History Medical History History ICD Code Denies OK,DM,CVA,Lung disease,renal dise ase Crohn's disease of the [...] which resolved spontaneously Surgical History Surgery Date(Month/Year) Right rotator cuff 09/2021 She had a laparoscopic parti al small bowel resection in [address] Russell for recurrent small bowel obstructions, and was found to have Crohn's disease based on the pathology of the resected segment of small bowel-this involved a 50 cm portion.
[2025-01-03 15:47] LABS: MANUAL DIFF FLAG NO
[2025-01-03 16:34] LABS: Basophils Percent Auto 0.6 % (0-2); Eosinophils Absolute Auto 0.1 X10*3/uL (0.0-0.4); Eosinophils Percent Auto 1.2 % (0-4); Hematocrit 41.1 % (37.0-47.0); Hemoglobin 14.4 g/dl (12.0-16.0); Imm Gran Abs Auto 0.02 X10*3/uL (0.00-0.03); Imm Gran Pct Auto 0.4 % (0.0-0.4); Lymphocytes Absolute Auto 0.8 X10*3/uL (1.2-4.9); Lymphocytes Percent Auto 14.5 % (20-40); Mean Corpuscular Hemoglobin 34.5 pg (27.0-33.0); Mean Corpuscular Volume 98.6 fL (80.0-98.0); Mean Platelet Volume 9.2 fL (9.4-12.3); Monocytes Absolute Auto 0.6 X10*3/uL (0.1-1.2); Monocytes Percent Auto 11.2 % (2-11); Neutrophils Absolute Auto 3.7 x10*3/uL (2.0-8.3); Neutrophils Percent Auto 72.1 % (45-73); Platelet Count 236 X10*3/uL (160-400); Red Blood Count 4.17 X10*6/uL (4.20-5.50); Red Cell Distribution Width 12.4 % (11.0-16.0); White Blood Count 5.2 X10*3/uL (4.8-10.8)
[2025-01-03 17:19] LABS: Alanine Aminotransferase 16 U/L (0-31); Albumin Level 3.8 g/dL (3.5-5.0); Alkaline Phosphatase 104 U/L (39-117); Aspartate Amino Transferase 23 U/L (5-31); Bilirubin Direct 0.1 mg/dL (0.0-0.5); Bilirubin Total 0.4 mg/dL (0.0-1.0); Iron 76 mcg/dL (30-160); Percent Iron Saturation 29 % (15-50); Total Iron Binding Capacity 258 mcg/dL (228-428); Total Protein 6.5 g/dL (6.5-8.0); Unsaturated Iron Binding 182 ug/dL
[2025-01-03 17:30] LABS: Ferritin 716 ng/mL (10-250)
[2025-01-03 17:46] LABS: Folate 9.5 ng/mL (> or = 4.0); Vitamin B12 335 pg/mL (200-900)
== END 2025-01-03 15:37 | disposition home or self-care (01) ==
LOC: HO.LABR 15:36
PROVIDERS: PCP Internal Medicine; Visit Provider Internal Medicine
DX: K50.012 Crohn's disease of small intestine with intestinal obstruction (principal)
CPT/HCPCS: 36415; 80076; 82607; 82728; 82746; 83540; 85025

== ENCOUNTER 2025-02-03 10:25 | Outpatient (REF) | payer MEDICARE, OTHER, SELFPAY ==
[2025-02-03 10:41] LABS: MANUAL DIFF FLAG NO
[2025-02-03 10:54] LABS: Basophils Percent Auto 0.3 % (0-2); Eosinophils Absolute Auto 0.1 X10*3/uL (0.0-0.4); Eosinophils Percent Auto 1.5 % (0-4); Hematocrit 41.3 % (37.0-47.0); Hemoglobin 14.5 g/dl (12.0-16.0); Imm Gran Abs Auto 0.02 X10*3/uL (0.00-0.03); Imm Gran Pct Auto 0.5 % (0.0-0.4); Lymphocytes Absolute Auto 0.5 X10*3/uL (1.2-4.9); Lymphocytes Percent Auto 13.6 % (20-40); Mean Corpuscular HGB Conc 35.1 g/dl (31.0-35.0); Mean Corpuscular Hemoglobin 34.4 pg (27.0-33.0); Mean Corpuscular Volume 97.9 fL (80.0-98.0); Monocytes Absolute Auto 0.5 X10*3/uL (0.1-1.2); Monocytes Percent Auto 11.4 % (2-11); Neutrophils Absolute Auto 2.9 x10*3/uL (2.0-8.3); Neutrophils Percent Auto 72.7 % (45-73); Platelet Count 226 X10*3/uL (160-400); Red Blood Count 4.22 X10*6/uL (4.20-5.50); Red Cell Distribution Width 12.6 % (11.0-16.0)
[2025-02-03 10:55] LABS: Hematocrit 41.6 % (37.0-47.0); Hemoglobin 14.6 g/dl (12.0-16.0); Mean Corpuscular HGB Conc 35.1 g/dl (31.0-35.0); Mean Corpuscular Hemoglobin 34.6 pg (27.0-33.0); Mean Corpuscular Volume 98.6 fL (80.0-98.0); Mean Platelet Volume 8.7 fL (9.4-12.3); Platelet Count 213 X10*3/uL (160-400); Red Blood Count 4.22 X10*6/uL (4.20-5.50); Red Cell Distribution Width 12.7 % (11.0-16.0); White Blood Count 3.9 X10*3/uL (4.8-10.8)
--- OUTSIDE RECORDS SUMMARY | 2025-02-03 11:08 | XMS_ITS | Patient Health Record ---
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 Role Phone Naldo Mojica MD Primary Care Provider UnavailEbenezer Jarquin [phone] Allergies No Known Allergies Results Component Value Reference Range Notes Complete Blood Count Auto Di ff Reviewed date:02/28/2024 10:02:16 PM Interpretation: Performing Lab:[facility], [address] [place] [phone] Notes/Report: White Blood Count 3.0 4.8-10.8 X10*3/uL [...] Panel Reviewed date:02/28/2024 05:07:38 PM Interpretation: Performing Lab:[facility], [address] [place] [phone] Notes/Report: Bilirubin Total 0.3 0.0-1.0 mg/dL Bilirubin Direct 0.1 0.0-0.5 mg/dL Aspartate Amino Transferase 17 5-31 U/L Alanine Aminotransferase 16 0-31 U/L Total Protein 6.4 6.5-8.0 g/dL Albumin Level 3.6 3.5-5.0 g/dL Alkaline Phosphatase 103 39-117 U/L Complete Blood Count Auto Di ff Reviewed date:04/04/2024 05:48:24 PM Interpretation: Performing Lab:[facility], [address] [place] [phone] Notes/Report: White Blood Count 3.5 4.8-10.8 X10*3/uL [...] Panel Reviewed date:04/04/2024 05:48:45 PM Interpretation: Performing Lab:[facility], [address] [place] [phone] Notes/Report: Bilirubin Total 0.4 0.0-1.0 mg/dL Bilirubin Direct 0.1 0.0-0.5 mg/dL Aspartate Amino Transferase 17 5-31 U/L Alanine Aminotransferase 12 0-31 U/L Total Protein 6.4 6.5-8.0 g/dL Albumin Level 3.6 3.5-5.0 g/dL Alkaline Phosphatase 104 39-117 U/L Complete Blood Count Auto Di ff Reviewed date:05/01/2024 07:04:00 PM Interpretation: Performing Lab:[facility], [address] [place] [phone] Notes/Report: White Blood Count 3.4 4.8-10.8 X10*3/uL [...] Panel Reviewed date:05/01/2024 07:03:08 PM Interpretation: Performing Lab:[address] [phone] Notes/Report: Bilirubin Total 0.6 0.0-1.0 mg/dL Bilirubin Direct 0.2 0.0-0.5 mg/dL Aspartate Amino Transferase 18 5-31 U/L Alanine Aminotransferase 14 0-31 U/L Total Protein 6.5 6.5-8.0 g/dL Albumin Level 3.5 3.5-5.0 g/dL Alkaline Phosphatase 99 39-117 U/L Complete Blood Count Auto Di ff Reviewed date:06/06/2024 06:55:10 PM Interpretation: Performing Lab:[address] [phone] Notes/Report: White Blood Count 4.9 4.8-10.8 X10*3/uL [...] Panel Reviewed date:06/06/2024 06:54:32 PM Interpretation: Performing Lab:[facility], [address] [place] [phone] Notes/Report: Bilirubin Total 0.5 0.0-1.0 mg/dL Bilirubin Direct 0.1 0.0-0.5 mg/dL Aspartate Amino Transferase 48 5-31 U/L Alanine Aminotransferase 24 0-31 U/L Total Protein 6.2 6.5-8.0 g/dL Albumin Level 3.4 3.5-5.0 g/dL Alkaline Phosphatase 111 39-117 U/L Complete Blood Count Auto Di ff Reviewed date:07/02/2024 04:25:58 PM Interpretation: Performing Lab:[facility], [address] [place] [phone] Notes/Report: White Blood Count 3.5 4.8-10.8 X10*3/uL [...] Panel Reviewed date:07/02/2024 04:24:45 PM Interpretation: Performing Lab:[facility], [address] [place] [phone] Notes/Report: Bilirubin Total 0.4 0.0-1.0 mg/dL Bilirubin Direct 0.2 0.0-0.5 mg/dL Aspartate Amino Transferase 40 5-31 U/L Alanine Aminotransferase 43 0-31 U/L Total Protein 6.1 6.5-8.0 g/dL Albumin Level 3.5 3.5-5.0 g/dL Alkaline Phosphatase 130 39-117 U/L Complete Blood Count Auto Di ff Reviewed date:08/11/2024 12:08:42 PM Interpretation: Performing Lab:[facility], [address] [place] [phone] Notes/Report: White Blood Count 4.9 4.8-10.8 X10*3/uL [...] Panel Reviewed date:08/11/2024 12:09:03 PM Interpretation: Performing Lab:[facility], [address] [place] [phone] Notes/Report: Bilirubin Total 0.4 0.0-1.0 mg/dL Bilirubin Direct 0.1 0.0-0.5 mg/dL Aspartate Amino Transferase 37 5-31 U/L Alanine Aminotransferase 43 0-31 U/L Total Protein 6.5 6.5-8.0 g/dL Albumin Level 3.7 3.5-5.0 g/dL Alkaline Phosphatase 110 39-117 U/L Complete Blood Count Auto Di ff Reviewed date:09/06/2024 06:23:14 PM Interpretation: Performing Lab:[facility], [address] [place] [phone] Notes/Report: White Blood Count 3.5 4.8-10.8 X10*3/uL [...] yet reviewe d by provider) Interpretation: Performing Lab:[facility], [address] [place] [phone] Notes/Report: Bilirubin Total 0.4 0.0-1.0 mg/dL Bilirubin Direct 0.1 0.0-0.5 mg/dL Aspartate Amino Transferase 33 5-31 U/L Alanine Aminotransferase 48 0-31 U/L Total Protein 6.7 6.5-8.0 g/dL Albumin Level 3.6 3.5-5.0 g/dL Alkaline Phosphatase 108 39-117 U/L Complete Blood Count Auto Di ff Reviewed date:11/05/2024 12:16:44 AM Interpretation: Performing Lab:[facility], [address] [place] [phone] Notes/Report: White Blood Count 4.8 4.8-10.8 X10*3/uL [...] Panel Reviewed date:11/05/2024 12:15:21 AM Interpretation: Performing Lab:[facility], [address] [place] [phone] Notes/Report: Bilirubin Total 0.4 0.0-1.0 mg/dL Bilirubin Direct 0.1 0.0-0.5 mg/dL Aspartate Amino Transferase 21 5-31 U/L Alanine Aminotransferase 18 0-31 U/L Total Protein 6.6 6.5-8.0 g/dL Albumin Level 3.8 3.5-5.0 g/dL Alkaline Phosphatase 113 39-117 U/L Complete Blood Count Auto Di ff Reviewed date:2024 05:45:33 PM Interpretation: Performing Lab:[facility], [address] [place] [phone] Notes/Report: White Blood Count 4.7 4.8-10.8 X10*3/uL [...] Panel Reviewed date:12/08/2024 12:55:31 AM Interpretation: Performing Lab:[facility], [address] [place] [phone] Notes/Report: Bilirubin Total 0.3 0.0-1.0 mg/dL Bilirubin Direct 0.1 0.0-0.5 mg/dL Aspartate Amino Transferase 23 5-31 U/L Alanine Aminotransferase 19 0-31 U/L Total Protein 6.5 6.5-8.0 g/dL Albumin Level 3.7 3.5-5.0 g/dL Alkaline Phosphatase 104 39-117 U/L Complete Blood Count Auto Di ff Reviewed date:01/03/2025 05:11:42 PM Interpretation: Performing Lab:[address] [phone] Notes/Report: White Blood Count 5.2 4.8-10.8 X10*3/uL Red Blood Count 4.17 4.20-5.50 X10*6/uL Hemoglobin 14.4 12.0-16.0 g/dl Hematocrit 41.1 37.0-47.0 % Mean Corpuscular Volume 98.6 80.0-98.0 fL Mean Corpuscular Hemoglobin 34.5 27.0-33.0 pg Mean Corpuscular HGB Conc 35.0 31.0-35.0 g/dl Red Cell Distribution Width 12.4 11.0-16.0 % Platelet Count 236 160-400 X10*3/uL Mean Platelet Volume 9.2 9.4-12.3 fL Neutrophils Percent Auto 72.1 45-73 % Imm Gran Pct Auto 0.4 0.0-0.4 % Lymphocytes Percent Auto 14.5 20-40 % Monocytes Percent Auto 11.2 2-11 % Eosinophils Percent Auto 1.2 0-4 % Basophils Percent Auto 0.6 0-2 % NRBC Pct Auto 0.0 0.0-0.2 /100WBC Neutrophils Absolute Auto 3.7 2.0-8.3 x10*3/u L Imm Gran Abs Auto 0.02 0.00-0.03 X10*3/uL Lymphocytes Absolute Auto 0.8 1.2-4.9 X10*3/u L Monocytes Absolute Auto 0.6 0.1-1.2 X10*3/uL Eosinophils Absolute Auto 0.1 0.0-0.4 X10*3/u L Basophils Absolute Auto 0.0 0.0-0.2 X10*3/uL NRBC Abs Auto 0.000 0.0-0.012 X10*3/uL Liver Panel Reviewed date:01/03/2025 09:53:34 PM Interpretation: Performing Lab:[address] [phone] Notes/Report: Bilirubin Total 0.4 0.0-1.0 mg/dL Bilirubin Direct 0.1 0.0-0.5 mg/dL Aspartate Amino Transferase 23 5-31 U/L Alanine Aminotransferase 16 0-31 U/L Total Protein 6.5 6.5-8.0 g/dL Albumin Level 3.8 3.5-5.0 g/dL Alkaline Phosphatase 104 39-117 U/L IRON PROFILE (Not yet review ed by provider) Interpretation: Performing Lab:[address] [phone] Notes/Report: Iron 76 30-160 mcg/dL Total Iron Binding Capacity 258 228-428 mcg/d L Percent Iron Saturation 29 15-50 % Unsaturated Iron Binding 182 Ferritin (Not yet reviewed b y provider) Interpretation: Performing Lab:[address] [place] [address] Notes/Report: Ferritin 716 10-250 ng/mL Vitamin B12 and Folate Reviewed date:01/03/2025 09:53:01 PM Interpretation: Performing Lab:[facility], [address] [place] [phone] Notes/Report: Vitamin B12 335 200-900 pg/mL NORMAL 200-900 PG/ML INDETERMINATE 160-199 PG/ML DEFICIENT < 160 PG/ML Folate 9.5 > or = 4.0 ng/mL Reference Values: > or = 4.0 ng/mL < 4.0 ng/mL suggests folate deficiency Methotrexate, aminopterin and folinic acid (leucovorin) are chemotherapeutic agents whose molecular structures are similar to folate; therefore, the Appeals Board Referee folate assay cannot be used for patients using these drugs. Complete Blood Count Auto Di ff (Not yet reviewed by provider) Interpretation: Performing Lab:[facility], [address] [place] [phone] Notes/Report: White Blood Count 4.0 4.8-10.8 X10*3/uL Red Blood Count 4.22 4.20-5.50 X10*6/uL Hemoglobin 14.5 12.0-16.0 g/dl Hematocrit 41.3 37.0-47.0 % Mean Corpuscular Volume 97.9 80.0-98.0 fL Mean Corpuscular Hemoglobin 34.4 27.0-33.0 pg Mean Corpuscular HGB Conc 35.1 31.0-35.0 g/dl Red Cell Distribution Width 12.6 11.0-16.0 % Platelet Count 226 160-400 X10*3/uL Mean Platelet Volume 9.0 9.4-12.3 fL Neutrophils Percent Auto 72.7 45-73 % Imm Gran Pct Auto 0.5 0.0-0.4 % Lymphocytes Percent Auto 13.6 20-40 % Monocytes Percent Auto 11.4 2-11 % Eosinophils Percent Auto 1.5 0-4 % Basophils Percent Auto 0.3 0-2 % NRBC Pct Auto 0.0 0.0-0.2 /100WBC Neutrophils Absolute Auto 2.9 2.0-8.3 x10*3/u L Imm Gran Abs Auto 0.02 0.00-0.03 X10*3/uL Lymphocytes Absolute Auto 0.5 1.2-4.9 X10*3/u L Monocytes Absolute Auto 0.5 0.1-1.2 X10*3/uL Eosinophils Absolute Auto 0.1 0.0-0.4 X10*3/u L Basophils Absolute Auto 0.0 0.0-0.2 X10*3/uL NRBC Abs Auto 0.000 0.0-0.012 X10*3/uL Reason For Referral No Information Medications Medication [...] Methocarbamol 750 MG TAKE 1 TABLET BY [facility] TWICE A DAY 15 DAYS Oral [...] Problem Status W/U Status Risk Notes Problem 845862645 Encounter for screening for malignant neoplasm of colon (Z12.11) Active confirmed Problem 85881998 Crohn's disease of small intestine with intestinal obstruction (K50.012) Active confirmed Problem 907848964605196 Preprocedural examination (Z01.818) Active confirmed Problem 820126287 Elevated liver enzymes (R74.8) Active confirmed Problem 94772712 Crohns disease of small intestine with intestinal obstruction (K50.012) Active confirmed Problem 84741389 Iron deficiency anemia, unspecified iron deficiency anemia type (D50.9) Active confirmed Problem 111427199 Anemia, unspecified type (D64.9) Active confirmed Problem 76418521 Diarrhea, unspecified type (R19.7) Active confirmed Problem Drug monitoring done (674376267) Therapeutic drug monitoring (Z51.81) Active confirmed Problem 71446514 Diarrhea of presumed infectious origin (R19.7) Active confirmed Problem Intestinal obstruction due to Crohn's disease of small intestine (disorder) (4896116675975706) Crohn''s disease of small intestine with intestinal obstruction (K50.012) Active confirmed Problem Crohn (46551576) Crohn''s diseas e of small intestine with other complication (K50.018) Active confirmed Problem 319519666 Encounter for medication monitoring (Z51.81) Active confirmed Problem History of adenomatous polyp of colon (763076105) History of adenomatous polyp of colon (Z86.0101) Active confirmed Vital Signs Temperature 96.8 degrees Fahrenheit 12/18/2024 Blood pressure diastolic 01 mm Hg 12/18/2024 Height 61 in 12/18/2024 Blood pressure systolic 001 mm Hg 12/18/2024 Weight 151.2 lbs 12/18/2024 BMI 28.57 kg/m2 12/18/2024 Procedures Procedure Date Ordered Date Performed Result Body Sit e COLONOSCOPY 12/18/2024 N/A Encounters Encounter Location Date Provider Diagnosis [facility] [address] [place] [phone] 05/08/2024 Ebenezer Hunter Crohn''s disease of small intestine with intestinal obstruction K50.012 [facility] [address] [place] [phone] 12/18/2024 Ebenezer Hunter Crohns disease of small intestine with intestinal obstruction K50.012 ; Encounter for screening for malignant neoplasm of colon Z12.11 and History of adenomatous polyp of colon Z86.0101 [facility] [address] [place] [phone] 10/04/2024 Ebenezer Hunter Crohn''s disease of small intestine with intestinal obstruction K50.012 and Therapeutic drug monitoring Z51.81 [facility] [address] [place] [phone] 01/08/2025 Ebenezer Hunter Crohn''s disease of small intestine [...] intestine with intestinal obstruction (ICD-10 - K50.012) 01/08/2025 Crohn''s disease of small intestine with intestinal obstruction (ICD-10 - K50.012) Monthly orders 12/18/2024 History of adenomatous polyp of colon [...] PROFILE 10/04/2024 LIVER PROFILE 05/03/2023 LIVER PROFILE 09/09/2015 LIVER PROFILE 10/07/2018 LIVER PROFILE 08/25/2016 LIVER PROFILE 05/28/2021 LIVER PROFILE 04/12/2017 LIVER PROFILE 04/07/2020 LIVER PROFILE 01/08/2025 LIVER PROFILE 03/10/2019 LIVER PROFILE 10/03/2023 LIVER PROFILE 07/08/2018 LIVER PROFILE 11/30/2022 LIVER PROFILE 05/09/2022 LIVER PROFILE 08/21/2023 LIVER PROFILE 07/18/2014 LIVER PROFILE 04/08/2021 LIVER PROFILE 01/14/2019 LIVER [...] CBC w DIFF 05/03/2023 CBC w DIFF 09/09/2015 CBC w DIFF 10/07/2018 CBC w DIFF 08/25/2016 CBC w DIFF 05/28/2021 CBC w DIFF 04/12/2017 CBC w DIFF 04/07/2020 CBC w DIFF 01/08/2025 CBC w DIFF 10/03/2023 CBC w DIFF 07/08/2018 CBC w DIFF 05/09/2022 SED RATE (ESR) 11/30/2022 SED RATE (ESR) 08/21/2023 PROMETHEUS THIOPURINE METABOLITES (TPMT) 07/08/2018 PROMETHEUS THIOPURINE METABOLITES (TPMT) 01/14/2019 PROMETHEUS THIOPURINE METABOLITES (TPMT) 11/08/2016 PROMETHEUS THIOPURINE METABOLITES (TPMT) 05/18/2016 PROMETHEUS THIOPURINE METABOLITES (TPMT) 10/07/2018 PROMETHEUS THIOPURINE METABOLITES (TPMT) 08/25/2016 PROMETHEUS THIOPURINE METABOLITES (TPMT) 11/28/2018 PROMETHEUS TPMT ENZYME 05/18/2016 PROMETHEUS TPMT GENETICS 05/18/2016 STOOL WBC 11/30/2022 STOOL WBC 08/21/2023 C DIFFICILE RFLX PCR 11/30/2022 C DIFFICILE RFLX PCR 08/21/2023 Complete Blood Count Auto Diff Liver Panel 10/04/2024 IRON PROFILE 01/03/2025 Ferritin 12/18/2024 Ferritin 01/03/2025 Calprotectin, Fecal 08/21/2023 GI PANEL 08/21/2023 Future Test Test Name Order Date COLONOSCOPY 12/18/2019 UPPER GI ENDOSCOPY 04/09/2020 Next Appt Details Provider Name:Ebenezer Hunter , 03/17/2025 10:30:00 AM, [address] [facility] , [place], [place], [id number], Insurance Providers Payer Name Payer Address Payer Phone Subscriber Number Group Number Insured Name Patient Relationship to Insured Coverage Start Date Coverage End Date MEDICARE OF [place] [address] [place] [address] [id number] MONIK SORIA Self - patient is the insured [address] [place] [address] [id number] MONIK SORIA Self - patient is the insured Medical (General) History Medical History History ICD Code Denies NM,DM,CVA,Lung disease,renal dise ase Crohn's disease of the [...]
[2025-02-03 11:40] LABS: Alanine Aminotransferase 19 U/L (0-31); Alkaline Phosphatase 101 U/L (39-117); Aspartate Amino Transferase 23 U/L (5-31); Bilirubin Direct 0.1 mg/dL (0.0-0.5); Bilirubin Total 0.4 mg/dL (0.0-1.0); Total Protein 6.6 g/dL (6.5-8.0)
[2025-02-03 11:49] LABS: Alanine Aminotransferase 19 U/L (0-31); Alkaline Phosphatase 99 U/L (39-117); Anion Gap 13 (12-20); Aspartate Amino Transferase 25 U/L (5-31); Bilirubin Total 0.4 mg/dL (0.0-1.0); Blood Urea Nitrogen 20 mg/dL (9-16); Calcium 9.2 mg/dL (8.4-10.2); Carbon Dioxide 27 mmol/L (22-29); Chloride 107 mmol/L (96-108); Cholesterol 277 mg/dL (<200); Estimated Glomerular Filt Rate > 60; Glucose Random 104 mg/dL (60-115); HDL Cholesterol 42 mg/dL (>40); LDL Cholesterol Calculated 205 mg/dL (<100); Sodium 143 mmol/L (135-145); Total Protein 6.6 g/dL (6.5-8.0); Triglycerides 154 mg/dL (<150)
== END 2025-02-03 10:26 | disposition home or self-care (01) ==
LOC: HO.LABR 10:25
PROVIDERS: Absent Provider Internal Medicine; PCP Internal Medicine; Visit Provider Internal Medicine
DX: K50.012 Crohn's disease of small intestine with intestinal obstruction (principal); Z79.899 Other long term (current) drug therapy
CPT/HCPCS: 36415; 80053; 80061; 80076; 82248; 85025; 85027

== ENCOUNTER 2025-03-04 14:41 | Outpatient (REF) | payer MEDICARE, OTHER, SELFPAY ==
[2025-03-04 15:01] LABS: MANUAL DIFF FLAG NO
[2025-03-04 15:15] LABS: Hematocrit 35.9 % (37.0-47.0); Hemoglobin 13.1 g/dl (12.0-16.0); Imm Gran Abs Auto 0.01 X10*3/uL (0.00-0.03); Imm Gran Pct Auto 0.2 % (0.0-0.4); Lymphocytes Absolute Auto 0.7 X10*3/uL (1.2-4.9); Mean Corpuscular HGB Conc 36.5 g/dl (31.0-35.0); Mean Corpuscular Hemoglobin 35.3 pg (27.0-33.0); Mean Corpuscular Volume 96.8 fL (80.0-98.0); NRBC Abs Auto 0.020 X10*3/uL (0.0-0.012); NRBC Pct Auto 0.4 /100WBC (0.0-0.2); Platelet Count 244 X10*3/uL (160-400); Red Blood Count 3.71 X10*6/uL (4.20-5.50); White Blood Count 4.9 X10*3/uL (4.8-10.8)
--- OUTSIDE RECORDS SUMMARY | 2025-03-04 15:25 | XMS_ITS | Clinical Summary ---
Author Organization [facility] Address [address] [place] [address] Care Team Providers Care Germination Worker Name Role Phone Naldo Mojica MD Primary Care Provider Unavail able Allergies No known active allergies Medications Medication Sig Dispensed Refills Start Date End Date Status azaTHIOprine (IMURAN) 50 MG tablet 0 05/09/2021 Active benazepril-hydroCHLO ROthiazide (LOTENSIN HCT) 20-12.5 MG per tablet 0 05/09/2021 Active ergocalciferol (VITAMIN D2) capsule 84588 units Take 1 capsule by mouth once [...] Screening (DEXA Scan) 12/04/2019 Influenza Vaccine (#1) 2025 Hepatitis B Vaccines Aged Out No long er eligible based on patient's age to complete this topic RSV Ped < 20 months Aged Out No longe r eligible based on patient's age to complete this topic Care Teams Germination Worker Relationship Specialty Start Date End Date Naldo Mojica MD PCP - General Internal Medicine 04/27/21
--- OUTSIDE RECORDS SUMMARY | 2025-03-04 15:25 | XMS_ITS | Clinical Summary ---
Author Organization [facility] Address [address] [place] [phone] Phone Care Team Providers Care Flag Decorator Name Role Phone Naldo Mojica MD Primary Care Provider [phone] Medical History Medical History Date Comments High blood pressure DX:High bloo d pressure Crohn's disease (CMS/HCC V24, CMS/HCC V28) DX:Crohn's disease ([facility]) Family History Medical History Relation Name Comments [...] Description 04/15/2025 8:00 AM EDT Ancillary Procedure [facility] - [address] [place] [address] Health Maintenance Due Date Last Done Comments Zoster Vaccines (1 of 2) 1973 RSV Immunization Adult Patients (1 - Risk 60-74 years 1-dose series) 2014 Pneumococcal Vaccine: 50+ Years (2 of 2 - PPSV23) 07/23/2021 05/28/2021 Colorectal Cancer Screening: Colonoscopy 07/05/2022 Falls Risk Assessment 07/05/2022 Hepatitis C Screening 07/05/2022 Medicare Annual Wellness Visit 07/05/2022 Osteoporosis Screening (Bone Density Screening) 07/05/2022 Social Influencers of Health Screening 07/05/2022 COVID-19 Vaccine ( season) 2024 06/30/2023, 11/11/2021, 06/04/2021, Additional history exists Depression Screening 08/07/2024 Influenza Vaccine (#1) 2025 Breast Cancer Screening 06/26/2026 06/26/20, 04/27/2023, [...] Signed Date: 06/26/2024 17:57 ET Workstation ID: [id number] Transcribed By: Self Edit Transcribed Date: 06/26/2024 17:52 ET Narrative 06/26/2024 5:57 PM EST EXAM: SCREENING MAMMOGRAPHY, BILATERAL HISTORY: SCREENING. Family history of breast cancer; sister and maternal aunt COMPARISON: 04/26/2023, 03/15/2022, 03/12/2021, 03/04/2020 TECHNIQUE: Synthesized CC and MLO projections of each breast. Tomosynthesis of each breast in the CC and MLO projections. ADDITIONAL IMAGING: None Computer-aided detection was employed with the [employer] AI 3-D. TISSUE DENSITY: There are scattered [...] None Computer-aided detection was employed with the [employer] AI 3-D. TISSUE DENSITY: There are scattered [...] Signed Date: 06/26/2024 17:57 ET Workstation ID: [id number] Transcribed By: Self Edit Transcribed Date: 06/26/2024 17:52 ET Naldo Mojica MD IMG BI PROCEDURES Final Result from Last 3 Months or Most Recently Relevant to Health Maintenance Insurance MEDICARE Care Teams Flag Decorator Relationship Specialty Start Date End Date Naldo Mojica MD [address] [place] [phone] PCP - General Internal Medicine 06/19/24
--- OUTSIDE RECORDS SUMMARY | 2025-03-04 15:25 | XMS_ITS | Patient Health Record ---
Author Organization [facility] Address [address] [place] [address] Care Team Providers Care Molasses Preparer Name Role Phone Naldo Mojica MD Primary Care Provider UnavailEbenezer Jarquin [phone] Allergies No Known Allergies Results Component Value Reference Range Notes Complete Blood Count Auto Di ff Reviewed date:04/04/2024 05:48:24 PM Interpretation: Performing Lab:[facility], [address] [place] [phone] Notes/Report: White Blood Count 3.5 4.8-10.8 X10*3/uL [...] Panel Reviewed date:04/04/2024 05:48:45 PM Interpretation: Performing Lab:[facility], [address] [place] [phone] Notes/Report: Bilirubin Total 0.4 0.0-1.0 mg/dL Bilirubin Direct 0.1 0.0-0.5 mg/dL Aspartate Amino Transferase 17 5-31 U/L Alanine Aminotransferase 12 0-31 U/L Total Protein 6.4 6.5-8.0 g/dL Albumin Level 3.6 3.5-5.0 g/dL Alkaline Phosphatase 104 39-117 U/L Complete Blood Count Auto Di ff Reviewed date:05/01/2024 07:04:00 PM Interpretation: Performing Lab:[facility], [address] [place] [phone] Notes/Report: White Blood Count 3.4 4.8-10.8 X10*3/uL [...] Panel Reviewed date:05/01/2024 07:03:08 PM Interpretation: Performing Lab:[facility], [address] [place] [phone] Notes/Report: Bilirubin Total 0.6 0.0-1.0 mg/dL Bilirubin Direct 0.2 0.0-0.5 mg/dL Aspartate Amino Transferase 18 5-31 U/L Alanine Aminotransferase 14 0-31 U/L Total Protein 6.5 6.5-8.0 g/dL Albumin Level 3.5 3.5-5.0 g/dL Alkaline Phosphatase 99 39-117 U/L Complete Blood Count Auto Di ff Reviewed date:06/06/2024 06:55:10 PM Interpretation: Performing Lab:[facility], [address] [place] [phone] Notes/Report: White Blood Count 4.9 4.8-10.8 X10*3/uL [...] Panel Reviewed date:06/06/2024 06:54:32 PM Interpretation: Performing Lab:[address] [phone] Notes/Report: Bilirubin Total 0.5 0.0-1.0 mg/dL Bilirubin Direct 0.1 0.0-0.5 mg/dL Aspartate Amino Transferase 48 5-31 U/L Alanine Aminotransferase 24 0-31 U/L Total Protein 6.2 6.5-8.0 g/dL Albumin Level 3.4 3.5-5.0 g/dL Alkaline Phosphatase 111 39-117 U/L Complete Blood Count Auto Di ff Reviewed date:07/02/2024 04:25:58 PM Interpretation: Performing Lab:[address] [phone] Notes/Report: White Blood Count 3.5 4.8-10.8 X10*3/uL [...] Panel Reviewed date:07/02/2024 04:24:45 PM Interpretation: Performing Lab:[facility], [address] [place] [phone] Notes/Report: Bilirubin Total 0.4 0.0-1.0 mg/dL Bilirubin Direct 0.2 0.0-0.5 mg/dL Aspartate Amino Transferase 40 5-31 U/L Alanine Aminotransferase 43 0-31 U/L Total Protein 6.1 6.5-8.0 g/dL Albumin Level 3.5 3.5-5.0 g/dL Alkaline Phosphatase 130 39-117 U/L Complete Blood Count Auto Di ff Reviewed date:08/11/2024 12:08:42 PM Interpretation: Performing Lab:[facility], [address] [place] [phone] Notes/Report: White Blood Count 4.9 4.8-10.8 X10*3/uL [...] Panel Reviewed date:08/11/2024 12:09:03 PM Interpretation: Performing Lab:[facility], [address] [place] [phone] Notes/Report: Bilirubin Total 0.4 0.0-1.0 mg/dL Bilirubin Direct 0.1 0.0-0.5 mg/dL Aspartate Amino Transferase 37 5-31 U/L Alanine Aminotransferase 43 0-31 U/L Total Protein 6.5 6.5-8.0 g/dL Albumin Level 3.7 3.5-5.0 g/dL Alkaline Phosphatase 110 39-117 U/L Complete Blood Count Auto Di ff Reviewed date:09/06/2024 06:23:14 PM Interpretation: Performing Lab:[facility], [address] [place] [phone] Notes/Report: White Blood Count 3.5 4.8-10.8 X10*3/uL [...] yet reviewe d by provider) Interpretation: Performing Lab:[facility], [address] [place] [phone] Notes/Report: Bilirubin Total 0.4 0.0-1.0 mg/dL Bilirubin Direct 0.1 0.0-0.5 mg/dL Aspartate Amino Transferase 33 5-31 U/L Alanine Aminotransferase 48 0-31 U/L Total Protein 6.7 6.5-8.0 g/dL Albumin Level 3.6 3.5-5.0 g/dL Alkaline Phosphatase 108 39-117 U/L Complete Blood Count Auto Di ff Reviewed date:11/05/2024 12:16:44 AM Interpretation: Performing Lab:[facility], [address] [place] [phone] Notes/Report: White Blood Count 4.8 4.8-10.8 X10*3/uL [...] Panel Reviewed date:11/05/2024 12:15:21 AM Interpretation: Performing Lab:[facility], [address] [place] [phone] Notes/Report: Bilirubin Total 0.4 0.0-1.0 mg/dL Bilirubin Direct 0.1 0.0-0.5 mg/dL Aspartate Amino Transferase 21 5-31 U/L Alanine Aminotransferase 18 0-31 U/L Total Protein 6.6 6.5-8.0 g/dL Albumin Level 3.8 3.5-5.0 g/dL Alkaline Phosphatase 113 39-117 U/L Complete Blood Count Auto Di ff Reviewed date:2024 05:45:33 PM Interpretation: Performing Lab:[facility], [address] [place] [phone] Notes/Report: White Blood Count 4.7 4.8-10.8 X10*3/uL [...] Panel Reviewed date:12/08/2024 12:55:31 AM Interpretation: Performing Lab:[facility], [address] [place] [phone] Notes/Report: Bilirubin Total 0.3 0.0-1.0 mg/dL Bilirubin Direct 0.1 0.0-0.5 mg/dL Aspartate Amino Transferase 23 5-31 U/L Alanine Aminotransferase 19 0-31 U/L Total Protein 6.5 6.5-8.0 g/dL Albumin Level 3.7 3.5-5.0 g/dL Alkaline Phosphatase 104 39-117 U/L Complete Blood Count Auto Di ff Reviewed date:01/03/2025 05:11:42 PM Interpretation: Performing Lab:[facility], [address] [place] [phone] Notes/Report: White Blood Count 5.2 4.8-10.8 X10*3/uL [...] Panel Reviewed date:01/03/2025 09:53:34 PM Interpretation: Performing Lab:[address] [phone] Notes/Report: Bilirubin Total 0.4 0.0-1.0 mg/dL Bilirubin Direct 0.1 0.0-0.5 mg/dL Aspartate Amino Transferase 23 5-31 U/L Alanine Aminotransferase 16 0-31 U/L Total Protein 6.5 6.5-8.0 g/dL Albumin Level 3.8 3.5-5.0 g/dL Alkaline Phosphatase 104 39-117 U/L IRON PROFILE Reviewed date:03/02/2025 10:36:37 PM Interpretation: Performing Lab:[address] [phone] Notes/Report: Iron 76 30-160 mcg/dL Total Iron Binding Capacity 258 228-428 mcg/d L Percent Iron Saturation 29 15-50 % Unsaturated Iron Binding 182 Ferritin (Not yet reviewed b y provider) Interpretation: Performing Lab:[address] [phone] Notes/Report: Ferritin 716 10-250 ng/mL Vitamin B12 and Folate Reviewed date:01/03/2025 09:53:01 PM Interpretation: Performing Lab:[address] [phone] Notes/Report: Vitamin B12 335 200-900 pg/mL NORMAL 200-900 PG/ML INDETERMINATE 160-199 PG/ML DEFICIENT < 160 PG/ML Folate 9.5 > or = 4.0 ng/mL Reference Values: > or = 4.0 ng/mL < 4.0 ng/mL suggests folate deficiency Methotrexate, aminopterin and folinic acid (leucovorin) are chemotherapeutic agents whose molecular structures are similar to folate; therefore, the Se[employer] Coordinator folate assay cannot be used for patients using these drugs. Complete Blood Count Auto Di ff Reviewed date:02/03/2025 10:44:40 PM Interpretation: Performing Lab:[facility], [address] [place] [address] Notes/Report: White Blood Count 4.0 4.8-10.8 X10*3/uL [...] Panel Reviewed date:02/03/2025 10:45:03 PM Interpretation: Performing Lab:[facility], [address] [place] [phone] Notes/Report: Bilirubin Total 0.4 0.0-1.0 mg/dL Bilirubin Direct 0.1 0.0-0.5 mg/dL Aspartate Amino Transferase 23 5-31 U/L Alanine Aminotransferase 19 0-31 U/L Total Protein 6.6 6.5-8.0 g/dL Albumin Level 4.0 3.5-5.0 g/dL Alkaline Phosphatase 101 39-117 U/L Complete Blood Count Auto Di ff (Not yet reviewed by provider) Interpretation: Performing Lab:[facility], [address] [place] [phone] Notes/Report: White Blood Count 4.9 4.8-10.8 X10*3/uL Red Blood Count 3.71 4.20-5.50 X10*6/uL Hemoglobin 13.1 12.0-16.0 g/dl Hematocrit 35.9 37.0-47.0 % Mean Corpuscular Volume 96.8 80.0-98.0 fL Mean Corpuscular Hemoglobin 35.3 27.0-33.0 pg Mean Corpuscular HGB Conc 36.5 31.0-35.0 g/dl Red Cell Distribution Width 13.6 11.0-16.0 % Platelet Count 244 160-400 X10*3/uL Mean Platelet Volume 8.9 9.4-12.3 fL Neutrophils Percent Auto 75.7 45-73 % Imm Gran Pct Auto 0.2 0.0-0.4 % Lymphocytes Percent Auto 13.4 20-40 % Monocytes Percent Auto 8.1 2-11 % Eosinophils Percent Auto 2.0 0-4 % Basophils Percent Auto 0.6 0-2 % NRBC Pct Auto 0.4 0.0-0.2 /100WBC Neutrophils Absolute Auto 3.7 2.0-8.3 x10*3/u L Imm Gran Abs Auto 0.01 0.00-0.03 X10*3/uL Lymphocytes Absolute Auto 0.7 1.2-4.9 X10*3/u L Monocytes Absolute Auto 0.4 0.1-1.2 X10*3/uL Eosinophils Absolute Auto 0.1 0.0-0.4 X10*3/u L Basophils Absolute Auto 0.0 0.0-0.2 X10*3/uL NRBC Abs Auto 0.020 0.0-0.012 X10*3/uL Reason For Referral No Information [...] Methocarbamol 750 MG TAKE 1 TABLET BY [facility] TWICE A DAY 15 DAYS [...] Problem Status W/U Status Risk Notes Problem 399925294 Encounter for screening for malignant neoplasm of colon (Z12.11) Active confirmed Problem 66933742 Crohn's disease of small intestine with intestinal obstruction (K50.012) Active confirmed Problem 848240409967628 Preprocedural examination (Z01.818) Active confirmed Problem 552084921 Elevated liver enzymes (R74.8) Active confirmed Problem 11663368 Crohns disease of small intestine with intestinal obstruction (K50.012) Active confirmed Problem 43787771 Iron deficiency anemia, unspecified iron deficiency anemia type (D50.9) Active confirmed Problem 584855603 Anemia, unspecified type (D64.9) Active confirmed Problem 92861791 Diarrhea, unspecified type (R19.7) Active confirmed Problem Therapeutic drug monitoring (Z51.81) Active confirmed Problem 94806988 Diarrhea of presumed infectious origin (R19.7) Active confirmed Problem Intestinal obstruction due to Crohn's disease of small intestine (disorder) (1700985472486944) Crohn''s disease of small intestine with intestinal obstruction (K50.012) Active confirmed Problem Crohn (50187680) Crohn''s diseas e of small intestine with other complication (K50.018) Active confirmed Problem 771515677 Encounter for medication monitoring (Z51.81) Active confirmed Problem History of adenomatous polyp of colon (650570930) History of adenomatous polyp of colon (Z86.0101) Active confirmed Vital Signs Temperature 96.8 degrees Fahrenheit 12/18/2024 Blood pressure diastolic 01 mm Hg 12/18/2024 Height 61 in 12/18/2024 Blood pressure systolic 001 mm Hg 12/18/2024 Weight 151.2 lbs 12/18/2024 BMI 28.57 kg/m2 12/18/2024 Procedures Procedure Date Ordered Date Performed Result Body Sit e COLONOSCOPY 12/18/2024 N/A Encounters Encounter Location Date Provider Diagnosis [facility] [address] [place] [address] 05/08/2024 Ebenezer Hunter Crohn''s disease of small intestine with intestinal obstruction K50.012 [facility] [address] [place] [phone] 12/18/2024 Ebenezer Hunter Crohns disease of small intestine with intestinal obstruction K50.012 ; Encounter for screening for malignant neoplasm of colon Z12.11 and History of adenomatous polyp of colon Z86.0101 [facility] [address] [place] [address] 10/04/2024 Ebenezer Hunter Crohn''s disease of small intestine with intestinal obstruction K50.012 and Therapeutic drug monitoring Z51.81 [facility] [address] [place] [phone] 01/08/2025 Ebenezer Hunter Crohn''s disease of small [...] 11/30/2022 CHEM 7 PROFILE 08/21/2023 LIVER PROFILE 04/07/2020 LIVER PROFILE 01/08/2025 LIVER PROFILE 03/10/2019 LIVER PROFILE 07/08/2018 LIVER PROFILE 10/03/2023 LIVER PROFILE 11/30/2022 LIVER PROFILE 05/09/2022 LIVER PROFILE 07/18/2014 LIVER PROFILE 08/21/2023 LIVER PROFILE 04/08/2021 LIVER PROFILE 01/14/2019 LIVER PROFILE 11/08/2016 LIVER PROFILE 05/01/2019 LIVER PROFILE 10/04/2024 LIVER PROFILE 05/03/2023 LIVER PROFILE 10/07/2018 LIVER PROFILE 09/09/2015 LIVER PROFILE 08/25/2016 LIVER PROFILE 05/28/2021 LIVER PROFILE 04/12/2017 IRON + IBC (FE) 03/12/2020 IRON + IBC (FE) 12/18/2024 FERRITIN 03/12/2020 CRP 11/30/2022 CRP 08/21/2023 VITAMIN B12 AND FOLATE 12/18/2024 VITAMIN B12 AND FOLATE 03/12/2020 CBC w DIFF 05/03/2023 CBC w DIFF 10/07/2018 CBC w DIFF 09/09/2015 CBC w DIFF 08/25/2016 CBC w DIFF 05/28/2021 CBC w DIFF 04/12/2017 CBC w DIFF 04/07/2020 CBC w DIFF 01/08/2025 CBC w DIFF 07/08/2018 CBC w DIFF 10/03/2023 CBC w DIFF 05/09/2022 CBC w DIFF 07/18/2014 CBC w DIFF 04/08/2021 CBC w DIFF 11/30/2022 CBC w DIFF 01/14/2019 CBC w DIFF 11/08/2016 CBC w DIFF 05/01/2019 CBC w DIFF 10/04/2024 CBC w DIFF 08/21/2023 SED RATE (ESR) 08/21/2023 SED RATE (ESR) 11/30/2022 PROMETHEUS THIOPURINE METABOLITES (TPMT) 11/08/2016 PROMETHEUS THIOPURINE METABOLITES (TPMT) 10/07/2018 PROMETHEUS THIOPURINE METABOLITES (TPMT) 05/18/2016 PROMETHEUS THIOPURINE METABOLITES (TPMT) 08/25/2016 PROMETHEUS THIOPURINE METABOLITES (TPMT) 11/28/2018 PROMETHEUS THIOPURINE METABOLITES (TPMT) 07/08/2018 PROMETHEUS THIOPURINE METABOLITES (TPMT) 01/14/2019 PROMETHEUS TPMT ENZYME 05/18/2016 PROMETHEUS TPMT GENETICS 05/18/2016 STOOL WBC 11/30/2022 STOOL WBC 08/21/2023 C DIFFICILE RFLX PCR 11/30/2022 C DIFFICILE RFLX PCR 08/21/2023 Complete Blood Count Auto Diff Liver Panel 10/04/2024 Ferritin 01/03/2025 Ferritin 12/18/2024 Calprotectin, Fecal 08/21/2023 GI PANEL 08/21/2023 Future Test Test Name Order Date COLONOSCOPY 12/18/2019 UPPER GI ENDOSCOPY 04/09/2020 Next Appt Details Provider Name:Ebenezer Hunter , 03/17/2025 10:30:00 AM, [address] [place] [address] , [place], [place], [id number], Insurance Providers Payer Name Payer Address Payer Phone Subscriber Number Group Number Insured Name Patient Relationship to Insured Coverage Start Date Coverage End Date MEDICARE OF [place] [address] [place] [address] [id number] YANG MONIK Self - patient is the insured [address] [place] [address] [id number] YANG MONIK Self - patient is the insured Medical (General) History Medical History History ICD Code Denies [place],DM,CVA,Lung disease,renal dise ase Crohn's disease of the [...]
[2025-03-04 15:55] LABS: Alanine Aminotransferase 21 U/L (0-31); Albumin Level 3.9 g/dL (3.5-5.0); Alkaline Phosphatase 102 U/L (39-117); Aspartate Amino Transferase 27 U/L (5-31); Total Protein 6.3 g/dL (6.5-8.0)
== END 2025-03-04 14:42 | disposition home or self-care (01) ==
LOC: HO.LABR 14:41
PROVIDERS: Visit Provider Internal Medicine
DX: K50.012 Crohn's disease of small intestine with intestinal obstruction (principal); Z51.81 Encounter for therapeutic drug level monitoring
CPT/HCPCS: 36415; 80076; 85025

== ENCOUNTER 2025-03-17 08:21 | Day surgery (SDC) | payer MEDICARE, OTHER, SELFPAY ==
--- OUTSIDE RECORDS SUMMARY | 2025-02-04 08:51 | XMS_ITS | Patient Health Record ---
Author Organization [facility] Address [address] [place] [address] Care Team Providers Care Potato Chip Cooker Machine Name Role Phone Naldo Mojica MD Primary Care Provider UnavailEbenezer Jarquin [phone] Allergies No Known Allergies Results Component Value Reference Range Notes Complete Blood Count Auto Di ff Reviewed date:02/28/2024 10:02:16 PM Interpretation: Performing Lab:[facility], [address] [place] [phone] Notes/Report: White Blood Count 3.0 4.8-10.8 X10*3/uL [...] Panel Reviewed date:02/28/2024 05:07:38 PM Interpretation: Performing Lab:[facility], [address] [place] [phone] Notes/Report: Bilirubin Total 0.3 0.0-1.0 mg/dL Bilirubin Direct 0.1 0.0-0.5 mg/dL Aspartate Amino Transferase 17 5-31 U/L Alanine Aminotransferase 16 0-31 U/L Total Protein 6.4 6.5-8.0 g/dL Albumin Level 3.6 3.5-5.0 g/dL Alkaline Phosphatase 103 39-117 U/L Complete Blood Count Auto Di ff Reviewed date:04/04/2024 05:48:24 PM Interpretation: Performing Lab:[facility], [address] [place] [phone] Notes/Report: White Blood Count 3.5 4.8-10.8 X10*3/uL [...] Panel Reviewed date:04/04/2024 05:48:45 PM Interpretation: Performing Lab:[facility], [address] [place] [phone] Notes/Report: Bilirubin Total 0.4 0.0-1.0 mg/dL Bilirubin Direct 0.1 0.0-0.5 mg/dL Aspartate Amino Transferase 17 5-31 U/L Alanine Aminotransferase 12 0-31 U/L Total Protein 6.4 6.5-8.0 g/dL Albumin Level 3.6 3.5-5.0 g/dL Alkaline Phosphatase 104 39-117 U/L Complete Blood Count Auto Di ff Reviewed date:05/01/2024 07:04:00 PM Interpretation: Performing Lab:[facility], [address] [place] [phone] Notes/Report: White Blood Count 3.4 4.8-10.8 X10*3/uL [...] Panel Reviewed date:05/01/2024 07:03:08 PM Interpretation: Performing Lab:[address] [phone] Notes/Report: Bilirubin Total 0.6 0.0-1.0 mg/dL Bilirubin Direct 0.2 0.0-0.5 mg/dL Aspartate Amino Transferase 18 5-31 U/L Alanine Aminotransferase 14 0-31 U/L Total Protein 6.5 6.5-8.0 g/dL Albumin Level 3.5 3.5-5.0 g/dL Alkaline Phosphatase 99 39-117 U/L Complete Blood Count Auto Di ff Reviewed date:06/06/2024 06:55:10 PM Interpretation: Performing Lab:[address] [phone] Notes/Report: White Blood Count 4.9 4.8-10.8 X10*3/uL [...] Panel Reviewed date:06/06/2024 06:54:32 PM Interpretation: Performing Lab:[facility], [address] [place] [phone] Notes/Report: Bilirubin Total 0.5 0.0-1.0 mg/dL Bilirubin Direct 0.1 0.0-0.5 mg/dL Aspartate Amino Transferase 48 5-31 U/L Alanine Aminotransferase 24 0-31 U/L Total Protein 6.2 6.5-8.0 g/dL Albumin Level 3.4 3.5-5.0 g/dL Alkaline Phosphatase 111 39-117 U/L Complete Blood Count Auto Di ff Reviewed date:07/02/2024 04:25:58 PM Interpretation: Performing Lab:[facility], [address] [place] [phone] Notes/Report: White Blood Count 3.5 4.8-10.8 X10*3/uL [...] Panel Reviewed date:07/02/2024 04:24:45 PM Interpretation: Performing Lab:[facility], [address] [place] [phone] Notes/Report: Bilirubin Total 0.4 0.0-1.0 mg/dL Bilirubin Direct 0.2 0.0-0.5 mg/dL Aspartate Amino Transferase 40 5-31 U/L Alanine Aminotransferase 43 0-31 U/L Total Protein 6.1 6.5-8.0 g/dL Albumin Level 3.5 3.5-5.0 g/dL Alkaline Phosphatase 130 39-117 U/L Complete Blood Count Auto Di ff Reviewed date:08/11/2024 12:08:42 PM Interpretation: Performing Lab:[facility], [address] [place] [phone] Notes/Report: White Blood Count 4.9 4.8-10.8 X10*3/uL [...] Panel Reviewed date:08/11/2024 12:09:03 PM Interpretation: Performing Lab:[facility], [address] [place] [phone] Notes/Report: Bilirubin Total 0.4 0.0-1.0 mg/dL Bilirubin Direct 0.1 0.0-0.5 mg/dL Aspartate Amino Transferase 37 5-31 U/L Alanine Aminotransferase 43 0-31 U/L Total Protein 6.5 6.5-8.0 g/dL Albumin Level 3.7 3.5-5.0 g/dL Alkaline Phosphatase 110 39-117 U/L Complete Blood Count Auto Di ff Reviewed date:09/06/2024 06:23:14 PM Interpretation: Performing Lab:[facility], [address] [place] [phone] Notes/Report: White Blood Count 3.5 4.8-10.8 X10*3/uL [...] yet reviewe d by provider) Interpretation: Performing Lab:[facility], [address] [place] [phone] Notes/Report: Bilirubin Total 0.4 0.0-1.0 mg/dL Bilirubin Direct 0.1 0.0-0.5 mg/dL Aspartate Amino Transferase 33 5-31 U/L Alanine Aminotransferase 48 0-31 U/L Total Protein 6.7 6.5-8.0 g/dL Albumin Level 3.6 3.5-5.0 g/dL Alkaline Phosphatase 108 39-117 U/L Complete Blood Count Auto Di ff Reviewed date:11/05/2024 12:16:44 AM Interpretation: Performing Lab:[facility], [address] [place] [phone] Notes/Report: White Blood Count 4.8 4.8-10.8 X10*3/uL [...] Panel Reviewed date:11/05/2024 12:15:21 AM Interpretation: Performing Lab:[facility], [address] [place] [phone] Notes/Report: Bilirubin Total 0.4 0.0-1.0 mg/dL Bilirubin Direct 0.1 0.0-0.5 mg/dL Aspartate Amino Transferase 21 5-31 U/L Alanine Aminotransferase 18 0-31 U/L Total Protein 6.6 6.5-8.0 g/dL Albumin Level 3.8 3.5-5.0 g/dL Alkaline Phosphatase 113 39-117 U/L Complete Blood Count Auto Di ff Reviewed date:2024 05:45:33 PM Interpretation: Performing Lab:[facility], [address] [place] [phone] Notes/Report: White Blood Count 4.7 4.8-10.8 X10*3/uL [...] Panel Reviewed date:12/08/2024 12:55:31 AM Interpretation: Performing Lab:[facility], [address] [place] [phone] Notes/Report: Bilirubin Total 0.3 0.0-1.0 mg/dL Bilirubin Direct 0.1 0.0-0.5 mg/dL Aspartate Amino Transferase 23 5-31 U/L Alanine Aminotransferase 19 0-31 U/L Total Protein 6.5 6.5-8.0 g/dL Albumin Level 3.7 3.5-5.0 g/dL Alkaline Phosphatase 104 39-117 U/L Complete Blood Count Auto Di ff Reviewed date:01/03/2025 05:11:42 PM Interpretation: Performing Lab:[address] [phone] Notes/Report: White Blood Count 5.2 4.8-10.8 X10*3/uL [...] Panel Reviewed date:01/03/2025 09:53:34 PM Interpretation: Performing Lab:[address] [phone] Notes/Report: Bilirubin Total 0.4 0.0-1.0 mg/dL Bilirubin Direct 0.1 0.0-0.5 mg/dL Aspartate Amino Transferase 23 5-31 U/L Alanine Aminotransferase 16 0-31 U/L Total Protein 6.5 6.5-8.0 g/dL Albumin Level 3.8 3.5-5.0 g/dL Alkaline Phosphatase 104 39-117 U/L IRON PROFILE (Not yet review ed by provider) Interpretation: Performing Lab:[address] [phone] Notes/Report: Iron 76 30-160 mcg/dL Total Iron Binding Capacity 258 228-428 mcg/d L Percent Iron Saturation 29 15-50 % Unsaturated Iron Binding 182 Ferritin (Not yet reviewed b y provider) Interpretation: Performing Lab:[address] [place] [address] Notes/Report: Ferritin 716 10-250 ng/mL Vitamin B12 and Folate Reviewed date:01/03/2025 09:53:01 PM Interpretation: Performing Lab:[facility], [address] [place] [phone] Notes/Report: Vitamin B12 335 200-900 pg/mL NORMAL 200-900 PG/ML INDETERMINATE 160-199 PG/ML DEFICIENT < 160 PG/ML Folate 9.5 > or = 4.0 ng/mL Reference Values: > or = 4.0 ng/mL < 4.0 ng/mL suggests folate deficiency Methotrexate, aminopterin and folinic acid (leucovorin) are chemotherapeutic agents whose molecular structures are similar to folate; therefore, the [employer] Inspector folate assay cannot be used for patients using these drugs. Complete Blood Count Auto Di ff Reviewed date:02/03/2025 10:44:40 PM Interpretation: Performing Lab:[facility], [address] [place] [phone] Notes/Report: White Blood Count 4.0 4.8-10.8 X10*3/uL [...] Auto 0.000 0.0-0.012 X10*3/uL Liver Panel Reviewed date:02/03/2025 10:45:03 PM Interpretation: Performing Lab:[facility], [address] [place] [phone] Notes/Report: Bilirubin Total 0.4 0.0-1.0 mg/dL Bilirubin Direct 0.1 0.0-0.5 mg/dL Aspartate Amino Transferase 23 5-31 U/L Alanine Aminotransferase 19 0-31 U/L Total Protein 6.6 6.5-8.0 g/dL Albumin Level 4.0 3.5-5.0 g/dL Alkaline Phosphatase 101 39-117 U/L Reason For Referral No Information [...] Methocarbamol 750 MG TAKE 1 TABLET BY [facility] TWICE A DAY 15 DAYS [...] Problem Status W/U Status Risk Notes Problem 102167968 Encounter for screening for malignant neoplasm of colon (Z12.11) Active confirmed Problem 79651584 Crohn's disease of small intestine with intestinal obstruction (K50.012) Active confirmed Problem 506069086679334 Preprocedural examination (Z01.818) Active confirmed Problem 414283984 Elevated liver enzymes (R74.8) Active confirmed Problem 55830854 Crohns disease of small intestine with intestinal obstruction (K50.012) Active confirmed Problem 55222852 Iron deficiency anemia, unspecified iron deficiency anemia type (D50.9) Active confirmed Problem 628408456 Anemia, unspecified type (D64.9) Active confirmed Problem 31040372 Diarrhea, unspecified type (R19.7) Active confirmed Problem Drug monitoring done (614865080) Therapeutic drug monitoring (Z51.81) Active confirmed Problem 94614438 Diarrhea of presumed infectious origin (R19.7) Active confirmed Problem Intestinal obstruction due to Crohn's disease of small intestine (disorder) (6045081484959579) Crohn''s disease of small intestine with intestinal obstruction (K50.012) Active confirmed Problem Crohn (37098278) Crohn''s diseas e of small intestine with other complication (K50.018) Active confirmed Problem 461993888 Encounter for medication monitoring (Z51.81) Active confirmed Problem History of adenomatous polyp of colon (421786247) History of adenomatous polyp of colon (Z86.0101) Active confirmed Vital Signs Temperature 96.8 degrees Fahrenheit 12/18/2024 Blood pressure diastolic 01 mm Hg 12/18/2024 Height 61 in 12/18/2024 Blood pressure systolic 001 mm Hg 12/18/2024 Weight 151.2 lbs 12/18/2024 BMI 28.57 kg/m2 12/18/2024 Procedures Procedure Date Ordered Date Performed Result Body Sit e COLONOSCOPY 12/18/2024 N/A Encounters Encounter Location Date Provider Diagnosis [facility] [address] [place] [phone] 05/08/2024 Ebenezer Hunter Crohn''s disease of small intestine with intestinal obstruction K50.012 [facility] [address] [place] [phone] 12/18/2024 Ebenezer Hunter Crohns disease of small intestine with intestinal obstruction K50.012 ; Encounter for screening for malignant neoplasm of colon Z12.11 and History of adenomatous polyp of colon Z86.0101 [facility] [address] [place] [phone] 10/04/2024 Ebenezer Hunter Crohn''s disease of small intestine with intestinal obstruction K50.012 and Therapeutic drug monitoring Z51.81 [facility] [address] [place] [phone] 01/08/2025 Ebenezer Hunter Crohn''s disease of small [...] DIFFICILE RFLX PCR 08/21/2023 Liver Panel 10/04/2024 IRON PROFILE 01/03/2025 Ferritin 12/18/2024 Ferritin 01/03/2025 Calprotectin, Fecal 08/21/2023 GI PANEL 08/21/2023 Future Test Test Name Order Date COLONOSCOPY 12/18/2019 UPPER GI ENDOSCOPY 04/09/2020 Next Appt Details Provider Name:Ebenezer Hunter , 03/17/2025 10:30:00 AM, [address] [place] [address], [phone], Insurance Providers Payer Name Payer Address Payer Phone Subscriber Number Group Number Insured Name Patient Relationship to Insured Coverage Start Date Coverage End Date MEDICARE OF [place] [address] [place] [address] [place] [address] [id number] YANG MONIK Self - patient is the insured [address] [address] [id number] YANGMONIK PHILLIPS Self - patient is the insured Medical (General) History Medical History History ICD Code Denies AL,DM,CVA,Lung disease,renal dise ase Crohn's disease of the [...]
--- OUTSIDE RECORDS SUMMARY | 2025-02-04 08:51 | XMS_ITS | Clinical Summary ---
Author Organization [facility] Address [address] [place] [phone] Phone Care Team Providers Care Global Professional Name Role Phone Naldo Mojica MD Primary Care Provider [phone] Medical History Medical History Date Comments High blood pressure DX:High bloo d pressure Crohn's disease (CMS/HCC V24, CMS/HCC V28) DX:Crohn's disease ([facility]) Family History Medical History Relation Name Comments [...] 06/26/2024 2:53 PM EST Plan of Treatment Upcoming Encounters Date Type Department Care Team (Jean Marie st Contact Info) Description 04/15/2025 8:00 AM EDT Ancillary Procedure [facility] [address] [place] [address] Health Maintenance Due Date Last Done Comments [...] PM EST No mammographic evidence of malignancy. No suspicious interval change. A negative mammogram in the presence of a clinically suspicious palpable abnormality does not preclude the possibility of malignancy or alter the indications for biopsy. ASSESSMENT: BI-RADS 1: NEGATIVE RECOMMENDATION(S): 1: Routine screening mammogram BILATERAL in 1 year. -------- FINAL REPORT -------- Dictated By: Brandt Arreaga Dictated Date: 06/26/2024 17:52 ET Assigned Physician: Brandt Arreaga Reviewed and Electronically Signed By: Brandt Arreaga Signed Date: 06/26/2024 17:57 ET Workstation ID: [id number] Transcribed By: Self Edit Transcribed Date: 06/26/2024 17:52 ET Narrative 06/26/2024 5:57 PM EST EXAM: SCREENING MAMMOGRAPHY, BILATERAL HISTORY: SCREENING. Family history of breast cancer; sister and maternal aunt COMPARISON: 04/26/2023, 03/15/2022, 03/12/2021, 03/04/2020 TECHNIQUE: Synthesized CC and MLO projections of each breast. Tomosynthesis of each breast in the CC and MLO projections. ADDITIONAL IMAGING: None Computer-aided detection was employed with the [employer] AI 3-D. TISSUE DENSITY: There are scattered areas of fibroglandular density. (BI-RADS category B) FINDINGS: RIGHT BREAST: No suspicious mass. No suspicious calcification. No distortion. No additional suspicious right breast findings LEFT BREAST: No suspicious mass. No suspicious calcification. No distortion. No additional suspicious left breast findings Procedure Note Brandt Arreaga MD - 06/26/2024 EXAM: SCREENING MAMMOGRAPHY, BILATERAL HISTORY: SCREENING. Family history of breast cancer; sister and maternalaunt COMPARISON: 04/26/2023, 03/15/2022, 03/12/2021, 03/04/2020 TECHNIQUE: Synthesized CC and MLO projections of each breast.Tomosynthesis of each breast in the CC and MLO projections. ADDITIONAL IMAGING: None Computer-aided detection was employed with the [employer] AI 3-D. TISSUE DENSITY: There are scattered [...] Signed Date: 06/26/2024 17:57 ET Workstation ID: [id number] Transcribed By: Self Edit Transcribed Date: 06/26/2024 17:52 ET Naldo Mojica MD IMG BI PROCEDURES Final Result from Last 3 Months or Most Recently Relevant to Health Maintenance Insurance MEDICARE Care Teams Global Professional Relationship Specialty Start Date End Date Naldo Mojica MD [address] [place] [phone] PCP - General Internal Medicine 06/19/24
--- OUTSIDE RECORDS SUMMARY | 2025-02-04 08:52 | XMS_ITS | Clinical Summary ---
Author Organization [facility] Address [address] [place] [address] Care Team Providers Care Nurse Monitoring Name Role Phone Naldo Mojica MD Primary Care Provider Unavail able Allergies No known active allergies Medications Medication Sig Dispensed Refills Start Date End Date Status azaTHIOprine (IMURAN) 50 MG tablet 0 05/09/2021 Active benazepril-hydroCHLO ROthiazide (LOTENSIN HCT) 20-12.5 MG per tablet 0 05/09/2021 Active ergocalciferol (VITAMIN D2) capsule 43445 units Take 1 capsule by mouth once [...] Osteoporosis Screening (DEXA Scan) 12/04/2019 Influenza Vaccine (Season Ended) 2025 Hepatitis B Vaccines Aged Out No long er eligible based on patient's age to complete this topic RSV Ped < 20 months Aged Out No longe r eligible based on patient's age to complete this topic Care Teams Nurse Monitoring Relationship Specialty Start Date End Date Naldo Mojica MD PCP - General Internal Medicine 04/27/21
[2025-03-13 14:11] VITALS: BMI 28.6
--- NOTE | 2025-03-14 09:09 | HO.ANESPROP2 ---
Documented by User: Beatriz Watkins NP 03/14/25 09:09 HPI - Anesthesia Eval Consult details Narrative: 69yo F for Colonoscopy [facility] Past Medical History Medical History Iron deficiency anemia GERD (gastroesophageal reflux disease) OAB (overactive bladder) HTN (hypertension) Crohn's disease Surgical History Surgical History Hx of repair of right rotator cuff Hx of resection of small bowel History of esophagogastroduodenoscopy (EGD) H/O colonoscopy Social History Social History Household Members: Spouse Patient Tobacco Use Status: Never used Tobacco Use of substances other than those prescribed or required for medical reasons: No Advance Directives: No Advance Directives Information Provided: Yes Meds Allergies Allergy/AdvReac Type Severity Reaction Status Date / Time No Known Allergies Allergy Unverified 04/23/20 16:09 Home Medications ?Medication ?Instructions ?Recorded ?Confirmed ?Last Taken ?Type azathioprine 50 mg tablet 50 mg PO BID 03/13/25 03/13/25 Unknown History benazepril 40 mg tablet 40 mg PO DAILY 03/13/25 03/13/25 Unknown History ferrous sulfate 325 mg (65 mg 325 mg PO DAILY 03/13/25 03/13/25 Unknown History iron) tablet hydralazine 50 mg tablet 50 mg PO TID 03/13/25 03/13/25 Unknown History hydrochlorothiazide 25 mg tablet 25 mg PO DAILY 03/13/25 03/17/25 03/17/25 07:30 History mesalamine 500 mg capsule,extended 500 mg PO BID 03/13/25 03/13/25 Unknown History release (Pentasa) omeprazole 20 mg capsule,delayed 20 mg PO DAILY 03/13/25 03/13/25 Unknown History release oxybutynin chloride 10 mg 10 mg PO DAILY 03/13/25 03/13/25 Unknown History tablet,extended release 24 hr solifenacin 10 mg tablet 10 mg PO DAILY 03/13/25 03/13/25 Unknown History Exam Height,Weight and Vital Signs: Height 5 ft 1 in Weight 68.583 kg Assessment and Plan Assessment Anesthesia Assessment: Chart Reviewed Documented by User: Angeles Coto MD 03/17/25 10:19 PMFSH Past Medical History Medical History Iron deficiency anemia GERD (gastroesophageal reflux disease) OAB (overactive bladder) HTN (hypertension) Crohn's disease Family History Family history of problems with anesthesia: No Surgical History Surgical History Hx of repair of right rotator cuff Hx of resection of small bowel History of esophagogastroduodenoscopy (EGD) H/O colonoscopy History of Problems with Anesthesia: No Social History Social History Household Members: Spouse Patient Tobacco Use Status: Never used Tobacco Use of substances other than those prescribed or required for medical reasons: No Advance Directives: No Advance Directives Information Provided: Yes Meds Allergies Allergy/AdvReac Type Severity Reaction Status Date / Time No Known Allergies Allergy Unverified 04/23/20 16:09 Home Medications ?Medication ?Instructions ?Recorded ?Confirmed ?Last Taken ?Type azathioprine 50 mg tablet 50 mg PO BID 03/13/25 03/13/25 Unknown History benazepril 40 mg tablet 40 mg PO DAILY 03/13/25 03/13/25 Unknown History ferrous sulfate 325 mg (65 mg 325 mg PO DAILY 03/13/25 03/13/25 Unknown History iron) tablet hydralazine 50 mg tablet 50 mg PO TID 03/13/25 03/13/25 Unknown History hydrochlorothiazide 25 mg tablet 25 mg PO DAILY 03/13/25 03/17/25 03/17/25 07:30 History mesalamine 500 mg capsule,extended 500 mg PO BID 03/13/25 03/13/25 Unknown History release (Pentasa) omeprazole 20 mg capsule,delayed 20 mg PO DAILY 03/13/25 03/13/25 Unknown History release oxybutynin chloride 10 mg 10 mg PO DAILY 03/13/25 03/13/25 Unknown History tablet,extended release 24 hr solifenacin 10 mg tablet 10 mg PO DAILY 03/13/25 03/13/25 Unknown History Exam Airway Mallampati Class: II TM Dist: >3cm Neck ROM: Limited Heart: rrr Lungs: cta Assessment and Plan Assessment Anesthesia Assessment: Anesthesia Plan Discussed Final Anesthetic Review Family History of Problems with Anesthesia: No History of Problems with Anesthesia: No NPO: Yes ASA Class: III and Emergency Final Preanesthetic Review: No Changes in Pt Med Stat, Meds/Allgs Chart Reviewed, Consent Obtained/Reviewed and Anes Risks/Benef Reviewed Patient Risk: Intermediate Procedure Risk: Low Anesthetic Plan Anesthetic Plan: MAC: Disposition: Standard PACU
[2025-03-17 08:28] VITALS: BMI 27.6
[2025-03-17 08:41] VITALS: BP 157/58; PULSE 65; RESP 16; TEMP 36.1; O2SAT 99
[2025-03-17] MEDS: Lactated Ringers 1,000 ML 100 ML IVCONT (08:43)
[2025-03-17 10:31] VITALS: BP 110/64; PULSE 60; RESP 12; TEMP 36.2; O2SAT 97
--- NOTE | 2025-03-17 10:40 | P.BOP_ITS ---
Brief Operative Note Date of Service: 03/17/25 Pre-op diagnosis: Screening Post-op diagnosis: other (Diverticulosis) Procedure: Colonoscopy to the cecum and TI Surgeon: Ebenezer Hunter MD Anesthesia: MAC Was an Continuous Washer Operator used for this Procedure?: No Estimated blood loss (mL): 0 Pathology: none sent Condition: stable Disposition: PACU
[2025-03-17 10:42] VITALS: BP 102/40; PULSE 50; RESP 12; O2SAT 94
[2025-03-17 10:56] VITALS: BP 123/54; PULSE 64; RESP 16; O2SAT 94
--- NOTE | 2025-03-17 11:14 | OP_ITS ---
DATE OF SERVICE: 03/17/2025 SURGEON: Ebenezer Hunter MD INDICATIONS: The patient presents for followup of personal history of tubular adenoma of the colon and colorectal cancer screening. Full consent was obtained from her for this, including risks of bleeding and perforation. PREOPERATIVE DIAGNOSIS: POSTOPERATIVE DIAGNOSIS: PROCEDURE PERFORMED: Colonoscopy to cecum and terminal ileum. ESTIMATED BLOOD LOSS: COMPLICATIONS: ANESTHESIA: Medication used; monitored anesthesia care. ASSISTANTS: SPECIMENS: PREOPERATIVE DIAGNOSES: Colorectal cancer screening and personal history of tubular adenoma of the colon. POSTOPERATIVE DIAGNOSES: Colorectal cancer screening and personal history of tubular adenoma of the colon, diverticulosis and internal hemorrhoids. DESCRIPTION OF PROCEDURE: The patient was placed in the left lateral decubitus position. The digital rectal exam revealed no abnormalities. The Olympus video pediatric colonoscope was entered into the rectum and advanced easily to the cecum. Once in the cecum, I did identify normal-appearing cecal pouch with appendiceal orifice and a normal-appearing ileocecal valve. The terminal ileum was cannulated and appeared normal. The scope was withdrawn back in the colon. The entire cecum and ileocecal valve appeared normal. The scope was slowly withdrawn assessing all mucosal surfaces carefully. Preparation was excellent. I did not visualize any sign of polyps, colitis, nor angiodysplasia. There was a mild amount of sigmoid diverticulosis. In the rectum, scope was retroflexed visualizing internal hemorrhoids, but no other pathology. The rectal mucosa appeared normal. Scope was straightened and withdrawn from the patient. She tolerated the procedure well and was returned to recovery area in stable condition. IMPRESSION: 1. Diverticulosis. 2. Internal hemorrhoids. PLAN: The patient would need another colonoscopy for screening in 5 years. She will continue her current regimen for her small bowel Crohn's disease consisting of the azathioprine and Pentasa. I shall see her next Spring for followup in that regard. She will continue her usual lab work while on the azathioprine. She will otherwise see me on a p.r.n. basis. MD MEHDI Arora/CASTRO / [id number] MTDD
== END 2025-03-17 11:22 | disposition home or self-care (01) ==
PROVIDERS: PCP Internal Medicine; Visit Provider Internal Medicine
PROC: 0DJD8ZZ Inspection of Lower Intestinal Tract, Via Natural or Artificial Opening Endoscopic (ICD-10-PCS; CPT 45378; principal; 2025-03-17 09:30)
DX: Z12.11 Encounter for screening for malignant neoplasm of colon (principal); Z86.0101 Personal history of adenomatous and serrated colon polyps; K57.30 Diverticulosis of large intestine without perforation or abscess without bleeding; K64.8 Other hemorrhoids; K50.00 Crohn's disease of small intestine without complications; K21.9 Gastro-esophageal reflux disease without esophagitis; I10 Essential (primary) hypertension; D50.9 Iron deficiency anemia, unspecified; N32.81 Overactive bladder; Z79.624 Long term (current) use of inhibitors of nucleotide synthesis; Z79.631 Long term (current) use of antimetabolite agent; Z79.899 Other long term (current) drug therapy
CPT/HCPCS: G0105; J2003; J2704

== ENCOUNTER 2025-04-05 09:03 | Outpatient (REF) | payer MEDICARE, OTHER, SELFPAY ==
--- OUTSIDE RECORDS SUMMARY | 2025-03-17 05:30 | XMS_ITS ---
Author Organization [facility] Address [address] [place] [address] Care Team Providers Care Family Medicine Physician Name Role Phone Naldo Mojica MD Primary Care Provider UnavailEbenezer Jarquin [phone] REASON FOR VISIT screening colon Encounters Encounter Location Date Provider Diagnosis [facility] Out[place] [address] [place] [id number] 03/17/2025 Ebenezer Hunter Plan Of Treatment No Information Progress Notes * MONIK SORIA MDOB: [birth year] (69 yo F)Acc No.[id number]:03/17/2025 COLON WITH MAC Patient: MONIK HERNÁNDEZ Provider: Cinthia Hunter MD :1955 A ge:69 Y S ex:Female Date:03/17/2025 Address:[address] [place] [address] [id number] Pcp:Naldo Mojica MD Subjective: * Chief Complaints: * 1 . Screening colon. * Medical History: Objective: * Vitals: Assessment: Plan: * Treatment: * * The named appointment provid er may or may not be the originator of this progress note, and it is not deemed complete until electronically signed by the appointment provider. Sign off status: Pending * Provider: Cinthia Hunter MD Date: 0 03/17/2025 Generated for Printi ng/Faxing/eTransmitting on: 04/05/2025 09:06 AM EDT
--- OUTSIDE RECORDS SUMMARY | 2025-04-05 09:07 | XMS_ITS | Clinical Summary ---
Author Organization [facility] Address [address] [place] [address] Care Team Providers Care Sandwich Artist Name Role Phone Naldo Mojica MD Primary Care Provider Unavail able Allergies No known active allergies Medications Medication Sig Dispensed Refills Start Date End Date Status azaTHIOprine (IMURAN) 50 MG tablet 0 05/09/2021 Active benazepril-hydroCHLO ROthiazide (LOTENSIN HCT) 20-12.5 MG per tablet 0 05/09/2021 Active ergocalciferol (VITAMIN D2) capsule 16898 units Take 1 capsule by mouth once [...] age to complete this topic Care Teams Sandwich Artist Relationship Specialty Start Date End Date Naldo Mojica MD PCP - General Internal Medicine 04/27/21
--- OUTSIDE RECORDS SUMMARY | 2025-04-05 09:07 | XMS_ITS | Clinical Summary ---
Author Organization [facility] Address [address] [place] [phone] Phone Care Team Providers Care Cloth Shrinking Supervisor Name Role Phone Naldo Mojica MD Primary Care Provider [phone] Medical History Medical History Date Comments High blood pressure DX:High bloo d pressure Crohn's disease (CMS/HCC V24, CMS/HCC V28) DX:Crohn's disease ([facility]) Family History Medical History Relation Name Comments [...] Description 04/15/2025 8:00 AM EDT Ancillary Procedure [facility] [address] [place] [address] Health Maintenance Due Date Last [...] Signed Date: 06/26/2024 17:57 ET Workstation ID: [id number] Transcribed By: Self Edit Transcribed Date: 06/26/2024 17:52 ET Narrative 06/26/2024 5:57 PM EST EXAM: SCREENING MAMMOGRAPHY, BILATERAL HISTORY: SCREENING. Family history of breast cancer; sister and maternal aunt COMPARISON: 04/26/2023, 03/15/2022, 03/12/2021, 03/04/2020 TECHNIQUE: Synthesized CC and MLO projections of each breast. Tomosynthesis of each breast in the CC and MLO projections. ADDITIONAL IMAGING: None Computer-aided detection was employed with the iCAD Seeker Wireless AI 3-D. TISSUE DENSITY: There are scattered [...] None Computer-aided detection was employed with the SyncurityD Seeker Wireless AI 3-D. TISSUE DENSITY: There are scattered [...] Signed Date: 06/26/2024 17:57 ET Workstation ID: [id number] Transcribed By: Self Edit Transcribed Date: 06/26/2024 17:52 ET Nalod Mojica MD IMG BI PROCEDURES Final Result from Last 3 Months or Most Recently Relevant to Health Maintenance Insurance MEDICARE Care Teams Cloth Shrinking Supervisor Relationship Specialty Start Date End Date Naldo Mojica MD [address] [place] [phone] PCP - General Internal Medicine 06/19/24
--- OUTSIDE RECORDS SUMMARY | 2025-04-05 09:07 | XMS_ITS | Patient Health Record ---
Author Organization [facility] Address [address] [place] [address] Care Team Providers Care Emissions Inspector Name Role Phone Naldo Mojica MD Primary Care Provider UnavailEbenezer Jarquin [phone] Allergies No Known Allergies Results Component Value Reference Range Notes Complete Blood Count Auto Di ff Reviewed date:05/01/2024 07:04:00 PM Interpretation: Performing Lab:[facility], [address] [place] [phone] Notes/Report: White Blood Count 3.4 4.8-10.8 X10*3/uL [...] Panel Reviewed date:05/01/2024 07:03:08 PM Interpretation: Performing Lab:[facility], [address] [place] [phone] Notes/Report: Bilirubin Total 0.6 0.0-1.0 mg/dL Bilirubin Direct 0.2 0.0-0.5 mg/dL Aspartate Amino Transferase 18 5-31 U/L Alanine Aminotransferase 14 0-31 U/L Total Protein 6.5 6.5-8.0 g/dL Albumin Level 3.5 3.5-5.0 g/dL Alkaline Phosphatase 99 39-117 U/L Complete Blood Count Auto Di ff Reviewed date:06/06/2024 06:55:10 PM Interpretation: Performing Lab:[facility], [address] [place] [phone] Notes/Report: White Blood Count 4.9 4.8-10.8 X10*3/uL [...] Panel Reviewed date:06/06/2024 06:54:32 PM Interpretation: Performing Lab:[facility], [address] [place] [phone] Notes/Report: Bilirubin Total 0.5 0.0-1.0 mg/dL Bilirubin Direct 0.1 0.0-0.5 mg/dL Aspartate Amino Transferase 48 5-31 U/L Alanine Aminotransferase 24 0-31 U/L Total Protein 6.2 6.5-8.0 g/dL Albumin Level 3.4 3.5-5.0 g/dL Alkaline Phosphatase 111 39-117 U/L Complete Blood Count Auto Di ff Reviewed date:07/02/2024 04:25:58 PM Interpretation: Performing Lab:[facility], [address] [place] [phone] Notes/Report: White Blood Count 3.5 4.8-10.8 X10*3/uL [...] Panel Reviewed date:07/02/2024 04:24:45 PM Interpretation: Performing Lab:[address] [phone] Notes/Report: Bilirubin Total 0.4 0.0-1.0 mg/dL Bilirubin Direct 0.2 0.0-0.5 mg/dL Aspartate Amino Transferase 40 5-31 U/L Alanine Aminotransferase 43 0-31 U/L Total Protein 6.1 6.5-8.0 g/dL Albumin Level 3.5 3.5-5.0 g/dL Alkaline Phosphatase 130 39-117 U/L Complete Blood Count Auto Di ff Reviewed date:08/11/2024 12:08:42 PM Interpretation: Performing Lab:[address] [phone] Notes/Report: White Blood Count 4.9 4.8-10.8 X10*3/uL [...] Panel Reviewed date:08/11/2024 12:09:03 PM Interpretation: Performing Lab:[facility], [address] [place] [phone] Notes/Report: Bilirubin Total 0.4 0.0-1.0 mg/dL Bilirubin Direct 0.1 0.0-0.5 mg/dL Aspartate Amino Transferase 37 5-31 U/L Alanine Aminotransferase 43 0-31 U/L Total Protein 6.5 6.5-8.0 g/dL Albumin Level 3.7 3.5-5.0 g/dL Alkaline Phosphatase 110 39-117 U/L Complete Blood Count Auto Di ff Reviewed date:09/06/2024 06:23:14 PM Interpretation: Performing Lab:[facility], [address] [place] [phone] Notes/Report: White Blood Count 3.5 4.8-10.8 X10*3/uL [...] yet reviewe d by provider) Interpretation: Performing Lab:[facility], [address] [place] [phone] Notes/Report: Bilirubin Total 0.4 0.0-1.0 mg/dL Bilirubin Direct 0.1 0.0-0.5 mg/dL Aspartate Amino Transferase 33 5-31 U/L Alanine Aminotransferase 48 0-31 U/L Total Protein 6.7 6.5-8.0 g/dL Albumin Level 3.6 3.5-5.0 g/dL Alkaline Phosphatase 108 39-117 U/L Complete Blood Count Auto Di ff Reviewed date:11/05/2024 12:16:44 AM Interpretation: Performing Lab:[facility], [address] [place] [phone] Notes/Report: White Blood Count 4.8 4.8-10.8 X10*3/uL [...] Panel Reviewed date:11/05/2024 12:15:21 AM Interpretation: Performing Lab:[facility], [address] [place] [phone] Notes/Report: Bilirubin Total 0.4 0.0-1.0 mg/dL Bilirubin Direct 0.1 0.0-0.5 mg/dL Aspartate Amino Transferase 21 5-31 U/L Alanine Aminotransferase 18 0-31 U/L Total Protein 6.6 6.5-8.0 g/dL Albumin Level 3.8 3.5-5.0 g/dL Alkaline Phosphatase 113 39-117 U/L Complete Blood Count Auto Di ff Reviewed date:2024 05:45:33 PM Interpretation: Performing Lab:[facility], [address] [place] [phone] Notes/Report: White Blood Count 4.7 4.8-10.8 X10*3/uL [...] Panel Reviewed date:12/08/2024 12:55:31 AM Interpretation: Performing Lab:[facility], [address] [place] [phone] Notes/Report: Bilirubin Total 0.3 0.0-1.0 mg/dL Bilirubin Direct 0.1 0.0-0.5 mg/dL Aspartate Amino Transferase 23 5-31 U/L Alanine Aminotransferase 19 0-31 U/L Total Protein 6.5 6.5-8.0 g/dL Albumin Level 3.7 3.5-5.0 g/dL Alkaline Phosphatase 104 39-117 U/L Complete Blood Count Auto Di ff Reviewed date:01/03/2025 05:11:42 PM Interpretation: Performing Lab:[facility], [address] [place] [phone] Notes/Report: White Blood Count 5.2 4.8-10.8 X10*3/uL [...] Panel Reviewed date:01/03/2025 09:53:34 PM Interpretation: Performing Lab:[address] [phone] Notes/Report: Bilirubin Total 0.4 0.0-1.0 mg/dL Bilirubin Direct 0.1 0.0-0.5 mg/dL Aspartate Amino Transferase 23 5-31 U/L Alanine Aminotransferase 16 0-31 U/L Total Protein 6.5 6.5-8.0 g/dL Albumin Level 3.8 3.5-5.0 g/dL Alkaline Phosphatase 104 39-117 U/L IRON PROFILE Reviewed date:03/02/2025 10:36:37 PM Interpretation: Performing Lab:[address] [phone] Notes/Report: Iron 76 30-160 mcg/dL Total Iron Binding Capacity 258 228-428 mcg/d L Percent Iron Saturation 29 15-50 % Unsaturated Iron Binding 182 Ferritin (Not yet reviewed b y provider) Interpretation: Performing Lab:[address] [phone] Notes/Report: Ferritin 716 10-250 ng/mL Vitamin B12 and Folate Reviewed date:01/03/2025 09:53:01 PM Interpretation: Performing Lab:[address] [phone] Notes/Report: Vitamin B12 335 200-900 pg/mL NORMAL 200-900 PG/ML INDETERMINATE 160-199 PG/ML DEFICIENT < 160 PG/ML Folate 9.5 > or = 4.0 ng/mL Reference Values: > or = 4.0 ng/mL < 4.0 ng/mL suggests folate deficiency Methotrexate, aminopterin and folinic acid (leucovorin) are chemotherapeutic agents whose molecular structures are similar to folate; therefore, the Thermocouple Tester folate assay cannot be used for patients using these drugs. Complete Blood Count Auto Di ff Reviewed date:02/03/2025 10:44:40 PM Interpretation: Performing Lab:[facility], [address] [place] [phone] Notes/Report: White Blood Count 4.0 4.8-10.8 X10*3/uL [...] Panel Reviewed date:02/03/2025 10:45:03 PM Interpretation: Performing Lab:[facility], [address] [place] [phone] Notes/Report: Bilirubin Total 0.4 0.0-1.0 mg/dL Bilirubin Direct 0.1 0.0-0.5 mg/dL Aspartate Amino Transferase 23 5-31 U/L Alanine Aminotransferase 19 0-31 U/L Total Protein 6.6 6.5-8.0 g/dL Albumin Level 4.0 3.5-5.0 g/dL Alkaline Phosphatase 101 39-117 U/L Complete Blood Count Auto Di ff Reviewed date:03/04/2025 11:38:09 PM Interpretation: Performing Lab:[facility], [address] [place] [phone] Notes/Report: White Blood Count 4.9 4.8-10.8 X10*3/uL [...] X10*3/uL NRBC Abs Auto 0.020 0.0-0.012 X10*3/uL Liver Panel Reviewed date:03/04/2025 11:36:55 PM Interpretation: Performing Lab:[facility], [address] [place] [phone] Notes/Report: Bilirubin Total 0.4 0.0-1.0 mg/dL Bilirubin Direct 0.1 0.0-0.5 mg/dL Aspartate Amino Transferase 27 5-31 U/L Alanine Aminotransferase 21 0-31 U/L Total Protein 6.3 6.5-8.0 g/dL Albumin Level 3.9 3.5-5.0 g/dL Alkaline Phosphatase 102 39-117 U/L Reason For Referral No Information [...] Methocarbamol 750 MG TAKE 1 TABLET BY [facility] TWICE A DAY 15 DAYS [...] Problem Status W/U Status Risk Notes Problem 611050453 Encounter for screening for malignant neoplasm of colon (Z12.11) Active confirmed Problem 57674981 Crohn's disease of small intestine with intestinal obstruction (K50.012) Active confirmed Problem 804541038938472 Preprocedural examination (Z01.818) Active confirmed Problem 610969797 Elevated liver enzymes (R74.8) Active confirmed Problem 89974959 Crohns disease of small intestine with intestinal obstruction (K50.012) Active confirmed Problem 90621324 Iron deficiency anemia, unspecified iron deficiency anemia type (D50.9) Active confirmed Problem 461616273 Anemia, unspecified type (D64.9) Active confirmed Problem 86884764 Diarrhea, unspecified type (R19.7) Active confirmed Problem Drug monitoring done (640475676) Therapeutic drug monitoring (Z51.81) Active confirmed Problem 32939476 Diarrhea of presumed infectious origin (R19.7) Active confirmed Problem Intestinal obstruction due to Crohn's disease of small intestine (disorder) (4158600388769781) Crohn''s disease of small intestine with intestinal obstruction (K50.012) Active confirmed Problem Crohn (56457082) Crohn''s diseas e of small intestine with other complication (K50.018) Active confirmed Problem 106560014 Encounter for medication monitoring (Z51.81) Active confirmed Problem History of adenomatous polyp of colon (053917385) History of adenomatous polyp of colon (Z86.0101) Active confirmed Vital Signs Temperature 96.8 degrees Fahrenheit 12/18/2024 Blood pressure diastolic 01 mm Hg 12/18/2024 Height 61 in 12/18/2024 Blood pressure systolic 001 mm Hg 12/18/2024 Weight 151.2 lbs 12/18/2024 BMI 28.57 kg/m2 12/18/2024 Procedures Procedure Date Ordered Date Performed Result Body Sit e COLONOSCOPY 12/18/2024 N/A Encounters Encounter Location Date Provider Diagnosis [facility] [place] [place] Out[facility] [address] [place], [place] [phone] 03/17/2025 Ebenezer Hunter [facility] [address] [place] [phone] 05/08/2024 Ebenezer Hunter Crohn''s disease of small intestine with intestinal obstruction K50.012 [facility] [address] [phone] 12/18/2024 Ebenezer Hunter Crohns disease of small intestine with intestinal obstruction K50.012 ; Encounter for screening for malignant neoplasm of colon Z12.11 and History of adenomatous polyp of colon Z86.0101 [facility] [address] [place] [phone] 10/04/2024 Ebenezer Hunter Crohn''s disease of small intestine with intestinal obstruction K50.012 and Therapeutic drug monitoring Z51.81 [facility] [address] [facility] [address] [place] [phone] 01/08/2025 Ebenezer Hunter Crohn''s disease of small [...] again for allowing me to participate in [facility] care. I shall continue to keep you [...] RFLX PCR 08/21/2023 Liver Panel 10/04/2024 Ferritin 01/03/2025 Ferritin 12/18/2024 Calprotectin, Fecal 08/21/2023 GI PANEL 08/21/2023 Future Test Test Name Order Date COLONOSCOPY 12/18/2019 UPPER GI ENDOSCOPY 04/09/2020 Insurance Providers Payer Name Payer Address Payer Phone Subscriber Number Group Number Insured Name Patient Relationship to Insured Coverage Start Date Coverage End Date MEDICARE OF [employer] [address] [place] [address] [phone] [id number] MONIK SORIA Self - patient is the insured [address] [place] [address] [id number] MONIK SORIA Self - patient is the insured Medical (General) History Medical History History ICD Code Denies LA,DM,CVA,Lung disease,renal dise ase Crohn's disease of the [...]
[2025-04-05 09:23] LABS: MANUAL DIFF FLAG NO
[2025-04-05 10:00] LABS: Alanine Aminotransferase 19 U/L (0-31); Albumin Level 3.7 g/dL (3.5-5.0); Alkaline Phosphatase 80 U/L (39-117); Aspartate Amino Transferase 25 U/L (5-31); Total Protein 6.1 g/dL (6.5-8.0)
[2025-04-05 10:04] LABS: Hematocrit 36.4 % (37.0-47.0); Hemoglobin 12.8 g/dl (12.0-16.0); Imm Gran Abs Auto 0.01 X10*3/uL (0.00-0.03); Imm Gran Pct Auto 0.2 % (0.0-0.4); Lymphocytes Absolute Auto 0.6 X10*3/uL (1.2-4.9); Mean Corpuscular HGB Conc 35.2 g/dl (31.0-35.0); Mean Corpuscular Hemoglobin 35.0 pg (27.0-33.0); Mean Corpuscular Volume 99.5 fL (80.0-98.0); NRBC Abs Auto 0.000 X10*3/uL (0.0-0.012); NRBC Pct Auto 0.0 /100WBC (0.0-0.2); Platelet Count 201 X10*3/uL (160-400); Red Blood Count 3.66 X10*6/uL (4.20-5.50); White Blood Count 4.1 X10*3/uL (4.8-10.8)
== END 2025-04-05 09:04 | disposition home or self-care (01) ==
LOC: HO.LABR 09:03
PROVIDERS: PCP Internal Medicine; Visit Provider Internal Medicine
DX: Z51.81 Encounter for therapeutic drug level monitoring (principal); K50.012 Crohn's disease of small intestine with intestinal obstruction
CPT/HCPCS: 36415; 80076; 85025

== ENCOUNTER 2025-05-05 15:02 | Outpatient (REF) | payer MEDICARE, OTHER, SELFPAY ==
--- OUTSIDE RECORDS SUMMARY | 2025-03-17 05:30 | XMS_ITS ---
Author Organization [facility] Address [address] [place] [address] Care Team Providers Care Motion Picture Scene Builder Name Role Phone Naldo Mojica MD Primary Care Provider UnavailEbenezer Jarquin [phone] REASON FOR VISIT screening colon Encounters Encounter Location Date Provider Diagnosis [facility] [address] [place] [id number] 03/17/2025 Ebenezer Hunter Plan Of Treatment No Information Progress Notes * MONIK SORIA MDOB: [birth year] (69 yo F)Acc No.[id number]:03/17/2025 COLON WITH MAC Patient: MONIK HERNÁNDEZ Provider: Cinthia Hunter MD :1955 A ge:69 Y S ex:Female Date:03/17/2025 Address:[address] [place] [address] [id number] Pcp:Naldo Mojica MD Subjective: * Chief Complaints: [...] 0 03/17/2025 Generated for Printi ng/Faxing/eTransmitting on: 0 05/05/2025 05:09 PM EDT
[2025-05-05 15:22] LABS: MANUAL DIFF FLAG NO
[2025-05-05 15:36] LABS: Hematocrit 40.0 % (37.0-47.0); Hemoglobin 13.8 g/dl (12.0-16.0); Imm Gran Abs Auto 0.01 X10*3/uL (0.00-0.03); Imm Gran Pct Auto 0.2 % (0.0-0.4); Lymphocytes Absolute Auto 0.7 X10*3/uL (1.2-4.9); Mean Corpuscular HGB Conc 34.5 g/dl (31.0-35.0); Mean Corpuscular Hemoglobin 34.8 pg (27.0-33.0); Mean Corpuscular Volume 100.8 fL (80.0-98.0); NRBC Abs Auto 0.000 X10*3/uL (0.0-0.012); NRBC Pct Auto 0.0 /100WBC (0.0-0.2); Platelet Count 214 X10*3/uL (160-400); Red Blood Count 3.97 X10*6/uL (4.20-5.50); White Blood Count 4.7 X10*3/uL (4.8-10.8)
[2025-05-05 16:49] LABS: Alanine Aminotransferase 39 U/L (0-31); Albumin Level 3.8 g/dL (3.5-5.0); Alkaline Phosphatase 89 U/L (39-117); Aspartate Amino Transferase 33 U/L (5-31); Total Protein 6.4 g/dL (6.5-8.0)
--- OUTSIDE RECORDS SUMMARY | 2025-05-05 17:10 | XMS_ITS | Clinical Summary ---
Author Organization [facility] Address [address] [place] [phone] Phone Care Team Providers Care Orthopedically Impaired Teacher Name Role Phone Naldo Mojica MD Primary Care Provider [phone] Encounters Date Type Department Care Team Description 04/15/2025 8:00 AM EDT Ancillary Procedure [facility] [address] [place] [address] Nonrheumatic aortic valve stenosis from Last 3 Months Medical History Medical History Date Comments High blood pressure DX:High bloo d pressure Crohn's disease (CMS/HCC V24, CMS/HCC V28) DX:Crohn's disease (HCC) Family History Medical History Relation [...] Sign Reading Time Taken Comments Blood Pressure 142/74 04/15/2025 8:00 AM EDT Pulse - - Temperature - - Respiratory Rate - - Oxygen Saturation - - Inhaled Oxygen Concentration - - Weight 67.1 kg (148 lb) 04/15/2025 8:00 AM EDT Height 157.5 cm (5' 2 ) 04/15/2025 8:00 AM EDT Body Mass Index 27.07 04/15/2025 8:00 AM EDT Plan of Treatment Health Maintenance Due [...] 07/05/2022 Social Influencers of Health Screening 07/05/2022 Depression Screening 08/07/2024 COVID-19 Vaccine ( season) 2025 06/30/2023, 11/11/2021, 06/04/2021, Additional history exists Influenza Vaccine (#1) 2025 Breast Cancer Screening [...] Procedure Name Priority Date/Time Associated Diagnosis Comments TRANSTHORACIC ECHOCARDIOGRAM (TTE) COMPLETE Routine 04/15/2025 8:47 AM EDT Nonrheumatic aortic valve stenosis MG MAMMO DIGITAL SCREENING W DANIE BILAT Routine 06/26/2024 3:01 PM EST Encounter for screening mammogram for breast cancer from Last 3 Months or Most Recently Relevant to Health Maintenance Results * (ABNORMAL) TRANSTHORACIC ECHOCARDIOGRAM (TTE) COMPLETE (04/15/2025 8:47 AM EDT) Left Atrium Minor [place] 5.6 cm CV PACS Left Atrium Major [place] 5.4 cm CV PACS LA Area Sys (A2C) 21 cm2 CV PACS LA Area Sys (A4C) 24 cm2 CV PACS LA Volume (BP) 72 mL CV PACS RA Area 11.9 cm2 CV PACS RA 2D Volume 29 mL CV PACS AV Regurgitation PHT 521 ms CV PACS AR Max Velocity 4.9 m/s CV PACS AV Regurgitant Volume 96 mmHg CV PACS AV Peak Franki 3.1 m/s CV PACS AV Peak Gradient 37 mmHg CV PACS AV Mean Gradient 22 mmHg CV PACS Ao VTI 73.1 cm CV PACS AV Area Continuity Equation 1.4 cm2 CV PACS AV Area Peak Velocity 1.3 cm2 CV PACS Aortic Sinus Valsalva 2.7 cm CV PACS Ascending Aorta 3.3 cm CV PACS IVC Proximal 1.3 cm CV PACS IVSD 0.8 0.6 - 0.9 cm CV PACS LVIDD 4.6 3.8 - 5.2 cm CV PACS LVIDS 2.8 2.2 - 3.5 cm CV PACS LVOT Diameter 2.0 cm CV PACS LVOT Mean Franki 0.9 m/s CV PACS LVOT Mean Grad 3 mmHg CV PACS LVOT Mean Grad 3 mmHg CV PACS LVOT Peak VTI 31.7 cm CV PACS LVOT Peak Franki 1.3 m/s CV PACS LVOT Peak Gradient 7 mmHg CV PACS LVPWD 0.8 0.6 - 0.9 cm CV PACS MV E' Tissue Velocity Lateral 6 cm/s CV PACS MV E' Tissue Velocity Septal 5 cm/s CV PACS LVOT Area 3.1 cm2 CV PACS LVOT Stroke Volume 100 mL CV PACS PISA MR Radius 0.40 cm CV PACS MV Mean Gradient 2 mmHg CV PACS MR VTI 196.0 cm CV PACS MV VTI 39.0 cm CV PACS MR PISA Max Velocity 5.2 m/s CV PACS MR Peak Gradient 108 mmHg CV PACS Mitral Valve Max Velocity 1.1 m/s CV PACS MV Peak Gradient 5 mmHg CV PACS MV Deceleration Benson 3.1 m/s2 CV PACS E Wave Deceleration Time 294(A) 119 - 242 ms CV PACS MV PHT 86 ms CV PACS MV Peak A Franki 0.96 m/s CV PACS MV Peak E Franki 0.92 m/s CV PACS MV Area PHT 2.6 cm2 CV PACS MV Area Continuity Equation 2.6 cm2 CV PACS PV Acceleration Time 109 ms CV PACS PV Acceleration Time 109 ms CV PACS PV Peak Velocity 0.9 m/s CV PACS PV Peak Gradient 3 mmHg CV PACS RV Diastolic Basal Dimension 3.7 2.5 - 4.1 cm CV PACS TAPSE 25 mm CV PACS TR Peak Velocity 2.10 m/s CV PACS TR Peak Gradient 18 mmHg CV PACS E/E' Ratio Septal 18 CV PACS E/E' Ratio Averaged 17 CV PACS LVOT Stroke Index 60 mL/m2 CV PACS Relative Wall Thickness ratio 0.35 CV PACS LVOT:AV VTI Index 0.43 CV PACS FS 39 % CV PACS LV Mass 2D 118 g CV PACS Ascending Aorta Index 1.96 cm/m2 CV PACS MV VTI:LVOT VTI ratio 1.2 CV PACS LVOT flow 283 mL/s CV PACS RA 2D Volume Index 17 mL/m2 CV PACS GINA Index (VTI) 0.81 cm2/m2 CV PACS GINA Index (Pk Franki) 0.77 cm2/m2 CV PACS LVIDD Index 2.74 cm/m2 CV PACS LVIDS Index 1.67 cm/m2 CV PACS AV Velocity Ratio 0.42 CV PACS E/A Ratio 1.0 CV PACS E/E' Ratio Lateral 15 CV PACS LA Volume Index (BP) 43 mL/m2 CV PACS LV Mass Index 2D 70 g/m2 CV PACS BSA 1.71 m2 CV PACS Right Ventricular Peak Systolic Pressure 21 mmHg CV PACS Est. RA Pressure 3 mmHg CV PACS Anatomical Region Laterality Modality Ultrasound Narrative 04/16/2025 8:49 AM EDT Left ventricle cavity size is normal. Left ventricular systolic function is in the normal range with an ejection fraction of 55-60%. No regional LV wall motion abnormalities noted. Left ventricle wall thickness is normal. Right ventricle cavity is normal. Aortic valve demonstrates moderate stenosis and moderate regurgitation. Aortic valve leaflets are mildly thickened. Mitral valve demonstrates moderate regurgitation. Gradient across the aortic valve and aortic valve measurements are unchanged compared to last study done in February 2024 Left Ventricle Left ventricle cavity size is normal. Wall thickness is normal. Systolic function is normal with an ejection fraction of 55-60%. There are no regional LV wall motion abnormalities. Right Ventricle Right ventricle cavity appears normal. Normal TAPSE (> 17 mm). Left Atrium Left atrium cavity is moderately dilated. Right Atrium Right atrium cavity is normal. IVC/SVC RA pressures is estimated to be 3 mmHg (IVC diameter <21 mm and decreases >50% during inspiration). Mitral Valve The leaflets are mildly thickened. There is annular calcification. There is moderate regurgitation. There is no significant stenosis noted. Tricuspid Valve Tricuspid valve structure is normal. There is mild regurgitation. There is no evidence of tricuspid valve stenosis. Aortic Valve The aortic valve is trileaflet. The leaflets are mildly thickened. There is moderate regurgitation. There is moderate stenosis. Pulmonic Valve Visualized portions of the pulmonic valve appear normal. There is no pulmonic valve regurgitation. No significant pulmonary valve stenosis noted. Ascending Aorta The Sinus of Valsalva is (2.7 cm). The ascending aorta is (3.3 cm). Pericardium Pericardium appears normal. Study Details Overall the study quality was adequate. us Naldo Mojica MD CV ECHO PROCEDURES Final Resul t * MG Mammo Digital Screening w Danie [...] Signed Date: 06/26/2024 17:57 ET Workstation ID: [id number] Transcribed By: Self Edit Transcribed Date: 06/26/2024 17:52 ET Narrative 06/26/2024 5:57 PM EST EXAM: SCREENING MAMMOGRAPHY, BILATERAL HISTORY: SCREENING. Family history of breast cancer; sister and maternal aunt COMPARISON: 04/26/2023, 03/15/2022, 03/12/2021, 03/04/2020 TECHNIQUE: Synthesized CC and MLO projections of each breast. Tomosynthesis of each breast in the CC and MLO projections. ADDITIONAL IMAGING: None Computer-aided detection was employed with the [employer] AI 3-D. TISSUE DENSITY: There are scattered [...] Signed Date: 06/26/2024 17:57 ET Workstation ID: [id number] Transcribed By: Self Edit Transcribed Date: 06/26/2024 17:52 ET Naldo Mojica MD IMG BI PROCEDURES Final Result from Last 3 Months or Most Recently Relevant to Health Maintenance Insurance MEDICARE [facility] Care Teams Orthopedically Impaired Teacher Relationship Specialty Start Date End Date Naldo Mojica MD [address] [place] [id number] PCP - General Internal Medicine 06/19/24
--- OUTSIDE RECORDS SUMMARY | 2025-05-05 17:10 | XMS_ITS | Patient Health Record ---
Author Organization [facility] Address [address] [place] [address] Care Team Providers Care Heel Seater Name Role Phone Naldo Mojica MD Primary Care Provider UnavailEbenezer Jarquin [phone] Allergies No Known Allergies Results Component Value Reference Range Notes Complete Blood Count Auto Di ff Reviewed date:06/06/2024 06:55:10 PM Interpretation: Performing Lab:[facility], [address] [place] [phone] Notes/Report: White Blood Count 4.9 4.8-10.8 X10*3/uL [...] Panel Reviewed date:06/06/2024 06:54:32 PM Interpretation: Performing Lab:[facility], [address] [place] [phone] Notes/Report: Bilirubin Total 0.5 0.0-1.0 mg/dL Bilirubin Direct 0.1 0.0-0.5 mg/dL Aspartate Amino Transferase 48 5-31 U/L Alanine Aminotransferase 24 0-31 U/L Total Protein 6.2 6.5-8.0 g/dL Albumin Level 3.4 3.5-5.0 g/dL Alkaline Phosphatase 111 39-117 U/L Complete Blood Count Auto Di ff Reviewed date:07/02/2024 04:25:58 PM Interpretation: Performing Lab:[facility], [address] [place] [phone] Notes/Report: White Blood Count 3.5 4.8-10.8 X10*3/uL [...] Panel Reviewed date:07/02/2024 04:24:45 PM Interpretation: Performing Lab:[facility], [address] [place] [phone] Notes/Report: Bilirubin Total 0.4 0.0-1.0 mg/dL Bilirubin Direct 0.2 0.0-0.5 mg/dL Aspartate Amino Transferase 40 5-31 U/L Alanine Aminotransferase 43 0-31 U/L Total Protein 6.1 6.5-8.0 g/dL Albumin Level 3.5 3.5-5.0 g/dL Alkaline Phosphatase 130 39-117 U/L Complete Blood Count Auto Di ff Reviewed date:08/11/2024 12:08:42 PM Interpretation: Performing Lab:[facility], [address] [place] [phone] Notes/Report: White Blood Count 4.9 4.8-10.8 X10*3/uL [...] Panel Reviewed date:08/11/2024 12:09:03 PM Interpretation: Performing Lab:[address] [phone] Notes/Report: Bilirubin Total 0.4 0.0-1.0 mg/dL Bilirubin Direct 0.1 0.0-0.5 mg/dL Aspartate Amino Transferase 37 5-31 U/L Alanine Aminotransferase 43 0-31 U/L Total Protein 6.5 6.5-8.0 g/dL Albumin Level 3.7 3.5-5.0 g/dL Alkaline Phosphatase 110 39-117 U/L Complete Blood Count Auto Di ff Reviewed date:09/06/2024 06:23:14 PM Interpretation: Performing Lab:[address] [phone] Notes/Report: White Blood Count 3.5 4.8-10.8 X10*3/uL [...] yet reviewe d by provider) Interpretation: Performing Lab:[facility], [address] [place] [phone] Notes/Report: Bilirubin Total 0.4 0.0-1.0 mg/dL Bilirubin Direct 0.1 0.0-0.5 mg/dL Aspartate Amino Transferase 33 5-31 U/L Alanine Aminotransferase 48 0-31 U/L Total Protein 6.7 6.5-8.0 g/dL Albumin Level 3.6 3.5-5.0 g/dL Alkaline Phosphatase 108 39-117 U/L Complete Blood Count Auto Di ff Reviewed date:11/05/2024 12:16:44 AM Interpretation: Performing Lab:[facility], [address] [place] [phone] Notes/Report: White Blood Count 4.8 4.8-10.8 X10*3/uL [...] Panel Reviewed date:11/05/2024 12:15:21 AM Interpretation: Performing Lab:[facility], [address] [place] [phone] Notes/Report: Bilirubin Total 0.4 0.0-1.0 mg/dL Bilirubin Direct 0.1 0.0-0.5 mg/dL Aspartate Amino Transferase 21 5-31 U/L Alanine Aminotransferase 18 0-31 U/L Total Protein 6.6 6.5-8.0 g/dL Albumin Level 3.8 3.5-5.0 g/dL Alkaline Phosphatase 113 39-117 U/L Complete Blood Count Auto Di ff Reviewed date:2024 05:45:33 PM Interpretation: Performing Lab:[facility], [address] [place] [phone] Notes/Report: White Blood Count 4.7 4.8-10.8 X10*3/uL [...] Panel Reviewed date:12/08/2024 12:55:31 AM Interpretation: Performing Lab:[facility], [address] [place] [phone] Notes/Report: Bilirubin Total 0.3 0.0-1.0 mg/dL Bilirubin Direct 0.1 0.0-0.5 mg/dL Aspartate Amino Transferase 23 5-31 U/L Alanine Aminotransferase 19 0-31 U/L Total Protein 6.5 6.5-8.0 g/dL Albumin Level 3.7 3.5-5.0 g/dL Alkaline Phosphatase 104 39-117 U/L Complete Blood Count Auto Di ff Reviewed date:01/03/2025 05:11:42 PM Interpretation: Performing Lab:[facility], [address] [place] [phone] Notes/Report: White Blood Count 5.2 4.8-10.8 X10*3/uL [...] Panel Reviewed date:01/03/2025 09:53:34 PM Interpretation: Performing Lab:[address] [phone] Notes/Report: Bilirubin Total 0.4 0.0-1.0 mg/dL Bilirubin Direct 0.1 0.0-0.5 mg/dL Aspartate Amino Transferase 23 5-31 U/L Alanine Aminotransferase 16 0-31 U/L Total Protein 6.5 6.5-8.0 g/dL Albumin Level 3.8 3.5-5.0 g/dL Alkaline Phosphatase 104 39-117 U/L IRON PROFILE Reviewed date:03/02/2025 10:36:37 PM Interpretation: Performing Lab:[address] [phone] Notes/Report: Iron 76 30-160 mcg/dL Total Iron Binding Capacity 258 228-428 mcg/d L Percent Iron Saturation 29 15-50 % Unsaturated Iron Binding 182 Ferritin (Not yet reviewed b y provider) Interpretation: Performing Lab:[address] [phone] Notes/Report: Ferritin 716 10-250 ng/mL Vitamin B12 and Folate Reviewed date:01/03/2025 09:53:01 PM Interpretation: Performing Lab:[address] [phone] Notes/Report: Vitamin B12 335 200-900 pg/mL NORMAL 200-900 PG/ML INDETERMINATE 160-199 PG/ML DEFICIENT < 160 PG/ML Folate 9.5 > or = 4.0 ng/mL Reference Values: > or = 4.0 ng/mL < 4.0 ng/mL suggests folate deficiency Methotrexate, aminopterin and folinic acid (leucovorin) are chemotherapeutic agents whose molecular structures are similar to folate; therefore, the [employer] folate assay cannot be used for patients using these drugs. Complete Blood Count Auto Di ff Reviewed date:02/03/2025 10:44:40 PM Interpretation: Performing Lab:[facility], [address] [place] [phone] Notes/Report: White Blood Count 4.0 4.8-10.8 X10*3/uL [...] Panel Reviewed date:02/03/2025 10:45:03 PM Interpretation: Performing Lab:[facility], [address] [place] [phone] Notes/Report: Bilirubin Total 0.4 0.0-1.0 mg/dL Bilirubin Direct 0.1 0.0-0.5 mg/dL Aspartate Amino Transferase 23 5-31 U/L Alanine Aminotransferase 19 0-31 U/L Total Protein 6.6 6.5-8.0 g/dL Albumin Level 4.0 3.5-5.0 g/dL Alkaline Phosphatase 101 39-117 U/L Complete Blood Count Auto Di ff Reviewed date:03/04/2025 11:38:09 PM Interpretation: Performing Lab:[facility], [address] [place] [phone] Notes/Report: White Blood Count 4.9 4.8-10.8 X10*3/uL [...] Panel Reviewed date:03/04/2025 11:36:55 PM Interpretation: Performing Lab:[facility], [address] [place] [phone] Notes/Report: Bilirubin Total 0.4 0.0-1.0 mg/dL Bilirubin Direct 0.1 0.0-0.5 mg/dL Aspartate Amino Transferase 27 5-31 U/L Alanine Aminotransferase 21 0-31 U/L Total Protein 6.3 6.5-8.0 g/dL Albumin Level 3.9 3.5-5.0 g/dL Alkaline Phosphatase 102 39-117 U/L Complete Blood Count Auto Di ff Reviewed date:04/08/2025 09:15:58 AM Interpretation: Performing Lab:[facility], [address] [place] [phone] Notes/Report: White Blood Count 4.1 4.8-10.8 X10*3/uL Red Blood Count 3.66 4.20-5.50 X10*6/uL Hemoglobin 12.8 12.0-16.0 g/dl Hematocrit 36.4 37.0-47.0 % Mean Corpuscular Volume 99.5 80.0-98.0 fL Mean Corpuscular Hemoglobin 35.0 27.0-33.0 pg Mean Corpuscular HGB Conc 35.2 31.0-35.0 g/dl Red Cell Distribution Width 13.7 11.0-16.0 % Platelet Count 201 160-400 X10*3/uL Mean Platelet Volume 9.1 9.4-12.3 fL Neutrophils Percent Auto 73.2 45-73 % Imm Gran Pct Auto 0.2 0.0-0.4 % Lymphocytes Percent Auto 13.7 20-40 % Monocytes Percent Auto 11.0 2-11 % Eosinophils Percent Auto 1.2 0-4 % Basophils Percent Auto 0.7 0-2 % NRBC Pct Auto 0.0 0.0-0.2 /100WBC Neutrophils Absolute Auto 3.0 2.0-8.3 x10*3/u L Imm Gran Abs Auto 0.01 0.00-0.03 X10*3/uL Lymphocytes Absolute Auto 0.6 1.2-4.9 X10*3/u L Monocytes Absolute Auto 0.5 0.1-1.2 X10*3/uL Eosinophils Absolute Auto 0.1 0.0-0.4 X10*3/u L Basophils Absolute Auto 0.0 0.0-0.2 X10*3/uL NRBC Abs Auto 0.000 0.0-0.012 X10*3/uL Liver Panel Reviewed date:04/08/2025 09:17:23 AM Interpretation: Performing Lab:[facility], [address] [place] [phone] Notes/Report: Bilirubin Total 0.3 0.0-1.0 mg/dL Bilirubin Direct 0.1 0.0-0.5 mg/dL Aspartate Amino Transferase 25 5-31 U/L Alanine Aminotransferase 19 0-31 U/L Total Protein 6.1 6.5-8.0 g/dL Albumin Level 3.7 3.5-5.0 g/dL Alkaline Phosphatase 80 39-117 U/L Complete Blood Count Auto Di ff (Not yet reviewed by provider) Interpretation: Performing Lab:[facility], [address] [place] [phone] Notes/Report: White Blood Count 4.7 4.8-10.8 X10*3/uL Red Blood Count 3.97 4.20-5.50 X10*6/uL Hemoglobin 13.8 12.0-16.0 g/dl Hematocrit 40.0 37.0-47.0 % Mean Corpuscular Volume 100.8 80.0-98.0 fL Mean Corpuscular Hemoglobin 34.8 27.0-33.0 pg Mean Corpuscular HGB Conc 34.5 31.0-35.0 g/dl Red Cell Distribution Width 13.2 11.0-16.0 % Platelet Count 214 160-400 X10*3/uL Mean Platelet Volume 9.1 9.4-12.3 fL Neutrophils Percent Auto 72.6 45-73 % Imm Gran Pct Auto 0.2 0.0-0.4 % Lymphocytes Percent Auto 14.1 20-40 % Monocytes Percent Auto 10.2 2-11 % Eosinophils Percent Auto 2.3 0-4 % Basophils Percent Auto 0.6 0-2 % NRBC Pct Auto 0.0 0.0-0.2 /100WBC Neutrophils Absolute Auto 3.4 2.0-8.3 x10*3/u L Imm Gran Abs Auto 0.01 0.00-0.03 X10*3/uL Lymphocytes Absolute Auto 0.7 1.2-4.9 X10*3/u L Monocytes Absolute Auto 0.5 0.1-1.2 X10*3/uL Eosinophils Absolute Auto 0.1 0.0-0.4 X10*3/u L Basophils Absolute Auto 0.0 0.0-0.2 X10*3/uL NRBC Abs Auto 0.000 0.0-0.012 X10*3/uL Liver Panel (Not yet reviewe d by provider) Interpretation: Performing Lab:[facility], [address] [place] [phone] Notes/Report: Bilirubin Total 0.4 0.0-1.0 mg/dL Bilirubin Direct 0.1 0.0-0.5 mg/dL Aspartate Amino Transferase 33 5-31 U/L Alanine Aminotransferase 39 0-31 U/L Total Protein 6.4 6.5-8.0 g/dL Albumin Level 3.8 3.5-5.0 g/dL Alkaline Phosphatase 89 39-117 U/L Reason For Referral No Information [...] Methocarbamol 750 MG TAKE 1 TABLET BY [facility] TWICE A DAY 15 DAYS [...] Problem Status W/U Status Risk Notes Problem 047969768 Encounter for screening for malignant neoplasm of colon (Z12.11) Active confirmed Problem 43841112 Crohn's disease of small intestine with intestinal obstruction (K50.012) Active confirmed Problem 913129063755397 Preprocedural examination (Z01.818) Active confirmed Problem 326431159 Elevated liver enzymes (R74.8) Active confirmed Problem 38286580 Crohns disease of small intestine with intestinal obstruction (K50.012) Active confirmed Problem 50597472 Iron deficiency anemia, unspecified iron deficiency anemia type (D50.9) Active confirmed Problem 873281593 Anemia, unspecified type (D64.9) Active confirmed Problem 21449519 Diarrhea, unspecified type (R19.7) Active confirmed Problem Drug monitoring done (706835196) Therapeutic drug monitoring (Z51.81) Active confirmed Problem 24858150 Diarrhea of presumed infectious origin (R19.7) Active confirmed Problem Intestinal obstruction due to Crohn's disease of small intestine (disorder) (8961871904274198) Crohn''s disease of small intestine with intestinal obstruction (K50.012) Active confirmed Problem Crohn (87333101) Crohn''s diseas e of small intestine with other complication (K50.018) Active confirmed Problem 068391420 Encounter for medication monitoring (Z51.81) Active confirmed Problem History of adenomatous polyp of colon (754005866) History of adenomatous polyp of colon (Z86.0101) Active confirmed Vital Signs Temperature 96.8 degrees Fahrenheit 12/18/2024 Blood pressure diastolic 01 mm Hg 12/18/2024 Height 61 in 12/18/2024 Blood pressure systolic 001 mm Hg 12/18/2024 Weight 151.2 lbs 12/18/2024 BMI 28.57 kg/m2 12/18/2024 Procedures Procedure Date Ordered Date Performed Result Body Sit e COLONOSCOPY 12/18/2024 N/A Encounters Encounter Location Date Provider Diagnosis [facility] [place] Outpatient [address] [place] [id number] 03/17/2025 Ebenezer Hunter [facility] [address] [place] [phone] 05/08/2024 Ebenezer Hunter Crohn''s disease of small intestine with intestinal obstruction K50.012 [facility] [address] [place] [phone] 12/18/2024 Ebenezer Hunter Crohns disease of small intestine with intestinal obstruction K50.012 ; Encounter for screening for malignant neoplasm of colon Z12.11 and History of adenomatous polyp of colon Z86.0101 [facility] [address] [place] [phone] 10/04/2024 Ebenezer Hunter Crohn''s disease of small intestine with intestinal obstruction K50.012 and Therapeutic drug monitoring Z51.81 [facility] [address] [place] [phone] 01/08/2025 Ebenezer Hunter Crohn''s disease of small [...] 11/30/2022 CHEM 7 PROFILE 08/21/2023 LIVER PROFILE 05/03/2023 LIVER PROFILE 09/09/2015 LIVER PROFILE 10/07/2018 LIVER PROFILE 08/25/2016 LIVER PROFILE 05/28/2021 LIVER PROFILE 04/12/2017 LIVER PROFILE 04/07/2020 LIVER PROFILE 01/08/2025 LIVER PROFILE 03/10/2019 LIVER PROFILE 10/03/2023 LIVER PROFILE 07/08/2018 LIVER PROFILE 11/30/2022 LIVER PROFILE 05/09/2022 LIVER PROFILE 08/21/2023 LIVER PROFILE 07/18/2014 LIVER PROFILE 04/08/2021 LIVER PROFILE 01/14/2019 LIVER PROFILE 11/08/2016 LIVER PROFILE 05/01/2019 LIVER PROFILE 10/04/2024 IRON + IBC (FE) 12/18/2024 IRON + [...] RATE (ESR) 08/21/2023 PROMETHEUS THIOPURINE METABOLITES (TPMT) 01/14/2019 PROMETHEUS THIOPURINE METABOLITES (TPMT) 11/08/2016 PROMETHEUS THIOPURINE METABOLITES (TPMT) 10/07/2018 PROMETHEUS THIOPURINE METABOLITES (TPMT) 05/18/2016 PROMETHEUS THIOPURINE METABOLITES (TPMT) 08/25/2016 PROMETHEUS THIOPURINE METABOLITES (TPMT) 11/28/2018 PROMETHEUS THIOPURINE METABOLITES (TPMT) 07/08/2018 PROMETHEUS TPMT ENZYME 05/18/2016 PROMETHEUS TPMT GENETICS 05/18/2016 STOOL WBC 11/30/2022 STOOL WBC 08/21/2023 C DIFFICILE RFLX PCR 11/30/2022 C DIFFICILE RFLX PCR 08/21/2023 Complete Blood Count Auto Diff Liver Panel 10/04/2024 Liver Panel 05/05/2025 Ferritin 01/03/2025 Ferritin 12/18/2024 Calprotectin, Fecal 08/21/2023 GI PANEL 08/21/2023 Future Test Test Name Order Date COLONOSCOPY 12/18/2019 UPPER GI ENDOSCOPY 04/09/2020 Insurance Providers Payer Name Payer Address Payer Phone Subscriber Number Group Number Insured Name Patient Relationship to Insured Coverage Start Date Coverage End Date MEDICARE OF [place] [address] [place] [address] [phone] [id number] MONIK SORIA Self - patient is the insured [address] [phone] [id number] MONIK SORIA Self - patient is the insured Medical (General) History Medical History History ICD Code Denies [place],DM,CVA,Lung disease,renal dise ase Crohn's disease of the [...]
--- OUTSIDE RECORDS SUMMARY | 2025-05-05 17:10 | XMS_ITS | Clinical Summary ---
Author Organization [facility] Address [address] [place] [address] Care Team Providers Care Etl Programmer Name Role Phone Naldo Mojica MD Primary Care Provider Unavail able Allergies No known active allergies Medications Medication Sig Dispensed Refills Start Date End Date Status azaTHIOprine (IMURAN) 50 MG tablet 0 05/09/2021 Active benazepril-hydroCHLO ROthiazide (LOTENSIN HCT) 20-12.5 MG per tablet 0 05/09/2021 Active ergocalciferol (VITAMIN D2) capsule 04854 units Take 1 capsule by mouth once [...] age to complete this topic Care Teams Etl Programmer Relationship Specialty Start Date End Date Naldo Mojica MD PCP - General Internal Medicine 04/27/21
== END 2025-05-05 15:03 | disposition home or self-care (01) ==
LOC: HO.LAB 15:02
PROVIDERS: PCP Internal Medicine; Visit Provider Internal Medicine
DX: K50.012 Crohn's disease of small intestine with intestinal obstruction (principal)
CPT/HCPCS: 36415; 80076; 85025

== ENCOUNTER 2025-06-04 16:46 | Outpatient (REF) | payer MEDICARE, OTHER, SELFPAY ==
--- OUTSIDE RECORDS SUMMARY | 2025-03-17 05:30 | XMS_ITS ---
Author Organization [facility] Address [address] [place] [address] Care Team Providers Care General Farmworker Name Role Phone Naldo Mojica MD Primary Care Provider UnavailEbenezer Jarquin [phone] REASON FOR VISIT screening colon Encounters Encounter Location Date Provider Diagnosis [facility] [place] [address] [place] [id number] 03/17/2025 Ebenezer Hunter Plan Of Treatment No Information Progress Notes * MONIK SORIA MDOB: [birth year] (69 yo F)Acc No.[id number]:03/17/2025 COLON WITH MAC Patient: MONIK HERNÁNDEZ Provider: Cinthia Hunter MD :1955 A ge:69 Y S ex:Female Date:03/17/2025 Address:[address] [place] [address] [id number] Pcp:Naldo Mojica MD Subjective: * Chief Complaints: [...] 03/17/2025 Generated for Printi ng/Faxing/eTransmitting on: 1 08:15 PM EDT
[2025-06-04 16:59] LABS: MANUAL DIFF FLAG NO
[2025-06-04 17:34] LABS: Hematocrit 44.7 % (37.0-47.0); Hemoglobin 14.8 g/dl (12.0-16.0); Imm Gran Abs Auto 0.02 X10*3/uL (0.00-0.03); Imm Gran Pct Auto 0.4 % (0.0-0.4); Lymphocytes Absolute Auto 0.9 X10*3/uL (1.2-4.9); Mean Corpuscular HGB Conc 33.1 g/dl (31.0-35.0); Mean Corpuscular Hemoglobin 33.3 pg (27.0-33.0); Mean Corpuscular Volume 100.4 fL (80.0-98.0); NRBC Abs Auto 0.000 X10*3/uL (0.0-0.012); NRBC Pct Auto 0.0 /100WBC (0.0-0.2); Platelet Count 191 X10*3/uL (160-400); Red Blood Count 4.45 X10*6/uL (4.20-5.50); White Blood Count 5.3 X10*3/uL (4.8-10.8)
[2025-06-04 17:57] LABS: Alanine Aminotransferase 31 U/L (0-31); Albumin Level 4.0 g/dL (3.5-5.0); Alkaline Phosphatase 84 U/L (39-117); Aspartate Amino Transferase 35 U/L (5-31); Total Protein 6.7 g/dL (6.5-8.0)
--- OUTSIDE RECORDS SUMMARY | 2025-06-04 20:15 | XMS_ITS | Clinical Summary ---
Author Organization [facility] Address [address] [place] [address] Phone Care Team Providers Care Wire Saw Operator Name Role Phone Naldo Mojica MD Primary Care Provider [phone] Encounters Date Type Department Care Team Description 05/27/2025 Lab Requisition [facility] - Main Lab [address] [facility] [place] [phone] Katherine Macdonald MD Encounter for gynecological examination (general) (routine) without abnormal findings 04/15/2025 8:00 AM EDT Ancillary Procedure [facility] [address] [facility] [address] [place] [phone] Nonrheumatic aortic valve stenosis from Last 3 [...] 04/15/2025 8:00 AM EDT Plan of Treatment Upcoming Encounters Date Type Department Care Team (Late st Contact Info) Description 06/27/2025 2:30 PM EST [facility]ointment [facility] at [address] [address] Health Maintenance Due Date Last Done Comments Colorectal Cancer Screening: Colonoscopy 1955 Zoster Vaccines (1 of 2) 1973 RSV Immunization Adult Patients (1 - Risk 50-74 years 1-dose series) 2004 Pneumococcal Vaccine: 50+ Years (2 of 2 - PPSV23, PCV20, or PCV21) 07/23/2021 05/28/2021 Falls Risk Assessment 07/05/2022 Hepatitis C Screening [...] Procedure Name Priority Date/Time Associated Diagnosis Comments PAP SMEAR Routine 05/26/2025 12:00 PM EDT Encounter for gynecological examination (general) (routine) without abnormal findings TRANSTHORACIC ECHOCARDIOGRAM (TTE) COMPLETE Routine 04/15/2025 8:47 AM EDT Nonrheumatic aortic valve stenosis MG MAMMO DIGITAL SCREENING W DANIE BILAT Routine 06/26/2024 3:01 PM EST Encounter for screening mammogram for breast cancer from Last 3 Months or Most Recently Relevant to Health Maintenance Results * Pap smear (05/26/2025 12:00 PM EDT) Interpretation Negative for intraepithelial lesion or malignancy 06/04/2025 1:25 PM EDT [facility] at 1325 EDT General Categorization Negative 06/04/2025 1:25 PM EDT [facility] Other Findings Atrophy 06/04/2025 1:25 PM EDT [facility] Specimen Adequacy Satisfactory for evaluation 06/04/2025 1:25 PM EDT [facility] Pap Methodology Liquid Based Pap Test 06/04/2025 1:25 PM EDT [facility] Disclaimer The Pap test is a screening test which carries an inherent false negative rate. These test results should be correlated with the patient's clinical findings and history. This Pap test was processed using an automated screening system. Technical cytopathology services provided by [facility], at [address] [place] [address] (CLIA # [id number]/Olga Cornelius MD, Sap Pi Architect.) 06/04/2025 1:25 PM EDT [facility] Console Pap Interpretation Reported 06/04/2025 1:25 PM EDT [facility] Brushing/Spatula Cervix uteri structure / Unknown 05/26/2025 12:00 PM EDT 05/27/2025 6:44 AM EDT us Katherine Macdonald MD LAB CYTOLOGY ORDERABLES Final Result [facility] [address] [place] [address], [place] [phone] * (ABNORMAL) TRANSTHORACIC ECHOCARDIOGRAM (TTE) COMPLETE (04/15/2025 8:47 AM EDT) Left Atrium Minor Austin 5.6 cm CV PACS Left Atrium Major Austin 5.4 cm CV PACS LA Area Sys [...] Gradient 5 mmHg CV PACS MV Deceleration Dougherty 3.1 m/s2 CV PACS E Wave Deceleration [...] Signed Date: 06/26/2024 17:57 ET Workstation ID: [id number] Transcribed By: Self Edit Transcribed Date: 06/26/2024 17:52 ET Narrative 06/26/2024 5:57 PM EST EXAM: SCREENING MAMMOGRAPHY, BILATERAL HISTORY: SCREENING. Family history of breast cancer; sister and maternal aunt COMPARISON: 04/26/2023, 03/15/2022, 03/12/2021, 03/04/2020 TECHNIQUE: Synthesized CC and MLO projections of each breast. Tomosynthesis of each breast in the CC and MLO projections. ADDITIONAL IMAGING: None Computer-aided detection was employed with the [employer] AI 3-D. TISSUE DENSITY: There are scattered [...] Signed Date: 06/26/2024 17:57 ET Workstation ID: [id number] Transcribed By: Self Edit Transcribed Date: 06/26/2024 17:52 ET Naldo Mojica MD IMG BI PROCEDURES Final Result from Last 3 Months or Most Recently Relevant to Health Maintenance Insurance [place] [address] Care Teams Wire Saw Operator Relationship Specialty Start Date End Date Naldo Mojica MD [address] [place] [address] PCP - General Internal Medicine 06/19/24
--- OUTSIDE RECORDS SUMMARY | 2025-06-04 20:15 | XMS_ITS ---
Author Name [facility] Organization Unknown Encounters Encounter Type Encounter Reason Primary Diagnosis Location Date Ambulatory [facility] 05/27/2025
--- OUTSIDE RECORDS SUMMARY | 2025-06-04 20:15 | XMS_ITS | Patient Health Record ---
Author Organization [facility] Address [address] [place] [address] Care Team Providers Care Tripoler Name Role Phone Naldo Mojica MD Primary Care Provider UnavailEbenezer Jarquin [phone] Allergies No Known Allergies Results Component Value Reference Range Notes Complete Blood Count Auto Di ff Reviewed date:06/06/2024 06:55:10 PM Interpretation: Performing Lab:[facility], [address] [place] [phone] Notes/Report: White Blood Count 4.9 4.8-10.8 X10*3/uL [...] Panel Reviewed date:06/06/2024 06:54:32 PM Interpretation: Performing Lab:[facility], [address] [place] [phone] Notes/Report: Bilirubin Total 0.5 0.0-1.0 mg/dL Bilirubin Direct 0.1 0.0-0.5 mg/dL Aspartate Amino Transferase 48 5-31 U/L Alanine Aminotransferase 24 0-31 U/L Total Protein 6.2 6.5-8.0 g/dL Albumin Level 3.4 3.5-5.0 g/dL Alkaline Phosphatase 111 39-117 U/L Complete Blood Count Auto Di ff Reviewed date:07/02/2024 04:25:58 PM Interpretation: Performing Lab:[facility], [address] [place] [phone] Notes/Report: White Blood Count 3.5 4.8-10.8 X10*3/uL [...] Panel Reviewed date:07/02/2024 04:24:45 PM Interpretation: Performing Lab:[facility], [address] [place] [phone] Notes/Report: Bilirubin Total 0.4 0.0-1.0 mg/dL Bilirubin Direct 0.2 0.0-0.5 mg/dL Aspartate Amino Transferase 40 5-31 U/L Alanine Aminotransferase 43 0-31 U/L Total Protein 6.1 6.5-8.0 g/dL Albumin Level 3.5 3.5-5.0 g/dL Alkaline Phosphatase 130 39-117 U/L Complete Blood Count Auto Di ff Reviewed date:08/11/2024 12:08:42 PM Interpretation: Performing Lab:[facility], [address] [place] [phone] Notes/Report: White Blood Count 4.9 4.8-10.8 X10*3/uL [...] Panel Reviewed date:08/11/2024 12:09:03 PM Interpretation: Performing Lab:[address] [phone] Notes/Report: Bilirubin Total 0.4 0.0-1.0 mg/dL Bilirubin Direct 0.1 0.0-0.5 mg/dL Aspartate Amino Transferase 37 5-31 U/L Alanine Aminotransferase 43 0-31 U/L Total Protein 6.5 6.5-8.0 g/dL Albumin Level 3.7 3.5-5.0 g/dL Alkaline Phosphatase 110 39-117 U/L Complete Blood Count Auto Di ff Reviewed date:09/06/2024 06:23:14 PM Interpretation: Performing Lab:[address] [phone] Notes/Report: White Blood Count 3.5 4.8-10.8 X10*3/uL [...] yet reviewe d by provider) Interpretation: Performing Lab:[facility], [address] [place] [phone] Notes/Report: Bilirubin Total 0.4 0.0-1.0 mg/dL Bilirubin Direct 0.1 0.0-0.5 mg/dL Aspartate Amino Transferase 33 5-31 U/L Alanine Aminotransferase 48 0-31 U/L Total Protein 6.7 6.5-8.0 g/dL Albumin Level 3.6 3.5-5.0 g/dL Alkaline Phosphatase 108 39-117 U/L Complete Blood Count Auto Di ff Reviewed date:11/05/2024 12:16:44 AM Interpretation: Performing Lab:[facility], [address] [place] [phone] Notes/Report: White Blood Count 4.8 4.8-10.8 X10*3/uL [...] Panel Reviewed date:11/05/2024 12:15:21 AM Interpretation: Performing Lab:[facility], [address] [place] [phone] Notes/Report: Bilirubin Total 0.4 0.0-1.0 mg/dL Bilirubin Direct 0.1 0.0-0.5 mg/dL Aspartate Amino Transferase 21 5-31 U/L Alanine Aminotransferase 18 0-31 U/L Total Protein 6.6 6.5-8.0 g/dL Albumin Level 3.8 3.5-5.0 g/dL Alkaline Phosphatase 113 39-117 U/L Complete Blood Count Auto Di ff Reviewed date:2024 05:45:33 PM Interpretation: Performing Lab:[facility], [address] [place] [phone] Notes/Report: White Blood Count 4.7 4.8-10.8 X10*3/uL [...] Panel Reviewed date:12/08/2024 12:55:31 AM Interpretation: Performing Lab:[facility], [address] [place] [phone] Notes/Report: Bilirubin Total 0.3 0.0-1.0 mg/dL Bilirubin Direct 0.1 0.0-0.5 mg/dL Aspartate Amino Transferase 23 5-31 U/L Alanine Aminotransferase 19 0-31 U/L Total Protein 6.5 6.5-8.0 g/dL Albumin Level 3.7 3.5-5.0 g/dL Alkaline Phosphatase 104 39-117 U/L Complete Blood Count Auto Di ff Reviewed date:01/03/2025 05:11:42 PM Interpretation: Performing Lab:[facility], [address] [place] [phone] Notes/Report: White Blood Count 5.2 4.8-10.8 X10*3/uL [...] Panel Reviewed date:01/03/2025 09:53:34 PM Interpretation: Performing Lab:[address] [phone] Notes/Report: Bilirubin Total 0.4 0.0-1.0 mg/dL Bilirubin Direct 0.1 0.0-0.5 mg/dL Aspartate Amino Transferase 23 5-31 U/L Alanine Aminotransferase 16 0-31 U/L Total Protein 6.5 6.5-8.0 g/dL Albumin Level 3.8 3.5-5.0 g/dL Alkaline Phosphatase 104 39-117 U/L IRON PROFILE Reviewed date:03/02/2025 10:36:37 PM Interpretation: Performing Lab:[address] [phone] Notes/Report: Iron 76 30-160 mcg/dL Total Iron Binding Capacity 258 228-428 mcg/d L Percent Iron Saturation 29 15-50 % Unsaturated Iron Binding 182 Ferritin (Not yet reviewed b y provider) Interpretation: Performing Lab:[address] [phone] Notes/Report: Ferritin 716 10-250 ng/mL Vitamin B12 and Folate Reviewed date:01/03/2025 09:53:01 PM Interpretation: Performing Lab:[address] [phone] Notes/Report: Vitamin B12 335 200-900 pg/mL NORMAL 200-900 PG/ML INDETERMINATE 160-199 PG/ML DEFICIENT < 160 PG/ML Folate 9.5 > or = 4.0 ng/mL Reference Values: > or = 4.0 ng/mL < 4.0 ng/mL suggests folate deficiency Methotrexate, aminopterin and folinic acid (leucovorin) are chemotherapeutic agents whose molecular structures are similar to folate; therefore, the Advertising Operations Manager folate assay cannot be used for patients using these drugs. Complete Blood Count Auto Di ff Reviewed date:02/03/2025 10:44:40 PM Interpretation: Performing Lab:[facility], [address] [place] [phone] Notes/Report: White Blood Count 4.0 4.8-10.8 X10*3/uL [...] Panel Reviewed date:02/03/2025 10:45:03 PM Interpretation: Performing Lab:[facility], [address] [place] [phone] Notes/Report: Bilirubin Total 0.4 0.0-1.0 mg/dL Bilirubin Direct 0.1 0.0-0.5 mg/dL Aspartate Amino Transferase 23 5-31 U/L Alanine Aminotransferase 19 0-31 U/L Total Protein 6.6 6.5-8.0 g/dL Albumin Level 4.0 3.5-5.0 g/dL Alkaline Phosphatase 101 39-117 U/L Complete Blood Count Auto Di ff Reviewed date:03/04/2025 11:38:09 PM Interpretation: Performing Lab:[facility], [address] [place] [phone] Notes/Report: White Blood Count 4.9 4.8-10.8 X10*3/uL [...] Panel Reviewed date:03/04/2025 11:36:55 PM Interpretation: Performing Lab:[facility], [address] [place] [phone] Notes/Report: Bilirubin Total 0.4 0.0-1.0 mg/dL Bilirubin Direct 0.1 0.0-0.5 mg/dL Aspartate Amino Transferase 27 5-31 U/L Alanine Aminotransferase 21 0-31 U/L Total Protein 6.3 6.5-8.0 g/dL Albumin Level 3.9 3.5-5.0 g/dL Alkaline Phosphatase 102 39-117 U/L Complete Blood Count Auto Di ff Reviewed date:04/08/2025 09:15:58 AM Interpretation: Performing Lab:[facility], [address] [place] [phone] Notes/Report: White Blood Count 4.1 4.8-10.8 X10*3/uL [...] Panel Reviewed date:04/08/2025 09:17:23 AM Interpretation: Performing Lab:[facility], [address] [place] [phone] Notes/Report: Bilirubin Total 0.3 0.0-1.0 mg/dL Bilirubin Direct 0.1 0.0-0.5 mg/dL Aspartate Amino Transferase 25 5-31 U/L Alanine Aminotransferase 19 0-31 U/L Total Protein 6.1 6.5-8.0 g/dL Albumin Level 3.7 3.5-5.0 g/dL Alkaline Phosphatase 80 39-117 U/L Complete Blood Count Auto Di ff Reviewed date:05/08/2025 01:27:00 AM Interpretation: Performing Lab:[facility], [address] [place] [phone] Notes/Report: White Blood Count 4.7 4.8-10.8 X10*3/uL [...] Auto 0.000 0.0-0.012 X10*3/uL Liver Panel Reviewed date:05/08/2025 01:25:48 AM Interpretation: Performing Lab:[facility], [address] [place] [phone] Notes/Report: Bilirubin Total 0.4 0.0-1.0 mg/dL Bilirubin Direct 0.1 0.0-0.5 mg/dL Aspartate Amino Transferase 33 5-31 U/L Alanine Aminotransferase 39 0-31 U/L Total Protein 6.4 6.5-8.0 g/dL Albumin Level 3.8 3.5-5.0 g/dL Alkaline Phosphatase 89 39-117 U/L Complete Blood Count Auto Di ff (Not yet reviewed by provider) Interpretation: Performing Lab:[facility], [address] [place] [phone] Notes/Report: White Blood Count 5.3 4.8-10.8 X10*3/uL Red Blood Count 4.45 4.20-5.50 X10*6/uL Hemoglobin 14.8 12.0-16.0 g/dl Hematocrit 44.7 37.0-47.0 % Mean Corpuscular Volume 100.4 80.0-98.0 fL Mean Corpuscular Hemoglobin 33.3 27.0-33.0 pg Mean Corpuscular HGB Conc 33.1 31.0-35.0 g/dl Red Cell Distribution Width 12.5 11.0-16.0 % Platelet Count 191 160-400 X10*3/uL Mean Platelet Volume 9.3 9.4-12.3 fL Neutrophils Percent Auto 68.3 45-73 % Imm Gran Pct Auto 0.4 0.0-0.4 % Lymphocytes Percent Auto 16.4 20-40 % Monocytes Percent Auto 12.6 2-11 % Eosinophils Percent Auto 1.7 0-4 % Basophils Percent Auto 0.6 0-2 % NRBC Pct Auto 0.0 0.0-0.2 /100WBC Neutrophils Absolute Auto 3.6 2.0-8.3 x10*3/u L Imm Gran Abs Auto 0.02 0.00-0.03 X10*3/uL Lymphocytes Absolute Auto 0.9 1.2-4.9 X10*3/u L Monocytes Absolute Auto 0.7 0.1-1.2 X10*3/uL Eosinophils Absolute Auto 0.1 0.0-0.4 X10*3/u L Basophils Absolute Auto 0.0 0.0-0.2 X10*3/uL NRBC Abs Auto 0.000 0.0-0.012 X10*3/uL Liver Panel (Not yet review ed by provider) Interpretation: Performing Lab:[facility], [address] [place] [phone] Notes/Report: Bilirubin Total 0.3 0.0-1.0 mg/dL Bilirubin Direct 0.1 0.0-0.5 mg/dL Aspartate Amino Transferase 35 5-31 U/L Alanine Aminotransferase 31 0-31 U/L Total Protein 6.7 6.5-8.0 g/dL Albumin Level 4.0 3.5-5.0 g/dL Alkaline Phosphatase 84 39-117 U/L Reason For Referral No Information [...] TABLETS TWICE A DAY Orally Twice a day; Duration: 90 days Active Methocarbamol 750 MG TAKE 1 TABLET BY [facility] TWICE A DAY 15 DAYS Oral; Duration: 15 Not-Taking Solifenacin Succinate 10 MG Oral; Duration: 90 Active hydrALAZINE HCl 10 MG 1 [...] Problem Status W/U Status Risk Notes Problem Screening for malignant neoplasm of colon (496702089) Encounter for screening for malignant neoplasm of colon (Z12.11) Active confirmed Problem Intestinal obstruction due to Crohn's disease of small intestine (7471965848852939 ) Crohn's disease of small intestine with intestinal obstruction (K50.012) Active confirmed Problem Preprocedural examination (717694547167595) Preprocedural examination (Z01.818) Active confirmed Problem Elevated liver enzymes level (917416982) Elevated liver enzymes (R74.8) Active confirmed Problem Intestinal obstruction due to Crohn's disease of small intestine (disorder) (9061519259249185 ) Crohns disease of small intestine with intestinal obstruction (K50.012) Active confirmed Problem Iron deficiency anemia (15688397) Iron deficiency anemia, unspecified iron deficiency anemia type (D50.9) Active confirmed Problem Anemia (788201374) Anemia, unspecified type (D64.9) Active confirmed Problem Diarrhea (77427023) Diarrhea, unspecified type (R19.7) Active confirmed Problem Drug monitoring done (493395993) Therapeutic drug monitoring (Z51.81) Active confirmed Problem Diarrhea of presumed infectious origin (97232482) Diarrhea of presumed infectious origin (R19.7) Active confirmed Problem Intestinal obstruction due to Crohn's disease of small intestine (disorder) (3739985092239549 ) Crohn''s disease of small intestine with intestinal obstruction (K50.012) Active confirmed Problem Crohn's disease of small intestine (86993655) Crohn''s disease of small intestine with other complication (K50.018) Active confirmed Problem Medication monitoring (regime/therapy) (944137072) Encounter for medication monitoring (Z51.81) Active confirmed Problem History of adenomatous polyp of colon (228149814) History of adenomatous polyp of colon (Z86.0101) Active confirmed Vital Signs Temperature 96.8 degrees Fahrenheit 12/18/2024 Blood pressure diastolic 01 mm Hg 12/18/2024 Height 61 in 12/18/2024 Blood pressure systolic 001 mm Hg 12/18/2024 Weight 151.2 lbs 12/18/2024 BMI 28.57 kg/m2 12/18/2024 Procedures Procedure Date Ordered Date Performed Result Body Sit e COLONOSCOPY 12/18/2024 N/A Encounters Encounter Location Date Provider Diagnosis [facility] [address] [place] [phone] 03/17/2025 Ebenezer Hunter [facility] [address] [place] [phone] 12/18/2024 Ebenezer Hunter Crohns disease of small intestine with intestinal obstruction K50.012 ; Encounter for screening for malignant neoplasm of colon Z12.11 and History of adenomatous polyp of colon Z86.0101 [facility] [address] [place] [phone] 10/04/2024 Ebenezer Hunter Crohn''s disease of small intestine with intestinal obstruction K50.012 and Therapeutic drug monitoring Z51.81 [facility] [address] [place] [phone] 01/08/2025 Ebenezer Hunter Crohn''s disease of small intestine with intestinal obstruction K50.012 Assessments Encounter Date Diagnosis (ICD Code) Assessment Notes Treatment Notes Treatment Clinical Notes Section Notes 12/18/2024 Encounter for screening for malignant neoplasm [...] PROFILE 08/21/2023 LIVER PROFILE 05/03/2023 LIVER PROFILE 10/07/2018 LIVER [...] w DIFF 10/03/2023 CBC w DIFF 05/09/2022 SED RATE (ESR) [...] Auto Diff Liver Panel 10/04/2024 Liver Panel 06/04/2025 Ferritin 01/03/2025 Ferritin 12/18/2024 Calprotectin, Fecal 08/21/2023 GI PANEL 08/21/2023 Future Test Test Name Order Date COLONOSCOPY 12/18/2019 UPPER GI ENDOSCOPY 04/09/2020 Insurance Providers Payer Name Payer Address Payer Phone Subscriber Number Group Number Insured Name Patient Relationship to Insured Coverage Start Date Coverage End Date MEDICARE OF [employer] [address] [place] [address] [id number] MONIK SORIA Self - patient is the insured [address] [place] [address] [id number] MONIK SORIA Self - patient is the insured Medical (General) History Medical History History ICD Code Denies [place],DM,CVA,Lung disease,renal dise ase Crohn's disease of the [...]
--- OUTSIDE RECORDS SUMMARY | 2025-06-04 20:15 | XMS_ITS | Clinical Summary ---
Author Organization [facility] Address [address] [place] [address] Care Team Providers Care Appliance Sales Associate Name Role Phone Naldo Mojica MD Primary Care Provider Unavail able Allergies No known active allergies Medications Medication Sig Dispensed Refills Start Date End Date Status azaTHIOprine (IMURAN) 50 MG tablet 0 05/09/2021 Active benazepril-hydroCHLO ROthiazide (LOTENSIN HCT) 20-12.5 MG per tablet 0 05/09/2021 Active ergocalciferol (VITAMIN D2) capsule 95051 units Take 1 capsule by mouth once [...] age to complete this topic Care Teams Appliance Sales Associate Relationship Specialty Start Date End Date Naldo Mojica MD PCP - General Internal Medicine 04/27/21
--- OUTSIDE RECORDS SUMMARY | 2025-06-04 20:15 | XMS_ITS | Encounter Summary ---
Author Organization [facility] Address [address] [place] [address] Care Team Providers Care Pump Oiler Name Role Phone Naldo Mojica MD Primary Care Provider Encounter Details Date Type Department Care Team (Latest Contact Info) Description 05/27/2025 Lab Requisition [facility] - Main Lab [address] [facility] [address] Katherine Macdonald MD [address] [address] Encounter for gynecological examination (general) (routine) without abnormal findings Social History Tobacco Use Types Packs/Day Years [...] Orientation Straight 06/19/2024 2: 37 PM EST documented as of this encounter Plan of Treatment Upcoming Encounters Date Type Department Care Team (Late st Contact Info) Description 06/27/2025 2:30 PM EST [facility]ointment [facility] [address] [place] [address] documented as of this encounter Procedures Procedure Name Priority Date/Time Associated Diagnosis Comments PAP SMEAR Routine 05/26/2025 12:00 PM EDT Encounter for gynecological examination (general) (routine) without abnormal findings documented in this encounter Results * Pap smear (05/26/2025 12:00 PM EDT) Interpretation Negative for intraepithelial lesion or malignancy 06/04/2025 1:25 PM EDT [facility] at 1325 EDT General Categorization Negative 06/04/2025 1:25 PM EDT [facility] Other Findings Atrophy 06/04/2025 1:25 PM EDT [facility] Specimen Adequacy Satisfactory for evaluation 06/04/2025 1:25 PM EDT [facility] Pap Methodology Liquid Based Pap Test 06/04/2025 1:25 PM EDT [facility] Disclaimer The Pap test is a screening test which carries an inherent false negative rate. These test results should be correlated with the patient's clinical findings and history. This Pap test was processed using an automated screening system. Technical cytopathology services provided by [facility], at [address] [place] [address] (CLIA # [id number]/Olga Cornelius MD, Wire Harness Assembler.) 06/04/2025 1:25 PM EDT [facility] Console Pap Interpretation Reported 06/04/2025 1:25 PM EDT [facility] Brushing/Spatula Cervix uteri structure / Unknown 05/26/2025 12:00 PM EDT 05/27/2025 6:44 AM EDT us Katherine Macdonald MD LAB CYTOLOGY ORDERABLES Final Result [facility] [address] [place] [address], [place] [phone] documented in this encounter Visit Diagnoses Diagnosis Encounter for gynecological examination (general) (routine) without abnormal findings Encounter for screening mammogram for breast cancer documented in this encounter Care Teams Pump Oiler Relationship Specialty Start Date End Date Naldo Mojica MD [address] [place] [address] PCP - General Internal Medicine 06/19/24 documented as of this encounter
== END 2025-06-04 16:47 | disposition home or self-care (01) ==
LOC: HO.LABR 16:46
PROVIDERS: PCP Internal Medicine; Visit Provider Internal Medicine
DX: K50.012 Crohn's disease of small intestine with intestinal obstruction (principal)
CPT/HCPCS: 36415; 80076; 85025

== ENCOUNTER 2025-06-21 09:22 | Outpatient (REF) | payer MEDICARE, OTHER, SELFPAY ==
[2025-06-21 10:21] LABS: Cholesterol 129 mg/dL (<200); HDL Cholesterol 39 mg/dL (>40); Triglycerides 85 mg/dL (<150)
== END 2025-06-21 09:23 | disposition home or self-care (01) ==
LOC: HO.LAB 09:22
PROVIDERS: PCP Internal Medicine; Visit Provider Internal Medicine
DX: E78.2 Mixed hyperlipidemia (principal)
CPT/HCPCS: 36415; 80061

== ENCOUNTER 2025-07-07 08:47 | Outpatient (REF) | payer MEDICARE, OTHER, SELFPAY ==
--- OUTSIDE RECORDS SUMMARY | 2025-03-17 04:30 | XMS_ITS ---
Author Organization [facility] Address [address] [place] [address] Care Team Providers Care Structural Steel Worker Apprentice Name Role Phone Naldo Mojica MD Primary Care Provider UnavailEbenezer Jarquin [phone] REASON FOR VISIT screening colon Encounters Encounter Location Date Provider Diagnosis [facility] [place] [address] [place] [id number] 03/17/2025 Ebenezer Hunter Plan Of Treatment No Information Progress Notes * MONIK SORIA MDOB: [birth year] (69 yo F)Acc No.[id number]:03/17/2025 COLON WITH MAC Patient: MONIK HERNÁNDEZ Moy Provider: Cinthia Hunter MD :1955 A ge:69 Y S ex:Female Date:03/17/2025 Address:[address] [place] [address] [id number] Pcp:Naldo Mojica MD Subjective: * Chief Complaints: * S creening colon Billing Information: * Procedure Codes: * The named appointment provid er may or may not be the originator of this progress note, and it is not deemed complete until electronically signed by the appointment provider. Sign off status: Pending * Provider: Cinthia Hunter MD Date: 0 03/17/2025 Generated for Printi ng/Fabolag/eTransmitting on: 1 09/07/2024 09:41 AM EST
[2025-07-07 09:24] LABS: MANUAL DIFF FLAG NO
--- OUTSIDE RECORDS SUMMARY | 2025-07-07 09:41 | XMS_ITS | Clinical Summary ---
Author Organization [facility] Address [address] [place] [address] Care Team Providers Care Chute Builder Name Role Phone Naldo Mojica MD Primary Care Provider Unavail able Allergies No known active allergies Medications Medication Sig Dispensed Refills Start Date End Date Status azaTHIOprine (IMURAN) 50 MG tablet 0 05/09/2021 Active benazepril-hydroCHLO ROthiazide (LOTENSIN HCT) 20-12.5 MG per tablet 0 05/09/2021 Active ergocalciferol (VITAMIN D2) capsule 45522 units Take 1 capsule by mouth once [...] age to complete this topic Care Teams Chute Builder Relationship Specialty Start Date End Date Naldo Mojica MD PCP - General Internal Medicine 04/27/21
--- OUTSIDE RECORDS SUMMARY | 2025-07-07 09:41 | XMS_ITS | Clinical Summary ---
Author Organization [facility] Address [address] [place] [address] Phone Care Team Providers Care Malt House Kiln Operator Name Role Phone Naldo Mojica MD Primary Care Provider [phone] Encounters Date Type Department Care Team Description 06/27/2025 2:23 PM EST - 06/27/2025 11:59 PM EST Hospital Encounter [facility] [address] [place] [phone] Encounter for screening mammogram for breast cancer Discharge Disposition: Home or Self Care 05/27/2025 Lab Requisition [facility] Main Lab [address] [facility] [place] [phone] Katherine Macdonald MD Encounter for gynecological examination (general) (routine) without abnormal findings 04/15/2025 8:00 AM EDT Ancillary Procedure [facility] [address] [place] [phone] Nonrheumatic aortic valve stenosis from Last 3 [...] Smoking Tobacco: Former Cigarettes 3 Q uit: 08/07/1992 Smokeless Tobacco: Never Alcohol [...] Influenza Vaccine (#1) 2025 Breast Cancer Screening 06/27/2027 06/27/20 25, 06/26/2024, 04/27/2023, Additional history exists DTaP,Tdap,and Td Vaccines (2 [...] MAMMO DIGITAL SCREENING W DANIE BILAT Routine 06/27/2025 2:52 PM EST Encounter for screening mammogram for breast cancer PAP SMEAR Routine 05/26/2025 12:00 PM EDT Encounter for gynecological examination (general) (routine) without abnormal findings TRANSTHORACIC ECHOCARDIOGRAM (TTE) COMPLETE Routine 04/15/2025 8:47 AM EDT Nonrheumatic aortic valve stenosis from Last 3 Months Results * MG Mammo Digital Screening w Danie bilat (06/27/2025 2:52 PM EST) Anatomical Region Laterality Modality Breast Bilateral Mammography 06/27/2025 4:25 PM EST Impressions 06/28/2025 8:18 AM EST Benign. BI-RADS CATEGORY: 1 - NEGATIVE RECOMMENDATION: Screening bilateral mammogram is recommended in 1 year. Mammo Location: [facility], [address] [place] [address], [id number], . -------- FINAL REPORT -------- Dictated By: Zak Pugh Dictated Date: 06/27/2025 16:25 ET Assigned Physician: Zak Pugh Reviewed and Electronically Signed By: Zak Pugh Signed Date: 06/28/2025 08:18 ET Workstation ID: [id number] Transcribed By: Self Edit Transcribed Date: 06/27/2025 16:25 ET Narrative 06/28/2025 8:18 AM EST CLINICAL: 69 years old, Female, routine annual exam. COMPARISON: 06/26/2024 and 04/26/2023. TECHNIQUE: Bilateral MLO and CC views were obtained digitally with 3-D mammogram (digital breast tomosynthesis). Computer-aided detection was utilized in evaluation of this exam (CAD). FINDINGS: No suspicious mass or architectural distortion. No suspicious calcification. There has been no significant change from prior exam(s). BREAST DENSITY: A - The breasts are almost entirely fatty. Procedure Note Zak Pugh MD - 06/28/2025 CLINICAL: 69 years old, Female, routine annual exam. COMPARISON: 06/26/2024 and 04/26/2023. TECHNIQUE: Bilateral MLO and CC views were obtained digitally with 3-Dmammogram (digital breast tomosynthesis). Computer-aided detection wasutilized in evaluation of this exam (CAD). FINDINGS: No suspicious mass or architectural distortion. No suspiciouscalcification. There has been no significant change from prior exam(s). BREAST DENSITY: A - The breasts are almost entirely fatty. IMPRESSION: Benign. BI-RADS CATEGORY: 1 - NEGATIVE RECOMMENDATION: Screening bilateral mammogram is recommended in 1 year. Mammo Location: [facility], [address] [place] [address], [id number], . -------- FINAL REPORT -------- Dictated By: Zak Pugh Dictated Date: 06/27/2025 16:25 ET Assigned Physician: Zak Pugh Reviewed and Electronically Signed By: Zak Pugh Signed Date: 06/28/2025 08:18 ET Workstation ID: [id number] Transcribed By: Self Edit Transcribed Date: 06/27/2025 16:25 ET us Self Referral Sppl IMG BI PROCEDURES Final Resul t * Pap smear (05/26/2025 12:00 PM EDT) Interpretation Negative for intraepithelial lesion or malignancy 06/04/2025 1:25 PM EDT [facility] at 1325 EDT General Categorization Negative 06/04/2025 1:25 PM EDT [facility] Other Findings Atrophy 06/04/2025 1:25 PM EDT [facility] Specimen Adequacy Satisfactory for evaluation 06/04/2025 1:25 PM EDT [facility] Pap Methodology Liquid Based Pap Test 06/04/2025 1:25 PM EDT [facility] Disclaimer The Pap test is a screening test which carries an inherent false negative rate. These test results should be correlated with the patient's clinical findings and history. This Pap test was processed using an automated screening system. Technical cytopathology services provided by [facility], at [address] [place] [address] (CLIA # [id number]/Olga Cornelius MD, Resource Program Teacher.) 06/04/2025 1:25 PM EDT [facility] Console Pap Interpretation Reported 06/04/2025 1:25 PM EDT [facility] Brushing/Spatula Cervix uteri structure / Unknown 05/26/2025 12:00 PM EDT 05/27/2025 6:44 AM EDT Katherine Macdonald MD LAB CYTOLOGY ORDERABLES Final Result [facility] [address] [place] [address], * (ABNORMAL) TRANSTHORACIC ECHOCARDIOGRAM (TTE) COMPLETE (04/15/2025 8:47 AM EDT) Left Atrium Minor Walton 5.6 cm CV PACS Left Atrium Major Walton 5.4 cm CV PACS LA Area Sys [...] Gradient 5 mmHg CV PACS MV Deceleration [facility] 3.1 m/s2 CV PACS E Wave Deceleration [...] Details Overall the study quality was adequate. Naldo Mojica MD CV ECHO PROCEDURES Final Resul t from Last 3 Months Insurance [place] [id number] Care Teams Malt House Kiln Operator Relationship Specialty Start Date End Date Naldo Mojica MD [address] [place] [id number] PCP - General Internal Medicine 06/19/24
--- OUTSIDE RECORDS SUMMARY | 2025-07-07 09:41 | XMS_ITS | Encounter Summary ---
Author Organization [facility] Address [address] [place] [address] Care Team Providers Care Underwater Trapper Name Role Phone Naldo Mojica MD Primary Care Provider Encounter Details Date Type Department Care Team (Latest Contact Info) Description 05/27/2025 Lab Requisition [facility] - Main Lab [address] [facility] [place] [address] Katherine Macdonald MD [address] [facility] [address] [place] [address] Encounter for gynecological examination (general) (routine) [...] as of this encounter Plan of Treatment Not on file documented as of this encounter Procedures Procedure Name Priority Date/Time Associated Diagnosis Comments PAP SMEAR Routine 05/26/2025 12:00 PM EDT Encounter for gynecological examination (general) (routine) without abnormal findings documented in this encounter Results * Pap smear (05/26/2025 12:00 PM EDT) Interpretation Negative for intraepithelial lesion or malignancy 06/04/2025 1:25 PM EDT [facility] at 1325 EDT General Categorization Negative 06/04/2025 1:25 PM EDT [facility] Other Findings Atrophy 06/04/2025 1:25 PM EDT [facility] Specimen Adequacy Satisfactory for evaluation 06/04/2025 1:25 PM EDT [facility] Pap Methodology Liquid Based Pap Test 06/04/2025 1:25 PM EDT [facility] Disclaimer The Pap test is a screening test which carries an inherent false negative rate. These test results should be correlated with the patient's clinical findings and history. This Pap test was processed using an automated screening system. Technical cytopathology services provided by [facility], at [address] [place] [address] (CLIA # [id number]/Olga Cornelius MD, Hvac Designer.) 06/04/2025 1:25 PM EDT [facility] Console Pap Interpretation Reported 06/04/2025 1:25 PM T [facility] Brushing/Spatula Cervix uteri structure / Unknown 05/26/2025 12:00 PM EDT 05/27/2025 6:44 AM EDT us Katherine Macdonald MD LAB CYTOLOGY ORDERABLES Final Result [facility] [address] [place] [address], documented in this encounter Visit Diagnoses Diagnosis Encounter for gynecological examination (general) (routine) without abnormal findings documented in this encounter Care Teams Underwater Trapper Relationship Specialty Start Date End Date Naldo Mojica MD [address] [place] [address] PCP - General Internal Medicine 06/19/24 documented as of this encounter
[2025-07-07 09:47] LABS: Hematocrit 46.1 % (37.0-47.0); Hemoglobin 15.6 g/dl (12.0-16.0); Imm Gran Abs Auto 0.02 X10*3/uL (0.00-0.03); Imm Gran Pct Auto 0.3 % (0.0-0.4); Lymphocytes Absolute Auto 0.6 X10*3/uL (1.2-4.9); Mean Corpuscular HGB Conc 33.8 g/dl (31.0-35.0); Mean Corpuscular Hemoglobin 32.8 pg (27.0-33.0); Mean Corpuscular Volume 96.8 fL (80.0-98.0); NRBC Abs Auto 0.000 X10*3/uL (0.0-0.012); NRBC Pct Auto 0.0 /100WBC (0.0-0.2); Platelet Count 228 X10*3/uL (160-400); Red Blood Count 4.76 X10*6/uL (4.20-5.50); White Blood Count 6.0 X10*3/uL (4.8-10.8)
[2025-07-07 10:19] LABS: Alanine Aminotransferase 33 U/L (0-31); Albumin Level 4.1 g/dL (3.5-5.0); Alkaline Phosphatase 89 U/L (39-117); Aspartate Amino Transferase 36 U/L (5-31); Total Protein 6.8 g/dL (6.5-8.0)
== END 2025-07-07 08:48 | disposition home or self-care (01) ==
LOC: HO.LABR 08:47
PROVIDERS: PCP Internal Medicine; Visit Provider Internal Medicine
DX: K50.012 Crohn's disease of small intestine with intestinal obstruction (principal)
CPT/HCPCS: 36415; 80076; 85025

== ENCOUNTER 2025-08-05 11:17 | Outpatient (REF) | payer MEDICARE, OTHER, SELFPAY ==
--- OUTSIDE RECORDS SUMMARY | 2025-03-17 04:30 | XMS_ITS ---
Author Organization [facility] Address [address] [place] [address] Care Team Providers Care Dairy Cattle Farm Worker Name Role Phone Naldo Mojica MD Primary Care Provider UnavailEbenezer Jarquin [phone] REASON FOR VISIT screening colon Encounters Encounter Location Date Provider Diagnosis [facility] [address] [place] [id number] 03/17/2025 Ebenezer Hunter Plan Of Treatment No Information Progress Notes * MONIK SORIA MDOB: [birth year] (69 yo F)Acc No.[id number]:03/17/2025 COLON WITH MAC Patient: MONIK HERNÁNDEZ Moy Provider: Cinthia Hunter MD :1955 A ge:69 Y S ex:Female Date:03/17/2025 Address:[address] [place] [address] [id number] Pcp:Naldo Mojica MD Subjective: * Chief Complaints: * S creening colon Billing Information: * Procedure Codes: * The named appointment provid er may or may not be the originator of this progress note, and it is not deemed complete until electronically signed by the appointment provider. Sign off status: Pending * Provider: Cinthia Hunter MD Date: 0 03/17/2025 Generated for Printi ng/Faxing/eTransmitting on: 1 03:19 PM EST
[2025-08-05 11:41] LABS: MANUAL DIFF FLAG NO
[2025-08-05 12:09] LABS: Hematocrit 47.3 % (37.0-47.0); Hemoglobin 15.6 g/dl (12.0-16.0); Imm Gran Abs Auto 0.02 X10*3/uL (0.00-0.03); Imm Gran Pct Auto 0.4 % (0.0-0.4); Lymphocytes Absolute Auto 0.8 X10*3/uL (1.2-4.9); Mean Corpuscular HGB Conc 33.0 g/dl (31.0-35.0); Mean Corpuscular Hemoglobin 31.8 pg (27.0-33.0); Mean Corpuscular Volume 96.5 fL (80.0-98.0); NRBC Abs Auto 0.000 X10*3/uL (0.0-0.012); NRBC Pct Auto 0.0 /100WBC (0.0-0.2); Platelet Count 230 X10*3/uL (160-400); Red Blood Count 4.90 X10*6/uL (4.20-5.50); White Blood Count 5.5 X10*3/uL (4.8-10.8)
[2025-08-05 13:13] LABS: Alanine Aminotransferase 45 U/L (0-31); Albumin Level 4.0 g/dL (3.5-5.0); Alkaline Phosphatase 96 U/L (39-117); Aspartate Amino Transferase 34 U/L (5-31); Total Protein 6.7 g/dL (6.5-8.0)
--- OUTSIDE RECORDS SUMMARY | 2025-08-05 15:19 | XMS_ITS | Clinical Summary ---
Author Organization [facility] Prior to 01/04/[address] [place], [place] [id number] Care Team Providers Care Metal Refiner Name Role Phone Naldo Mojica MD Primary Care Provider Unavail able Allergies No known active allergies Medications Medication Sig Dispensed Refills Start Date End Date Status azaTHIOprine (IMURAN) 50 MG tablet 0 05/09/2021 Active benazepril-hydroCHLO ROthiazide (LOTENSIN HCT) 20-12.5 MG per tablet 0 05/09/2021 Active ergocalciferol (VITAMIN D2) capsule 14833 units Take 1 capsule by mouth once [...] age to complete this topic Care Teams Metal Refiner Relationship Specialty Start Date End Date Naldo Mojica MD PCP - General Internal Medicine 04/27/21
--- OUTSIDE RECORDS SUMMARY | 2025-08-05 15:19 | XMS_ITS | Patient Health Record ---
Author Organization [facility] Address [address] [place] [address] Care Team Providers Care Pricing Lead Name Role Phone Naldo Mojica MD Primary Care Provider UnavailEbenezer Jarquin [phone] Allergies No Known Allergies Results Component Value Reference Range Flag Notes Complete Blood Count Auto Di ff Reviewed date:08/11/2024 12:08:42 PM Interpretation: Performing Lab:[facility], [address] [place] [phone] Notes/Report: White Blood Count 4.9 4.8-10.8 X10*3/uL N Red Blood Count 4.11 4.20-5.50 X10*6/uL L Hemoglobin 14.2 12.0-16.0 g/dl N Hematocrit 43.2 37.0-47.0 % N Mean Corpuscular Volume 105.1 80.0-98.0 fL H Mean Corpuscular Hemoglobin 34.5 27.0-33.0 pg H Mean Corpuscular HGB Conc 32.9 31.0-35.0 g/dl N Red Cell Distribution Width 14.2 11.0-16.0 % N Platelet Count 207 160-400 X10*3/uL N Mean Platelet Volume 9.2 9.4-12.3 fL L Neutrophils Percent Auto 74.2 45-73 % H Imm Gran Pct Auto 0.4 0.0-0.4 % N Lymphocytes Percent Auto 13.1 20-40 % L Monocytes Percent Auto 10.5 2-11 % N Eosinophils Percent Auto 1.2 0-4 % N Basophils Percent Auto 0.6 0-2 % N NRBC Pct Auto 0.0 0.0-0.2 /100WBC N Neutrophils Absolute Auto 3.6 2.0-8.3 x10*3/uL N Imm Gran Abs Auto 0.02 0.00-0.03 X10*3/uL N Lymphocytes Absolute Auto 0.6 1.2-4.9 X10*3/uL L Monocytes Absolute Auto 0.5 0.1-1.2 X10*3/uL N Eosinophils Absolute Auto 0.1 0.0-0.4 X10*3/uL N Basophils Absolute Auto 0.0 0.0-0.2 X10*3/uL N NRBC Abs Auto 0.000 0.0-0.012 X10*3/uL N Liver Panel Reviewed date:08/11/2024 12:09:03 PM Interpretation: Performing Lab:[address] [phone] Notes/Report: Bilirubin Total 0.4 0.0-1.0 mg/dL N Bilirubin Direct 0.1 0.0-0.5 mg/dL N Aspartate Amino Transferase 37 5-31 U/L H Alanine Aminotransferase 43 0-31 U/L H Total Protein 6.5 6.5-8.0 g/dL N Albumin Level 3.7 3.5-5.0 g/dL N Alkaline Phosphatase 110 39-117 U/L N Complete Blood Count Auto Di ff Reviewed date:09/06/2024 06:23:14 PM Interpretation: Performing Lab:[address] [phone] Notes/Report: White Blood Count 3.5 4.8-10.8 X10*3/uL L Red Blood Count 4.29 4.20-5.50 X10*6/uL N Hemoglobin 15.0 12.0-16.0 g/dl N Hematocrit 43.4 37.0-47.0 % N Mean Corpuscular Volume 101.2 80.0-98.0 fL H Mean Corpuscular Hemoglobin 35.0 27.0-33.0 pg H Mean Corpuscular HGB Conc 34.6 31.0-35.0 g/dl N Red Cell Distribution Width 13.2 11.0-16.0 % N Platelet Count 212 160-400 X10*3/uL N Mean Platelet Volume 9.2 9.4-12.3 fL L Neutrophils Percent Auto 65.6 45-73 % N Imm Gran Pct Auto 0.3 0.0-0.4 % N Lymphocytes Percent Auto 18.2 20-40 % L Monocytes Percent Auto 13.4 2-11 % H Eosinophils Percent Auto 1.4 0-4 % N Basophils Percent Auto 1.1 0-2 % N NRBC Pct Auto 0.0 0.0-0.2 /100WBC N Neutrophils Absolute Auto 2.3 2.0-8.3 x10*3/uL N Imm Gran Abs Auto 0.01 0.00-0.03 X10*3/uL N Lymphocytes Absolute Auto 0.6 1.2-4.9 X10*3/uL L Monocytes Absolute Auto 0.5 0.1-1.2 X10*3/uL N Eosinophils Absolute Auto 0.1 0.0-0.4 X10*3/uL N Basophils Absolute Auto 0.0 0.0-0.2 X10*3/uL N NRBC Abs Auto 0.000 0.0-0.012 X10*3/uL N Liver Panel (Not yet reviewe d by provider) Interpretation: Performing Lab:[address] [phone] Notes/Report: Bilirubin Total 0.4 0.0-1.0 mg/dL N Bilirubin Direct 0.1 0.0-0.5 mg/dL N Aspartate Amino Transferase 33 5-31 U/L H Alanine Aminotransferase 48 0-31 U/L H Total Protein 6.7 6.5-8.0 g/dL N Albumin Level 3.6 3.5-5.0 g/dL N Alkaline Phosphatase 108 39-117 U/L N Complete Blood Count Auto Di ff Reviewed date:11/05/2024 12:16:44 AM Interpretation: Performing Lab:[address] [phone] Notes/Report: White Blood Count 4.8 4.8-10.8 X10*3/uL N Red Blood Count 4.20 4.20-5.50 X10*6/uL N Hemoglobin 14.7 12.0-16.0 g/dl N Hematocrit 42.2 37.0-47.0 % N Mean Corpuscular Volume 100.5 80.0-98.0 fL H Mean Corpuscular Hemoglobin 35.0 27.0-33.0 pg H Mean Corpuscular HGB Conc 34.8 31.0-35.0 g/dl N Red Cell Distribution Width 13.2 11.0-16.0 % N Platelet Count 203 160-400 X10*3/uL N Mean Platelet Volume 9.0 9.4-12.3 fL L Neutrophils Percent Auto 69.0 45-73 % N Imm Gran Pct Auto 0.2 0.0-0.4 % N Lymphocytes Percent Auto 16.1 20-40 % L Monocytes Percent Auto 12.8 2-11 % H Eosinophils Percent Auto 1.5 0-4 % N Basophils Percent Auto 0.4 0-2 % N NRBC Pct Auto 0.0 0.0-0.2 /100WBC N Neutrophils Absolute Auto 3.3 2.0-8.3 x10*3/uL N Imm Gran Abs Auto 0.01 0.00-0.03 X10*3/uL N Lymphocytes Absolute Auto 0.8 1.2-4.9 X10*3/uL L Monocytes Absolute Auto 0.6 0.1-1.2 X10*3/uL N Eosinophils Absolute Auto 0.1 0.0-0.4 X10*3/uL N Basophils Absolute Auto 0.0 0.0-0.2 X10*3/uL N NRBC Abs Auto 0.000 0.0-0.012 X10*3/uL N Liver Panel Reviewed date:11/05/2024 12:15:21 AM Interpretation: Performing Lab:[facility], [address] [place] [phone] Notes/Report: Bilirubin Total 0.4 0.0-1.0 mg/dL N Bilirubin Direct 0.1 0.0-0.5 mg/dL N Aspartate Amino Transferase 21 5-31 U/L N Alanine Aminotransferase 18 0-31 U/L N Total Protein 6.6 6.5-8.0 g/dL N Albumin Level 3.8 3.5-5.0 g/dL N Alkaline Phosphatase 113 39-117 U/L N Ferritin (Not yet reviewed b y provider) Interpretation: Performing Lab:[facility], [address] [place] [address] Notes/Report: Ferritin 716 10-250 ng/mL H Complete Blood Count Auto Di ff Reviewed date:01/03/2025 05:11:42 PM Interpretation: Performing Lab:[facility], [address] [place] [address] Notes/Report: White Blood Count 5.2 4.8-10.8 X10*3/uL N Red Blood Count 4.17 4.20-5.50 X10*6/uL L Hemoglobin 14.4 12.0-16.0 g/dl N Hematocrit 41.1 37.0-47.0 % N Mean Corpuscular Volume 98.6 80.0-98.0 fL H Mean Corpuscular Hemoglobin 34.5 27.0-33.0 pg H Mean Corpuscular HGB Conc 35.0 31.0-35.0 g/dl N Red Cell Distribution Width 12.4 11.0-16.0 % N Platelet Count 236 160-400 X10*3/uL N Mean Platelet Volume 9.2 9.4-12.3 fL L Neutrophils Percent Auto 72.1 45-73 % N Imm Gran Pct Auto 0.4 0.0-0.4 % N Lymphocytes Percent Auto 14.5 20-40 % L Monocytes Percent Auto 11.2 2-11 % H Eosinophils Percent Auto 1.2 0-4 % N Basophils Percent Auto 0.6 0-2 % N NRBC Pct Auto 0.0 0.0-0.2 /100WBC N Neutrophils Absolute Auto 3.7 2.0-8.3 x10*3/uL N Imm Gran Abs Auto 0.02 0.00-0.03 X10*3/uL N Lymphocytes Absolute Auto 0.8 1.2-4.9 X10*3/uL L Monocytes Absolute Auto 0.6 0.1-1.2 X10*3/uL N Eosinophils Absolute Auto 0.1 0.0-0.4 X10*3/uL N Basophils Absolute Auto 0.0 0.0-0.2 X10*3/uL N NRBC Abs Auto 0.000 0.0-0.012 X10*3/uL N Liver Panel Reviewed date:01/03/2025 09:53:34 PM Interpretation: Performing Lab:[address] [phone] Notes/Report: Bilirubin Total 0.4 0.0-1.0 mg/dL N Bilirubin Direct 0.1 0.0-0.5 mg/dL N Aspartate Amino Transferase 23 5-31 U/L N Alanine Aminotransferase 16 0-31 U/L N Total Protein 6.5 6.5-8.0 g/dL N Albumin Level 3.8 3.5-5.0 g/dL N Alkaline Phosphatase 104 39-117 U/L N IRON PROFILE Reviewed date:03/02/2025 10:36:37 PM Interpretation: Performing Lab:[facility], [address] [place] [phone] Notes/Report: Iron 76 30-160 mcg/dL N Total Iron Binding Capacity 258 228-428 mcg/dL N Percent Iron Saturation 29 15-50 % N Unsaturated Iron Binding 182 Vitamin B12 and Folate Reviewed date:01/03/2025 09:53:01 PM Interpretation: Performing Lab:[facility], [address] [place] [phone] Notes/Report: Vitamin B12 335 200-900 pg/mL N NORMAL 200-900 PG/ML INDETERMINATE 160-199 PG/ML DEFICIENT < 160 PG/ML Folate 9.5 > or = 4.0 ng/mL Reference Values: > or = 4.0 ng/mL < 4.0 ng/mL suggests folate deficiency Methotrexate, aminopterin and folinic acid (leucovorin) are chemotherapeutic agents whose molecular structures are similar to folate; therefore, the Client Account Specialist folate assay cannot be used for patients using these drugs. Complete Blood Count Auto Di ff Reviewed date:05/08/2025 01:27:00 AM Interpretation: Performing Lab:[address] [phone] Notes/Report: White Blood Count 4.7 4.8-10.8 X10*3/uL L Red Blood Count 3.97 4.20-5.50 X10*6/uL L Hemoglobin 13.8 12.0-16.0 g/dl N Hematocrit 40.0 37.0-47.0 % N Mean Corpuscular Volume 100.8 80.0-98.0 fL H Mean Corpuscular Hemoglobin 34.8 27.0-33.0 pg H Mean Corpuscular HGB Conc 34.5 31.0-35.0 g/dl N Red Cell Distribution Width 13.2 11.0-16.0 % N Platelet Count 214 160-400 X10*3/uL N Mean Platelet Volume 9.1 9.4-12.3 fL L Neutrophils Percent Auto 72.6 45-73 % N Imm Gran Pct Auto 0.2 0.0-0.4 % N Lymphocytes Percent Auto 14.1 20-40 % L Monocytes Percent Auto 10.2 2-11 % N Eosinophils Percent Auto 2.3 0-4 % N Basophils Percent Auto 0.6 0-2 % N NRBC Pct Auto 0.0 0.0-0.2 /100WBC N Neutrophils Absolute Auto 3.4 2.0-8.3 x10*3/uL N Imm Gran Abs Auto 0.01 0.00-0.03 X10*3/uL N Lymphocytes Absolute Auto 0.7 1.2-4.9 X10*3/uL L Monocytes Absolute Auto 0.5 0.1-1.2 X10*3/uL N Eosinophils Absolute Auto 0.1 0.0-0.4 X10*3/uL N Basophils Absolute Auto 0.0 0.0-0.2 X10*3/uL N NRBC Abs Auto 0.000 0.0-0.012 X10*3/uL N Liver Panel Reviewed date:05/08/2025 01:25:48 AM Interpretation: Performing Lab:[facility], [address] [place] [phone] Notes/Report: Bilirubin Total 0.4 0.0-1.0 mg/dL N Bilirubin Direct 0.1 0.0-0.5 mg/dL N Aspartate Amino Transferase 33 5-31 U/L H Alanine Aminotransferase 39 0-31 U/L H Total Protein 6.4 6.5-8.0 g/dL L Albumin Level 3.8 3.5-5.0 g/dL N Alkaline Phosphatase 89 39-117 U/L N Complete Blood Count Auto Di ff (Not yet reviewed by provider) Interpretation: Performing Lab:[facility], [address] [place] [phone] Notes/Report: White Blood Count 6.0 4.8-10.8 X10*3/uL N Red Blood Count 4.76 4.20-5.50 X10*6/uL N Hemoglobin 15.6 12.0-16.0 g/dl N Hematocrit 46.1 37.0-47.0 % N Mean Corpuscular Volume 96.8 80.0-98.0 fL N Mean Corpuscular Hemoglobin 32.8 27.0-33.0 pg N Mean Corpuscular HGB Conc 33.8 31.0-35.0 g/dl N Red Cell Distribution Width 12.5 11.0-16.0 % N Platelet Count 228 160-400 X10*3/uL N Mean Platelet Volume 9.0 9.4-12.3 fL L Neutrophils Percent Auto 75.6 45-73 % H Imm Gran Pct Auto 0.3 0.0-0.4 % N Lymphocytes Percent Auto 10.2 20-40 % L Monocytes Percent Auto 11.7 2-11 % H Eosinophils Percent Auto 1.7 0-4 % N Basophils Percent Auto 0.5 0-2 % N NRBC Pct Auto 0.0 0.0-0.2 /100WBC N Neutrophils Absolute Auto 4.5 2.0-8.3 x10*3/uL N Imm Gran Abs Auto 0.02 0.00-0.03 X10*3/uL N Lymphocytes Absolute Auto 0.6 1.2-4.9 X10*3/uL L Monocytes Absolute Auto 0.7 0.1-1.2 X10*3/uL N Eosinophils Absolute Auto 0.1 0.0-0.4 X10*3/uL N Basophils Absolute Auto 0.0 0.0-0.2 X10*3/uL N NRBC Abs Auto 0.000 0.0-0.012 X10*3/uL N Liver Panel (Not yet reviewe d by provider) Interpretation: Performing Lab:[facility], [address] [place] [phone] Notes/Report: Bilirubin Total 0.4 0.0-1.0 mg/dL N Bilirubin Direct 0.1 0.0-0.5 mg/dL N Aspartate Amino Transferase 36 5-31 U/L H Alanine Aminotransferase 33 0-31 U/L H Total Protein 6.8 6.5-8.0 g/dL N Albumin Level 4.1 3.5-5.0 g/dL N Alkaline Phosphatase 89 39-117 U/L N Complete Blood Count Auto Di ff (Not yet reviewed by provider) Interpretation: Performing Lab:[facility], [address] [place] [phone] Notes/Report: White Blood Count 5.5 4.8-10.8 X10*3/uL N Red Blood Count 4.90 4.20-5.50 X10*6/uL N Hemoglobin 15.6 12.0-16.0 g/dl N Hematocrit 47.3 37.0-47.0 % H Mean Corpuscular Volume 96.5 80.0-98.0 fL N Mean Corpuscular Hemoglobin 31.8 27.0-33.0 pg N Mean Corpuscular HGB Conc 33.0 31.0-35.0 g/dl N Red Cell Distribution Width 13.2 11.0-16.0 % N Platelet Count 230 160-400 X10*3/uL N Mean Platelet Volume 9.3 9.4-12.3 fL L Neutrophils Percent Auto 72.3 45-73 % N Imm Gran Pct Auto 0.4 0.0-0.4 % N Lymphocytes Percent Auto 14.4 20-40 % L Monocytes Percent Auto 10.4 2-11 % N Eosinophils Percent Auto 1.8 0-4 % N Basophils Percent Auto 0.7 0-2 % N NRBC Pct Auto 0.0 0.0-0.2 /100WBC N Neutrophils Absolute Auto 4.0 2.0-8.3 x10*3/uL N Imm Gran Abs Auto 0.02 0.00-0.03 X10*3/uL N Lymphocytes Absolute Auto 0.8 1.2-4.9 X10*3/uL L Monocytes Absolute Auto 0.6 0.1-1.2 X10*3/uL N Eosinophils Absolute Auto 0.1 0.0-0.4 X10*3/uL N Basophils Absolute Auto 0.0 0.0-0.2 X10*3/uL N NRBC Abs Auto 0.000 0.0-0.012 X10*3/uL N Liver Panel (Not yet reviewe d by provider) Interpretation: Performing Lab:[facility], [address] [place] [phone] Notes/Report: Bilirubin Total 0.3 0.0-1.0 mg/dL N Bilirubin Direct 0.1 0.0-0.5 mg/dL N Aspartate Amino Transferase 34 5-31 U/L H Alanine Aminotransferase 45 0-31 U/L H Total Protein 6.7 6.5-8.0 g/dL N Albumin Level 4.0 3.5-5.0 g/dL N Alkaline Phosphatase 96 39-117 U/L N Liver Panel Reviewed date:12/08/2024 12:55:31 AM Interpretation: Performing Lab:[facility], [address] [place] [phone] Notes/Report: Bilirubin Total 0.3 0.0-1.0 mg/dL N Bilirubin Direct 0.1 0.0-0.5 mg/dL N Aspartate Amino Transferase 23 5-31 U/L N Alanine Aminotransferase 19 0-31 U/L N Total Protein 6.5 6.5-8.0 g/dL N Albumin Level 3.7 3.5-5.0 g/dL N Alkaline Phosphatase 104 39-117 U/L N Complete Blood Count Auto Di ff Reviewed date:2024 05:45:33 PM Interpretation: Performing Lab:[facility], [address] [place] [phone] Notes/Report: White Blood Count 4.7 4.8-10.8 X10*3/uL L Red Blood Count 4.24 4.20-5.50 X10*6/uL N Hemoglobin 14.8 12.0-16.0 g/dl N Hematocrit 42.3 37.0-47.0 % N Mean Corpuscular Volume 99.8 80.0-98.0 fL H Mean Corpuscular Hemoglobin 34.9 27.0-33.0 pg H Mean Corpuscular HGB Conc 35.0 31.0-35.0 g/dl N Red Cell Distribution Width 12.9 11.0-16.0 % N Platelet Count 209 160-400 X10*3/uL N Mean Platelet Volume 9.2 9.4-12.3 fL L Neutrophils Percent Auto 66.1 45-73 % N Imm Gran Pct Auto 0.4 0.0-0.4 % N Lymphocytes Percent Auto 17.1 20-40 % L Monocytes Percent Auto 13.7 2-11 % H Eosinophils Percent Auto 2.1 0-4 % N Basophils Percent Auto 0.6 0-2 % N NRBC Pct Auto 0.0 0.0-0.2 /100WBC N Neutrophils Absolute Auto 3.1 2.0-8.3 x10*3/uL N Imm Gran Abs Auto 0.02 0.00-0.03 X10*3/uL N Lymphocytes Absolute Auto 0.8 1.2-4.9 X10*3/uL L Monocytes Absolute Auto 0.7 0.1-1.2 X10*3/uL N Eosinophils Absolute Auto 0.1 0.0-0.4 X10*3/uL N Basophils Absolute Auto 0.0 0.0-0.2 X10*3/uL N NRBC Abs Auto 0.000 0.0-0.012 X10*3/uL N Liver Panel Reviewed date:03/04/2025 11:36:55 PM Interpretation: Performing Lab:[address] [phone] Notes/Report: Bilirubin Total 0.4 0.0-1.0 mg/dL N Bilirubin Direct 0.1 0.0-0.5 mg/dL N Aspartate Amino Transferase 27 5-31 U/L N Alanine Aminotransferase 21 0-31 U/L N Total Protein 6.3 6.5-8.0 g/dL L Albumin Level 3.9 3.5-5.0 g/dL N Alkaline Phosphatase 102 39-117 U/L N Complete Blood Count Auto Di ff Reviewed date:03/04/2025 11:38:09 PM Interpretation: Performing Lab:[address] [phone] Notes/Report: White Blood Count 4.9 4.8-10.8 X10*3/uL N Red Blood Count 3.71 4.20-5.50 X10*6/uL L Hemoglobin 13.1 12.0-16.0 g/dl N Hematocrit 35.9 37.0-47.0 % L Mean Corpuscular Volume 96.8 80.0-98.0 fL N Mean Corpuscular Hemoglobin 35.3 27.0-33.0 pg H Mean Corpuscular HGB Conc 36.5 31.0-35.0 g/dl H Red Cell Distribution Width 13.6 11.0-16.0 % N Platelet Count 244 160-400 X10*3/uL N Mean Platelet Volume 8.9 9.4-12.3 fL L Neutrophils Percent Auto 75.7 45-73 % H Imm Gran Pct Auto 0.2 0.0-0.4 % N Lymphocytes Percent Auto 13.4 20-40 % L Monocytes Percent Auto 8.1 2-11 % N Eosinophils Percent Auto 2.0 0-4 % N Basophils Percent Auto 0.6 0-2 % N NRBC Pct Auto 0.4 0.0-0.2 /100WBC H Neutrophils Absolute Auto 3.7 2.0-8.3 x10*3/uL N Imm Gran Abs Auto 0.01 0.00-0.03 X10*3/uL N Lymphocytes Absolute Auto 0.7 1.2-4.9 X10*3/uL L Monocytes Absolute Auto 0.4 0.1-1.2 X10*3/uL N Eosinophils Absolute Auto 0.1 0.0-0.4 X10*3/uL N Basophils Absolute Auto 0.0 0.0-0.2 X10*3/uL N NRBC Abs Auto 0.020 0.0-0.012 X10*3/uL H Liver Panel Reviewed date:02/03/2025 10:45:03 PM Interpretation: Performing Lab:[facility], [address] [place] [phone] Notes/Report: Bilirubin Total 0.4 0.0-1.0 mg/dL N Bilirubin Direct 0.1 0.0-0.5 mg/dL N Aspartate Amino Transferase 23 5-31 U/L N Alanine Aminotransferase 19 0-31 U/L N Total Protein 6.6 6.5-8.0 g/dL N Albumin Level 4.0 3.5-5.0 g/dL N Alkaline Phosphatase 101 39-117 U/L N Complete Blood Count Auto Di ff Reviewed date:02/03/2025 10:44:40 PM Interpretation: Performing Lab:[facility], [address] [place] [phone] Notes/Report: White Blood Count 4.0 4.8-10.8 X10*3/uL L Red Blood Count 4.22 4.20-5.50 X10*6/uL N Hemoglobin 14.5 12.0-16.0 g/dl N Hematocrit 41.3 37.0-47.0 % N Mean Corpuscular Volume 97.9 80.0-98.0 fL N Mean Corpuscular Hemoglobin 34.4 27.0-33.0 pg H Mean Corpuscular HGB Conc 35.1 31.0-35.0 g/dl H Red Cell Distribution Width 12.6 11.0-16.0 % N Platelet Count 226 160-400 X10*3/uL N Mean Platelet Volume 9.0 9.4-12.3 fL L Neutrophils Percent Auto 72.7 45-73 % N Imm Gran Pct Auto 0.5 0.0-0.4 % H Lymphocytes Percent Auto 13.6 20-40 % L Monocytes Percent Auto 11.4 2-11 % H Eosinophils Percent Auto 1.5 0-4 % N Basophils Percent Auto 0.3 0-2 % N NRBC Pct Auto 0.0 0.0-0.2 /100WBC N Neutrophils Absolute Auto 2.9 2.0-8.3 x10*3/uL N Imm Gran Abs Auto 0.02 0.00-0.03 X10*3/uL N Lymphocytes Absolute Auto 0.5 1.2-4.9 X10*3/uL L Monocytes Absolute Auto 0.5 0.1-1.2 X10*3/uL N Eosinophils Absolute Auto 0.1 0.0-0.4 X10*3/uL N Basophils Absolute Auto 0.0 0.0-0.2 X10*3/uL N NRBC Abs Auto 0.000 0.0-0.012 X10*3/uL N Complete Blood Count Auto Di ff Reviewed date:04/08/2025 09:15:58 AM Interpretation: Performing Lab:[facility], [address] [place] [phone] Notes/Report: White Blood Count 4.1 4.8-10.8 X10*3/uL L Red Blood Count 3.66 4.20-5.50 X10*6/uL L Hemoglobin 12.8 12.0-16.0 g/dl N Hematocrit 36.4 37.0-47.0 % L Mean Corpuscular Volume 99.5 80.0-98.0 fL H Mean Corpuscular Hemoglobin 35.0 27.0-33.0 pg H Mean Corpuscular HGB Conc 35.2 31.0-35.0 g/dl H Red Cell Distribution Width 13.7 11.0-16.0 % N Platelet Count 201 160-400 X10*3/uL N Mean Platelet Volume 9.1 9.4-12.3 fL L Neutrophils Percent Auto 73.2 45-73 % H Imm Gran Pct Auto 0.2 0.0-0.4 % N Lymphocytes Percent Auto 13.7 20-40 % L Monocytes Percent Auto 11.0 2-11 % N Eosinophils Percent Auto 1.2 0-4 % N Basophils Percent Auto 0.7 0-2 % N NRBC Pct Auto 0.0 0.0-0.2 /100WBC N Neutrophils Absolute Auto 3.0 2.0-8.3 x10*3/uL N Imm Gran Abs Auto 0.01 0.00-0.03 X10*3/uL N Lymphocytes Absolute Auto 0.6 1.2-4.9 X10*3/uL L Monocytes Absolute Auto 0.5 0.1-1.2 X10*3/uL N Eosinophils Absolute Auto 0.1 0.0-0.4 X10*3/uL N Basophils Absolute Auto 0.0 0.0-0.2 X10*3/uL N NRBC Abs Auto 0.000 0.0-0.012 X10*3/uL N Liver Panel Reviewed date:04/08/2025 09:17:23 AM Interpretation: Performing Lab:[facility], [address] [place] [phone] Notes/Report: Bilirubin Total 0.3 0.0-1.0 mg/dL N Bilirubin Direct 0.1 0.0-0.5 mg/dL N Aspartate Amino Transferase 25 5-31 U/L N Alanine Aminotransferase 19 0-31 U/L N Total Protein 6.1 6.5-8.0 g/dL L Albumin Level 3.7 3.5-5.0 g/dL N Alkaline Phosphatase 80 39-117 U/L N Complete Blood Count Auto Di ff Reviewed date:06/04/2025 11:34:24 PM Interpretation: Performing Lab:[facility], [address] [place] [phone] Notes/Report: White Blood Count 5.3 4.8-10.8 X10*3/uL N Red Blood Count 4.45 4.20-5.50 X10*6/uL N Hemoglobin 14.8 12.0-16.0 g/dl N Hematocrit 44.7 37.0-47.0 % N Mean Corpuscular Volume 100.4 80.0-98.0 fL H Mean Corpuscular Hemoglobin 33.3 27.0-33.0 pg H Mean Corpuscular HGB Conc 33.1 31.0-35.0 g/dl N Red Cell Distribution Width 12.5 11.0-16.0 % N Platelet Count 191 160-400 X10*3/uL N Mean Platelet Volume 9.3 9.4-12.3 fL L Neutrophils Percent Auto 68.3 45-73 % N Imm Gran Pct Auto 0.4 0.0-0.4 % N Lymphocytes Percent Auto 16.4 20-40 % L Monocytes Percent Auto 12.6 2-11 % H Eosinophils Percent Auto 1.7 0-4 % N Basophils Percent Auto 0.6 0-2 % N NRBC Pct Auto 0.0 0.0-0.2 /100WBC N Neutrophils Absolute Auto 3.6 2.0-8.3 x10*3/uL N Imm Gran Abs Auto 0.02 0.00-0.03 X10*3/uL N Lymphocytes Absolute Auto 0.9 1.2-4.9 X10*3/uL L Monocytes Absolute Auto 0.7 0.1-1.2 X10*3/uL N Eosinophils Absolute Auto 0.1 0.0-0.4 X10*3/uL N Basophils Absolute Auto 0.0 0.0-0.2 X10*3/uL N NRBC Abs Auto 0.000 0.0-0.012 X10*3/uL N Liver Panel Reviewed date:06/04/2025 11:32:49 PM Interpretation: Performing Lab:[facility], [address] [place] [phone] Notes/Report: Bilirubin Total 0.3 0.0-1.0 mg/dL N Bilirubin Direct 0.1 0.0-0.5 mg/dL N Aspartate Amino Transferase 35 5-31 U/L H Alanine Aminotransferase 31 0-31 U/L N Total Protein 6.7 6.5-8.0 g/dL N Albumin Level 4.0 3.5-5.0 g/dL N Alkaline Phosphatase 84 39-117 U/L N Reason For Referral No Information Medications Medication SIG (Take, Route, Frequency, Duration) Notes Start Date End Date Status Mesalamine ER 500 mg Capsule Extended Release TAKE 2 CAPSULES FOUR TIMES A DAY (REPLACES 30 DAY PRESCRIPTION) Active Benazepril-hydroCHLOROth iazide 20-25 MG Tablet 2 tablet Orally Once a day Active Omeprazole 20 MG Capsule Delayed Release 1 capsule Orally Once a day Active Iron 325 (65 Fe) MG Tablet 1 tablet Orally Once a day Active Vitamin C Active Pentasa 500 MG Capsule Extended Release Oral Active azaTHIOprine 50 mg Tablet TAKE 2 TABLETS TWICE A DAY Orally Twice a day; Duration: 90 days Active Methocarbamol 750 MG Tablet TAKE 1 TABLET BY MOUTH TWICE A DAY 15 DAYS Oral; Duration: 15 Not-Taking/PRN Solifenacin Succinate 10 MG Tablet Oral; Duration: 90 Active hydrALAZINE HCl 10 MG Tablet 1 tablet with food Orally twice a day Active oxyBUTYnin Chloride ER 10 MG Tablet Extended Release 24 Hour 1 tablet Orally Once a day Active Immunizations Vaccine Route Administration Date Status Comme nts Influenza Unknown 06/05/2018 Refused Influenza Unknown 11/28/2018 Refused Influenza Unknown 05/01/2019 Refused Influenza Unknown 11/10/2021 Refused Influenza Unknown 08/11/2023 Refused Influenza Unknown 12/18/2024 Refused Social History Tobacco Use: Social History Observation Description Date Details (start date - stop date) Never Smoker NA - NA Social History Drugs/Alcohol: Social Info Question Answer Notes Alcohol Screen Did you have a drink containing alcohol in the past year? 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 [employer] Section Notes: Nonsmoker > 10 yrs; no [...] Problem Screening for malignant neoplasm of colon (771100628) Encounter for screening for malignant neoplasm of colon (Z12.11) Active confirmed Problem Intestinal obstruction due to Crohn's disease of small intestine (2504520766396473 ) Crohn's disease of small intestine with intestinal obstruction (K50.012) Active confirmed Problem Preprocedural examination (231850584279496) Preprocedural examination (Z01.818) Active confirmed Problem Elevated liver enzymes level (119214795) Elevated liver enzymes (R74.8) Active confirmed Problem Intestinal obstruction due to Crohn's disease of small intestine (disorder) (3227015146037811 ) Crohns disease of small intestine with intestinal obstruction (K50.012) Active confirmed Problem Iron deficiency anemia (01575131) Iron deficiency anemia, unspecified iron deficiency anemia type (D50.9) Active confirmed Problem Anemia (838553037) Anemia, unspecified type (D64.9) Active confirmed Problem Diarrhea (30344722) Diarrhea, unspecified type (R19.7) Active confirmed Problem Drug monitoring done (329629788) Therapeutic drug monitoring (Z51.81) Active confirmed Problem Diarrhea of presumed infectious origin (13301522) Diarrhea of presumed infectious origin (R19.7) Active confirmed Problem Intestinal obstruction due to Crohn's disease of small intestine (disorder) (2722147761975418 ) Crohn''s disease of small intestine with intestinal obstruction (K50.012) Active confirmed Problem Crohn's disease of small intestine (24772018) Crohn''s disease of small intestine with other complication (K50.018) Active confirmed Problem Medication monitoring (regime/therapy) (423831939) Encounter for medication monitoring (Z51.81) Active confirmed Problem History of adenomatous polyp of colon (384318798) History of adenomatous polyp of colon (Z86.0101) Active confirmed Vital Signs Temperature 96.8 degrees Fahrenheit 12/18/2024 Blood pressure diastolic 01 mm Hg 12/18/2024 Height 61 in 12/18/2024 Blood pressure systolic 001 mm Hg 12/18/2024 Weight 151.2 lbs 12/18/2024 BMI 28.57 kg/m2 12/18/2024 Procedures Procedure Date Ordered Date Performed Result Body Sit e COLONOSCOPY 12/18/2024 N/A Encounters Encounter Location Date Provider Diagnosis [facility] Outpatient [address] [place] [id number] 03/17/2025 Ebenezer Hunter [facility] [address] [place] [phone] 12/18/2024 Ebenezer Hunter Crohns disease of small intestine with intestinal obstruction K50.012 ; Encounter for screening for malignant neoplasm of colon Z12.11 and History of adenomatous polyp of colon Z86.0101 [facility] [address] [place] [phone] 10/04/2024 Ebenezer Hunter Crohn''s disease of small intestine with intestinal obstruction K50.012 and Therapeutic drug monitoring Z51.81 [facility] [address] [place] [phone] 01/08/2025 Ebenezer Hunter Crohn''s disease of small intestine with intestinal obstruction K50.012 Assessments Encounter Date Diagnosis (ICD Code) Assessment Notes Treatment Notes Treatment Clinical Notes Section Notes 10/04/2024 Therapeutic drug monitoring (ICD-10 - Z51.81) 10/04/2024 Crohn''s disease of small intestine with intestinal obstruction (ICD-10 - K50.012) 01/08/2025 Crohn''s disease of small intestine with intestinal obstruction (ICD-10 - K50.012) Monthly orders 12/18/2024 Encounter for screening for malignant neoplasm [...] keep you advised of her progress. 12/18/2024 History of adenomatous polyp of colon [...] 11/30/2022 CHEM 7 PROFILE 08/21/2023 LIVER PROFILE 08/21/2023 LIVER PROFILE 10/03/2023 LIVER PROFILE 10/04/2024 LIVER PROFILE 01/08/2025 LIVER PROFILE 01/14/2019 LIVER PROFILE 03/10/2019 LIVER PROFILE 04/07/2020 LIVER PROFILE 04/08/2021 LIVER PROFILE 05/28/2021 LIVER PROFILE 05/09/2022 LIVER PROFILE 05/03/2023 LIVER PROFILE 05/01/2019 LIVER PROFILE 11/30/2022 LIVER PROFILE 09/09/2015 LIVER PROFILE 04/12/2017 LIVER PROFILE 07/18/2014 LIVER PROFILE 08/25/2016 LIVER PROFILE 11/08/2016 LIVER PROFILE 07/08/2018 LIVER PROFILE 10/07/2018 IRON + IBC (FE) 12/18/2024 IRON + IBC (FE) 03/12/2020 FERRITIN 03/12/2020 CRP 08/21/2023 CRP 11/30/2022 VITAMIN B12 AND FOLATE 12/18/2024 VITAMIN B12 AND FOLATE 03/12/2020 CBC w DIFF 04/07/2020 CBC w DIFF 04/08/2021 CBC w DIFF 05/03/2023 CBC w DIFF 05/09/2022 CBC w DIFF 05/28/2021 CBC w DIFF 08/21/2023 CBC w DIFF 10/03/2023 CBC w DIFF 10/07/2018 CBC w DIFF 01/08/2025 CBC w DIFF 10/04/2024 CBC w DIFF 07/18/2014 CBC w DIFF 08/25/2016 CBC w DIFF 01/14/2019 CBC w DIFF 11/08/2016 CBC w DIFF 07/08/2018 CBC w DIFF 11/30/2022 CBC w DIFF 05/01/2019 CBC w DIFF 04/12/2017 CBC w DIFF 09/09/2015 SED RATE (ESR) 11/30/2022 SED RATE (ESR) 08/21/2023 PROMETHEUS THIOPURINE METABOLITES (TPMT) 01/14/2019 PROMETHEUS THIOPURINE METABOLITES (TPMT) 05/18/2016 PROMETHEUS THIOPURINE METABOLITES (TPMT) 11/28/2018 PROMETHEUS THIOPURINE METABOLITES (TPMT) 11/08/2016 PROMETHEUS THIOPURINE METABOLITES (TPMT) 07/08/2018 PROMETHEUS THIOPURINE METABOLITES (TPMT) 10/07/2018 PROMETHEUS THIOPURINE METABOLITES (TPMT) 08/25/2016 PROMETHEUS TPMT ENZYME 05/18/2016 PROMETHEUS TPMT GENETICS 05/18/2016 STOOL WBC 11/30/2022 STOOL WBC 08/21/2023 C DIFFICILE RFLX PCR 08/21/2023 C DIFFICILE RFLX PCR 11/30/2022 Complete Blood Count Auto Diff Complete Blood Count Auto Diff Liver Panel 08/05/2025 Liver Panel 07/07/2025 Liver Panel 10/04/2024 Ferritin 01/03/2025 Ferritin 12/18/2024 Calprotectin, Fecal 08/21/2023 GI PANEL 08/21/2023 Future Test Test Name Order Date COLONOSCOPY 12/18/2019 UPPER GI ENDOSCOPY 04/09/2020 Insurance Providers Payer Name Payer Address Payer Phone Subscriber Number Group Number Insured Name Patient Relationship to Insured Coverage Start Date Coverage End Date MEDICARE OF [employer] [address] [place] [address] [phone] [id number] MONIK SORIA Self - patient is the insured [address] [place] [address] [id number] MONIK SORIA Self - patient is the insured Medical (General) History Medical History History ICD Code Denies [place],DM,CVA,Lung disease,renal dise ase Crohn's disease of the [...]
--- OUTSIDE RECORDS SUMMARY | 2025-08-05 15:20 | XMS_ITS | Encounter Summary ---
Author Organization [facility] Address [address] [place] [address] Care Team Providers Care Manager User Experience Name Role Phone Naldo Mojica MD Primary Care Provider Encounter Details Date Type Department Care Team (Latest Contact Info) Description 05/27/2025 Lab Requisition [facility] - Main Lab [address] [facility] [place] [address] Katherine Macdonald MD [address] [facility] [address] [place] [address] Encounter for gynecological examination (general) [...] lesion or malignancy 06/04/2025 1:25 PM EDT [facility] at 1325 EDT General Categorization Negative 06/04/2025 1:25 PM EDT [facility] Other Findings Atrophy 06/04/2025 1:25 PM EDT [facility] Specimen Adequacy Satisfactory for evaluation 06/04/2025 1:25 PM EDT [facility] Pap Methodology Liquid Based Pap Test 06/04/2025 1:25 PM EDT [facility] Disclaimer The Pap test is a screening test which carries an inherent false negative rate. These test results should be correlated with the patient's clinical findings and history. This Pap test was processed using an automated screening system. Technical cytopathology services provided by [facility], at [address] [place] [address] (CLIA # [id number]/Olga Cornelius MD, Tableau Analyst.) 06/04/2025 1:25 PM EDT [facility] Console Pap Interpretation Reported 06/04/2025 1:25 PM T [facility] Brushing/Spatula Cervix uteri structure / Unknown 05/26/2025 12:00 PM EDT 05/27/2025 6:44 AM EDT us Katherine Macdonald MD LAB CYTOLOGY ORDERABLES Final Result [facility] [address] [place] [address], documented in this encounter Visit Diagnoses Diagnosis Encounter for gynecological examination (general) (routine) without abnormal findings documented in this encounter Care Teams Manager User Experience Relationship Specialty Start Date End Date Naldo Mojica MD [address] [place] [address] PCP - General Internal Medicine 06/19/24 documented as of this encounter
--- OUTSIDE RECORDS SUMMARY | 2025-08-05 15:20 | XMS_ITS | Clinical Summary ---
Author Organization [facility] Address [address] [place] [address] Phone Care Team Providers Care Attic Blower Name Role Phone Naldo Mojica MD Primary Care Provider [phone] Encounters Date Type Department Care Team Description 06/27/2025 2:23 PM EST - 06/27/2025 11:59 PM EST Hospital Encounter [facility] [address] [place] [address] Encounter for screening mammogram for breast cancer Discharge Disposition: Home or Self Care 05/27/2025 Lab Requisition [facility] - Main Lab [address] [facility] [place] [address] Katherine Macdonald MD Encounter for gynecological examination (general) (routine) without abnormal findings from Last 3 Months Medical History Medical [...] gynecological examination (general) (routine) without abnormal findings from Last 3 Months Results * MG Mammo Digital Screening w Danie bilat (06/27/2025 2:52 PM EST) Anatomical Region Laterality Modality Breast Bilateral Mammography 06/27/2025 4:25 PM EST Impressions 06/28/2025 8:18 AM EST Benign. BI-RADS CATEGORY: 1 - NEGATIVE RECOMMENDATION: Screening bilateral mammogram is recommended in 1 year. Mammo Location: [facility], [address] [place] [address], [id number], . -------- FINAL REPORT -------- Dictated By: Zak Pugh Dictated Date: 06/27/2025 16:25 ET Assigned Physician: Zak Pugh Reviewed and Electronically Signed By: Zak Pugh Signed Date: 06/28/2025 08:18 ET Workstation ID: [id number] Transcribed By: Self Edit Transcribed Date: 06/27/2025 [...] year. Mammo Location: [facility], [address] [place] [address], [id number], . -------- FINAL REPORT -------- Dictated By: Zak Pugh Dictated Date: 06/27/2025 16:25 ET Assigned Physician: Zak Pugh Reviewed and Electronically Signed By: Zak Pugh Signed Date: 06/28/2025 08:18 ET Workstation ID: [id number] Transcribed By: Self Edit Transcribed Date: 06/27/2025 16:25 ET us Self Referral Sppl IMG BI PROCEDURES Final Resul t * Pap smear (05/26/2025 12:00 PM EDT) Interpretation Negative for intraepithelial lesion or malignancy 06/04/2025 1:25 PM EDT [facility] at 1325 EDT General Categorization Negative 06/04/2025 1:25 PM EDT [facility] Other Findings Atrophy 06/04/2025 1:25 PM EDT [facility] Specimen Adequacy Satisfactory for evaluation 06/04/2025 1:25 PM EDT [facility] Pap Methodology Liquid Based Pap Test 06/04/2025 1:25 PM EDT [facility] Disclaimer The Pap test is a screening test which carries an inherent false negative rate. These test results should be correlated with the patient's clinical findings and history. This Pap test was processed using an automated screening system. Technical cytopathology services provided by [facility], at [address] [place] [id number] (CLIA # [id number]/Olga Cornelius MD, Brake Lining Driller.) 06/04/2025 1:25 PM EDT [facility] Console Pap Interpretation Reported 06/04/2025 1:25 PM EDT [facility] Brushing/Spatula Cervix uteri structure / Unknown 05/26/2025 12:00 PM EDT 05/27/2025 6:44 AM EDT us Katherine Macdonald MD LAB CYTOLOGY ORDERABLES Final Result [facility] [address] [place] [address], from Last 3 Months Insurance [place] [address] Care Teams Attic Blower Relationship Specialty Start Date End Date Naldo Mojica MD [address] [place] [id number] PCP - General Internal Medicine 06/19/24
== END 2025-08-05 11:18 ==
LOC: HO.LABR 11:17
PROVIDERS: PCP Internal Medicine; Visit Provider Internal Medicine
DX: K50.012 Crohn's disease of small intestine with intestinal obstruction (principal)
CPT/HCPCS: 36415; 80076; 85025